=== PATIENT | male | born 1955 | race Caucasian/White ===

== ENCOUNTER 2024-05-02 21:52 | Inpatient (IN) | payer SELFPAY ==
[~2024-05-02] VITALS: Ht 172.7 cm; Wt 99.8 kg
--- NOTE | 2024-05-02 22:21 | ERN ---
ED Note History of Present Illness Stated Complaint: SOB, COUGH, DIFFICULTY SWALLOWING, WEAKNESS LE Chief Complaint: Multiple Complaints Time Seen by MD: 21:58 Time Seen by Midlevel: 21:58 Dictation: Mr. Mayo is a 68-year-old gentleman with history of recent mild stroke , atrial fibrillation, hypertension, hyperlipidemia, COPD, skin cancer (scalp closed), BPH, and urinary retention who was transported via EMS to the emergency department this evening for evaluation of cough. Patient states he was discharged this afternoon from [facility] where he had been admitted for approximately 10 days following mild stroke . He states that he has had congested cough, shortness of breath, and dysphasia. He states that he also has been I am unable to ambulate due to generalized weakness and worsening of his chronic lower back pain. He states that he did not receive physical therapy while in hospital and rehab was not an option . He also states that he had a Jung catheter placed proximally 7-10 days ago for urinary retention and at remains in place. He states he thinks he may have a low-grade fever as well as chills. He denies having any chest pain, palpitations, edema, abdominal pain, nausea, vomiting, diarrhea, headache, visual disturbance, focal weakness/paresthesia, or dizziness. ADDENDUM: He also expresses the following social concerns: He states he has a lack of his insurance coverage, he is having issues with his roommate, and he is worried about the care of his little dog Allergies: Coded Allergies: Penicillins (Verified Allergy, 03/08/13) Emergency Care COUNSELOR AIDE: IV, Oxygen Past Medical History Past Medical History: A-Fib, COPD, CVA, Diabetes-Type II, High Cholesterol, Hypertension Additional Past Medical Hx: BPH, SKIN CANCER, CHRONIC BACK PAIN, LUMBAR STENOSIS Surgical History: Tonsillectomy Social History: Other (Lives with a roommate) RN Note Reviewed/Agreed w/PFSH: Yes Review of System Dictation REVIEW OF SYSTEMS: CONSTITUTIONAL: Patient denies sweats and weight changes. Reports fever, chi lls, fatigue, general weakness EYES: Patient denies any visual symptoms. EARS, NOSE, AND THROAT: No difficulties with hearing. No symptoms of rhinitis or sore throat. CARDIOVASCULAR: Patient denies chest pains, palpitations, orthopnea and paroxys mal nocturnal dyspnea. RESPIRATORY: No dyspnea on exertion, no wheezing reports shortness of breath and cough GI: No nausea, vomiting, diarrhea, constipation, abdominal pain, hematochezia or melena. : Reports having urinary retention. States he has had a Jung catheter in place for approximately 10 days. MUSCULOSKELETAL: Reports worsening of low back pain, chronic. States he is unable to ambulate. NEUROLOGIC: No chronic headaches, no seizures. Patient denies numbness, tingling or weakness. Reports difficulty swallowing PSYCHIATRIC: Patient denies problems with mood disturbance. No problems with anxiety. ENDOCRINE: No excessive urination or excessive thirst. DERMATOLOGIC: Patient denies any rashes or skin changes. Initial Vital Sign VS Vital Signs Date Time Temp Pulse Resp B/P (MAP) Pulse Ox O2 Delivery O2 Flow Rate FiO2 05/02/24 21:54 99.9 92 20 120/71 98 Nasal Cannula* 2 28 Physical Exam Dictation Vital signs: Reviewed. afebrile. Constitutional: No acute distress. Non-toxic appearing. Head/Face: Normocephalic, atraumatic. Eyes: Periorbital areas with no swelling, redness, or edema. Lids and lashes are normal. Conjunctival injection is absent. Sclera anicteric. Pupils equal, round, reactive to light. ENT: Pinnas intact and no signs of trauma or erythema. Ear canals clear and no discharge. TMs no erythema. No nasal discharge or bleeding noted. Oropharynx with no exudate, redness, swelling, masses, exudates, or evidence of obstruction. Uvula midline. Mucous membranes dry Neck: Trachea midline, no masses palpated, and no cervical lymphadenopathy. No swelling. Supple, full range of motion. Chest/Axilla: No tenderness, no crepitus, no paradoxical movement, no retractions. Cardiovascular: Irregular rate, regular rhythm, no murmur, no gallops. Symmetric pulses. No peripheral edema. Twelve lead EKG reflects an atrial fibrillation with ventricular rate 97 Respiratory: Tachypneic; RR 22. Lung sounds with crackles right lower lobe. Congested cough noted. Room air SpO2 95% Gastrointestinal: Inspection is normal. No distention is appreciated. Bowel sounds are normal. No mass or organomegaly . There is no tenderness. No rebound. No rigidity. No voluntary or involuntary guarding. No Galvin's sign. Neurological: Normal speech, gross motor function intact, gross sensory function intact. No focal weakness/Paresthesia. Musculoskeletal/Extremities: All extremities have full range of motion, no pain or tenderness on palpation. Symmetric pulses. LE weakness bilaterally 2/5; UE 5/5 Integumentary: Scalp lesions (see photos); hx skin cancer. Skin is pale, warm and dry. Cap refill less than 3 seconds. Results (Laboratory/Radiology) Laboratory/Radiology Laboratory Tests Test 05/02/24 22:29 05/02/24 22:54 05/02/24 23:44 White Blood Count 16.4 K/uL (4.8-10.8) H Red Blood Count 4.65 MIL/uL (4.50-6.20) Hemoglobin 13.3 g/dL (14.0-18.0) L Hematocrit 41.1 % (42-54) L Mean Corpuscular Volume 88.4 fL (79-99) Mean Corpuscular Hemoglobin 28.6 pg (27.0-33.0) Mean Corpuscular Hemoglobin Concent 32.4 g/dL (32.0-36.0) Red Cell Distribution Width 15.1 % (11.0-15.5) Platelet Count 260 K/uL (130-400) Mean Platelet Volume 9.2 fL (7.5-10.5) Immature Granulocyte % (Auto) 0.7 % (0-1) Neutrophils (%) (Auto) 78.1 % (40.0-77.0) H Lymphocytes (%) (Auto) 9.4 % (21.0-51.0) L Monocytes (%) (Auto) 10.5 % (3.0-13.0) Eosinophils (%) (Auto) 0.8 % (0.0-8.0) Basophils (%) (Auto) 0.5 % (0.0-5.0) Neutrophils # (Auto) 12.8 K/uL (1.8-7.7) H Lymphocytes # (Auto) 1.5 K/uL (1.0-4.8) Monocytes # (Auto) 1.7 K/uL (0.1-1.0) H Eosinophils # (Auto) 0.13 K/uL (0.00-0.70) Basophils # (Auto) 0.08 K/uL (0.00-0.20) Absolute Immature Granulocyte (auto 0.12 K/uL (0-1) Nucleated Red Blood Cells 0.0 % (0.0-0.19) White Cell Morphology Comment See comments Sodium Level 132 mmol/L (136-145) L Potassium Level 5.4 mmol/L (3.5-5.1) H Chloride Level 95 mmol/L (101-111) L Carbon Dioxide Level 33 mmol/L (21-32) H Blood Urea Nitrogen 23 mg/dL (7-18) H Creatinine 0.8 mg/dL (0.5-1.3) Glomerular Filtration Rate Calc 95 mL/min (>90) Random Glucose 155 mg/dL (70-105) H Lactic Acid Level 1.9 mmol/L (0.8-2.5) Total Calcium 9.7 mg/dL (8.5-10.1) Total Bilirubin 0.5 mg/dL (0.2-1.0) Aspartate Amino Transf (AST/SGOT) 22 U/L (10-37) Alanine Aminotransferase (ALT/SGPT) 39 U/L (12-78) Alkaline Phosphatase 96 U/L (50-136) Troponin I High Sensitivity 6 ng/L (4-75) Total Protein 7.4 g/dL (6.0-8.3) Albumin 3.0 g/dL (3.5-5.0) L Urine Color YELLOW (YELLOW) Urine Appearance CLOUDY (CLEAR) H Urine pH 6.0 (5.0-8.0) Urine Specific Goodman 1.022 (1.001-1.031) Urine Protein 20 mg/dL (NEGATIVE) H Urine Glucose (UA) NEGATIVE mg/dL (NEGATIVE) Urine Ketones NEGATIVE mg/dL (NEGATIVE) Urine Occult Blood LARGE (NEGATIVE) H Urine Nitrate NEGATIVE (NEGATIVE) Urine Bilirubin NEGATIVE mg/dL (NEGATIVE) Urine Urobilinogen 2.0 mg/dL (0.2-1.0) H Urine Leukocyte Esterase NEGATIVE Gilberto/uL Blood Gas Specimen Type Arterial Arterial Blood pH 7.463 (7.350-7.450) Arterial Blood Partial Pressure CO2 32 mmHg (35-48) L Arterial Blood Partial Pressure O2 113.3 mmHg (83.0-108.0) H Arterial Blood HCO3 22.3 mmol/L (21.0-28.0) Arterial Blood Oxygen Saturation 98.2 % (94.0-98.0) H Arterial Blood Base Excess -0.6 mmol/L (-2.0-3.0) Hemoglobin (Blood Gas) 13.7 g/dL (13.5-17.5) Sodium (Blood Gas) 135 MMOL/L (136-145) L Bedside Potassium (Blood Gas) 4.4 MMOL/L (3.4-4.5) Bedside Chloride (Blood Gas) 100 MMOL/L (98-107) Bedside Glucose (Blood Gas) 139 MG/DL (65-95) H Bedside Ionized Calcium (Blood Gas) 1.24 MMOL/L (1.15-1.33) Bedside Lactic Acid (Blood Gas) 1.11 MMOL/L (0.36-0.75) H Blood Gas Temperature 37.0 CELSIUS (35.5-37.0) Blood Gas Flow-by 2.00 L/min (0.00-15.00) Blood Gas Vent Mode 2LNC (ROOM AIR) FiO2 28.0 % Blood Gas Specimen Comment RR RN Labs Reviewed?: Yes EKG Comment: EKG Interpretation: Time Reviewed: 2226 Ventricular rate: 97 bpm QRS duration: [address] segment elevation or depression. Clinical impression: Atrial fibrillation EKG Reviewed and interpreted by: Esvin Wu X-RAY Comment: PATIENT: DAYANA MAYO MR#: [id number] : 1955 SEX: M AGE: 68 LOCATION: [facility] ORDER 19 STATUS: [facility] REPORT#: [id number] SERVICE 15 REASON: cough, suspect aspiration ORDERING PHYSICIAN: JAVAD GALLO NP PROCEDURE: CXR1VW - CHEST 1VW CHEST 1VW HISTORY: Cough COMPARISON: 03/16/2013 FINDINGS: A frontal projection of the chest was obtained. Mild bilateral pulmonary infiltrates are seen may be related to mild pulmonary vascular congestion with possible superimposed pneumonitis. The heart is enlarged. Degenerative changes are seen. No evidence of aortic calcification is seen. IMPRESSION: 1. Mild bilateral pulmonary infiltrates are seen may be related to mild pulmonary vascular congestion with possible superimposed pneumonitis. DICTATED BY: GALE MIR MD DATE: 05/02/249 ELECTRONICALLY SIGNED BY: GALE MIR MD DATE: 05/02/24 2311 ED Course ED Course Orders Procedure Category Date Status Time Zosyn 3.375gm+Ns 50ml PHA 05/02/24 Complete (Zosyn 3.375gm+Ns 23:30 Hydromorphone 0.5mg PHA 05/02/24 Complete Syg (Dilaudid 0.5mg 22:30 Chest 1vw RAD 05/02/24 Resulted 22:16 Blood Cult CORINA 05/02/24 In Process 22:16 Cbc With Differential LAB 05/02/24 Complete 22:16 Comprehensive LAB 05/02/24 Complete Metabolic Panel 22:16 Urinalysis Profile LAB 05/02/24 In Process 22:16 Troponin I High LAB 05/02/24 Complete Sensitivity 22:16 Lactic Acid LAB 05/02/24 Complete 22:16 12 Lead Ekg Tracing- EKG 05/02/24 Logged Technical 22:21 B-Type Natriuretic LAB 05/02/24 In Process Peptide 23:11 D-Dimer LAB 05/02/24 In Process 23:11 Arterial Blood Gas + RT 05/02/24 Transmitted 23:14 Arterial Blood Gas LAB 05/02/24 Complete Arterial + 23:44 Current Medications Medications (Trade) Dose Ordered Sig/Beau Route PRN Reason Start Time Stop Time Status Last Admin Dose Admin Hydromorphone HCl (DiLAUDid 0.5MG INJ) 0.5 mg ONCE ONCE IVP 05/02/24 22:30 05/02/24 22:31 DC 05/02/24 23:23 Piperacillin Sod/ Tazobactam Sod (Zosyn 3.375gm+NS 50ml) 3.375 gm ONCE ONCE IV 05/02/24 23:30 05/02/24 23:38 DC Vital Signs Date Time Temp Pulse Resp B/P (MAP) Pulse Ox O2 Delivery O2 Flow Rate FiO2 05/02/24 22:24 99.9 77 20 123/58 97 Nasal Cannula* 2 28 05/02/24 21:56 99.9 92 20 120/71 98 Nasal Cannula 2.0 05/02/24 21:54 99.9 92 20 120/71 98 Nasal Cannula* 05 07 Vital signs remained stable. SpO2 maintain 97-98% with supplemental oxygen via nasal cannula at 2 liters/minute. Chest x-ray revealed mild bilateral infiltrates. Twelve lead EKG reflects atrial fibrillation (not new); ventricular rate [address] elevation or depression. He continues to complain congested cough and difficulty swallowing. Was administered dose Zosyn 3.375 g x 1 for suspected aspiration pneumonia. He received dose Dilaudid 0.5 x 1 for complains of low back pain. Laboratory findings as noted below. WBCs elevated at 16.4, H and H 13.3/41.1, Na/Cl 132/95, K 5.4, CO2 33, BUN 23, albumin three, and glucose 155. ABG on 2 L nasal cannula demonstrates a chronic respiratory alkalosis with secondary metabolic alkalosis: PH 7.463, pCO2 32, PO2 113.3, bicarb 22.3, and base excess -0.6. Findings were discussed with catalyst COLOR SPECIALIST Aleah who accepts patient for admission to the hospitalist service. Medical Decision Making MDM MDM: Differential diagnosis: HAP, aspiration pneumonia, Hypoxemia Rationale: Tests considered and ordered secondary to shared decision making include: labs, ECG and radiology Previous outside records reviewed: Old ER visits. Risk of complication and/or morbidity or mortality of patient management: None Medications-Per medication reconciliation Need for hospitalization: Patient does meet criteria for hospitalization. Need for emergency major/minor surgery: No There are no social concerns with this patient. Prescription drug management Prescriptions will include symptomatic care Patient's prior external medical records from other ER visits were reviewed by me as indicated. Prior testing and results from previous visits were reviewed. Prior tests were taken into account with medical decision making and resource utilization, independent historian/historians were used to obtain complete medical history. I independently interpreted the test that were performed, results were reviewed by me and considered findings on radiology if ordered. Medical management and examination interpretation discussions were had by me with other qualified healthcare professionals as indicated for the patient's care. DX & DISP Disposition: Inpatient Departure Impression: Primary Impression: Pneumonia, aspiration Additional Impressions: Dysphagia, Failure to thrive in adult, Hyperkalemia, Physical debility, Leukocytosis Condition: Stable Assign Patient to: Dr. Rachid Gómez Referrals: SELF,REFERRAL (PCP) JAVAD GALLO NP May 02, 2024 22:21
--- NOTE | 2024-05-02 22:24 | NUR ---
PT CARE ASSUMED AT THIS TIME
[2024-05-02 22:38] LABS: BASOPHILS # (AUTO) 0.08 K/uL (0.00-0.20); BASOPHILS % (AUTO) 0.5 % (0.0-5.0); EOSINOPHILS # (AUTO) 0.13 K/uL (0.00-0.70); EOSINOPHILS % (AUTO) 0.8 % (0.0-8.0); HEMATOCRIT 41.1 % (42-54); IMMATURE GRANULOCYTE ABSOLUTE 0.12 K/uL (0-1); LYMPHOCYTES # (AUTO) 1.5 K/uL (1.0-4.8); LYMPHOCYTES % (AUTO) 9.4 % (21.0-51.0); MEAN CORPUSCULAR HEMOGLOBIN 28.6 pg (27.0-33.0); MEAN CORPUSCULAR HGB CONC 32.4 g/dL (32.0-36.0); MEAN CORPUSCULAR VOLUME 88.4 fL (79-99); MONOCYTES # (AUTO) 1.7 K/uL (0.1-1.0); MONOCYTES % (AUTO) 10.5 % (3.0-13.0); NEUTROPHILS # (AUTO) 12.8 K/uL (1.8-7.7); NEUTROPHILS % (AUTO) 78.1 % (40.0-77.0); PLATELET COUNT (AUTO) 260 K/uL (130-400); RED BLOOD CELL COUNT(AUTO) 4.65 MIL/uL (4.50-6.20); RED CELL DISTRIBUTION WIDTH 15.1 % (11.0-15.5); WHITE BLOOD COUNT (AUTO) 16.4 K/uL (4.8-10.8)
[2024-05-02 22:51] LABS: CREATININE 0.8 mg/dL (0.5-1.3); POTASSIUM 5.4 mmol/L (3.5-5.1)
[2024-05-02 22:56] LABS: BILIRUBIN,TOTAL 0.5 mg/dL (0.2-1.0); TOTAL PROTEIN, SERUM 7.4 g/dL (6.0-8.3)
--- NOTE | 2024-05-02 23:11 | HMCIMG ---
CHEST 1VW HISTORY: Cough COMPARISON: 03/16/2013 FINDINGS: A frontal projection of the chest was obtained. Mild bilateral pulmonary infiltrates are seen may be related to mild pulmonary vascular congestion with possible superimposed pneumonitis. The heart is enlarged. Degenerative changes are seen. No evidence of aortic calcification is seen. IMPRESSION: 1. Mild bilateral pulmonary infiltrates are seen may be related to mild pulmonary vascular congestion with possible superimposed pneumonitis.
--- NOTE | 2024-05-02 23:17 | NUR ---
PAGED RT FOR BEDSIDE BLOOD GAS
[2024-05-02] MEDS: hydroMORPHone 0.5 MG SYG (0.5MG/0.5ML) IVP ONE (23:23)
[2024-05-02 23:44] LABS: APPEARANCE,URINE CLOUDY (CLEAR); BILIRUBIN,URINE NEGATIVE (NEGATIVE); COLOR,URINE YELLOW (YELLOW); GLUCOSE, URINE (UA) NEGATIVE (NEGATIVE); KETONES,URINE NEGATIVE (NEGATIVE); LEUKOCYTE ESTERASE ,URINE NEGATIVE Leu/uL (NEGATIVE); NITRATE,URINE NEGATIVE (NEGATIVE); OCCULT BLOOD,URINE LARGE (NEGATIVE); PROTEIN,URINE 20 mg/dL (NEGATIVE)
[2024-05-02 23:46] LABS: ABG BASE EXCESS -0.6 mmol/L (-2.0-3.0); ABG HCO3 22.3 mmol/L (21.0-28.0); ABG OXYGEN SATURATION 98.2 % (94.0-98.0); ABG PCO2 32 mmHg (35-48); ABG PH 7.463 (7.350-7.450); CARBON MONOXIDE 0.5 % (0.5-1.5); DEVICE COMMENT RR RN; HHb 1.8; PO2, ARTERIAL BG 113.3 mmHg (83.0-108.0); VENT MODE, BG 2LNC (ROOM AIR)
--- NOTE | 2024-05-02 23:47 | HP ---
[facility] HISTORY AND PHYSICAL Date of Service: May 02, 2024 Time of Service: 23:47 Attending/supervising physicians: Dr. Rodriguez, Dr. Yeyo Mercado, Dr. Osorio HISTORY OF PRESENT ILLNESS: Mr. Marshall is a 68-year-old male with history of recent mild stroke", atrial fibrillation, hypertension, hyperlipidemia, COPD, skin cancer (scalp closed), BPH, and urinary retention who presented [place] [facility] via EMS for evaluation of cough, dysphagia, shortness of breath, and general body weakness. The patient also reported he is unable to ambulate due to generalized weakness and worsening chronic back pain. Patient reported he was admitted at [facility] in [place], [place] where he experienced a CVA inpatient. The patient reported he was discharged and returned back to [facility] due to no improvement of symptoms. He was was discharged this afternoon again from [facility] [place] [facility] where he had been readmitted for approximately 10 days. He stated that he did not receive physical therapy while in hospital and rehab was not an option". He also stated that he had a Jung catheter placed proximally 7-10 days ago for urinary retention and it remains in place. He stated he thinks he may have a low-grade fever as well as chills. He denied having any chest pain, palpitations, edema, abdominal pain, nausea, vomiting, diarrhea, headache, visual disturbance, focal weakn ess/paresthesia, or dizziness. The patient reported that on his last admission to [facility] [place] [facility] the admitting hospitalist and development technician were not nice which prompted him to come to [facility] instead this time. Labs: WBCs elevated at 16.4, H and H 13.3/41.1, Na/Cl 132/95, K 5.4, CO2 33, BUN 23, albumin three, and glucose 155. ABG on 2 L nasal cannula: PH 7.463, pCO2 32, PO2 113.3, bicarb 22.3, and base excess -0.6. EKG: Atrial fibrillation, heart rate 97 beats per minute. Chest x-ray: Mild bilateral pulmonary infiltrates are seen may be related to mild pulmonary vascular congestion with possible superimposed pneumonitis. In ED the patient continue to complain congestion, cough, and difficulty swallowing. In ED the patient was administered dose Zosyn 3.375 g x 1 for bledsoe spected aspiration pneumonia. He received dose Dilaudid 0.5 Mg x 1 dose for complains of low back pain. ED provider request patient be admitted with the diagnosis of suspected aspiration pneumonia, dysphagia, failure to thrive in adult, hyperkalemia, physical debility, leukocytosis. I went to assess the patient at bedside. The patient appeared chronically ill, breathing was even and unlabored, in no distress. Patient was conversive, answered appropriately. I informed patient of labs, diagnostics, and plan of care. The patient verbalized understanding and is in agreement with the plan. Plan and assessment are listed below. REVIEW OF SYSTEMS 12-point ROS reviewed with patient. All pertinent positives mentioned above. Otherwise negative, noncontributory, or non-pertinent. PAST MEDICAL HISTORY: As mentioned above PAST SURGICAL HISTORY: Tonsillectomy PAST SOCIAL HISTORY: Denies tobacco, alcohol use, illicit drug use. Lives with roommate. FAMILY HISTORY: Noncontributory Coded Allergies: Penicillins (Verified Allergy, 03/08/13) PHYSICAL EXAM GENERAL APPEARANCE: The patient is awake, alert, and oriented, in no acute cardiopulmonary distress. NEUROLOGICAL: Cranial nerves II-XII grossly intact. Motor is 5/5 in bilateral upper and lower extremities proximal to distal. No sensory deficits. HEENT: Face is symmetric. Pupils are equal and reactive. Extraocular movements are intact. NECK: Supple. No JVD. No thyromegaly. No submental, submandibular, pre- /postauricular, occipital or supraclavicular lymphadenopathy. CHEST: Normal chest expansion. No Telemetry. LUNGS: Absence of any rales, rhonchi or any wheezing. CARDIOVASCULAR: Regular. S1 and S2 normal. No appreciable rubs, murmurs or g allops. ABDOMEN: Soft, nontender, and nondistended. There is no rebound, voluntary gua rding, or rigidity. : Deferred. No Jung. EXTREMITIES: Non-edematous and not cyanotic. No clubbing. Good capillary refill. SKIN: No skin breakdown. Vital Sign (Last 24 Hours) 05/02/24 22:24 Temp 99.9 Pulse 77 Resp 20 B/P (MAP) 123/58 Pulse Ox 97 O2 Delivery Nasal Cannula* O2 Flow Rate 2 FiO2 28 LABS: Laboratory: Test 05/02/24 23:44 05/02/24 22:29 Range/Units Blood Gas Specimen Type Arterial Arterial Blood pH 7.463 H 7.350-7.450 Arterial Blood Partial Pressure CO2 32 L 35-48 mmHg Arterial Blood Partial Pressure O2 113.3 H 83.0-108.0 mmHg Arterial Blood HCO3 22.3 21.0-28.0 mmol/L Arterial Blood Oxygen Saturation 98.2 H 94.0-98.0 % Arterial Blood Base Excess -0.6 -2.0-3.0 mmol/L Hemoglobin (Blood Gas) 13.7 13.5-17.5 g/dL Sodium (Blood Gas) 135 L 136-145 MMOL/L Bedside Potassium (Blood Gas) 4.4 3.4-4.5 MMOL/L Bedside Chloride (Blood Gas) 100 98-107 MMOL/L Bedside Glucose (Blood Gas) 139 H 65-95 MG/DL Bedside Ionized Calcium (Blood Gas) 1.24 1.15-1.33 MMOL/L Bedside Lactic Acid (Blood Gas) 1.11 H 0.36-0.75 MMOL/L Blood Gas Temperature 37.0 35.5-37.0 CELSIUS Blood Gas Flow-by 2.00 0.00-15.00 L/min Blood Gas Vent Mode 2LNC ROOM AIR FiO2 28.0 % Blood Gas Specimen Comment RR RN White Blood Count 16.4 H 4.8-10.8 K/uL Red Blood Count 4.65 4.50-6.20 MIL/uL Hemoglobin 13.3 L 14.0-18.0 g/dL Hematocrit 41.1 L 42-54 % Mean Corpuscular Volume 88.4 79-99 fL Mean Corpuscular Hemoglobin 28.6 27.0-33.0 pg Mean Corpuscular Hemoglobin Concent 32.4 32.0-36.0 g/dL Red Cell Distribution Width 15.1 11.0-15.5 % Platelet Count 260 130-400 K/uL Mean Platelet Volume 9.2 7.5-10.5 fL Immature Granulocyte % (Auto) 0.7 0-1 % Neutrophils (%) (Auto) 78.1 H 40.0-77.0 % Lymphocytes (%) (Auto) 9.4 L 21.0-51.0 % Monocytes (%) (Auto) 10.5 3.0-13.0 % Eosinophils (%) (Auto) 0.8 0.0-8.0 % Basophils (%) (Auto) 0.5 0.0-5.0 % Neutrophils # (Auto) 12.8 H 1.8-7.7 K/uL Lymphocytes # (Auto) 1.5 1.0-4.8 K/uL Monocytes # (Auto) 1.7 H 0.1-1.0 K/uL Eosinophils # (Auto) 0.13 0.00-0.70 K/uL Basophils # (Auto) 0.08 0.00-0.20 K/uL Absolute Immature Granulocyte (auto 0.12 0-1 K/uL Nucleated Red Blood Cells 0.0 0.0-0.19 % White Cell Morphology Comment See comments Sodium Level 132 L 136-145 mmol/L Potassium Level 5.4 H 3.5-5.1 mmol/L Chloride Level 95 L 101-111 mmol/L Carbon Dioxide Level 33 H 21-32 mmol/L Blood Urea Nitrogen 23 H 7-18 mg/dL Creatinine 0.8 0.5-1.3 mg/dL Glomerular Filtration Rate Calc 95 >90 mL/min Random Glucose 155 H 70-105 mg/dL Lactic Acid Level 1.9 0.8-2.5 mmol/L Total Calcium 9.7 8.5-10.1 mg/dL Total Bilirubin 0.5 0.2-1.0 mg/dL Aspartate Amino Transf (AST/SGOT) 22 10-37 U/L Alanine Aminotransferase (ALT/SGPT) 39 12-78 U/L Alkaline Phosphatase 96 50-136 U/L Troponin I High Sensitivity 6 4-75 ng/L Total Protein 7.4 6.0-8.3 g/dL Albumin 3.0 L 3.5-5.0 g/dL DIAGNOSTICS / RADIOLOGY: [ ] ASSESSMENT: Pneumonia, (suspected aspiration pneumonia), POA Elevated D-dimer, PE was ruled out, rule out DVT Dysphagia, POA Failure to thrive, POA Debility/frailty/general body weakness, POA Hematuria, POA, Jung catheter in place TENDERIZER TENDER Atrial fibrillation, 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 Obesity, BMI 38.0. Chronic problem list: AFib, hypertension, hyperlipidemia, COPD, skin cancer to scalp, BPH, urinary retention s/p Jung placement about 7-10 days ago at [facility] [place] [facility]. PLAN: Admit to medical telemetry floor with continue telemetry monitoring. Monitor respiratory status closely. Oxygen as needed to keep SpO2 equal greater than 92%. Albuterol p.r.n. shortness of breath. Atrovent nebulizer treatments scheduled q.6 hours. RT to provide IS and education on use. Cough and deep breathe q.2 hours. Obtain sputum cultures. Follow blood cultures. Start antibiotic therapy: Zosyn IV Deescalate antibiotics when appropriate. Start physical therapy as inpatient. Consult case management for SNF placement for physical therapy. Modified swallow test. Trop and EKG series Echo in am. Strict I&O. Fluid restriction 1,200 mls. P.r.n. medications for: Pain management, fever, hypertension, nausea, vomiting, constipation. Glucometer checks a.c. and HS with insulin regular sliding scale. Blood pressure checks every4 hours and as needed. Reconcile home medications once provided. Monitor renal and liver function. Monitor electrolytes and treat accordingly. A.m. labs: CBC, BNP, Mag, phos, TSH, A1c, procal. GI and DVT prophylaxis. Pending venous Doppler and arterial Doppler results. Further orders per hospitalization course. ADVANCED CARE PLANNING 1. Which of the following were discussed? Hospice Care - No Therapeutic options - Yes Advance Directives - Yes Other discussions - 2. Discussed with who? Patient 3. Voluntary nature of this service was explained to the patient? Yes 4. Amount of time spent - __Over 30 minutes 5. Reviewed by Physician? (if this service was performed by [facility]) Yes ATTESTATION BY PHYSICIAN I have seen and examined the patient. I reviewed the documentation, medical decision making, and treatment plan as noted by the advanced practice provider above. I agree with the findings and plan of care. DEMOND HOGAN May 02, 2024 23:47
[2024-05-02 23:48] LABS: ADD UA MICROSCOPIC YES
[2024-05-02 23:53] LABS: RBC,URINE TNTC /HPF (0-1)
[2024-05-03] VITALS (10 sets, daily range): BP systolic 104–131; BP diastolic 63–73; PULSE 67–102; RESP 18–20; TEMP 97.6–98.2; O2SAT 95–100
[2024-05-03] MEDS: ZOSYN 3.375GM +NS 50ML IV ONE (00:01)
--- NOTE | 2024-05-03 00:15 | NUR ---
PT PLACED IN ED ROOM 2 AT THIS TIME
[2024-05-03] MEDS ORDERED: IOHEXOL 350 MG/ML 100ML INFUS..BTL IV ONE (00:40)
[2024-05-03] MEDS ORDERED: ondanSETRON 4MG INJ IVP PRN (01:00)
[2024-05-03] MEDS ORDERED: hydrALAZine 20MG/ML VIAL IV PRN (01:00)
[2024-05-03] MEDS ORDERED: acetaMINOPHEN 650 MG SUPPOSITORY RC PRN (01:00)
--- NOTE | 2024-05-03 01:40 | HMCIMG ---
CT CHEST PE PROTOCOL WWO CONT HISTORY: Shortness of breath COMPARISON: 03/14/2013 TECHNIQUE: CT angiography of the chest was performed. The study was performed using angiographic technique with maximum intensity projection reconstruction images. Patient was given shortness of breath cc of Omnipaque through intravenous route. FINDINGS: Thyroid gland is enlarged may be related to goiter. No CT evidence of filling defect is seen to suggest pulmonary embolus. No CT evidence of aortic dissection is seen. Minimal left lower lung pulmonary infiltrates are seen. No CT evidence of pleural effusion or pericardial effusion is seen. The heart is enlarged. Coronary arterial calcifications are seen. No evidence of adrenal mass is seen. Degenerative changes of the spine are noted. IMPRESSION: 1. No CT evidence of acute pulmonary embolus is seen. Minimal left lower lung pulmonary infiltrates. CT was performed with one or more following dose reduction techniques: automated exposure control, adjustment of the mA and kv according to patient's size, or use of a iterative reconstruction technique.
--- NOTE | 2024-05-03 01:47 | NUR ---
REPORT GIVEN TO CHLOE DAVIES AT THIS TIME
[2024-05-03 02:24] LABS: SARS-CoV-2, RNA, NAAT NEGATIVE SARS CoV-2 (NEGATIVE)
[2024-05-03 02:28] LABS: INFLUENZA TYPE A Negative For Type A (NEGATIVE); INFLUENZA TYPE B Negative For Type B (NEGATIVE)
[2024-05-03] MEDS: APIXaban 5 MG TABLET PO ONE ×2 (04:00→16:21)
[2024-05-03] MEDS: INSULIN humuLIN R 100 UNIT/ML 3ML SQ SCH (05:47)
[2024-05-03] MEDS: HYDROcodone/APAP 5/325 1 TAB TABLET PO PRN (05:50)
[2024-05-03] MEDS: IpraTROPium 0.5 MG/2.5 ML INH IH SCH (06:36)
[2024-05-03] MEDS: SODIUM CHLORIDE 3% FOR INHALATION 4 ML/AMP VIAL.NEB IH ONE ×3 (06:58→19:17)
--- NOTE | 2024-05-03 07:06 | EKG ---
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
--- NOTE | 2024-05-03 07:20 | NUR ---
ADMITTING PAGED TO REPORT V\S CHANGES
[2024-05-03] MEDS ORDERED: 0.9%NACL 50ML IV SCH (07:30)
[2024-05-03] MEDS: ZOSYN 3.375GM +NS 50ML IVPB SCH (08:11)
[2024-05-03 08:14] LABS: HEMATOCRIT 40.8 % (42-54); MEAN CORPUSCULAR HEMOGLOBIN 28.6 pg (27.0-33.0); MEAN CORPUSCULAR HGB CONC 32.1 g/dL (32.0-36.0); MEAN CORPUSCULAR VOLUME 89.1 fL (79-99); RED BLOOD CELL COUNT(AUTO) 4.58 MIL/uL (4.50-6.20); RED CELL DISTRIBUTION WIDTH 15.2 % (11.0-15.5); WHITE BLOOD COUNT (AUTO) 12.3 K/uL (4.8-10.8)
[2024-05-03 08:21] LABS: HEMOGLOBIN A1C 6.7 % (4.0-6.0)
--- NOTE | 2024-05-03 08:27 | NUR ---
APS CALL RECEIVED. Addendum: 05/03/24 at 0845 by [email or web address] APS KIM) CALLED SN REGARDING PATIENT STATUS AND ADMISSION.
[2024-05-03 08:59] LABS: ALBUMIN 2.8 g/dL (3.5-5.0); BILIRUBIN,TOTAL 0.8 mg/dL (0.2-1.0); CREATININE 0.8 mg/dL (0.5-1.3); MAGNESIUM 1.9 mg/dL (1.80-2.40); PHOSPHORUS 3.7 mg/dL (2.5-4.9); POTASSIUM 4.7 mmol/L (3.5-5.1); THYROID STIMULATING HORMONE 0.97 uIU/mL (0.36-3.74)
[2024-05-03] MEDS: 0.9%NACL 1000ML 1,000 ML IV SCH (10:00)
[2024-05-03] MEDS ORDERED: NOREPINEPHRIN 4MG/NS 250ML 250 ML IV SCH (10:00)
[2024-05-03] MEDS: 0.9%NACL 1000ML 1,368 ML IV ONE (10:06)
[2024-05-03] MEDS: NOREPINEPHRIN 4MG/NS 250ML 250 ML IV ONE (10:07)
[2024-05-03] MEDS: DOXYCYCLINE 100MG+NS 250ML 250 ML IV SCH (10:12)
--- NOTE | 2024-05-03 10:30 | HMCIMG ---
US VENOUS DOPPLER BILATERAL HISTORY: Elevated d-dimer COMPARISON: None TECHNIQUE: Bilateral lower extremity venous Doppler ultrasound study was performed. FINDINGS: The common femoral, femoral, popliteal, and posterior tibial veins are visualized. Normal flow with augmentation and compressibilities are demonstrated. The greater saphenous veins are also seen and grossly patent. IMPRESSION: 1. No evidence of deep venous thrombosis is seen.
--- NOTE | 2024-05-03 10:30 | HMCIMG ---
US ARTERIAL BILAT LOW EXT DUPL HISTORY: Cold right lower extremity COMPARISON: None TECHNIQUE: Bilateral lower extremity arterial Doppler ultrasound study was performed. FINDINGS: Normal triphasic arterial waveforms are noted in the common femoral, deep femoral, superficial femoral, popliteal, posterior tibial and dorsalis pedal arteries. On the right, the peak systolic velocity of the common femoral artery is 131 cm/s, the proximal femoral artery is 72 cm/s, the mid femoral artery is 48 cm/s, the distal femoral artery is 59 cm/s, the proximal popliteal artery is 44 cm/s, the distal popliteal artery is 73 cm/s, the anterior tibial artery is 34 cm/s, the posterior tibial artery artery is 69 cm/s,and the dorsalis pedal artery is 65 cm/s. On the left, the peak systolic velocity of the common femoral artery is 125 cm/s, the proximal femoral artery is 89 cm/s, the mid femoral artery is 45 cm/s, the distal femoral artery is 75 cm/s, the proximal popliteal artery is 78 cm/s, the distal popliteal artery is 64 cm/s, the anterior tibial artery is 100 cm/s, the posterior tibial artery artery is 90 cm/s,and the dorsalis pedal artery is 86 cm/s. IMPRESSION: 1. Atherosclerotic disease. 2. Otherwise normal triphasic arterial waveforms noted of the lower extremity artery system.
--- NOTE | 2024-05-03 11:27 | NUR ---
DCP Patient states lives with a roommate that is "no help;" Ginna Shaffer, Friend [phone] is a family friend and neighbor that assists with transportation or in case of an emergency. live in a house own by his parent's, it has a walk in shower with a bench. Physical address: [address], [address]. States he is retired, remains independent and does not drive. [facility] ADL's are some assist. States he has a cane, an old walker with a seat "needs replacing." Referred him to PCP for prescription but [facility] in [place] closed and has not found a PCP. Denies home health services, home care provider or dialysis. PCP - None Pharmacy - [facility]. Upon discharge, Ginna Shaffer, Friend [phone] will help with transportation, if not her, "I can find someone." Per Sita JAUREGUI RN, [facility] Ritu FIGUEREDO contacted her to ask questions about patient and admission. [facility] patient lesion on the head is due to lesion removal and was being treated by [facility]. In her opinion, lesion seems dry and untreated. Notified GISELLE Gonzales. Addendum: 05/03/24 at 1140 by JIM JEAN RN CM Amended: Links added.
[2024-05-03] MEDS ORDERED: PoTASSium chloRIDE 20MEQ/100ML 100 ML IV PRN (13:30)
--- NOTE | 2024-05-03 13:36 | PN ---
[facility] PROGRESS NOTE Date of Service: May 03, 2024 Time of Service: 13:35 SUBJECTIVE: Mr. Mayo is a 68-year-old male with history of recent mild stroke", atrial fibrillation, hypertension, hyperlipidemia, COPD, skin cancer (scalp closed), BPH, and urinary retention who presented to [facility] via EMS for evaluation of cough, dysphagia, shortness of breath, and general body weakness. The patient also reported he is unable to ambulate due to generalized weakness and worsening chronic back pain. Patient reported he was admitted at [facility] in [place], [place] where he experienced a CVA inpatient. The patient reported he was discharged and returned back to [facility] due to no improvement of symptoms. He was was discharged this a fternoon again from [facility] where he had been readmitted for approximately 10 days. He stated that he did not receive physical therapy while in hospital and rehab was not an option". He also stated that he had a Jung catheter placed proximally 7-10 days ago for urinary retention and it remains in place. He stated he thinks he may have a low-grade fever as well as chills. He denied having any chest pain, palpitations, edema, abdominal pain, nausea, vomiting, diarrhea, headache, visual disturbance, focal weakness/paresthesia, or dizziness. The patient reported that on his last admission to [facility] the admitting hospitalist and community services coordinator were not nice which prompted him to come to [facility] instead this time. Labs: WBCs elevated at 16.4, H and H 13.3/41.1, Na/Cl 132/95, K 5.4, CO2 33, BUN 23, albumin three, and glucose 155. ABG on 2 L nasal cannula: PH 7.463, pCO2 32, PO2 113.3, bicarb 22.3, and base excess -0.6. EKG: Atrial fibrillation, heart rate 97 beats per minute. Chest x-ray: Mild bilateral pulmonary infiltrates are seen may be related to mild pulmonary vascular congestion with possible superimposed pneumonitis. In ED the patient continue to complain congestion, cough, and difficulty swallowing. In ED the patient was administered dose Zosyn 3.375 g x 1 for suspected aspiration pneumonia. He received dose Dilaudid 0.5 Mg x 1 dose for complains of low back pain. ED provider request patient be admitted with the diagnosis of suspected aspiration pneumonia, dysphagia, failure to thrive in adult, hyperkalemia, physical debility, leukocytosis. I went to assess the patient at bedside. The patient appeared chronically ill, breathing was even and unlabored, in no distress. Patient was conversive, answered appropriately. I informed patient of labs, diagnostics, and plan of care. The patient verbalized understanding and is in agreement with the plan. Plan and assessment are listed below. May 03, 2024 The patient was examined at the bedside. His shortness of breath slightly impr kaylin with oxygen saturation of PaO2 of 99% on nasal cannula 2.0. Patient had low MEP a and his blood pressure is at 79 /43 which was improved to 100 x 60 after an IV NS bolus at 30 cc kg per body weight. Evaluating further causes of his chest pain, his WBC count remains elevated at at 12.4 And no overnight events reported. monitoring him and treating him for pneumonia. Pulmonary embolism ruled out due to a negative chest CT scan and a negative ultrasound venous Doppler scan. REVIEW OF SYSTEMS 12-point ROS reviewed with patient. All pertinent positives mentioned above. Otherwise negative, noncontributory, or non-pertinent. PHYSICAL EXAM GENERAL APPEARANCE: The patient is awake, alert, and oriented, in no acute cardiopulmonary distress. NEUROLOGICAL: Cranial nerves II-XII grossly intact. Motor is 5/5 in bilateral upper and lower extremities proximal to distal. No sensory deficits. HEENT: Face is symmetric. Pupils are equal and reactive. Extraocular movements are intact. NECK: Supple. No JVD. No thyromegaly. No submental, submandibular, pre-/postauricular, occipital or supraclavicular lymphadenopathy. CHEST: Normal chest expansion. No Telemetry. LUNGS: Absence of any rales, rhonchi or any wheezing. CARDIOVASCULAR: Regular. S1 and S2 normal. No appreciable rubs, murmurs or gallops. ABDOMEN: Soft, nontender, and nondistended. There is no rebound, voluntary guarding, or rigidity. : Deferred. No Jung. EXTREMITIES: Non-edematous and not cyanotic. No clubbing. Good capillary refill. SKIN: No skin breakdown. Vital Signs (last 8hr) Date Time Temp Pulse Resp B/P (MAP) Pulse Ox O2 Delivery O2 Flow Rate FiO2 05/03/24 12:11 100 20 05/03/24 08:00 95 15 98/58 100 Nasal Cannula* 2.0 N/A 05/03/24 07:20 98.1 95 16 100/60 99 Nasal Cannula* 2.0 N/A 05/03/24 06:41 85 20 05/03/24 06:41 85 20 N/Cannula Low lpm 2.0 LABS: Laboratory: Test 05/03/24 12:40 05/03/24 10:13 05/03/24 07:43 05/03/24 02:00 Range/Units Whole Blood Glucose 80 70-110 MG/DL Lactic Acid Level 1.2 0.8-2.5 mmol/L B-Type Natriuretic Peptide 83 0-100 pg/mL Procalcitonin 0.78 H 0.05-0.5 ng/mL White Blood Count 12.3 H 4.8-10.8 K/uL Red Blood Count 4.58 4.50-6.20 MIL/uL Hemoglobin 13.1 L 14.0-18.0 g/dL Hematocrit 40.8 L 42-54 % Mean Corpuscular Volume 89.1 79-99 fL Mean Corpuscular Hemoglobin 28.6 27.0-33.0 pg Mean Corpuscular Hemoglobin Concent 32.1 32.0-36.0 g/dL Red Cell Distribution Width 15.2 11.0-15.5 % Platelet Count 253 130-400 K/uL Mean Platelet Volume 9.4 7.5-10.5 fL Nucleated Red Blood Cells 0.0 0.0-0.19 % Sodium Level 132 L 136-145 mmol/L Potassium Level 4.7 3.5-5.1 mmol/L Chloride Level 100 L 101-111 mmol/L Carbon Dioxide Level 32 21-32 mmol/L Blood Urea Nitrogen 17 7-18 mg/dL Creatinine 0.8 0.5-1.3 mg/dL Glomerular Filtration Rate Calc 95 >90 mL/min Random Glucose 126 H 70-105 mg/dL Hemoglobin A1c 6.7 H 4.0-6.0 % Estimated Average Glucose (eAG) 146 H 70-126 mg/dL Total Calcium 9.5 8.5-10.1 mg/dL Phosphorus Level 3.7 2.5-4.9 mg/dL Magnesium Level 1.90 1.80-2.40 mg/dL Total Bilirubin 0.8 # 0.2-1.0 mg/dL Aspartate Amino Transf (AST/SGOT) 20 10-37 U/L Alanine Aminotransferase (ALT/SGPT) 35 12-78 U/L Alkaline Phosphatase 91 50-136 U/L Troponin I High Sensitivity 7 4-75 ng/L Total Protein 7.0 6.0-8.3 g/dL Albumin 2.8 L 3.5-5.0 g/dL Thyroid Stimulating Hormone (TSH) 0.97 0.36-3.74 uIU/mL Influenza Type A Antigen Negative For Type A NEGATIVE Influenza Type B Antigen Negative For Type B NEGATIVE SARS-CoV-2, RNA, NAAT NEGATIVE SARS CoV-2 NEGATIVE Test 05/02/24 23:44 05/02/24 22:54 05/02/24 22:29 Range/Units Blood Gas Specimen Type Arterial Arterial Blood pH 7.463 H 7.350-7.450 Arterial Blood Partial Pressure CO2 32 L 35-48 mmHg Arterial Blood Partial Pressure O2 113.3 H 83.0-108.0 mmHg Arterial Blood HCO3 22.3 21.0-28.0 mmol/L Arterial Blood Oxygen Saturation 98.2 H 94.0-98.0 % Arterial Blood Base Excess -0.6 -2.0-3.0 mmol/L Hemoglobin (Blood Gas) 13.7 13.5-17.5 g/dL Sodium (Blood Gas) 135 L 136-145 MMOL/L Bedside Potassium (Blood Gas) 4.4 3.4-4.5 MMOL/L Bedside Chloride (Blood Gas) 100 98-107 MMOL/L Bedside Glucose (Blood Gas) 139 H 65-95 MG/DL Bedside Ionized Calcium (Blood Gas) 1.24 1.15-1.33 MMOL/L Bedside Lactic Acid (Blood Gas) 1.11 H 0.36-0.75 MMOL/L Blood Gas Temperature 37.0 35.5-37.0 CELSIUS Blood Gas Flow-by 2.00 0.00-15.00 L/min Blood Gas Vent Mode 2LNC ROOM AIR FiO2 28.0 % Blood Gas Specimen Comment RR RN Urine Color YELLOW YELLOW Urine Appearance CLOUDY H CLEAR Urine pH 6.0 5.0-8.0 Urine Specific Dale 1.022 1.001-1.031 Urine Protein 20 H NEGATIVE mg/dL Urine Glucose (UA) NEGATIVE NEGATIVE mg/dL Urine Ketones NEGATIVE NEGATIVE mg/dL Urine Occult Blood LARGE H NEGATIVE Urine Nitrate NEGATIVE NEGATIVE Urine Bilirubin NEGATIVE NEGATIVE mg/dL Urine Urobilinogen 2.0 H 0.2-1.0 mg/dL Urine Leukocyte Esterase NEGATIVE NEGATIVE Gilberto/uL Urine RBC TNTC H 0-1 /HPF Urine WBC 6-10 H 0-1 /HPF Urine Bacteria None None Seen /HPF Immature Granulocyte % (Auto) 0.7 0-1 % Neutrophils (%) (Auto) 78.1 H 40.0-77.0 % Lymphocytes (%) (Auto) 9.4 L 21.0-51.0 % Monocytes (%) (Auto) 10.5 3.0-13.0 % Eosinophils (%) (Auto) 0.8 0.0-8.0 % Basophils (%) (Auto) 0.5 0.0-5.0 % Neutrophils # (Auto) 12.8 H 1.8-7.7 K/uL Lymphocytes # (Auto) 1.5 1.0-4.8 K/uL Monocytes # (Auto) 1.7 H 0.1-1.0 K/uL Eosinophils # (Auto) 0.13 0.00-0.70 K/uL Basophils # (Auto) 0.08 0.00-0.20 K/uL Absolute Immature Granulocyte (auto 0.12 0-1 K/uL White Cell Morphology Comment See comments D-Dimer Quantitative (PE/DVT) 1242 *H 0-500 ng/mL Current Medications Medications (Trade) Dose Ordered Sig/Beau Route PRN Reason Start Time Stop Time Status Last Admin Dose Admin Acetaminophen (TYLenol 325MG TAB) 650 mg Q6H PRN PO FEVER/MILD PAIN LEVEL 1-3 05/03/24 01:00 06/02/24 00:59 Acetaminophen (TYLenol 650MG SUPPOSITORY) 650 mg Q6H PRN RC FEVER / MILD PAIN 1-3 IF NPO 05/03/24 01:00 06/02/24 00:59 Acetaminophen/ Hydrocodone Bitart (NORco 5/325MG) 1 tab Q6H PRN PO MILD PAIN (1-3) 05/03/24 01:00 05/08/24 00:59 05/03/24 05:50 1 TAB Albuterol Sulfate (Proventil 0.083% 2.5mg/3ml) 2.5 mg [id number] PRN IH SHORTNESS OF BREATH 05/03/24 01:00 06/02/24 00:59 Docusate Sodium (COLace 100MG CAP) 100 mg BID PRN PO c 05/03/24 01:00 06/02/24 00:59 Doxycycline Hyclate 250 ml @ 125 mls/hr Q12H IV 05/03/24 10:00 05/11/24 12:00 05/03/24 10:12 125 MLS/HR Hydralazine HCl (APRESOLine 20MG INJ) 10 mg Q2H PRN IV SBP GREATER THAN 160 05/03/24 01:00 06/02/24 00:59 Insulin Human Regular (humuLIN R 100 UNIT/ML 3ML) INSULIN SLIDING SCAL... ACHS SQ 05/03/24 07:30 06/02/24 07:29 Ipratropium [place] (AtrovENT UD) 0.5 mg [id number] IH 05/03/24 06:00 06/02/24 05:59 05/03/24 12:08 0.5 MG Lactulose (Constulose 20gm/ 30ml Udcup) 20 gm Q6H PRN PO CONSTIPATION 05/03/24 01:00 06/02/24 00:59 Magnesium Sulfate 50 ml @ 0 mls/hr PROTOCOL PRN IV electrolyte abnormality 05/03/24 13:30 05/10/24 12:00 Norepinephrine 250 ml @ 0 mls/hr PROTOCOL IV 05/03/24 10:00 06/02/24 09:59 Ondansetron HCl (zoFRAN 4MG INJ) 4 mg Q6H PRN IVP NAUSEA/VOMITING 05/03/24 01:00 06/02/24 00:59 Piperacillin Sod/ Tazobactam Sod (Zosyn 3.375gm+NS 50ml) 3.375 gm Q8H IVPB 05/03/24 07:30 05/13/24 07:29 05/03/24 08:11 3.375 GM Potassium Chloride 100 ml @ 50 mls/hr AD PRN IV POTASSIUM PROTOCOL 05/03/24 13:30 06/02/24 13:29 Sodium Chloride 1,000 ml @ 999 mls/hr Q1H1M IV 05/03/24 10:00 06/02/24 09:59 Sodium Chloride (NS 50ml) 50 ml AD IV 05/03/24 07:30 06/02/24 07:29 Temazepam (restORIL 15 MG CAP) 15 mg HS PRN PO INSOMNIA/SLEEP 05/03/24 01:00 06/02/24 00:59 PATIENT: DAYANA MAYO MR#: [id number] : 1955 SEX: M AGE: 68 LOCATION: [facility] ORDER STATUS: REG ER REPORT#: [id number] SERVICE [id number] REASON: cough, suspect aspiration ORDERING PHYSICIAN: JAVAD GALLO OUTSIDE CUTTER PROCEDURE: CXR1VW - CHEST 1VW CHEST 1VW HISTORY: Cough COMPARISON: 03/16/2013 FINDINGS: A frontal projection of the chest was obtained. Mild bilateral pulmonary infiltrates are seen may be related to mild pulmonary vascular congestion with possible superimposed pneumonitis. The heart is enlarged. Degenerative changes are seen. No evidence of aortic calcification is seen. IMPRESSION: 1. Mild bilateral pulmonary infiltrates are seen may be related to mild pulmonary vascular congestion with possible superimposed pneumonitis. PATIENT: DAYANA MAYO MR#: [id number] : 1955 SEX: M AGE: 68 LOCATION: [facility] ORDER 001 STATUS: ADM IN REPORT#: [id number] SERVICE 2353 REASON: SOB, elevated DDIMER ORDERING PHYSICIAN: DEMOND HOGAN CORN PICKER PROCEDURE: CHES PE - CT CHEST PE PROTOCOL WWO CONT CT CHEST PE PROTOCOL WWO CONT HISTORY: Shortness of breath COMPARISON: 03/14/2013 TECHNIQUE: CT angiography of the chest was performed. The study was performed using angiographic technique with maximum intensity projection reconstruction images. Patient was given shortness of breath cc of Omnipaque through intravenous route. FINDINGS: Thyroid gland is enlarged may be related to goiter. No CT evidence of filling defect is seen to suggest pulmonary embolus. No CT evidence of aortic dissection is seen. Minimal left lower lung pulmonary infiltrates are seen. No CT evidence of pleural effusion or pericardial effusion is seen. The heart is enlarged. Coronary arterial calcifications are seen. No evidence of adrenal mass is seen. Degenerative changes of the spine are noted. IMPRESSION: 1. No CT evidence of acute pulmonary embolus is seen. Minimal left lower lung pulmonary infiltrates. PATIENT: DAYANA MAYO MR#: [id number] : 1955 SEX: M AGE: 68 LOCATION: [facility] ORDER STATUS: ADM IN [facility] REPORT#: [id number] SERVICE REASON: right lower extremity cold and pale ORDERING PHYSICIAN: DEMOND HOGAN CORN PICKER PROCEDURE: ART B LE - US ARTERIAL BILAT LOW EXT DUPL US ARTERIAL BILAT LOW EXT DUPL HISTORY: Cold right lower extremity COMPARISON: None TECHNIQUE: Bilateral lower extremity arterial Doppler ultrasound study was performed. FINDINGS: Normal triphasic arterial waveforms are noted in the common femoral, deep femoral, superficial femoral, popliteal, posterior tibial and dorsalis pedal arteries. On the right, the peak systolic velocity of the common femoral artery is 131 cm/s, the proximal femoral artery is 72 cm/s, the mid femoral artery is 48 cm/s, the distal femoral artery is 59 cm/s, the proximal popliteal artery is 44 cm/s, the distal popliteal artery is 73 cm/s, the anterior tibial artery is 34 cm/s, the posterior tibial artery artery is 69 cm/s,and the dorsalis pedal artery is 65 cm/s. On the left, the peak systolic velocity of the common femoral artery is 125 cm/s, the proximal femoral artery is 89 cm/s, the mid femoral artery is 45 cm/s, the distal femoral artery is 75 cm/s, the proximal popliteal artery is 78 cm/s, the distal popliteal artery is 64 cm/s, the anterior tibial artery is 100 cm/s, the posterior tibial artery artery is 90 cm/s,and the dorsalis pedal artery is 86 cm/s. IMPRESSION: 1. Atherosclerotic disease. 2. Otherwise normal triphasic arterial waveforms noted of the lower extremity artery system. DIAGNOSTICS / RADIOLOGY: [ PATIENT: DAYANA MAYO MR#: [id number] : 1955 SEX: M AGE: 68 LOCATION: [facility] ORDER STATUS: ADM IN REPORT#: [id number] SERVICE REASON: critically elevated DDIMER ORDERING PHYSICIAN: DEMOND HOGAN PROCEDURE: VENOUS ROSEMARY - US VENOUS DOPPLER BILATERAL US VENOUS DOPPLER BILATERAL HISTORY: Elevated d-dimer COMPARISON: None TECHNIQUE: Bilateral lower extremity venous Doppler ultrasound study was performed. FINDINGS: The common femoral, femoral, popliteal, and posterior tibial veins are visualized. Normal flow with augmentation and compressibilities are demonstrated. The greater saphenous veins are also seen and grossly patent. IMPRESSION: 1. No evidence of deep venous thrombosis is seen. 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 Obesity, BMI 38.0. Chronic problem list: AFib, hypertension, hyperlipidemia, COPD, skin cancer to scalp, BPH, urinary retention s/p Jung placement about 7-10 days ago at [facility]. PLAN: Admit to medical telemetry floor with continue telemetry monitoring. Monitor respiratory status closely. Oxygen as needed to keep SpO2 equal greater than 92%. Albuterol p.r.n. shortness of breath. Atrovent nebulizer treatments scheduled q.6 hours. RT to provide IS and education on use. Cough and deep breathe q.2 hours. Chest physiotherapy if sputum production increases. Follow sputum cultures and Gram stain. Follow blood cultures. Repeat chest x-ray in 48-72 hours. Continue antibiotic therapy: Zosyn IV, doxycycline IV Deescalate antibiotics when appropriate. Start physical therapy as inpatient. Atrial fibrillation rate control Metoprolol tartrate 12.5 mg p.o. b.i.d.. Continuous telemetry monitoring. Stroke prevention started apixaban Eliquis5 mg p.o. b.i.d./patient is CHa2 DS 2Vasc score is more than equal to 3he is high risk for stroke starting him on apixaban Eliquis5 mg p.o. b.i.d. Consult case management for SNF placement for physical therapy. Modified swallow test. Echo in am. Strict I&O. Fluid restriction 1,200 mls. P.r.n. medications for: Pain management, fever, hypertension, nausea, vomiting, constipation. Glucometer checks a.c. and HS with insulin regular sliding scale. Blood pressure checks every4 hours and as needed. Reconcile home medications once provided. Monitor renal and liver function. Monitor electrolytes and treat accordingly. A.m. labs: CBC, BNP, Mag, phos, TSH, A1c, procal have been ordered GI and DVT prophylaxis. Atorvastatin 40 mg p.o. once has been initiated. venous Doppler and arterial Doppler results were negative for DVT and arterial bilateral lower extremity ultrasound revealed atherosclerotic disease Further orders per hospitalization course. ATTESTATION BY PHYSICIAN I have seen and examined the patient. I reviewed the documentation, medical decision making, and treatment plan as noted by the resident above. I agree with the findings and plan of care. Roldan Osorio MD, RAGHAVA R MD May 03, 2024 13:36
--- NOTE | 2024-05-03 14:15 | NUR ---
MBSS COMPLETED. No aspirations/ no laryngeal penetrations. Recommend soft solids, thin liquids and pills crushed with pureed solids as tolerated. Compensatory strategies: 1. sit upright during oral intake 2. small bites/sips 3.slow oral intake 4. extra dry swallows DIESEL POWER SHOVEL OPERATOR reviewed results and recommendations with patient and nurse Neelam. DIESEL POWER SHOVEL OPERATOR educated patient on risks and consequences of aspiration. Speech therapy not warranted at this time. All questions answered. Addendum: 05/03/[address] VICENTE HERNANDEZ Amended: Links added.
[2024-05-03] MEDS ORDERED: HEParin 5,000 UNIT VIAL IV PRN (15:00)
[2024-05-03] MEDS ORDERED: HEParin 25,000 UNITS/250ML D5W 250 ML IV SCH (15:00)
--- NOTE | 2024-05-03 16:00 | NUR ---
WOUND CARE NURSE AT BEDSIDE
--- NOTE | 2024-05-03 16:00 | NUR ---
[facility] Consult: Patient assessed by wound healing team. See wound assessment. Assessment and recommendations provided to primary nurse. Education provided. Addendum: 05/04/24 at 1600 by GAVIN SHANNON RN RN/ Amended: Links added.
[2024-05-03] MEDS: atorVAStatin 40 MG TABLET PO ONE (16:21)
--- NOTE | 2024-05-03 17:05 | HMCIMG ---
MODIFIED BARIUM SWALLOW W CINE REASON: dysphagia. COMPARISON: None TECHNIQUE: Modified barium swallow study was performed with referring speech therapist. FINDINGS: Please see procedure report by referring speech therapist. IMPRESSION: Modified barium swallow study.
[2024-05-03] MEDS ORDERED: atorVAStatin 40 MG TABLET PO SCH (21:00)
[2024-05-03] MEDS: metoPROLOL tartRATE 25 MG TAB PO SCH (21:08)
[2024-05-03] MEDS: atorVAStatin 40 MG TABLET PO SCH (21:08)
[2024-05-04] VITALS (13 sets, daily range): BP systolic 99–113; BP diastolic 57–71; PULSE 58–101; RESP 16–19; TEMP 98–99; O2SAT 95–99
[2024-05-04 04:09] LABS: BASOPHILS # (AUTO) 0.05 K/uL (0.00-0.20); BASOPHILS % (AUTO) 0.4 % (0.0-5.0); EOSINOPHILS # (AUTO) 0.22 K/uL (0.00-0.70); EOSINOPHILS % (AUTO) 1.8 % (0.0-8.0); HEMATOCRIT 36.7 % (42-54); IMMATURE GRANULOCYTE ABSOLUTE 0.07 K/uL (0-1); LYMPHOCYTES # (AUTO) 2.1 K/uL (1.0-4.8); LYMPHOCYTES % (AUTO) 17.3 % (21.0-51.0); MEAN CORPUSCULAR HEMOGLOBIN 28.4 pg (27.0-33.0); MEAN CORPUSCULAR HGB CONC 32.2 g/dL (32.0-36.0); MEAN CORPUSCULAR VOLUME 88.4 fL (79-99); MONOCYTES # (AUTO) 1.1 K/uL (0.1-1.0); MONOCYTES % (AUTO) 9.5 % (3.0-13.0); NEUTROPHILS # (AUTO) 8.4 K/uL (1.8-7.7); NEUTROPHILS % (AUTO) 70.4 % (40.0-77.0); PLATELET COUNT (AUTO) 235 K/uL (130-400); RED BLOOD CELL COUNT(AUTO) 4.15 MIL/uL (4.50-6.20); RED CELL DISTRIBUTION WIDTH 15.2 % (11.0-15.5)
[2024-05-04 04:27] LABS: ALBUMIN 2.4 g/dL (3.5-5.0); BILIRUBIN,TOTAL 0.8 mg/dL (0.2-1.0); CREATININE 0.8 mg/dL (0.5-1.3); MAGNESIUM 1.9 mg/dL (1.80-2.40); PHOSPHORUS 3.5 mg/dL (2.5-4.9); POTASSIUM 4.5 mmol/L (3.5-5.1); TOTAL PROTEIN, SERUM 6.2 g/dL (6.0-8.3)
--- NOTE | 2024-05-04 07:36 | HMCSR ---
APPROVED REPORT EXAM: Two-dimensional and M-mode echocardiogram with Doppler and color Doppler. Study Details: Hx: A-Fib, COPD, CVA, Diabetes-Type II, High Cholesterol, Hypertension, skin CA INDICATION ICD: General body weakness, shortness of breath 2D Dimensions RVDd4.3 cmLVEF(%)51.8 (>50%)LVED Vol(simp.)108.0 mL IVSd0.8 (0.7-1.1cm)FS(%)26 %LVES Vol(simp.)53.3 mL LVDd4.2 (3.8-5.6cm)LA (2D)4.6 (1.6-4.0cm)LVEF(%, simp.)51 % PWd0.8 (0.7-1.1cm)Ao Root(2D)3.3 (2.0-3.7cm)LA ESV INDEX (4CH)40.90 mL/m2 IVSs0.8 cmLVOT diam2.2 (1.8-2.4cm) LVDs3.1 (2.5-4.0cm) PWs1.3 cm M-Mode Dimensions EPSS2.1 cm LA (MM)5.1 (1.6-4.0cm) Ao Root(MM)3.1 (2.0-3.7cm) Aortic Valve AoV VTI0.2 mAo Mean GR3.0 mmHgLVOT VTI0.16 m HUMBERTO (VMAX)2.7 cm2Al P1/2T680 msAVA (VTI) 2.7 cm2 Mitral Valve MV E Vmax88.3 cm/sDECEL Okbe914 ms P 1/2 T36 ms MVA (PHT)6.1 cm2 TDI E/E' Zcmbmp86.8E/E' Hokvgbi51.0 Medial E' Peak V8.20 cm/sLateral E' Peak V6.30 cm/s Medial A' Peak V7.60 cm/s Medial E'/A'1.1 Pulmonary Valve PV Vmax0.9 m/s PV Peak GR3.5 mmHg Tricuspid Valve TR Vmax2.6 m/sRAP (EST) 15 rbEuWHLF23.9 mmHg TR Peak GR26.9 mmHg Left Ventricle The left ventricle is normal size. There is normal left ventricular wall thickness. LVEF is 50-55%. T he LV diastolic function was unable to be assessed due to atrial arrhythmia. Right Ventricle The right ventricle is mildly dilated. The right ventricular systolic function is normal. Atria Left atrium appears severely dilated visually. The right atrium is moderately dilated. Aortic Valve The aortic valve is normal in structure. Trace of aortic regurgitation is present. There is no aortic valvular stenosis. Mitral Valve Mitral valve leaflets open well. There is mild mitral annular calcification. There is trace mitral va lve regurgitation noted. There is no mitral valve stenosis. Tricuspid Valve The tricuspid valve is normal in structure. There is trace tricuspid valve regurgitation noted. Pulmonic Valve Pulmonic valve is not well visualized. There is trace of pulmonic valvular regurgitation. Great Vessels The aortic root is normal in size. IVC is dilated and collapses <50% with inspiration. Pericardium There is no pericardial effusion. Other Information Quality : Technically difficult study due to body habitus. Conclusion Technically difficult study. The left ventricle is normal size. LVEF is 50-55%. The LV diastolic function was unable to be assessed due to atrial arrhythmia. The right ventricle is mildly dilated. No hemodynamically significant valvular abnormalities. IVC is dilated and collapses <50% with inspiration. There is no pericardial effusion.
--- NOTE | 2024-05-04 09:00 | NUR ---
NOTIFY PHYSICAL THERAPY TEAM OF NEW EVALUATION.
[2024-05-04] MEDS: doCUSate SODIUM 100 MG CAP PO PRN (09:18)
[2024-05-04] MEDS: PANTOPrazole 40 MG/VIAL IVP SCH (09:18)
--- NOTE | 2024-05-04 09:18 | NUR ---
APS f/u Sw left message at APS office for contact information for pt's casewker. Waiting for response
--- NOTE | 2024-05-04 09:25 | NUR ---
APS SONYAWABIOLA CACERES [phone] SW spoke to jimmie Ribera for pt. Per Mounika, she visited with pt yesterday afternoon. She reports pt is alert, oriented and independent. Per pt, he told Mounika that he was discharged from [facility] despite pt telling MD that he had no help at home. Pt called his friend in [place] and informed of need for help, friend called EMS, pt was brought to ER. Mounika not sure reason, why pt has no insurance. Pt told Mounika that he "let it go". Mounika assumes that roommate pays rent, and that is income for pt. Pt told Mounika he [place] and APS will f/u once pt is home. Sw to notify APS once pt is discharged
--- NOTE | 2024-05-04 10:00 | NUR ---
DISCONTINUED TELEMETRY; FOLLOWING TELEMETRY PROTOCOL. CALLED INSURANCE ADMINISTRATOR TO NOTIFY THEM.
--- NOTE | 2024-05-04 10:00 | NUR ---
NOTIFY PHYSICAL THERAPY OF EVALUATION AND TREATMENT.
--- NOTE | 2024-05-04 11:30 | NUR ---
BLOOD GLUCOSE 124. NO INSULIN COVERAGE NEEDED AT THIS TIME.
--- NOTE | 2024-05-04 11:41 | PN ---
CATALY[facility] PROGRESS NOTE Date of Service: May 04, 2024 Time of Service: 11:28 SUBJECTIVE: Mr. Marshall is a 68-year-old male with history of recent mild stroke", atrial fibrillation, hypertension, hyperlipidemia, COPD, skin cancer (scalp closed), BPH, and urinary retention who presented to [facility] ED via EMS for evaluation of cough, dysphagia, shortness of breath, and general body weakness. The patient also reported he is unable to ambulate due to generalized weakness and worsening chronic back pain. Patient reported he was admitted at [facility] in [place], [place] where he experienced a CVA inpatient. The patient reported he was discharged and returned back to [facility] due to no improvement of symptoms. He was was discharged this a fternoon again from [facility] where he had been readmitted for approximately 10 days. He stated that he did not receive physical therapy while in hospital and rehab was not an option". He also stated that he had a Jung catheter placed proximally 7-10 days ago for urinary retention and it remains in place. He stated he thinks he may have a low-grade fever as well as chills. He denied having any chest pain, palpitations, edema, abdominal pain, nausea, vomiting, diarrhea, headache, visual disturbance, focal weakness/paresthesia, or dizziness. The patient reported that on his last admission to [facility] the admitting hospitalist and pearl cutter were not nice which prompted him to come to [facility] instead this time. Labs: WBCs elevated at 16.4, H and H 13.3/41.1, Na/Cl 132/95, K 5.4, CO2 33, BUN 23, albumin three, and glucose 155. ABG on 2 L nasal cannula: PH 7.463, pCO2 32, PO2 113.3, bicarb 22.3, and base excess -0.6. EKG: Atrial fibrillation, heart rate 97 beats per minute. Chest x-ray: Mild bilateral pulmonary infiltrates are seen may be related to mild pulmonary vascular congestion with possible superimposed pneumonitis. In ED the patient continue to complain congestion, cough, and difficulty swallowing. In ED the patient was administered dose Zosyn 3.375 g x 1 for suspected aspiration pneumonia. He received dose Dilaudid 0.5 Mg x 1 dose for complains of low back pain. ED provider request patient be admitted with the diagnosis of suspected aspiration pneumonia, dysphagia, failure to thrive in adult, hyperkalemia, physical debility, leukocytosis. I went to assess the patient at bedside. The patient appeared chronically ill, breathing was even and unlabored, in no distress. Patient was conversive, answered appropriately. I informed patient of labs, diagnostics, and plan of care. The patient verbalized understanding and is in agreement with the plan. Plan and assessment are listed below. May 03, 2024 The patient was examined at the bedside. His shortness of breath slightly impr kaylin with oxygen saturation of PaO2 of 99% on nasal cannula 2.0. Patient had low MEP a and his blood pressure is at 79 /43 which was improved to 100 x 60 after an IV NS bolus at 30 cc kg per body weight. Evaluating further causes of his chest pain, his WBC count remains elevated at at 12.4 And no overnight events reported. monitoring him and treating him for pneumonia. Pulmonary embolism ruled out due to a negative chest CT scan and a negative ultrasound venous Doppler scan. 05/04/24 was examined in the room today, he is currently lying in bed, patient stated that he is having a hard time with his bowel movement. Patient is con stipated and he has pain during bowel movement. Patient stated that he has been hospitalized and was recently discharged from [facility]. We continue with current management. REVIEW OF SYSTEMS 12-point ROS reviewed with patient. All pertinent positives mentioned above. Otherwise negative, noncontributory, or non-pertinent. PHYSICAL EXAM GENERAL APPEARANCE: The patient is awake, alert, and oriented, in no acute cardiopulmonary distress. NEUROLOGICAL: Cranial nerves II-XII grossly intact. Motor is 5/5 in bilateral upper and lower extremities proximal to distal. No sensory deficits. HEENT: Face is symmetric. Pupils are equal and reactive. Extraocular movements are intact. NECK: Supple. No JVD. No thyromegaly. No submental, submandibular, pre- /postauricular, occipital or supraclavicular lymphadenopathy. CHEST: Normal chest expansion. No Telemetry. LUNGS: Absence of any rales, rhonchi or any wheezing. CARDIOVASCULAR: Regular. S1 and S2 normal. No appreciable rubs, murmurs or gallops. ABDOMEN: Soft, nontender, and nondistended. There is no rebound, voluntary guarding, or rigidity. : Deferred. No Jung. EXTREMITIES: Non-edematous and not cyanotic. No clubbing. Good capillary refill. SKIN: No skin breakdown. Vital Signs (last 8hr) Date Time Temp Pulse Resp B/P (MAP) Pulse Ox O2 Delivery O2 Flow Rate FiO2 05/04/24 11:06 95 18 N/A Room Air 21 05/04/24 11:06 95 18 05/04/24 08:00 98.1 101 16 100/64 95 Room Air 0.0 05/04/24 06:26 95 18 05/04/24 06:25 95 18 N/A Room Air 21 05/04/24 03:56 99.0 96 17 103/63 97 Room Air LABS: Laboratory: Test 05/04/24 05:17 05/04/24 03:38 05/03/24 10:13 05/03/24 07:43 Range/Units Whole Blood Glucose 113 H 70-110 MG/DL White Blood Count 12.0 H 4.8-10.8 K/uL Red Blood Count 4.15 L 4.50-6.20 MIL/uL Hemoglobin 11.8 L 14.0-18.0 g/dL Hematocrit 36.7 L 42-54 % Mean Corpuscular Volume 88.4 79-99 fL Mean Corpuscular Hemoglobin 28.4 27.0-33.0 pg Mean Corpuscular Hemoglobin Concent 32.2 32.0-36.0 g/dL Red Cell Distribution Width 15.2 11.0-15.5 % Platelet Count 235 130-400 K/uL Mean Platelet Volume 9.4 7.5-10.5 fL Immature Granulocyte % (Auto) 0.6 0-1 % Neutrophils (%) (Auto) 70.4 40.0-77.0 % Lymphocytes (%) (Auto) 17.3 L 21.0-51.0 % Monocytes (%) (Auto) 9.5 3.0-13.0 % Eosinophils (%) (Auto) 1.8 0.0-8.0 % Basophils (%) (Auto) 0.4 0.0-5.0 % Neutrophils # (Auto) 8.4 H 1.8-7.7 K/uL Lymphocytes # (Auto) 2.1 1.0-4.8 K/uL Monocytes # (Auto) 1.1 H 0.1-1.0 K/uL Eosinophils # (Auto) 0.22 0.00-0.70 K/uL Basophils # (Auto) 0.05 0.00-0.20 K/uL Absolute Immature Granulocyte (auto 0.07 0-1 K/uL Nucleated Red Blood Cells 0.0 0.0-0.19 % Sodium Level 137 136-145 mmol/L Potassium Level 4.5 3.5-5.1 mmol/L Chloride Level 103 101-111 mmol/L Carbon Dioxide Level 27 21-32 mmol/L Blood Urea Nitrogen 14 7-18 mg/dL Creatinine 0.8 0.5-1.3 mg/dL Glomerular Filtration Rate Calc 95 >90 mL/min Random Glucose 107 H 70-105 mg/dL Total Calcium 8.8 8.5-10.1 mg/dL Phosphorus Level 3.5 2.5-4.9 mg/dL Magnesium Level 1.90 1.80-2.40 mg/dL Total Bilirubin 0.8 0.2-1.0 mg/dL Aspartate Amino Transf (AST/SGOT) 21 10-37 U/L Alanine Aminotransferase (ALT/SGPT) 27 # 12-78 U/L Alkaline Phosphatase 69 50-136 U/L Total Protein 6.2 6.0-8.3 g/dL Albumin 2.4 L 3.5-5.0 g/dL Lactic Acid Level 1.2 0.8-2.5 mmol/L B-Type Natriuretic Peptide 83 0-100 pg/mL Procalcitonin 0.78 H 0.05-0.5 ng/mL Thyroid Stimulating Hormone (TSH) 0.90 0.36-3.74 uIU/mL Hemoglobin A1c 6.7 H 4.0-6.0 % Estimated Average Glucose (eAG) 146 H 70-126 mg/dL Troponin I High Sensitivity 7 4-75 ng/L Test 05/03/24 02:00 05/02/24 23:44 05/02/24 22:54 05/02/24 22:29 Range/Units Influenza Type A Antigen Negative For Type A NEGATIVE Influenza Type B Antigen Negative For Type B NEGATIVE SARS-CoV-2, RNA, NAAT NEGATIVE SARS CoV-2 NEGATIVE Blood Gas Specimen Type Arterial Arterial Blood pH 7.463 H 7.350-7.450 Arterial Blood Partial Pressure CO2 32 L 35-48 mmHg Arterial Blood Partial Pressure O2 113.3 H 83.0-108.0 mmHg Arterial Blood HCO3 22.3 21.0-28.0 mmol/L Arterial Blood Oxygen Saturation 98.2 H 94.0-98.0 % Arterial Blood Base Excess -0.6 -2.0-3.0 mmol/L Hemoglobin (Blood Gas) 13.7 13.5-17.5 g/dL Sodium (Blood Gas) 135 L 136-145 MMOL/L Bedside Potassium (Blood Gas) 4.4 3.4-4.5 MMOL/L Bedside Chloride (Blood Gas) 100 98-107 MMOL/L Bedside Glucose (Blood Gas) 139 H 65-95 MG/DL Bedside Ionized Calcium (Blood Gas) 1.24 1.15-1.33 MMOL/L Bedside Lactic Acid (Blood Gas) 1.11 H 0.36-0.75 MMOL/L Blood Gas Temperature 37.0 35.5-37.0 CELSIUS Blood Gas Flow-by 2.00 0.00-15.00 L/min Blood Gas Vent Mode 2LNC ROOM AIR FiO2 28.0 % Blood Gas Specimen Comment RR RN Urine Color YELLOW YELLOW Urine Appearance CLOUDY H CLEAR Urine pH 6.0 5.0-8.0 Urine Specific Macclenny 1.022 1.001-1.031 Urine Protein 20 H NEGATIVE mg/dL Urine Glucose (UA) NEGATIVE NEGATIVE mg/dL Urine Ketones NEGATIVE NEGATIVE mg/dL Urine Occult Blood LARGE H NEGATIVE Urine Nitrate NEGATIVE NEGATIVE Urine Bilirubin NEGATIVE NEGATIVE mg/dL Urine Urobilinogen 2.0 H 0.2-1.0 mg/dL Urine Leukocyte Esterase NEGATIVE NEGATIVE Gilberto/uL Urine RBC TNTC H 0-1 /HPF Urine WBC 6-10 H 0-1 /HPF Urine Bacteria None None Seen /HPF White Cell Morphology Comment See comments D-Dimer Quantitative (PE/DVT) 1242 *H 0-500 ng/mL Current Medications Medications (Trade) Dose Ordered Sig/Beau Route PRN Reason Start Time Stop Time Status Last Admin Dose Admin Acetaminophen (TYLenol 325MG TAB) 650 mg Q6H PRN PO FEVER/MILD PAIN LEVEL 1-3 05/03/24 01:00 06/02/24 00:59 Acetaminophen (TYLenol 650MG SUPPOSITORY) 650 mg Q6H PRN RC FEVER / MILD PAIN 1-3 IF NPO 05/03/24 01:00 06/02/24 00:59 Acetaminophen/ Hydrocodone Bitart (NORco 5/325MG) 1 tab Q6H PRN PO MILD PAIN (1-3) 05/03/24 01:00 05/08/24 00:59 05/03/24 05:50 1 TAB Albuterol Sulfate (Proventil 0.083% 2.5mg/3ml) 2.5 mg [id number] PRN IH SHORTNESS OF BREATH 05/03/24 01:00 06/02/24 00:59 Atorvastatin Calcium (LIPItor 40MG) 40 mg HS PO 05/03/24 21:00 05/03/24 15:27 DC Atorvastatin Calcium (LIPItor 40MG) 40 mg HS PO 05/03/24 21:00 06/02/24 20:59 05/03/24 21:08 40 MG Docusate Sodium (COLace 100MG CAP) 100 mg BID PRN PO c 05/03/24 01:00 06/02/24 00:59 05/04/24 09:18 100 MG Doxycycline Hyclate 250 ml @ 125 mls/hr Q12H IV 05/03/24 10:00 05/11/24 12:00 05/04/24 09:18 125 MLS/HR Heparin Sodium (Porcine) (HEParin 5,000 UNIT VIAL) *calculation based on ACTUAL B... AD PRN IV HEPARIN PROTOCOL 05/03/24 15:00 05/03/24 14:18 DC Heparin Sodium/ Dextrose 250 ml @ 0 mls/hr Q6H IV 05/03/24 15:00 05/03/24 14:18 DC Hydralazine HCl (APRESOLine 20MG INJ) 10 mg Q2H PRN IV SBP GREATER THAN 160 05/03/24 01:00 06/02/24 00:59 Insulin Human Regular (humuLIN R 100 UNIT/ML 3ML) INSULIN SLIDING SCAL... ACHS SQ 05/03/24 07:30 06/02/24 07:29 Ipratropium Ruffin (AtrovENT UD) 0.5 mg [id number] IH 05/03/24 06:00 06/02/24 05:59 05/04/24 11:06 0.5 MG Lactulose (Constulose 20gm/ 30ml Udcup) 20 gm Q6H PRN PO CONSTIPATION 05/03/24 01:00 06/02/24 00:59 Magnesium Sulfate 50 ml @ 0 mls/hr PROTOCOL PRN IV electrolyte abnormality 05/03/24 13:30 05/10/24 12:00 Metoprolol Tartrate (loprESSOR) 12.5 mg BID PO 05/03/24 21:00 05/08/24 12:00 05/04/24 09:20 12.5 MG Norepinephrine 250 ml @ 0 mls/hr PROTOCOL IV 05/03/24 10:00 06/02/24 09:59 Ondansetron HCl (zoFRAN 4MG INJ) 4 mg Q6H PRN IVP NAUSEA/VOMITING 05/03/24 01:00 06/02/24 00:59 Pantoprazole Sodium (PROTonix 40MG INJ) 40 mg DAILY IVP 05/04/24 09:00 05/08/24 12:00 05/04/24 09:18 40 MG Piperacillin Sod/ Tazobactam Sod (Zosyn 3.375gm+NS 50ml) 3.375 gm Q8H IVPB 05/03/24 07:30 05/13/24 07:29 05/04/24 06:42 3.375 GM Potassium Chloride 100 ml @ 50 mls/hr AD PRN IV POTASSIUM PROTOCOL 05/03/24 13:30 06/02/24 13:29 Sodium Chloride 1,000 ml @ 999 mls/hr Q1H1M IV 05/03/24 10:00 05/03/24 14:21 DC Sodium Chloride (NS 50ml) 50 ml AD IV 05/03/24 07:30 05/03/24 14:22 DC Temazepam (restORIL 15 MG CAP) 15 mg HS PRN PO INSOMNIA/SLEEP 05/03/24 01:00 06/02/24 00:59 DIAGNOSTICS / RADIOLOGY: [ ] ASSESSMENT: Pneumonia, (suspected aspiration pneumonia), POA Elevated D-dimer, PE was ruled out Dysphagia, POA Failure to thrive, POA Debility/frailty/general body weakness, POA Hematuria, POA, 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 Obesity, BMI 38.0. Chronic problem list: AFib, hypertension, hyperlipidemia, COPD, skin cancer to scalp, BPH, urinary retention s/p Jung placement about 7-10 days ago at [facility]. PLAN: Admit to medical telemetry floor with continue telemetry monitoring. Monitor respiratory status closely. Oxygen as needed to keep SpO2 equal greater than 92%. Albuterol p.r.n. shortness of breath. Atrovent nebulizer treatments scheduled q.6 hours. RT to provide IS and education on use. Cough and deep breathe q.2 hours. Chest physiotherapy if sputum production increases. Follow sputum cultures and Gram stain. Follow blood cultures. Continue antibiotic therapy: Zosyn IV, doxycycline IV Deescalate antibiotics when appropriate. We will follow up with culture results In regards with atrial fibrillation, rate controlled, continue with metoprolol tartrate 12.5 mg p.o. b.i.d., continue with Eliquis5 mg p.o. b.i.d. 3 We will add lactulose as patient complained of constipation Continue with telemetry PT eval and treat We will follow speech therapist recommendation, recommends of solids, thin liquids and pills crushed with pureed solids as tolerated Case discussed with Dr. Jurado, above plan was formulated ATTESTATION BY PHYSICIAN I have seen and examined the patient. I reviewed the documentation, medical decision making, and treatment plan as noted by the mid-level provider above. I agree with the findings and plan of care. JOSE ALEJANDRO JURADO MD, JANICE B AGPCNP May 04, 2024 11:41
[2024-05-04 12:05] LABS: HEMATOCRIT 35.9 % (42-54); MEAN CORPUSCULAR HGB CONC 33.1 g/dL (32.0-36.0); MEAN CORPUSCULAR VOLUME 87.6 fL (79-99); RED BLOOD CELL COUNT(AUTO) 4.1 MIL/uL (4.50-6.20); RED CELL DISTRIBUTION WIDTH 15.2 % (11.0-15.5); WHITE BLOOD COUNT (AUTO) 13.2 K/uL (4.8-10.8)
[2024-05-04 12:18] LABS: ALBUMIN 2.5 g/dL (3.5-5.0); BILIRUBIN,TOTAL 0.8 mg/dL (0.2-1.0); CREATININE 0.8 mg/dL (0.5-1.3); POTASSIUM 4.2 mmol/L (3.5-5.1); TOTAL PROTEIN, SERUM 6.4 g/dL (6.0-8.3)
--- NOTE | 2024-05-04 13:43 | HMCIMG ---
CHEST 1VW HISTORY: Pneumonia COMPARISON: None FINDINGS: A frontal projection of the chest was obtained. Mild bilateral pulmonary infiltrates are seen may be related to mild pulmonary vascular congestion with possible superimposed pneumonitis. The heart is enlarged. Degenerative changes are seen. No evidence of aortic calcification is seen. IMPRESSION: 1. Mild bilateral pulmonary infiltrates are seen may be related to mild pulmonary vascular congestion with possible superimposed pneumonitis.
--- NOTE | 2024-05-04 15:33 | NUR ---
PT eval completed. Pt seen with caregiver/friend present. Pt agreeable and pleasant. Oriented to person, place, time and condition. Pt is mod assist x2 for bed mobility with increased LBP on movement. PT installed a trapeze to assist. PT sits unsupported EOB. Sit to stands with walker min assist x2. Gait 5 ft mod assist x2, limited foot clearance, step length, balance. Back to bed with fall alarm. Discussed PT recs and DC plan. Pt says he came straight here after being DC from other facility bc he could not safely go home. Of note, pt with limited to absent sensation to BLE below knees for light touch and deep pressure. 2/5 MMT to BLE at ankles, 3/5 to quads/ HS, 3+/5 B hips. Negative Babinski, BLE reflex intact. UE MMT/ sensation and ROM intact .Cranial nerves intact. Pt may be a difficult DC, pt will benefit from rehab but is not funded. He says he has not spoken to anyone about getting funding. He would like to speak with caseworkers. If patient DC home he needs 2ww or WC his choice, and BSC. Pt is fall risk and readmit risk. PT will see patient BID as well as provide an HEP. Email sent to case management.
--- NOTE | 2024-05-04 16:00 | NUR ---
BLOOD GLUCOSE 138. NO INSULIN COVERAGE NEEDED AT THIS TIME.
--- NOTE | 2024-05-04 16:36 | NUR ---
Nutritional Note: Pt. reported feeling nauseous, allergic to shellfish, difficulty swallowing, UBW 250 lb, no recent wt loss, PO intake <50%, no current PCP, and no MVI. Provided pt verbal education on taking small sips and smaller bites. Pt was agreeable to mechanical soft modifier, Glucerna Chocolate, and Prostat Jello. Pt. is mild risk for PCM due to swallowing. Pt. adherence is fair. Nutrition concerns: Constipation, PO intake <50, wt loss. Recommendations - Continue Heart Healthy diet - Add diet modifier of mechanical soft diet - Order Glucerna [place] BID AM and dinner - Order Prostat 30 ml BID for lunch and dinner tray - Consider MVI -Monitor PO intake -Encourage PO intake as able -If poor PO intake continues consider appetite stimulant -Monitor BM -If no BM >3 days consider stool softener -Monitor wts -Reweigh as able -Order Vit D, vit b-12 labs to rule out deficiencies -Monitor goals of care RD to follow + available for consult per protocol SIGNED BY DIETETIC STUDENT NEIDA CASTELLANOS Addendum: 05/04/24 at [address] Amended: Links added.
--- NOTE | 2024-05-04 16:59 | NUR ---
[facility] Follow-up: Patient re-assessed by wound healing team. Assessment and recommendations provided to primary nurse. Education provided. Wound care done. Addendum: 05/04/24 at 1659 by GAVIN SHANNON RN RN/ Amended: Links added.
[2024-05-05] VITALS (13 sets, daily range): BP systolic 95–109; BP diastolic 52–69; PULSE 77–105; RESP 16–22; TEMP 98.2–99.2; O2SAT 84–99
[2024-05-05 04:55] LABS: BASOPHILS # (AUTO) 0.07 K/uL (0.00-0.20); BASOPHILS % (AUTO) 0.6 % (0.0-5.0); EOSINOPHILS # (AUTO) 0.23 K/uL (0.00-0.70); EOSINOPHILS % (AUTO) 2.1 % (0.0-8.0); HEMATOCRIT 35.2 % (42-54); IMMATURE GRANULOCYTE ABSOLUTE 0.05 K/uL (0-1); LYMPHOCYTES # (AUTO) 2.6 K/uL (1.0-4.8); LYMPHOCYTES % (AUTO) 24.1 % (21.0-51.0); MEAN CORPUSCULAR HEMOGLOBIN 28.2 pg (27.0-33.0); MEAN CORPUSCULAR HGB CONC 31.8 g/dL (32.0-36.0); MEAN CORPUSCULAR VOLUME 88.7 fL (79-99); MONOCYTES # (AUTO) 0.9 K/uL (0.1-1.0); MONOCYTES % (AUTO) 7.9 % (3.0-13.0); NEUTROPHILS # (AUTO) 7.1 K/uL (1.8-7.7); NEUTROPHILS % (AUTO) 64.8 % (40.0-77.0); PLATELET COUNT (AUTO) 208 K/uL (130-400); RED BLOOD CELL COUNT(AUTO) 3.97 MIL/uL (4.50-6.20); RED CELL DISTRIBUTION WIDTH 15.3 % (11.0-15.5)
[2024-05-05 05:14] LABS: ALBUMIN 2.3 g/dL (3.5-5.0); BILIRUBIN,TOTAL 0.6 mg/dL (0.2-1.0); CREATININE 0.8 mg/dL (0.5-1.3); MAGNESIUM 1.8 mg/dL (1.80-2.40); POTASSIUM 4.1 mmol/L (3.5-5.1); TOTAL PROTEIN, SERUM 6.1 g/dL (6.0-8.3)
[2024-05-05] MEDS: MAGNESIUM 2GM PREMIX 50ML 50 ML IV PRN (13:40)
[2024-05-05] MEDS ORDERED: ALBU2.5V2 IH (22:05)
[2024-05-05] MEDS ORDERED: DOXY100C5 PO (22:05)
[2024-05-05] MEDS ORDERED: ACET650S14 RC (22:05)
[2024-05-05] MEDS ORDERED: ATOR40TA69 PO (22:05)
[2024-05-05] MEDS ORDERED: METO25 PO (22:05)
[2024-05-05] MEDS ORDERED: LEVO750T40 PO (22:05)
[2024-05-05] MEDS ORDERED: METF-527 PO (22:38)
[2024-05-05] MEDS ORDERED: LACT10SO9 PO (22:38)
[2024-05-05] MEDS ORDERED: APIX2.5T PO (22:40)
--- NOTE | 2024-05-05 22:43 | DS ---
Discharge Summary Hospital Course Summary: THE PATIENT WAS ADMITTED FOR ASPIRATION PNEUMONIA, PRESENTING WITH COUGH SHORTNESS OF BREATH AND WEAKNESS. CHEST X-RAY SHOWED MILD BILATERAL PULMONARY INFILTRATES CONSISTENT WITH PNEUMONIA. EMPIRIC ANTIBIOTICS ZOSYN AND DOXYCYCLINE WERE INITIATED. CLINICAL IMPROVEMENT OBSERVED WITH A WBC COUNT TRENDING DOWN. STABLE RESPIRATORY STATUS WITH SPO2 MORE THAN 95% ON ROOM AIR. SUCCESSFULLY TRANSITIONED TO ORAL ANTIBIOTICS FOR DISCHARGE A DISCHARGE ORDER WAS PLACED FOR THOSE ANTIBIOTICS OF LEVOFLOXACIN AND DOXYCYCLINE. ATRIAL FIBRILLATION WAS RATE CONTROLLED WITH METOPROLOL. NUTRITIONAL CONSULT RECOMMENDED A HIGH-PROTEIN DIET DUE TO LOW ALBUMIN. THE PATIENT MET DISCHARGE CRITERIA AND IS BEING DISCHARGED HOME IN A STABLE CONDITION. 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 Mild bilateral pulmonary infiltrates are seen may be related to mild pulmonary vascular congestion with possible superimposed pneumonitis. The heart is enlarged. Degenerative changes are seen. No evidence of aortic calcification is seen. IMPRESSION: 1. Mild bilateral pulmonary infiltrates are seen may be related to mild pulmonary vascular congestion with possible superimposed pneumonitis. DICTATED BY: GALE MIR MD DATE: 05/02/242307 ELECTRONICALLY SIGNED BY: GALE MIR MD DATE: 05/02/242310 PATIENT: DAYANA MAYO MR#: [id number] : 1955 SEX: M AGE: 68 [facility]: ADM IN REPORT#: [id number] SERVICE 5700 REASON: SOB, elevated DDIMER ORDERING PHYSICIAN: DMEOND HOGAN RENTAL COORDINATOR PROCEDURE: CHES PE - CT CHEST PE PROTOCOL WWO CONT CT CHEST PE PROTOCOL WWO CONT HISTORY: Shortness of breath COMPARISON: 03/14/2013 TECHNIQUE: CT angiography of the chest was performed. The study was performed using angiographic technique with maximum intensity projection reconstruction images. Patient was given shortness of breath cc of Omnipaque through intravenous route. FINDINGS: Thyroid gland is enlarged may be related to goiter. No CT evidence of filling defect is seen to suggest pulmonary embolus. No CT evidence of aortic dissection is seen. Minimal left lower lung pulmonary infiltrates are seen. No CT evidence of pleural effusion or pericardial effusion is seen. The heart is enlarged. Coronary arterial calcifications are seen. No evidence of adrenal mass is seen. Degenerative changes of the spine are noted. IMPRESSION: 1. No CT evidence of acute pulmonary embolus is seen. Minimal left lower lung pulmonary infiltrates. CT was performed with one or more following dose reduction techniques: automated exposure control, adjustment of the mA and kv according to patient's size, or use of a iterative reconstruction technique. DICTATED BY: GALE MIR MD DATE: 05/03/24134 ELECTRONICALLY SIGNED BY: GALE MIR MD DATE: 05/03/24 014 PATIENT: DAYANA MAYO MR#: [id number] : 1955 SEX: M AGE: 68 LOCATION: [facility] ORDER 0019 STATUS: ADM IN [facility] REPORT#: [id number] SERVICE 0014 REASON: right lower extremity cold and pale ORDERING PHYSICIAN: DEMOND HOGAN RENTAL COORDINATOR PROCEDURE: ART B LE - US ARTERIAL BILAT LOW EXT DUPL US ARTERIAL BILAT LOW EXT DUPL HISTORY: Cold right lower extremity COMPARISON: None TECHNIQUE: Bilateral lower extremity arterial Doppler ultrasound study was performed. FINDINGS: Normal triphasic arterial waveforms are noted in the common femoral, deep femoral, superficial femoral, popliteal, posterior tibial and dorsalis pedal arteries. On the right, the peak systolic velocity of the common femoral artery is 131 cm/s, the proximal femoral artery is 72 cm/s, the mid femoral artery is 48 cm/s, the distal femoral artery is 59 cm/s, the proximal popliteal artery is 44 cm/s, the distal popliteal artery is 73 cm/s, the anterior tibial artery is 34 cm/s, the posterior tibial artery artery is 69 cm/s,and the dorsalis pedal artery is 65 cm/s. On the left, the peak systolic velocity of the common femoral artery is 125 cm/s, the proximal femoral artery is 89 cm/s, the mid femoral artery is 45 cm/s, the distal femoral artery is 75 cm/s, the proximal popliteal artery is 78 cm/s, the distal popliteal artery is 64 cm/s, the anterior tibial artery is 100 cm/s, the posterior tibial artery artery is 90 cm/s,and the dorsalis pedal artery is 86 cm/s. IMPRESSION: 1. Atherosclerotic disease. 2. Otherwise normal triphasic arterial waveforms noted of the lower extremity artery system. DICTATED BY: GALE MIR MD DATE: 05/03/241026 ELECTRONICALLY SIGNED BY: GALE MIR MD DATE: 05/03/24 1030 PATIENT: DAYANA MAYO MR#: [id number] : 1955 SEX: M AGE: 68 LOCATION: [facility] ORDER STATUS: ADM IN REPORT#: [id number] SERVICE REASON: critically elevated DDIMER ORDERING PHYSICIAN: DEMOND HOGAN RENTAL COORDINATOR PROCEDURE: VENOUS ROSEMARY - US VENOUS DOPPLER BILATERAL US VENOUS DOPPLER BILATERAL HISTORY: Elevated d-dimer COMPARISON: None TECHNIQUE: Bilateral lower extremity venous Doppler ultrasound study was performed. FINDINGS: The common femoral, femoral, popliteal, and posterior tibial veins are visualized. Normal flow with augmentation and compressibilities are demonstrated. The greater saphenous veins are also seen and grossly patent. IMPRESSION: 1. No evidence of deep venous thrombosis is seen. DICTATED BY: GALE MIR MD DATE: 05/03/24 1026 ELECTRONICALLY SIGNED BY: GALE MIR MD DATE: 05/03/24 1030 IMAGING REPORT Signed PATIENT: DAYANA MAYO MR#: [id number] : 1955 SEX: M AGE: 68 LOCATION: [facility] ORDER STATUS: ADM IN REPORT#: [id number] SERVICE REASON: GBW, SOB ORDERING PHYSICIAN: DEMOND HOGAN PROCEDURE: ECHO CMP - ECHO 2-D COMPLETE APPROVED REPORT EXAM: Two-dimensional and M-mode echocardiogram with Doppler and color Doppler. Study Details: Hx: A-Fib, COPD, CVA, Diabetes-Type II, High Cholesterol, Hypertension, skin CA INDICATION ICD: General body weakness, shortness of breath 2D Dimensions RVDd 4.3 cm LVEF(%) 51.8 (>50%) LVED Vol(simp.) 108.0 mL IVSd 0.8 (0.7-1.1cm) FS(%) 26 % LVES Vol(simp.) 53.3 mL LVDd 4.2 (3.8-5.6cm) LA (2D) 4.6 (1.6-4.0cm) LVEF(%, simp.) 51 % PWd 0.8 (0.7-1.1cm) Ao Root(2D) 3.3 (2.0-3.7cm) LA ESV INDEX (4CH) 40.90 mL/m2 IVSs 0.8 cm LVOT diam 2.2 (1.8-2.4cm) LVDs 3.1 (2.5-4.0cm) PWs 1.3 cm M-Mode Dimensions EPSS 2.1 cm LA (MM) 5.1 (1.6-4.0cm) Ao Root(MM) 3.1 (2.0-3.7cm) Aortic Valve AoV VTI 0.2 m Ao Mean GR 3.0 mmHg LVOT VTI 0.16 m HUMBERTO (VMAX) 2.7 cm2 Al P1/2T 680 ms HUMBERTO (VTI) 2.7 cm2 Mitral Valve MV E Vmax 88.3 cm/s DECEL Time 236 ms P 1/2 T 36 ms MVA (PHT) 6.1 cm2 TDI E/E' Medial 10.8 E/E' Lateral 14.0 Medial E' Peak V 8.20 cm/s Lateral E' Peak V 6.30 cm/s Medial A' Peak V 7.60 cm/s Medial E'/A' 1.1 Pulmonary Valve PV Vmax 0.9 m/s PV Peak GR 3.5 mmHg Tricuspid Valve TR Vmax 2.6 m/s RAP (EST) 15 mmHg RVSP 41.9 mmHg TR Peak GR 26.9 mmHg Left Ventricle The left ventricle is normal size. There is normal left ventricular wall thickness. LVEF is 50-55%. The LV diastolic function was unable to be assessed due to atrial arrhythmia. Right Ventricle The right ventricle is mildly dilated. The right ventricular systolic function is normal. Atria Left atrium appears severely dilated visually. The right atrium is moderately dilated. Aortic Valve The aortic valve is normal in structure. Trace of aortic regurgitation is present. There is no aortic valvular stenosis. Mitral Valve Mitral valve leaflets open well. There is mild mitral annular calcification. There is trace mitral valve regurgitation noted. There is no mitral valve stenosis. Tricuspid Valve The tricuspid valve is normal in structure. There is trace tricuspid valve regurgitation noted. Pulmonic Valve Pulmonic valve is not well visualized. There is trace of pulmonic valvular regurgitation. Great Vessels The aortic root is normal in size. IVC is dilated and collapses <50% with inspiration. Pericardium There is no pericardial effusion. Other Information Quality : Technically difficult study due to body habitus. Conclusion Technically difficult study. The left ventricle is normal size. LVEF is 50-55%. The LV diastolic function was unable to be assessed due to atrial arrhythmia. The right ventricle is mildly dilated. No hemodynamically significant valvular abnormalities. IVC is dilated and collapses <50% with inspiration. There is no pericardial effusion. DICTATED BY: MADAN THOMAS MD DATE: 05/03/24 0844 ELECTRONICALLY SIGNED BY: MADAN THOMAS MD DATE: 05/04/24 0736 PATIENT: DAYANA MAYO MR#: [id number] : 1955 SEX: M AGE: 68 LOCATION: [facility] ORDER 99 STATUS: ADM IN REPORT#: [id number] SERVICE 0400 REASON: pneumonia ORDERING PHYSICIAN: SIMON DE LA VEGA MD PROCEDURE: CXR1VW - CHEST 1VW CHEST 1VW HISTORY: Pneumonia COMPARISON: None FINDINGS: A frontal projection of the chest was obtained. Mild bilateral pulmonary infiltrates are seen may be related to mild pulmonary vascular congestion with possible superimposed pneumonitis. The heart is enlarged. Degenerative changes are seen. No evidence of aortic calcification is seen. IMPRESSION: 1. Mild bilateral pulmonary infiltrates are seen may be related to mild pulmonary vascular congestion with possible superimposed pneumonitis. 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 Obesity, BMI 38.0. 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 PLAN: Admit to medical telemetry floor with continue telemetry monitoring. Monitor respiratory status closely. Oxygen as needed to keep SpO2 equal greater than 92%. Albuterol p.r.n. shortness of breath. Atrovent nebulizer treatments scheduled q.6 hours. RT to provide IS and education on use. Cough and deep breathe q.2 hours. Chest physiotherapy if sputum production increases. Follow sputum cultures and Gram stain. Follow blood cultures. Continue antibiotic therapy: Zosyn IV, doxycycline IV Deescalate antibiotics when appropriate. We will follow up with culture results In regards with atrial fibrillation, rate controlled, continue with metoprolol tartrate 12.5 mg p.o. b.i.d., continue with Eliquis5 mg p.o. b.i.d. 3 We will add lactulose as patient complained of constipation Continue with telemetry PT eval and treat We will follow speech therapist recommendation, recommends of solids, thin liquids and pills crushed with pureed solids as tolerated Case discussed with Dr. 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 CARDIOLOGY APPOINTMENT WITHIN 2 WEEKS POST DISCHARGE. PULMONOLOGY FOLLOW-UP APPOINTMENT WITHIN 2 WEEKS POST DISCHARGE. UROLOGY APPOINTMENT WITHIN 2 WEEKS POST DISCHARGE FOR ASSESSMENT OF MARIE CATHETER USE. IMAGING(S) : Reports attached to summary. MICROBIOLOGY : Reports attached to summary. ACTIVITY : AD YULI HOME MEDICATION : Continued TEACHING : Reinforced the importance of medication compliance and follow-up appointments. New Medications: Apixaban (Eliquis) 2.5 Mg Tablet 1 TAB PO BID for 30 Days, #60 TAB 0 Refills Doxycycline Hyclate (Doxycycline Hyclate) 100 Mg Capsule 1 CAP PO BID for 5 Days, #14 CAP 0 Refills Levofloxacin (Levofloxacin) 750 Mg Tablet 1 TAB PO DAILY for 7 Days, #7 TAB 0 Refills Metformin HCl (Metformin HCl ER) 1,000 Mg Tab.er.24 1 TAB PO DAILY for 30 Days, #30 TAB 0 Refills Acetaminophen (Acetaminophen) 650 Mg Supp.rect 650 MG RC Q6H PRN for FEVER / MILD PAIN 1-3 IF NPO for 30 Days, #30 EA Albuterol Sulfate (Albuterol Sulfate) 2.5 Mg/3 Ml (0.083 %) Vial.neb 2.5 MG IH [id number] PRN for SHORTNESS OF BREATH for 30 Days, #30 INH Atorvastatin Calcium (Lipitor) 40 Mg Tablet 40 MG PO HS for 30 Days, #30 TAB Lactulose (Lactulose) 10 Gram/15 Ml Solution 20 GM PO Q6H PRN for CONSTIPATION for 30 Days, #30 ML Metoprolol Tartrate (Lopressor) 25 Mg Tab 12.5 MG PO BID for 30 Days, #30 TAB Time spent arranging discharge: 31-60 minutes ATTESTATION BY PHYSICIAN I have seen and examined the patient. I reviewed the documentation, medical decision making, and treatment plan as noted by the resident above. I agree with the findings and plan of care. Favio Mercado MD, RAGHAVA R MD May 05, 2024 22:43
[2024-05-05] MEDS ORDERED: IPRNEB IH (22:44)
[2024-05-06] VITALS (14 sets, daily range): BP systolic 100–120; BP diastolic 56–79; PULSE 85–103; RESP 17–20; TEMP 97.5–98.3; O2SAT 98–99
[2024-05-06] MEDS: ZOSYN 3.375GM +NS 50ML IVPB SCH (01:29)
[2024-05-06 06:13] LABS: BASOPHILS # (AUTO) 0.06 K/uL (0.00-0.20); BASOPHILS % (AUTO) 0.7 % (0.0-5.0); EOSINOPHILS # (AUTO) 0.23 K/uL (0.00-0.70); EOSINOPHILS % (AUTO) 2.8 % (0.0-8.0); HEMATOCRIT 31.9 % (42-54); IMMATURE GRANULOCYTE ABSOLUTE 0.03 K/uL (0-1); LYMPHOCYTES # (AUTO) 2.3 K/uL (1.0-4.8); LYMPHOCYTES % (AUTO) 28.8 % (21.0-51.0); MEAN CORPUSCULAR HEMOGLOBIN 28.5 pg (27.0-33.0); MEAN CORPUSCULAR HGB CONC 32.9 g/dL (32.0-36.0); MEAN CORPUSCULAR VOLUME 86.4 fL (79-99); MONOCYTES # (AUTO) 0.7 K/uL (0.1-1.0); NEUTROPHILS # (AUTO) 4.8 K/uL (1.8-7.7); NEUTROPHILS % (AUTO) 59.3 % (40.0-77.0); PLATELET COUNT (AUTO) 204 K/uL (130-400); RED BLOOD CELL COUNT(AUTO) 3.69 MIL/uL (4.50-6.20); RED CELL DISTRIBUTION WIDTH 15.2 % (11.0-15.5); WHITE BLOOD COUNT (AUTO) 8.1 K/uL (4.8-10.8)
[2024-05-06 06:31] LABS: ALBUMIN 2.2 g/dL (3.5-5.0); BILIRUBIN,TOTAL 0.3 mg/dL (0.2-1.0); CREATININE 0.7 mg/dL (0.5-1.3); TOTAL PROTEIN, SERUM 5.9 g/dL (6.0-8.3)
--- NOTE | 2024-05-06 10:08 | PN ---
[facility] PROGRESS NOTE Date of Service: May 06, 2024 Time of Service: 10:03 SUBJECTIVE: Mr. Marshall is a 68-year-old male with history of recent mild stroke", atrial fibrillation, hypertension, hyperlipidemia, COPD, skin cancer (scalp closed), BPH, and urinary retention who presented to [facility] via EMS for evaluation of cough, dysphagia, shortness of breath, and general body weakness. The patient also reported he is unable to ambulate due to generalized weakness and worsening chronic back pain. Patient reported he was admitted at [facility] in [place], [place] where he experienced a CVA inpatient. The patient reported he was discharged and returned back to [facility] due to no improvement of symptoms. He was was discharged this a fternoon again from [facility] where he had been readmitted for approximately 10 days. He stated that he did not receive physical therapy while in hospital and rehab was not an option". He also stated that he had a Jung catheter placed proximally 7-10 days ago for urinary retention and it remains in place. He stated he thinks he may have a low-grade fever as well as chills. He denied having any chest pain, palpitations, edema, abdominal pain, nausea, vomiting, diarrhea, headache, visual disturbance, focal weakness/paresthesia, or dizziness. The patient reported that on his last admission to [facility] the admitting hospitalist and television producer were not nice which prompted him to come to [facility] instead this time. Labs: WBCs elevated at 16.4, H and H 13.3/41.1, Na/Cl 132/95, K 5.4, CO2 33, BUN 23, albumin three, and glucose 155. ABG on 2 L nasal cannula: PH 7.463, pCO2 32, PO2 113.3, bicarb 22.3, and base excess -0.6. EKG: Atrial fibrillation, heart rate 97 beats per minute. Chest x-ray: Mild bilateral pulmonary infiltrates are seen may be related to mild pulmonary vascular congestion with possible superimposed pneumonitis. In ED the patient continue to complain congestion, cough, and difficulty swallowing. In ED the patient was administered dose Zosyn 3.375 g x 1 for suspected aspiration pneumonia. He received dose Dilaudid 0.5 Mg x 1 dose for complains of low back pain. ED provider request patient be admitted with the diagnosis of suspected aspiration pneumonia, dysphagia, failure to thrive in adult, hyperkalemia, physical debility, leukocytosis. I went to assess the patient at bedside. The patient appeared chronically ill, breathing was even and unlabored, in no distress. Patient was conversive, answered appropriately. I informed patient of labs, diagnostics, and plan of care. The patient verbalized understanding and is in agreement with the plan. Plan and assessment are listed below. May 03, 2024 The patient was examined at the bedside. His shortness of breath slightly impr kaylin with oxygen saturation of PaO2 of 99% on nasal cannula 2.0. Patient had low MEP a and his blood pressure is at 79 /43 which was improved to 100 x 60 after an IV NS bolus at 30 cc kg per body weight. Evaluating further causes of his chest pain, his WBC count remains elevated at at 12.4 And no overnight events reported. monitoring him and treating him for pneumonia. Pulmonary embolism ruled out due to a negative chest CT scan and a negative ultrasound venous Doppler scan. 05/04/24 was examined in the room today, he is currently lying in bed, patient stated that he is having a hard time with his bowel movement. Patient is con stipated and he has pain during bowel movement. Patient stated that he has been hospitalized and was recently discharged from [facility]. We continue with current management. 05/06 patient was supposed to be discharged yesterday, apparently he failed 6 minute walk , saturating 82% on room air. Patient continues to be weak, we will request physical therapy to eval and treat. We will try to wean patient off oxygen and re-evaluate in the next 24-48 hours. Patient is unable to obtain home oxygen as he currently does not have medical insurance. Otherwise patient was evaluated in the room, he is still complaints of weakness and cough. He also feels dizzy on walking short distance. REVIEW OF SYSTEMS 12-point ROS reviewed with patient. All pertinent positives mentioned above. Otherwise negative, noncontributory, or non-pertinent. PHYSICAL EXAM GENERAL APPEARANCE: The patient is awake, alert, and oriented, in no acute card iopulmonary distress. NEUROLOGICAL: Cranial nerves II-XII grossly intact. Motor is 5/5 in bilateral upper and lower extremities proximal to distal. No sensory deficits. HEENT: Face is symmetric. Pupils are equal and reactive. Extraocular movements are intact. NECK: Supple. No JVD. No thyromegaly. No submental, submandibular, pre- /postauricular, occipital or supraclavicular lymphadenopathy. CHEST: Normal chest expansion. No Telemetry. LUNGS: Absence of any rales, rhonchi or any wheezing. CARDIOVASCULAR: Regular. S1 and S2 normal. No appreciable rubs, murmurs or gallops. ABDOMEN: Soft, nontender, and nondistended. There is no rebound, voluntary guarding, or rigidity. : Deferred. No Jung. EXTREMITIES: Non-edematous and not cyanotic. No clubbing. Good capillary refill. SKIN: No skin breakdown. Vital Signs (last 8hr) Date Time Temp Pulse Resp B/P (MAP) Pulse Ox O2 Delivery O2 Flow Rate FiO2 05/06/24 08:00 98.1 85 17 101/66 98 Nasal Cannula 2.0 05/06/24 06:51 88 18 05/06/24 06:51 88 18 N/A Room Air 21 05/06/24 04:17 98.2 97 19 100/56 97 Nasal Cannula LABS: Laboratory: Test 05/06/24 05:42 05/06/24 05:06 Range/Units White Blood Count 8.1 4.8-10.8 K/uL Red Blood Count 3.69 L 4.50-6.20 MIL/uL Hemoglobin 10.5 L 14.0-18.0 g/dL Hematocrit 31.9 L 42-54 % Mean Corpuscular Volume 86.4 79-99 fL Mean Corpuscular Hemoglobin 28.5 27.0-33.0 pg Mean Corpuscular Hemoglobin Concent 32.9 32.0-36.0 g/dL Red Cell Distribution Width 15.2 11.0-15.5 % Platelet Count 204 130-400 K/uL Mean Platelet Volume 9.5 7.5-10.5 fL Immature Granulocyte % (Auto) 0.4 0-1 % Neutrophils (%) (Auto) 59.3 40.0-77.0 % Lymphocytes (%) (Auto) 28.8 21.0-51.0 % Monocytes (%) (Auto) 8.0 3.0-13.0 % Eosinophils (%) (Auto) 2.8 0.0-8.0 % Basophils (%) (Auto) 0.7 0.0-5.0 % Neutrophils # (Auto) 4.8 1.8-7.7 K/uL Lymphocytes # (Auto) 2.3 1.0-4.8 K/uL Monocytes # (Auto) 0.7 0.1-1.0 K/uL Eosinophils # (Auto) 0.23 0.00-0.70 K/uL Basophils # (Auto) 0.06 0.00-0.20 K/uL Absolute Immature Granulocyte (auto 0.03 0-1 K/uL Nucleated Red Blood Cells 0.0 0.0-0.19 % Sodium Level 139 136-145 mmol/L Potassium Level 4.0 3.5-5.1 mmol/L Chloride Level 107 101-111 mmol/L Carbon Dioxide Level 26 21-32 mmol/L Blood Urea Nitrogen 16 7-18 mg/dL Creatinine 0.7 0.5-1.3 mg/dL Glomerular Filtration Rate Calc 99 >90 mL/min Random Glucose 120 H 70-105 mg/dL Total Calcium 8.6 8.5-10.1 mg/dL Magnesium Level 2.00 1.80-2.40 mg/dL Total Bilirubin 0.3 0.2-1.0 mg/dL Aspartate Amino Transf (AST/SGOT) 20 10-37 U/L Alanine Aminotransferase (ALT/SGPT) 24 12-78 U/L Alkaline Phosphatase 62 50-136 U/L Total Protein 5.9 L 6.0-8.3 g/dL Albumin 2.2 L 3.5-5.0 g/dL Whole Blood Glucose 105 70-110 MG/DL Current Medications Medications (Trade) Dose Ordered Sig/Beau Route PRN Reason Start Time Stop Time Status Last Admin Dose Admin Acetaminophen (TYLenol 325MG TAB) 650 mg Q6H PRN PO FEVER/MILD PAIN LEVEL 1-3 05/03/24 01:00 06/02/24 00:59 Acetaminophen (TYLenol 650MG SUPPOSITORY) 650 mg Q6H PRN RC FEVER / MILD PAIN 1-3 IF NPO 05/03/24 01:00 06/02/24 00:59 Acetaminophen/ Hydrocodone Bitart (NORco 5/325MG) 1 tab Q6H PRN PO MILD PAIN (1-3) 05/03/24 01:00 05/08/24 00:59 05/04/24 12:06 1 TAB Albuterol Sulfate (Proventil 0.083% 2.5mg/3ml) 2.5 mg [id number] PRN IH SHORTNESS OF BREATH 05/03/24 01:00 06/02/24 00:59 Atorvastatin Calcium (LIPItor 40MG) 40 mg HS PO 05/03/24 21:00 05/03/24 15:27 DC Atorvastatin Calcium (LIPItor 40MG) 40 mg HS PO 05/03/24 21:00 06/02/24 20:59 05/05/24 20:22 40 MG Docusate Sodium (COLace 100MG CAP) 100 mg BID PRN PO c 05/03/24 01:00 06/02/24 00:59 05/04/24 09:18 100 MG Doxycycline Hyclate 250 ml @ 125 mls/hr Q12H IV 05/03/24 10:00 05/11/24 12:00 05/06/24 09:26 125 MLS/HR Heparin Sodium (Porcine) (HEParin 5,000 UNIT VIAL) *calculation based on ACTUAL B... AD PRN IV HEPARIN PROTOCOL 05/03/24 15:00 05/03/24 14:18 DC Heparin Sodium/ Dextrose 250 ml @ 0 mls/hr Q6H IV 05/03/24 15:00 05/03/24 14:18 DC Hydralazine HCl (APRESOLine 20MG INJ) 10 mg Q2H PRN IV SBP GREATER THAN 160 05/03/24 01:00 06/02/24 00:59 Insulin Human Regular (humuLIN R 100 UNIT/ML 3ML) INSULIN SLIDING SCAL... ACHS SQ 05/03/24 07:30 06/02/24 07:29 Ipratropium [place] (AtrovENT UD) 0.5 mg [id number] IH 05/03/24 06:00 06/02/24 05:59 05/06/24 06:48 0.5 MG Lactulose (Constulose 20gm/ 30ml Udcup) 20 gm Q6H PRN PO CONSTIPATION 05/03/24 01:00 06/02/24 00:59 Magnesium Sulfate 50 ml @ 0 mls/hr PROTOCOL PRN IV electrolyte abnormality 05/03/24 13:30 05/10/24 12:00 05/05/24 13:40 25 MLS/HR Metoprolol Tartrate (loprESSOR) 12.5 mg BID PO 05/03/24 21:00 05/08/24 12:00 05/05/24 20:22 12.5 MG Norepinephrine 250 ml @ 0 mls/hr PROTOCOL IV 05/03/24 10:00 06/02/24 09:59 Ondansetron HCl (zoFRAN 4MG INJ) 4 mg Q6H PRN IVP NAUSEA/VOMITING 05/03/24 01:00 06/02/24 00:59 Pantoprazole Sodium (PROTonix 40MG INJ) 40 mg DAILY IVP 05/04/24 09:00 05/08/24 12:00 05/06/24 09:21 40 MG Piperacillin Sod/ Tazobactam Sod (Zosyn 3.375gm+NS 50ml) 3.375 gm Q8H IVPB 05/03/24 07:30 05/05/24 19:23 DC 05/05/24 18:26 3.375 GM Piperacillin Sod/ Tazobactam Sod (Zosyn 3.375gm+NS 50ml) 3.375 gm Q8H IVPB 05/06/24 02:00 05/16/24 01:59 05/06/24 09:26 3.375 GM Potassium Chloride 100 ml @ 50 mls/hr AD PRN IV POTASSIUM PROTOCOL 05/03/24 13:30 06/02/24 13:29 Sodium Chloride 1,000 ml @ 999 mls/hr Q1H1M IV 05/03/24 10:00 05/03/24 14:21 DC Sodium Chloride (NS 50ml) 50 ml AD IV 05/03/24 07:30 05/03/24 14:22 DC Temazepam (restORIL 15 MG CAP) 15 mg HS PRN PO INSOMNIA/SLEEP 05/03/24 01:00 06/02/24 00:59 DIAGNOSTICS / RADIOLOGY: [ ] ASSESSMENT: Acute hypoxemic respiratory failure, needing oxygen supplementation Pneumonia, (suspected aspiration pneumonia), POA Elevated D-dimer, PE was ruled out Dysphagia, POA Failure to thrive, POA Debility/frailty/general body weakness, POA Hematuria, POA, Jung catheter in place ASSESSMENT EXPERT Atrial fibrillation, 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 Obesity, BMI 38.0. Chronic problem list: AFib, hypertension, hyperlipidemia, COPD, skin cancer to scalp, BPH, urinary retention s/p Jung placement about 7-10 days ago at [facility]. PLAN: Continue medical admission Monitor respiratory status closely. Keep oxygen supplementation to keep O2 sat greater than 92%, we will slowly titrate until tolerating room air Albuterol p.r.n. shortness of breath. Atrovent nebulizer treatments scheduled q.6 hours. RT to provide IS and education on use. Cough and deep breathe q.2 hours. Chest physiotherapy if sputum production increases. Follow sputum cultures and Gram stain. Follow blood cultures. Continue antibiotic therapy: Zosyn IV, doxycycline IV Deescalate antibiotics when appropriate. We will follow up with culture results In regards with atrial fibrillation, rate controlled, continue with metoprolol tartrate 12.5 mg p.o. b.i.d., continue with Eliquis5 mg p.o. b.i.d. 3 PT eval and treat We will request secondary social studies teacher to assist with insurance Case discussed with Dr. Jurado, above plan was formulated ATTESTATION BY PHYSICIAN I have seen and examined the patient. I reviewed the documentation, medical decision making, and treatment plan as noted by the mid-level provider above. I agree with the findings and plan of care. JOSE ALEJANDRO JURADO MD, JANICE B AGPCNP May 06, 2024 10:08
--- NOTE | 2024-05-06 16:36 | NUR ---
This specification writer is called to the room of this resident. This patient voiced, " Want to hurt myself. when I get home". Thi specification writer asked him directly, "do you want to kill yourself". The patient answerd yes. This specification writer asked how he would do it and voiced, "I will quitely take a lot of pills and kill myself slowly". This specification writer asked if he had access to a firearm to which he answered, "no. This specification writer [facility] Jann and prtective measures were initated as per policy.
--- NOTE | 2024-05-06 16:45 | NUR ---
KIRSTIE Maldonado is at the bedside. She has been updated on the current status.
--- NOTE | 2024-05-06 19:45 | NUR ---
[facility] Call made to [facility] crisis hotline, at [phone], made aware of suicidal ideation voice by patient, this nurse requested screening as patient is medically cleared per Erica Aldana [employer] CLERK, rn call center stated they need blood alcohol level before they can proceed with the process of screening, alcohol level ordered as requested, pending to be collected, Hermilo Ziegler Rn, primary nurse made aware of above mention, patient in bed with HOB elevated, respirations even and unlabored, no c/o pain or discomfort, continues with one to one sitter at bedside, no concerns at this time.
[2024-05-07] VITALS (11 sets, daily range): BP systolic 104–134; BP diastolic 65–85; PULSE 87–102; RESP 17–19; TEMP 97.4–98.3; O2SAT 97–100
[2024-05-07] MEDS: acetaMINOPHEN 325 MG TAB PO PRN (00:01)
[2024-05-07 05:33] LABS: BASOPHILS # (AUTO) 0.05 K/uL (0.00-0.20); BASOPHILS % (AUTO) 0.6 % (0.0-5.0); EOSINOPHILS # (AUTO) 0.23 K/uL (0.00-0.70); EOSINOPHILS % (AUTO) 2.6 % (0.0-8.0); HEMATOCRIT 30.9 % (42-54); IMMATURE GRANULOCYTE ABSOLUTE 0.02 K/uL (0-1); LYMPHOCYTES # (AUTO) 2.4 K/uL (1.0-4.8); LYMPHOCYTES % (AUTO) 27.2 % (21.0-51.0); MEAN CORPUSCULAR HEMOGLOBIN 28.3 pg (27.0-33.0); MEAN CORPUSCULAR HGB CONC 32.7 g/dL (32.0-36.0); MEAN CORPUSCULAR VOLUME 86.6 fL (79-99); MONOCYTES # (AUTO) 0.7 K/uL (0.1-1.0); MONOCYTES % (AUTO) 8.1 % (3.0-13.0); NEUTROPHILS # (AUTO) 5.5 K/uL (1.8-7.7); NEUTROPHILS % (AUTO) 61.3 % (40.0-77.0); PLATELET COUNT (AUTO) 212 K/uL (130-400); RED BLOOD CELL COUNT(AUTO) 3.57 MIL/uL (4.50-6.20)
[2024-05-07 05:50] LABS: ALBUMIN 2.3 g/dL (3.5-5.0); BILIRUBIN,TOTAL 0.4 mg/dL (0.2-1.0); CREATININE 0.6 mg/dL (0.5-1.3); MAGNESIUM 1.8 mg/dL (1.80-2.40); POTASSIUM 3.9 mmol/L (3.5-5.1)
--- NOTE | 2024-05-07 12:00 | PN ---
[facility] PROGRESS NOTE Date of Service: May 07, 2024 Time of Service: 11:57 SUBJECTIVE: Mr. Marshall is a 68-year-old male with history of recent mild stroke", atrial fibrillation, hypertension, hyperlipidemia, COPD, skin cancer (scalp closed), BPH, and urinary retention who presented to [facility] via EMS for evaluation of cough, dysphagia, shortness of breath, and general body weakness. The patient also reported he is unable to ambulate due to generalized weakness and worsening chronic back pain. Patient reported he was admitted at [facility] in [place], [place] where he experienced a CVA inpatient. The patient reported he was discharged and returned back to [facility] due to no improvement of symptoms. He was was discharged this a fternoon again from [facility] where he had been readmitted for approximately 10 days. He stated that he did not receive physical therapy while in hospital and rehab was not an option". He also stated that he had a Jung catheter placed proximally 7-10 days ago for urinary retention and it remains in place. He stated he thinks he may have a low-grade fever as well as chills. He denied having any chest pain, palpitations, edema, abdominal pain, nausea, vomiting, diarrhea, headache, visual disturbance, focal weakness/paresthesia, or dizziness. The patient reported that on his last admission to [facility] the admitting hospitalist and audio visual facilities engineer were not nice which prompted him to come to [facility] instead this time. Labs: WBCs elevated at 16.4, H and H 13.3/41.1, Na/Cl 132/95, K 5.4, CO2 33, BUN 23, albumin three, and glucose 155. ABG on 2 L nasal cannula: PH 7.463, pCO2 32, PO2 113.3, bicarb 22.3, and base excess -0.6. EKG: Atrial fibrillation, heart rate 97 beats per minute. Chest x-ray: Mild bilateral pulmonary infiltrates are seen may be related to mild pulmonary vascular congestion with possible superimposed pneumonitis. In ED the patient continue to complain congestion, cough, and difficulty swallowing. In ED the patient was administered dose Zosyn 3.375 g x 1 for suspected aspiration pneumonia. He received dose Dilaudid 0.5 Mg x 1 dose for complains of low back pain. ED provider request patient be admitted with the diagnosis of suspected aspiration pneumonia, dysphagia, failure to thrive in adult, hyperkalemia, physical debility, leukocytosis. I went to assess the patient at bedside. The patient appeared chronically ill, breathing was even and unlabored, in no distress. Patient was conversive, answered appropriately. I informed patient of labs, diagnostics, and plan of care. The patient verbalized understanding and is in agreement with the plan. Plan and assessment are listed below. May 03, 2024 The patient was examined at the bedside. His shortness of breath slightly impr kaylin with oxygen saturation of PaO2 of 99% on nasal cannula 2.0. Patient had low MEP a and his blood pressure is at 79 /43 which was improved to 100 x 60 after an IV NS bolus at 30 cc kg per body weight. Evaluating further causes of his chest pain, his WBC count remains elevated at at 12.4 And no overnight events reported. monitoring him and treating him for pneumonia. Pulmonary embolism ruled out due to a negative chest CT scan and a negative ultrasound venous Doppler scan. 05/04/24 was examined in the room today, he is currently lying in bed, patient stated that he is having a hard time with his bowel movement. Patient is con stipated and he has pain during bowel movement. Patient stated that he has been hospitalized and was recently discharged from [facility]. We continue with current management. 05/06 patient was supposed to be discharged yesterday, apparently he failed 6 minute walk , saturating 82% on room air. Patient continues to be weak, we will request physical therapy to eval and treat. We will try to wean patient off oxygen and re-evaluate in the next 24-48 hours. Patient is unable to obtain home oxygen as he currently does not have medical insurance. Otherwise patient was evaluated in the room, he is still complaints of weakness and cough. He also feels dizzy on walking short distance. 05/07/24 Patient is for DC planning and was awaiting for Oxygen arrangement. [facility] provided oxygen concentrator currently at bedside but patient right now is on room air. He is medically clear unfortunately he did voiced out suicidal ideation for which patient was placed on one-to-one supervision. Tropical has been consulted. REVIEW OF SYSTEMS 12-point ROS reviewed with patient. All pertinent positives mentioned above. Otherwise negative, noncontributory, or non-pertinent. PHYSICAL EXAM GENERAL APPEARANCE: The patient is awake, alert, and oriented, in no acute cardiopulmonary distress. NEUROLOGICAL: Cranial nerves II-XII grossly intact. Motor is 5/5 in bilateral upper and lower extremities proximal to distal. No sensory deficits. HEENT: Face is symmetric. Pupils are equal and reactive. Extraocular movements are intact. NECK: Supple. No JVD. No thyromegaly. No submental, submandibular, pre- /postauricular, occipital or supraclavicular lymphadenopathy. CHEST: Normal chest expansion. No Telemetry. LUNGS: Absence of any rales, rhonchi or any wheezing. CARDIOVASCULAR: Regular. S1 and S2 normal. No appreciable rubs, murmurs or gallops. ABDOMEN: Soft, nontender, and nondistended. There is no rebound, voluntary guarding, or rigidity. : Deferred. No Jung. EXTREMITIES: Non-edematous and not cyanotic. No clubbing. Good capillary refill. SKIN: No skin breakdown. Vital Signs (last 8hr) Date Time Temp Pulse Resp B/P (MAP) Pulse Ox O2 Delivery O2 Flow Rate FiO2 05/07/24 08:21 97.3 89 19 132/85 98 Room Air 05/07/24 08:01 90 18 N/A Room Air 21 05/07/24 06:27 87 18 05/07/24 04:00 97.5 95 17 104/65 96 Room Air LABS: Laboratory: Test 05/07/24 11:11 05/07/24 05:10 05/06/24 19:56 Range/Units Whole Blood Glucose 145 H 70-110 MG/DL White Blood Count 9.0 4.8-10.8 K/uL Red Blood Count 3.57 L 4.50-6.20 MIL/uL Hemoglobin 10.1 L 14.0-18.0 g/dL Hematocrit 30.9 L 42-54 % Mean Corpuscular Volume 86.6 79-99 fL Mean Corpuscular Hemoglobin 28.3 27.0-33.0 pg Mean Corpuscular Hemoglobin Concent 32.7 32.0-36.0 g/dL Red Cell Distribution Width 15.0 11.0-15.5 % Platelet Count 212 130-400 K/uL Mean Platelet Volume 9.3 7.5-10.5 fL Immature Granulocyte % (Auto) 0.2 0-1 % Neutrophils (%) (Auto) 61.3 40.0-77.0 % Lymphocytes (%) (Auto) 27.2 21.0-51.0 % Monocytes (%) (Auto) 8.1 3.0-13.0 % Eosinophils (%) (Auto) 2.6 0.0-8.0 % Basophils (%) (Auto) 0.6 0.0-5.0 % Neutrophils # (Auto) 5.5 1.8-7.7 K/uL Lymphocytes # (Auto) 2.4 1.0-4.8 K/uL Monocytes # (Auto) 0.7 0.1-1.0 K/uL Eosinophils # (Auto) 0.23 0.00-0.70 K/uL Basophils # (Auto) 0.05 0.00-0.20 K/uL Absolute Immature Granulocyte (auto 0.02 0-1 K/uL Nucleated Red Blood Cells 0.0 0.0-0.19 % Sodium Level 139 136-145 mmol/L Potassium Level 3.9 3.5-5.1 mmol/L Chloride Level 107 101-111 mmol/L Carbon Dioxide Level 26 21-32 mmol/L Blood Urea Nitrogen 13 7-18 mg/dL Creatinine 0.6 0.5-1.3 mg/dL Glomerular Filtration Rate Calc 104 >90 mL/min Random Glucose 101 70-105 mg/dL Total Calcium 8.6 8.5-10.1 mg/dL Magnesium Level 1.80 1.80-2.40 mg/dL Total Bilirubin 0.4 # 0.2-1.0 mg/dL Aspartate Amino Transf (AST/SGOT) 27 10-37 U/L Alanine Aminotransferase (ALT/SGPT) 26 12-78 U/L Alkaline Phosphatase 66 50-136 U/L Total Protein 6.0 6.0-8.3 g/dL Albumin 2.3 L 3.5-5.0 g/dL Serum Alcohol < 3 0-10 mg/dL Current Medications Medications (Trade) Dose Ordered Sig/Beau Route PRN Reason Start Time Stop Time Status Last Admin Dose Admin Acetaminophen (TYLenol 325MG TAB) 650 mg Q6H PRN PO FEVER/MILD PAIN LEVEL 1-3 05/03/24 01:00 06/02/24 00:59 05/07/24 00:01 650 MG Acetaminophen (TYLenol 650MG SUPPOSITORY) 650 mg Q6H PRN RC FEVER / MILD PAIN 1-3 IF NPO 05/03/24 01:00 06/02/24 00:59 Acetaminophen/ Hydrocodone Bitart (NORco 5/325MG) 1 tab Q6H PRN PO MILD PAIN (1-3) 05/03/24 01:00 05/08/24 00:59 05/04/24 12:06 1 TAB Albuterol Sulfate (Proventil 0.083% 2.5mg/3ml) 2.5 mg [id number] PRN IH SHORTNESS OF BREATH 05/03/24 01:00 06/02/24 00:59 Atorvastatin Calcium (LIPItor 40MG) 40 mg HS PO 05/03/24 21:00 05/03/24 15:27 DC Atorvastatin Calcium (LIPItor 40MG) 40 mg HS PO 05/03/24 21:00 06/02/24 20:59 05/06/24 20:15 40 MG Docusate Sodium (COLace 100MG CAP) 100 mg BID PRN PO c 05/03/24 01:00 06/02/24 00:59 05/07/24 00:01 100 MG Doxycycline Hyclate 250 ml @ 125 mls/hr Q12H IV 05/03/24 10:00 05/11/24 12:00 05/07/24 09:06 125 MLS/HR Heparin Sodium (Porcine) (HEParin 5,000 UNIT VIAL) *calculation based on ACTUAL B... AD PRN IV HEPARIN PROTOCOL 05/03/24 15:00 05/03/24 14:18 DC Heparin Sodium/ Dextrose 250 ml @ 0 mls/hr Q6H IV 05/03/24 15:00 05/03/24 14:18 DC Hydralazine HCl (APRESOLine 20MG INJ) 10 mg Q2H PRN IV SBP GREATER THAN 160 05/03/24 01:00 06/02/24 00:59 Insulin Human Regular (humuLIN R 100 UNIT/ML 3ML) INSULIN SLIDING SCAL... ACHS SQ 05/03/24 07:30 06/02/24 07:29 Ipratropium [place] (AtrovENT UD) 0.5 mg [id number] IH 05/03/24 06:00 06/02/24 05:59 05/07/24 10:57 0.5 MG Lactulose (Constulose 20gm/ 30ml Udcup) 20 gm Q6H PRN PO CONSTIPATION 05/03/24 01:00 06/02/24 00:59 Magnesium Sulfate 50 ml @ 0 mls/hr PROTOCOL PRN IV electrolyte abnormality 05/03/24 13:30 05/10/24 12:00 05/07/24 06:35 25 MLS/HR Metoprolol Tartrate (loprESSOR) 12.5 mg BID PO 05/03/24 21:00 05/08/24 12:00 05/07/24 09:06 12.5 MG Norepinephrine 250 ml @ 0 mls/hr PROTOCOL IV 05/03/24 10:00 06/02/24 09:59 Ondansetron HCl (zoFRAN 4MG INJ) 4 mg Q6H PRN IVP NAUSEA/VOMITING 05/03/24 01:00 06/02/24 00:59 Pantoprazole Sodium (PROTonix 40MG INJ) 40 mg DAILY IVP 05/04/24 09:00 05/08/24 12:00 05/07/24 09:06 40 MG Piperacillin Sod/ Tazobactam Sod (Zosyn 3.375gm+NS 50ml) 3.375 gm Q8H IVPB 05/03/24 07:30 05/05/24 19:23 DC 05/05/24 18:26 3.375 GM Piperacillin Sod/ Tazobactam Sod (Zosyn 3.375gm+NS 50ml) 3.375 gm Q8H IVPB 05/06/24 02:00 05/16/24 01:59 05/07/24 00:01 3.375 GM Potassium Chloride 100 ml @ 50 mls/hr AD PRN IV POTASSIUM PROTOCOL 05/03/24 13:30 06/02/24 13:29 Sodium Chloride 1,000 ml @ 999 mls/hr Q1H1M IV 05/03/24 10:00 05/03/24 14:21 DC Sodium Chloride (NS 50ml) 50 ml AD IV 05/03/24 07:30 05/03/24 14:22 DC Temazepam (restORIL 15 MG CAP) 15 mg HS PRN PO INSOMNIA/SLEEP 05/03/24 01:00 06/02/24 00:59 DIAGNOSTICS / RADIOLOGY: [ ] ASSESSMENT: Suicidal ideation Acute hypoxemic respiratory failure, needing oxygen supplementation-patient already has oxygen concentrator at bedside but currently on room air. Pneumonia, (suspected aspiration pneumonia), POA Elevated D-dimer, PE was ruled out Dysphagia, POA Failure to thrive, POA Debility/frailty/general body weakness, POA Hematuria, POA, Jung catheter in place PREMIUM REPRESENTATIVE Atrial fibrillation, 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 Obesity, BMI 38.0. Chronic problem list: AFib, hypertension, hyperlipidemia, COPD, skin cancer to scalp, BPH, urinary retention s/p Jung placement about 7-10 days ago at [facility]. PLAN: Continue medical admission He is on one-to-one supervision for suicidal ideation. Patient is medically clear, we requested tropical to evaluate Monitor respiratory status closely, currently on room air. Keep oxygen supplementation to keep O2 sat greater than 92%, we will slowly titrate until tolerating room air Albuterol p.r.n. shortness of breath. Atrovent nebulizer treatments scheduled q.6 hours. RT to provide IS and education on use. Cough and deep breathe q.2 hours. Chest physiotherapy if sputum production increases. Follow sputum cultures and Gram stain. Follow blood cultures. Continue antibiotic therapy: Zosyn IV, doxycycline IV Deescalate antibiotics when appropriate. We will follow up with culture results In regards with atrial fibrillation, rate controlled, continue with metoprolol tartrate 12.5 mg p.o. b.i.d., continue with Eliquis5 mg p.o. b.i.d. 3 PT eval and treat We will request older adult social work specialist to assist with insurance Case discussed with Dr. Jurado, above plan was formulated ATTESTATION BY PHYSICIAN I have seen and examined the patient. I reviewed the documentation, medical decision making, and treatment plan as noted by the mid-level provider above. I agree with the findings and plan of care. JOSE ALEJANDRO JURADO MD, JANICE B AGPCNP May 07, 2024 12:00
--- NOTE | 2024-05-07 22:34 | NUR ---
called the [place] Crisis hotline and spoke with Maikol about 's determination. Maikol will contact the person in charge of that and will get back to me. primary nurse Home Morrell RN aware. Addendum: 05/07/24 at 2239 by PAUL KOENIG RN RN Amended: Links added.
--- NOTE | 2024-05-07 23:15 | NUR ---
DISCONTINUE SITTER I SPOKE WITH FILIPPO HENDERSONVERN FROM [facility]. DETERMINATION WAS FAXED AND EMAILED. REPORT RECEIVED AND GIVEN TO PAULY LUONG. ORDERS RECEIVED AND CARRIED OUT. ONE TO ONE SITTER DISCONTINUED. PRIMARY NURSE SAMSON CHANDLER AWARE. Addendum: 05/08/24 at 0019 by PAUL KOENIG RN RN Amended: Links added.
[2024-05-08] VITALS (13 sets, daily range): BP systolic 96–133; BP diastolic 48–76; PULSE 62–106; RESP 16–20; TEMP 97.4–98.6; O2SAT 96–100
[2024-05-08] MEDS: TEMAZepam 15 MG CAPSULE PO PRN (00:36)
[2024-05-08 03:39] LABS: HEMATOCRIT 33.9 % (42-54); MEAN CORPUSCULAR HEMOGLOBIN 28.7 pg (27.0-33.0); MEAN CORPUSCULAR HGB CONC 31.9 g/dL (32.0-36.0); MEAN CORPUSCULAR VOLUME 90.2 fL (79-99); RED BLOOD CELL COUNT(AUTO) 3.76 MIL/uL (4.50-6.20); RED CELL DISTRIBUTION WIDTH 15.1 % (11.0-15.5); WHITE BLOOD COUNT (AUTO) 8.5 K/uL (4.8-10.8)
[2024-05-08 03:55] LABS: ALBUMIN 2.2 g/dL (3.5-5.0); BILIRUBIN,TOTAL 0.4 mg/dL (0.2-1.0); CREATININE 0.6 mg/dL (0.5-1.3); MAGNESIUM 1.8 mg/dL (1.80-2.40); TOTAL PROTEIN, SERUM 6.1 g/dL (6.0-8.3)
--- NOTE | 2024-05-08 08:57 | CONS ---
CONSULTATION NOTE Date of Service: May 08, 2024 Reason for Consultation: [Cancer lesion on the scalp ] Requesting Physician: [ Hospitalist group ] HISTORY OF PRESENT ILLNESS: Mr. Marshall is a 68-year-old male with history of recent mild stroke", atrial fibrillation, hypertension, hyperlipidemia, COPD, skin cancer (scalp closed), BPH, and urinary retention who presented to [facility] via EMS for evaluation of cough, dysphagia, shortness of breath, and general body weakness. The patient also reported he is unable to ambulate due to generalized weakness and worsening chronic back pain. Patient reported he was admitted at [facility] in [place], [place] where he experienced a CVA inpatient. The patient reported he was discharged and returned back to [facility] due to no improvement of symptoms. He was was discharged this afternoon again from [facility] [place] [facility] where he had been readmitted for approximately 10 days. He stated that he did not receive physical therapy while in hospital and rehab was not an option". He also stated that he had a Jung catheter placed proximally 7-10 days ago for urinary retention and it remains in place. He stated he thinks he may have a low-grade fever as well as chills. He denied having any chest pain, palpitations, edema, abdominal pain, nausea, vomiting, diarrhea, headache, visual disturbance, focal weakness/paresthesia, or dizziness. The patient reported that on his last admission to [facility] [place] [facility] the admitting hospitalist and ca rdiologist were not nice which prompted him to come to [facility] instead this time. Labs: WBCs elevated at 16.4, H and H 13.3/41.1, Na/Cl 132/95, K 5.4, CO2 33, BUN 23, albumin three, and glucose 155. ABG on 2 L nasal cannula: PH 7.463, pCO2 32, PO2 113.3, bicarb 22.3, and base excess -0.6. EKG: Atrial fibrillation, heart rate 97 beats per minute. Chest x-ray: Mild bilateral pulmonary infiltrates are seen may be related to mild pulmonary vascular congestion with possible superimposed pneumonitis. In ED the patient continue to complain congestion, cough, and difficulty swallowing. In ED the patient was administered dose Zosyn 3.375 g x 1 for suspected aspiration pneumonia. He received dose Dilaudid 0.5 Mg x 1 dose for complains of low back pain. ED provider request patient be admitted with the diagnosis of suspected aspiration pneumonia, dysphagia, failure to thrive in adult, hyperkalemia, physical debility, leukocytosis. I went to assess the patient at bedside. The patient appeared chronically ill, breathing was even and unlabored, in no distress. Patient was conversive, answered appropriately. I informed patient of labs, diagnostics, and plan of care. The patient verbalized understanding and is in agreement with the plan. Plan and assessment are listed below. REVIEW OF SYSTEMS CONSTITUTIONAL: Denies fever, chills, or fatigue. HEAD/FACE: No signs of trauma. EENT: Denies eye pain, blurred vision, double vision, or light sensitivity. RESPIRATORY: Denies shortness of breath, cough, wheezing CARDIOVASCULAR: Denies chest pain, palpitation, syncope GASTROINTESTINAL/ABDOMINAL: Denies abdominal pain, constipation, diarrhea, nausea or vomiting GENITOURINARY: Denies dysuria or hematuria. MUSCULOSKELETAL: Denies joint pain, tenderness, or trauma. INTEGUMENTARY: Denies rash or itchiness NEUROLOGICAL/PSYCH: Denies anxiety, depression, heat or cold intolerance. PAST MEDICAL HISTORY: As mentioned above PAST SURGICAL HISTORY: Tonsillectomy PAST SOCIAL HISTORY: Denies tobacco, alcohol use, illicit drug use. Lives with roommate. FAMILY HISTORY: Noncontributory Coded Allergies: Penicillins (Verified Allergy, 03/08/13) Coded Allergies: Penicillins (Verified Allergy, 03/08/13) PHYSICAL EXAM EYES: Anicteric. Pupils equal and reactive. HENT: No oral thrush seen, moist Oral mucosa NECK: Supple, no JVD or thyromegaly. LUNGS: Good air entry. No rales, no rhonchi. CARDIOVASCULAR: S1, S2 regular. No murmur heard. ABDOMEN: Soft, non tender, bowel sounds present, no organomegaly CENTRAL NERVOUS SYSTEM: Awake, alert, oriented x 3. No focal deficits. SKIN: Ulcerated cancer lesion on the scalp affecting the left parietal area. LYMPHATICS: No peripheral lymphadenopathy MUSCULOSKELETAL: No joint swelling, erythema or tenderness. EXTREMITIES: No cyanosis or clubbing BACK: No deformity, no pressure ulcer. GENITOURINARY: No dysuria or hematuria Vital Sign (Last 24 Hours) 05/07/24 05/08/24 05/08/24 20:00 06:54 07:48 Temp 98.6 Pulse 94 Resp 17 B/P (MAP) 116/72 Pulse Ox 99 O2 Delivery Room Air O2 Flow Rate 0 FiO2 21 Intake & Output (last 24hrs) 05/07/24 05/07/24 05/08/24 15:00 23:00 07:00 Intake Total 500 ml Output Total 600 ml 1000 ml Balance -100 ml -1000 ml LABS: Laboratory: Test 05/08/24 05:35 05/08/24 03:17 05/07/24 05:10 05/06/24 19:56 Range/Units Whole Blood Glucose 119 H 70-110 MG/DL White Blood Count 8.5 4.8-10.8 K/uL Red Blood Count 3.76 L 4.50-6.20 MIL/uL Hemoglobin 10.8 L 14.0-18.0 g/dL Hematocrit 33.9 L 42-54 % Mean Corpuscular Volume 90.2 79-99 fL Mean Corpuscular Hemoglobin 28.7 27.0-33.0 pg Mean Corpuscular Hemoglobin Concent 31.9 L 32.0-36.0 g/dL Red Cell Distribution Width 15.1 11.0-15.5 % Platelet Count 192 130-400 K/uL Mean Platelet Volume 9.5 7.5-10.5 fL Nucleated Red Blood Cells 0.0 0.0-0.19 % Sodium Level 138 136-145 mmol/L Potassium Level 4.0 3.5-5.1 mmol/L Chloride Level 106 101-111 mmol/L Carbon Dioxide Level 26 21-32 mmol/L Blood Urea Nitrogen 12 7-18 mg/dL Creatinine 0.6 0.5-1.3 mg/dL Glomerular Filtration Rate Calc 104 >90 mL/min Random Glucose 120 H 70-105 mg/dL Total Calcium 8.7 8.5-10.1 mg/dL Magnesium Level 1.80 1.80-2.40 mg/dL Total Bilirubin 0.4 0.2-1.0 mg/dL Aspartate Amino Transf (AST/SGOT) 27 10-37 U/L Alanine Aminotransferase (ALT/SGPT) 26 12-78 U/L Alkaline Phosphatase 76 50-136 U/L Total Protein 6.1 6.0-8.3 g/dL Albumin 2.2 L 3.5-5.0 g/dL Immature Granulocyte % (Auto) 0.2 0-1 % Neutrophils (%) (Auto) 61.3 40.0-77.0 % Lymphocytes (%) (Auto) 27.2 21.0-51.0 % Monocytes (%) (Auto) 8.1 3.0-13.0 % Eosinophils (%) (Auto) 2.6 0.0-8.0 % Basophils (%) (Auto) 0.6 0.0-5.0 % Neutrophils # (Auto) 5.5 1.8-7.7 K/uL Lymphocytes # (Auto) 2.4 1.0-4.8 K/uL Monocytes # (Auto) 0.7 0.1-1.0 K/uL Eosinophils # (Auto) 0.23 0.00-0.70 K/uL Basophils # (Auto) 0.05 0.00-0.20 K/uL Absolute Immature Granulocyte (auto 0.02 0-1 K/uL Serum Alcohol < 3 0-10 mg/dL DIAGNOSTICS / RADIOLOGY: [ ] Wound care assessment: Ulcerated cancer lesion on the left parietal area. PROBLEM LIST : Medical Problems: (1) Dysphagia ICD Codes: R13.10 - Dysphagia, unspecified (2) Failure to thrive in adult ICD Codes: R62.7 - Adult failure to thrive (3) Hyperkalemia ICD Codes: E87.5 - Hyperkalemia (4) Leukocytosis ICD Codes: D72.829 - Elevated white blood cell count, unspecified (5) Physical debility ICD Codes: R53.81 - Other malaise (6) Pneumonia, aspiration ICD Codes: J69.0 - Pneumonitis due to inhalation of food and vomit PLAN: Clean the area with normal saline or wound cleanser and pat dry. Apply Vaseline gauze and cover with dry dressing. General surgery Dr. Silvestre consulted for possible excision of the cancer of lesion. Oncologist consulted. Comorbidities per primary team. Further management per hospital course. Thank you for the consultation allowing me to participate in the care of this patient. JOSSIE CASTELLANOS MD May 08, 2024 08:57
[2024-05-08] MEDS: LACTULOSE 20 GM/30 ML UDCUP PO PRN (09:17)
--- NOTE | 2024-05-08 11:30 | NUR ---
BLOOD GLUCOSE 120. NO INSULIN COVERAGE NEEDED AT THIS TIME.
--- NOTE | 2024-05-08 11:33 | PN ---
[facility]AL[facility] PROGRESS NOTE Date of Service: May 08, 2024 Time of Service: 11:27 SUBJECTIVE: Mr. Marshall is a 68-year-old male with history of recent mild stroke", atrial fibrillation, hypertension, hyperlipidemia, COPD, skin cancer (scalp closed), BPH, and urinary retention who presented to [facility] ED via EMS for evaluation of cough, dysphagia, shortness of breath, and general body weakness. The patient also reported he is unable to ambulate due to generalized weakness and worsening chronic back pain. Patient reported he was admitted at [facility] in [place], [place] where he experienced a CVA inpatient. The patient reported he was discharged and returned back to [facility] due to no improvement of symptoms. He was was discharged this af ternoon again from [facility] where he had been readmitted for approximately 10 days. He stated that he did not receive physical therapy while in hospital and rehab was not an option". He also stated that he had a Jung catheter placed proximally 7-10 days ago for urinary retention and it remains in place. He stated he thinks he may have a low-grade fever as well as chills. He denied having any chest pain, palpitations, edema, abdominal pain, nausea, vomiting, diarrhea, headache, visual disturbance, focal weakness/paresthesia, or dizziness. The patient reported that on his last admission to [facility] the admitting hospitalist and press helper were not nice which prompted him to come to [facility] instead this time. Labs: WBCs elevated at 16.4, H and H 13.3/41.1, Na/Cl 132/95, K 5.4, CO2 33, BUN 23, albumin three, and glucose 155. ABG on 2 L nasal cannula: PH 7.463, pCO2 32, PO2 113.3, bicarb 22.3, and base excess -0.6. EKG: Atrial fibrillation, heart rate 97 beats per minute. Chest x-ray: Mild bilateral pulmonary infiltrates are seen may be related to mild pulmonary vascular congestion with possible superimposed pneumonitis. In ED the patient continue to complain congestion, cough, and difficulty swallowing. In ED the patient was administered dose Zosyn 3.375 g x 1 for suspected aspiration pneumonia. He received dose Dilaudid 0.5 Mg x 1 dose for complains of low back pain. ED provider request patient be admitted with the diagnosis of suspected aspiration pneumonia, dysphagia, failure to thrive in adult, hyperkalemia, physical debility, leukocytosis. I went to assess the patient at bedside. The patient appeared chronically ill, breathing was even and unlabored, in no distress. Patient was conversive, answered appropriately. I informed patient of labs, diagnostics, and plan of care. The patient verbalized understanding and is in agreement with the plan. Plan and assessment are listed below. May 03, 2024 The patient was examined at the bedside. His shortness of breath slightly impro lauren with oxygen saturation of PaO2 of 99% on nasal cannula 2.0. Patient had low MEP a and his blood pressure is at 79 /43 which was improved to 100 x 60 after an IV NS bolus at 30 cc kg per body weight. Evaluating further causes of his chest pain, his WBC count remains elevated at at 12.4 And no overnight events reported. monitoring him and treating him for pneumonia. Pulmonary embolism ruled out due to a negative chest CT scan and a negative ultrasound venous Doppler scan. 05/04/24 was examined in the room today, he is currently lying in bed, patient stated that he is having a hard time with his bowel movement. Patient is cons tipated and he has pain during bowel movement. Patient stated that he has been hospitalized and was recently discharged from [facility]. We continue with current management. 05/06 patient was supposed to be discharged yesterday, apparently he failed 6 minute walk , saturating 82% on room air. Patient continues to be weak, we will request physical therapy to eval and treat. We will try to wean patient off oxygen and re-evaluate in the next 24-48 hours. Patient is unable to obtain home oxygen as he currently does not have medical insurance. Otherwise patient was evaluated in the room, he is still complaints of weakness and cough. He also feels dizzy on walking short distance. 05/07/24 Patient is for DC planning and was awaiting for Oxygen arrangement. [facility] provided oxygen concentrator currently at bedside but patient right now is on room air. He is medically clear unfortunately he did voiced out suicidal ideation for which patient was placed on one-to-one supervision. Tropical has been consulted. 05/08 patient was evaluated this morning. He was sitting on the recliner chair. Patient was just seen by system configuration specialist who recommended debridement on the scalp and also Oncology consultation to rule out skin cancer. Patient has been cleared from [employer]. REVIEW OF SYSTEMS 12-point ROS reviewed with patient. All pertinent positives mentioned above. Otherwise negative, noncontributory, or non-pertinent. PHYSICAL EXAM GENERAL APPEARANCE: The patient is awake, alert, and oriented, in no acute cardiopulmonary distress. NEUROLOGICAL: Cranial nerves II-XII grossly intact. Motor is 5/5 in bilateral upper and lower extremities proximal to distal. No sensory deficits. HEENT: Face is symmetric. Pupils are equal and reactive. Extraocular movements are intact. NECK: Supple. No JVD. No thyromegaly. No submental, submandibular, pre- /postauricular, occipital or supraclavicular lymphadenopathy. CHEST: Normal chest expansion. No Telemetry. LUNGS: Absence of any rales, rhonchi or any wheezing. CARDIOVASCULAR: Regular. S1 and S2 normal. No appreciable rubs, murmurs or gallops. ABDOMEN: Soft, nontender, and nondistended. There is no rebound, voluntary guarding, or rigidity. : Deferred. No Jung. EXTREMITIES: Non-edematous and not cyanotic. No clubbing. Good capillary refill. SKIN: No skin breakdown. Vital Signs (last 8hr) Date Time Temp Pulse Resp B/P (MAP) Pulse Ox O2 Delivery O2 Flow Rate FiO2 05/08/24 09:16 98.6 05/08/24 07:48 98.6 94 17 116/72 99 Room Air 05/08/24 06:54 102 18 N/A Room Air 21 05/08/24 06:52 102 18 05/08/24 03:46 97.3 95 16 96/57 100 Room Air LABS: Laboratory: Test 05/08/24 05:35 05/08/24 03:17 05/07/24 05:10 05/06/24 19:56 Range/Units Whole Blood Glucose 119 H 70-110 MG/DL White Blood Count 8.5 4.8-10.8 K/uL Red Blood Count 3.76 L 4.50-6.20 MIL/uL Hemoglobin 10.8 L 14.0-18.0 g/dL Hematocrit 33.9 L 42-54 % Mean Corpuscular Volume 90.2 79-99 fL Mean Corpuscular Hemoglobin 28.7 27.0-33.0 pg Mean Corpuscular Hemoglobin Concent 31.9 L 32.0-36.0 g/dL Red Cell Distribution Width 15.1 11.0-15.5 % Platelet Count 192 130-400 K/uL Mean Platelet Volume 9.5 7.5-10.5 fL Nucleated Red Blood Cells 0.0 0.0-0.19 % Sodium Level 138 136-145 mmol/L Potassium Level 4.0 3.5-5.1 mmol/L Chloride Level 106 101-111 mmol/L Carbon Dioxide Level 26 21-32 mmol/L Blood Urea Nitrogen 12 7-18 mg/dL Creatinine 0.6 0.5-1.3 mg/dL Glomerular Filtration Rate Calc 104 >90 mL/min Random Glucose 120 H 70-105 mg/dL Total Calcium 8.7 8.5-10.1 mg/dL Magnesium Level 1.80 1.80-2.40 mg/dL Total Bilirubin 0.4 0.2-1.0 mg/dL Aspartate Amino Transf (AST/SGOT) 27 10-37 U/L Alanine Aminotransferase (ALT/SGPT) 26 12-78 U/L Alkaline Phosphatase 76 50-136 U/L Total Protein 6.1 6.0-8.3 g/dL Albumin 2.2 L 3.5-5.0 g/dL Immature Granulocyte % (Auto) 0.2 0-1 % Neutrophils (%) (Auto) 61.3 40.0-77.0 % Lymphocytes (%) (Auto) 27.2 21.0-51.0 % Monocytes (%) (Auto) 8.1 3.0-13.0 % Eosinophils (%) (Auto) 2.6 0.0-8.0 % Basophils (%) (Auto) 0.6 0.0-5.0 % Neutrophils # (Auto) 5.5 1.8-7.7 K/uL Lymphocytes # (Auto) 2.4 1.0-4.8 K/uL Monocytes # (Auto) 0.7 0.1-1.0 K/uL Eosinophils # (Auto) 0.23 0.00-0.70 K/uL Basophils # (Auto) 0.05 0.00-0.20 K/uL Absolute Immature Granulocyte (auto 0.02 0-1 K/uL Serum Alcohol < 3 0-10 mg/dL Current Medications Medications (Trade) Dose Ordered Sig/Beau Route PRN Reason Start Time Stop Time Status Last Admin Dose Admin Acetaminophen (TYLenol 325MG TAB) 650 mg Q6H PRN PO FEVER/MILD PAIN LEVEL 1-3 05/03/24 01:00 06/02/24 00:59 05/08/24 09:16 650 MG Acetaminophen (TYLenol 650MG SUPPOSITORY) 650 mg Q6H PRN RC FEVER / MILD PAIN 1-3 IF NPO 05/03/24 01:00 06/02/24 00:59 Acetaminophen/ Hydrocodone Bitart (NORco 5/325MG) 1 tab Q6H PRN PO MILD PAIN (1-3) 05/03/24 01:00 05/08/24 00:59 DC 05/04/24 12:06 1 TAB Albuterol Sulfate (Proventil 0.083% 2.5mg/3ml) 2.5 mg [id number] PRN IH SHORTNESS OF BREATH 05/03/24 01:00 06/02/24 00:59 Atorvastatin Calcium (LIPItor 40MG) 40 mg HS PO 05/03/24 21:00 05/03/24 15:27 DC Atorvastatin Calcium (LIPItor 40MG) 40 mg HS PO 05/03/24 21:00 06/02/24 20:59 05/07/24 20:38 40 MG Docusate Sodium (COLace 100MG CAP) 100 mg BID PRN PO c 05/03/24 01:00 06/02/24 00:59 05/07/24 00:01 100 MG Doxycycline Hyclate 250 ml @ 125 mls/hr Q12H IV 05/03/24 10:00 05/11/24 12:00 05/08/24 09:15 125 MLS/HR Heparin Sodium (Porcine) (HEParin 5,000 UNIT VIAL) *calculation based on ACTUAL B... AD PRN IV HEPARIN PROTOCOL 05/03/24 15:00 05/03/24 14:18 DC Heparin Sodium/ Dextrose 250 ml @ 0 mls/hr Q6H IV 05/03/24 15:00 05/03/24 14:18 DC Hydralazine HCl (APRESOLine 20MG INJ) 10 mg Q2H PRN IV SBP GREATER THAN 160 05/03/24 01:00 06/02/24 00:59 Insulin Human Regular (humuLIN R 100 UNIT/ML 3ML) INSULIN SLIDING SCAL... ACHS SQ 05/03/24 07:30 06/02/24 07:29 Ipratropium [place] (AtrovENT UD) 0.5 mg [id number] IH 05/03/24 06:00 06/02/24 05:59 05/08/24 11:23 0.5 MG Lactulose (Constulose 20gm/ 30ml Udcup) 20 gm Q6H PRN PO CONSTIPATION 05/03/24 01:00 06/02/24 00:59 05/08/24 09:17 20 GM Magnesium Sulfate 50 ml @ 0 mls/hr PROTOCOL PRN IV electrolyte abnormality 05/03/24 13:30 05/10/24 12:00 05/07/24 06:35 25 MLS/HR Metoprolol Tartrate (loprESSOR) 12.5 mg BID PO 05/03/24 21:00 05/08/24 12:00 05/08/24 10:05 12.5 MG Norepinephrine 250 ml @ 0 mls/hr PROTOCOL IV 05/03/24 10:00 06/02/24 09:59 Ondansetron HCl (zoFRAN 4MG INJ) 4 mg Q6H PRN IVP NAUSEA/VOMITING 05/03/24 01:00 06/02/24 00:59 Pantoprazole Sodium (PROTonix 40MG INJ) 40 mg DAILY IVP 05/04/24 09:00 05/08/24 12:00 05/08/24 09:15 40 MG Piperacillin Sod/ Tazobactam Sod (Zosyn 3.375gm+NS 50ml) 3.375 gm Q8H IVPB 05/03/24 07:30 05/05/24 19:23 DC 05/05/24 18:26 3.375 GM Piperacillin Sod/ Tazobactam Sod (Zosyn 3.375gm+NS 50ml) 3.375 gm Q8H IVPB 05/06/24 02:00 05/16/24 01:59 05/08/24 10:05 3.375 GM Potassium Chloride 100 ml @ 50 mls/hr AD PRN IV POTASSIUM PROTOCOL 05/03/24 13:30 06/02/24 13:29 Sodium Chloride 1,000 ml @ 999 mls/hr Q1H1M IV 05/03/24 10:00 05/03/24 14:21 DC Sodium Chloride (NS 50ml) 50 ml AD IV 05/03/24 07:30 05/03/24 14:22 DC Temazepam (restORIL 15 MG CAP) 15 mg HS PRN PO INSOMNIA/SLEEP 05/03/24 01:00 06/02/24 00:59 05/08/24 00:36 15 MG DIAGNOSTICS / RADIOLOGY: [ ] ASSESSMENT: Ulcerated cancer lesion on the left parietal area Suicidal ideation Acute hypoxemic respiratory failure, needing oxygen supplementation-patient already has oxygen concentrator at bedside but currently on room air. 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 Obesity, BMI 38.0. Chronic problem list: AFib, hypertension, hyperlipidemia, COPD, skin cancer to scalp, BPH, urinary retention s/p Jung placement about 7-10 days ago at [facility]. PLAN: Continue medical admission Patient has been cleared from [place] [facility] Monitor respiratory status closely, currently on room air. Keep oxygen supplementation to keep O2 sat greater than 92%, we will slowly titrate until tolerating room air Albuterol p.r.n. shortness of breath. Atrovent nebulizer treatments scheduled q.6 hours. RT to provide IS and education on use. Cough and deep breathe q.2 hours. Chest physiotherapy if sputum production increases. Follow sputum cultures and Gram stain. Follow blood cultures. Continue antibiotic therapy: Zosyn IV, doxycycline IV Deescalate antibiotics when appropriate. We will follow up with culture results In regards with atrial fibrillation, rate controlled, continue with metoprolol tartrate 12.5 mg p.o. b.i.d., continue with Eliquis5 mg p.o. b.i.d. 3 PT eval and treat We will request social service assistant to assist with insurance In regards to ulcerated lesion on the left parietal area, Dr. Araiza, wildfire prevention specialist has been consulted who recommended wound care treatment and general surgery consultation for possible excision of the cancer lesion, oncology consultation Case discussed with Dr. Rodriguez, above plan was formulated ATTESTATION BY PHYSICIAN I have seen and examined the patient. I reviewed the documentation, medical decision making, and treatment plan as noted by the mid-level provider above. I agree with the findings and plan of care. JOSE ALEJANDRO RODRIGUEZ MD, JANICE B AGNP May 08, 2024 11:32
--- NOTE | 2024-05-08 12:00 | NUR ---
PATIENT HAD A BOWEL MOVEMENT. NO VISIBLE BLOOD, STOOL FORMED. PATIENT STATED : "I FEEL RELIEVED"
--- NOTE | 2024-05-08 14:00 | NUR ---
PATIENT HAD A BOWEL MOVEMENT.
--- NOTE | 2024-05-08 15:02 | NUR ---
CANCELLED DISCHARGE ORDERS DUE TO NOT ALL PHYSICIAN HAVE CLEARED PATIENT.
--- NOTE | 2024-05-08 16:30 | NUR ---
BLOOD GLUCOSE 117. NO INSULIN COVERAGE NEEDED AT THIS TIME.
--- NOTE | 2024-05-08 16:38 | CONS ---
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 Patient indicates that he had seen a [place] web art director who had informed of the diagnosis and decided self medicate. The tumor has progressively grown and occupied most of his left scalp at this point in time. Patient has been admitted for this expanding lesion in his consulted to evaluate for possible resection. Currently patient denies any bleeding. He does say the tumor occasionally weeps but there no overt bleeding from the tumor. Patient denies ever being on chemotherapy All receiving radiation for this lesion. Patient was admitted currently for lethargy and decompensation.] Past Medical History: [Cerebrovascular accident,atrial fibrillation, hypertension, hyperlipidemia, COPD, skin cancer (scalp closed), BPH, and urinary retention ] Past Surgical History: [Tonsillectomy ] Family History: [ Noncontributory] Social History: [Patient denies any illicit drug use ] Habits: [Never] smoker. [Denies] alcohol consumption. [Denies] illicit drug use Current Medications Medications (Trade) Dose Ordered Sig/Beau Route Start Time Stop Time Status Last Admin Dose Admin Atorvastatin Calcium (LIPItor 40MG) 40 mg HS PO 05/03/24 21:00 05/03/24 15:27 DC Atorvastatin Calcium (LIPItor 40MG) 40 mg HS PO 05/03/24 21:00 06/02/24 20:59 05/07/24 20:38 40 MG Doxycycline Hyclate 250 ml @ 125 mls/hr Q12H IV 05/03/24 10:00 05/11/24 12:00 05/08/24 09:15 125 MLS/HR Heparin Sodium/ Dextrose 250 ml @ 0 mls/hr Q6H IV 05/03/24 15:00 05/03/24 14:18 DC Insulin Human Regular (humuLIN R 100 UNIT/ML 3ML) INSULIN SLIDING SCAL... ACHS SQ 05/03/24 07:30 06/02/24 07:29 Ipratropium Century (AtrovENT UD) 0.5 mg [id number] IH 05/03/24 06:00 06/02/24 05:59 05/08/24 11:23 0.5 MG Metoprolol Tartrate (loprESSOR) 12.5 mg BID PO 05/03/24 21:00 05/08/24 12:00 DC 05/08/24 10:05 12.5 MG Norepinephrine 250 ml @ 0 mls/hr PROTOCOL IV 05/03/24 10:00 06/02/24 09:59 Pantoprazole Sodium (PROTonix 40MG INJ) 40 mg DAILY IVP 05/04/24 09:00 05/08/24 12:00 DC 05/08/24 09:15 40 MG Piperacillin Sod/ Tazobactam Sod (Zosyn 3.375gm+NS 50ml) 3.375 gm Q8H IVPB 05/03/24 07:30 05/05/24 19:23 DC 05/05/24 18:26 3.375 GM Piperacillin Sod/ Tazobactam Sod (Zosyn 3.375gm+NS 50ml) 3.375 gm Q8H IVPB 05/06/24 02:00 05/16/24 01:59 05/08/24 10:05 3.375 GM Sodium Chloride 1,000 ml @ 999 mls/hr Q1H1M IV 05/03/24 10:00 05/03/24 14:21 DC Sodium Chloride (NS 50ml) 50 ml AD IV 05/03/24 07:30 05/03/24 14:22 DC Review of Systems: Fourteen point review of systems negative except was mentioned in history of present illness Physical Examination: PHYSICAL EXAM EYES: Sclera white HENT: Large fungating lesion of the left scalp. It occupies most of his left scalp. NECK: Supple, . LUNGS: Unlabored CARDIOVASCULAR: Regular rate and rhythm ABDOMEN: Soft, nontender, nondistended CENTRAL NERVOUS SYSTEM: Awake, alert, oriented x3 SKIN: No rashes, no swelling. LYMPHATICS: No peripheral lymphadenopathy MUSCULOSKELETAL: Motor and sensory function grossly intact EXTREMITIES: No cyanosis or clubbing BACK: No deformity, no pressure ulcer. GENITOURINARY: No dysuria or hematuria Vital Signs (last 8hr) Date Time Temp Pulse Resp B/P (MAP) Pulse Ox O2 Delivery O2 Flow Rate FiO2 05/08/24 12:27 98.1 94 18 133/70 100 Room Air 05/08/24 11:23 89 18 05/08/24 09:16 98.6 Laboratory: [ ] Hematology Labs: Test 05/08/24 03:17 05/07/24 05:10 Range/Units White Blood Count 8.5 4.8-10.8 K/uL Red Blood Count 3.76 L 4.50-6.20 MIL/uL Hemoglobin 10.8 L 14.0-18.0 g/dL Hematocrit 33.9 L 42-54 % Mean Corpuscular Volume 90.2 79-99 fL Mean Corpuscular Hemoglobin 28.7 27.0-33.0 pg Mean Corpuscular Hemoglobin Concent 31.9 L 32.0-36.0 g/dL Red Cell Distribution Width 15.1 11.0-15.5 % Platelet Count 192 130-400 K/uL Mean Platelet Volume 9.5 7.5-10.5 fL Nucleated Red Blood Cells 0.0 0.0-0.19 % Immature Granulocyte % (Auto) 0.2 0-1 % Neutrophils (%) (Auto) 61.3 40.0-77.0 % Lymphocytes (%) (Auto) 27.2 21.0-51.0 % Monocytes (%) (Auto) 8.1 3.0-13.0 % Eosinophils (%) (Auto) 2.6 0.0-8.0 % Basophils (%) (Auto) 0.6 0.0-5.0 % Neutrophils # (Auto) 5.5 1.8-7.7 K/uL Lymphocytes # (Auto) 2.4 1.0-4.8 K/uL Monocytes # (Auto) 0.7 0.1-1.0 K/uL Eosinophils # (Auto) 0.23 0.00-0.70 K/uL Basophils # (Auto) 0.05 0.00-0.20 K/uL Absolute Immature Granulocyte (auto 0.02 0-1 K/uL Chemistry Labs: Test 05/08/24 15:50 05/08/24 03:17 Range/Units Whole Blood Glucose 117 H 70-110 MG/DL Sodium Level 138 136-145 mmol/L Potassium Level 4.0 3.5-5.1 mmol/L Chloride Level 106 101-111 mmol/L Carbon Dioxide Level 26 21-32 mmol/L Blood Urea Nitrogen 12 7-18 mg/dL Creatinine 0.6 0.5-1.3 mg/dL Glomerular Filtration Rate Calc 104 >90 mL/min Random Glucose 120 H 70-105 mg/dL Total Calcium 8.7 8.5-10.1 mg/dL Magnesium Level 1.80 1.80-2.40 mg/dL Total Bilirubin 0.4 0.2-1.0 mg/dL Aspartate Amino Transf (AST/SGOT) 27 10-37 U/L Alanine Aminotransferase (ALT/SGPT) 26 12-78 U/L Alkaline Phosphatase 76 50-136 U/L Total Protein 6.1 6.0-8.3 g/dL Albumin 2.2 L 3.5-5.0 g/dL Diagnostics / Radiology: [Copy/Paste Echos/Imaging Report here] Assessment: [ Squamous cell cancer of left scalp] Plan: [ Resection of this point in time is not an option. Patient needs chemoradiation distinct down the tumor then I can safely resected and reconstruct his scalp. I will discuss the case with the oncologist. I may need to put a Port-A-Cath for patient can this neoadjuvant chemotherapy and radiation therapy.] KORTNEY THURMAN MD May 08, 2024 16:38
[2024-05-09] VITALS (12 sets, daily range): BP systolic 105–127; BP diastolic 67–78; PULSE 69–106; RESP 17–20; TEMP 97.6–98; O2SAT 96–100
[2024-05-09 03:42] LABS: HEMATOCRIT 33.8 % (42-54); MEAN CORPUSCULAR HEMOGLOBIN 28.4 pg (27.0-33.0); MEAN CORPUSCULAR HGB CONC 32.2 g/dL (32.0-36.0); RED BLOOD CELL COUNT(AUTO) 3.84 MIL/uL (4.50-6.20); WHITE BLOOD COUNT (AUTO) 8.6 K/uL (4.8-10.8)
[2024-05-09 04:03] LABS: ALBUMIN 2.5 g/dL (3.5-5.0); BILIRUBIN,TOTAL 0.5 mg/dL (0.2-1.0); CREATININE 0.7 mg/dL (0.5-1.3); MAGNESIUM 1.8 mg/dL (1.80-2.40); POTASSIUM 4.1 mmol/L (3.5-5.1); TOTAL PROTEIN, SERUM 6.3 g/dL (6.0-8.3)
--- NOTE | 2024-05-09 13:20 | PN ---
[facility] PROGRESS NOTE Date of Service: May 09, 2024 Time of Service: 13:19 SUBJECTIVE: Mr. Marshall is a 68-year-old male with history of recent mild stroke", atrial fibrillation, hypertension, hyperlipidemia, COPD, skin cancer (scalp closed), BPH, and urinary retention who presented to [facility] via EMS for evaluation of cough, dysphagia, shortness of breath, and general body weakness. The patient also reported he is unable to ambulate due to generalized weakness and worsening chronic back pain. Patient reported he was admitted at [facility] in [place], [place] where he experienced a CVA inpatient. The patient reported he was discharged and returned back to [facility] due to no improvement of symptoms. He was was discharged this af ternoon again from [facility] where he had been readmitted for approximately 10 days. He stated that he did not receive physical therapy while in hospital and rehab was not an option". He also stated that he had a Jung catheter placed proximally 7-10 days ago for urinary retention and it remains in place. He stated he thinks he may have a low-grade fever as well as chills. He denied having any chest pain, palpitations, edema, abdominal pain, nausea, vomiting, diarrhea, headache, visual disturbance, focal weakness/paresthesia, or dizziness. 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 Labs: WBCs elevated at 16.4, H and H 13.3/41.1, Na/Cl 132/95, K 5.4, CO2 33, BUN 23, albumin three, and glucose 155. ABG on 2 L nasal cannula: PH 7.463, pCO2 32, PO2 113.3, bicarb 22.3, and base excess -0.6. EKG: Atrial fibrillation, heart rate 97 beats per minute. Chest x-ray: Mild bilateral pulmonary infiltrates are seen may be related to mild pulmonary vascular congestion with possible superimposed pneumonitis. In ED the patient continue to complain congestion, cough, and difficulty swallowing. In ED the patient was administered dose Zosyn 3.375 g x 1 for suspected aspiration pneumonia. He received dose Dilaudid 0.5 Mg x 1 dose for complains of low back pain. ED provider request patient be admitted with the diagnosis of suspected aspiration pneumonia, dysphagia, failure to thrive in adult, hyperkalemia, physical debility, leukocytosis. I went to assess the patient at bedside. The patient appeared chronically ill, breathing was even and unlabored, in no distress. Patient was conversive, answered appropriately. I informed patient of labs, diagnostics, and plan of care. The patient verbalized understanding and is in agreement with the plan. Plan and assessment are listed below. May 03, 2024 The patient was examined at the bedside. His shortness of breath slightly impro lauren with oxygen saturation of PaO2 of 99% on nasal cannula 2.0. Patient had low MEP a and his blood pressure is at 79 /43 which was improved to 100 x 60 after an IV NS bolus at 30 cc kg per body weight. Evaluating further causes of his chest pain, his WBC count remains elevated at at 12.4 And no overnight events reported. monitoring him and treating him for pneumonia. Pulmonary embolism ruled out due to a negative chest CT scan and a negative ultrasound venous Doppler scan. 05/04/24 was examined in the room today, he is currently lying in bed, patient stated that he is having a hard time with his bowel movement. Patient is cons tipated and he has pain during bowel movement. Patient stated that he has been hospitalized and was recently discharged from [facility]. We continue with current management. 05/06 patient was supposed to be discharged yesterday, apparently he failed 6 minute walk , saturating 82% on room air. Patient continues to be weak, we will request physical therapy to eval and treat. We will try to wean patient off oxygen and re-evaluate in the next 24-48 hours. Patient is unable to obtain home oxygen as he currently does not have medical insurance. Otherwise patient was evaluated in the room, he is still complaints of weakness and cough. He also feels dizzy on walking short distance. 05/07/24 Patient is for DC planning and was awaiting for Oxygen arrangement. [facility] provided oxygen concentrator currently at bedside but patient right now is on room air. He is medically clear unfortunately he did voiced out suicidal ideation for which patient was placed on one-to-one supervision. [facility]ropical has been consulted. 05/08 patient was evaluated this morning. He was sitting on the recliner chair. Patient was just seen by emission specialist who recommended debridement on the scalp and also Oncology consultation to rule out skin cancer. Patient has been cleared from [facility]. 05/09 the patient was seen and examined in the room while is eating lunch. Patient reported that he was evaluated by general surgeon, plan is to follow up with Oncology on further recommendation. For now patient will remain hospitalized. No acute events reported overnight. REVIEW OF SYSTEMS 12-point ROS reviewed with patient. All pertinent positives mentioned above. Otherwise negative, noncontributory, or non-pertinent. PHYSICAL EXAM GENERAL APPEARANCE: The patient is awake, alert, and oriented, in no acute cardiopulmonary distress. NEUROLOGICAL: Cranial nerves II-XII grossly intact. Motor is 5/5 in bilateral upper and lower extremities proximal to distal. No sensory deficits. HEENT: Face is symmetric. Pupils are equal and reactive. Extraocular movements are intact. NECK: Supple. No JVD. No thyromegaly. No submental, submandibular, pre- /postauricular, occipital or supraclavicular lymphadenopathy. CHEST: Normal chest expansion. No Telemetry. LUNGS: Absence of any rales, rhonchi or any wheezing. CARDIOVASCULAR: Regular. S1 and S2 normal. No appreciable rubs, murmurs or gallops. ABDOMEN: Soft, nontender, and nondistended. There is no rebound, voluntary guarding, or rigidity. : Deferred. No Jung. EXTREMITIES: Non-edematous and not cyanotic. No clubbing. Good capillary refill. SKIN: No skin breakdown. Vital Signs (last 8hr) Date Time Temp Pulse Resp B/P (MAP) Pulse Ox O2 Delivery O2 Flow Rate FiO2 05/09/24 11:10 97.9 86 20 105/70 100 Room Air 05/09/24 11:08 106 18 05/09/24 07:30 100 Room Air* 0 21 05/09/24 07:10 97.5 96 20 105/73 100 Room Air 21 05/09/24 06:05 94 18 N/A Room Air 05/09/24 06:02 94 18 LABS: Laboratory: Test 05/09/24 11:22 05/09/24 03:04 Range/Units Whole Blood Glucose 118 H 70-110 MG/DL White Blood Count 8.6 4.8-10.8 K/uL Red Blood Count 3.84 L 4.50-6.20 MIL/uL Hemoglobin 10.9 L 14.0-18.0 g/dL Hematocrit 33.8 L 42-54 % Mean Corpuscular Volume 88.0 79-99 fL Mean Corpuscular Hemoglobin 28.4 27.0-33.0 pg Mean Corpuscular Hemoglobin Concent 32.2 32.0-36.0 g/dL Red Cell Distribution Width 15.0 11.0-15.5 % Platelet Count 194 130-400 K/uL Mean Platelet Volume 9.9 7.5-10.5 fL Nucleated Red Blood Cells 0.0 0.0-0.19 % Sodium Level 140 136-145 mmol/L Potassium Level 4.1 3.5-5.1 mmol/L Chloride Level 105 101-111 mmol/L Carbon Dioxide Level 30 21-32 mmol/L Blood Urea Nitrogen 10 7-18 mg/dL Creatinine 0.7 0.5-1.3 mg/dL Glomerular Filtration Rate Calc 99 >90 mL/min Random Glucose 106 H 70-105 mg/dL Total Calcium 9.1 8.5-10.1 mg/dL Magnesium Level 1.80 1.80-2.40 mg/dL Total Bilirubin 0.5 # 0.2-1.0 mg/dL Aspartate Amino Transf (AST/SGOT) 21 10-37 U/L Alanine Aminotransferase (ALT/SGPT) 26 12-78 U/L Alkaline Phosphatase 79 50-136 U/L Total Protein 6.3 6.0-8.3 g/dL Albumin 2.5 L 3.5-5.0 g/dL Current Medications Medications (Trade) Dose Ordered Sig/Beau Route PRN Reason Start Time Stop Time Status Last Admin Dose Admin Acetaminophen (TYLenol 325MG TAB) 650 mg Q6H PRN PO FEVER/MILD PAIN LEVEL 1-3 05/03/24 01:00 06/02/24 00:59 05/08/24 09:16 650 MG Acetaminophen (TYLenol 650MG SUPPOSITORY) 650 mg Q6H PRN RC FEVER / MILD PAIN 1-3 IF NPO 05/03/24 01:00 06/02/24 00:59 Acetaminophen/ Hydrocodone Bitart (NORco 5/325MG) 1 tab Q6H PRN PO MILD PAIN (1-3) 05/03/24 01:00 05/08/24 00:59 DC 05/04/24 12:06 1 TAB Albuterol Sulfate (Proventil 0.083% 2.5mg/3ml) 2.5 mg [id number] PRN IH SHORTNESS OF BREATH 05/03/24 01:00 06/02/24 00:59 Atorvastatin Calcium (LIPItor 40MG) 40 mg HS PO 05/03/24 21:00 05/03/24 15:27 DC Atorvastatin Calcium (LIPItor 40MG) 40 mg HS PO 05/03/24 21:00 06/02/24 20:59 05/08/24 19:48 40 MG Docusate Sodium (COLace 100MG CAP) 100 mg BID PRN PO c 05/03/24 01:00 06/02/24 00:59 05/07/24 00:01 100 MG Doxycycline Hyclate 250 ml @ 125 mls/hr Q12H IV 05/03/24 10:00 05/11/24 12:00 05/09/24 09:35 125 MLS/HR Heparin Sodium (Porcine) (HEParin 5,000 UNIT VIAL) *calculation based on ACTUAL B... AD PRN IV HEPARIN PROTOCOL 05/03/24 15:00 05/03/24 14:18 DC Heparin Sodium/ Dextrose 250 ml @ 0 mls/hr Q6H IV 05/03/24 15:00 05/03/24 14:18 DC Hydralazine HCl (APRESOLine 20MG INJ) 10 mg Q2H PRN IV SBP GREATER THAN 160 05/03/24 01:00 06/02/24 00:59 Insulin Human Regular (humuLIN R 100 UNIT/ML 3ML) INSULIN SLIDING SCAL... ACHS SQ 05/03/24 07:30 06/02/24 07:29 Ipratropium [place] (AtrovENT UD) 0.5 mg [id number] IH 05/03/24 06:00 06/02/24 05:59 05/09/24 11:08 0.5 MG Lactulose (Constulose 20gm/ 30ml Udcup) 20 gm Q6H PRN PO CONSTIPATION 05/03/24 01:00 06/02/24 00:59 05/08/24 09:17 20 GM Magnesium Sulfate 50 ml @ 0 mls/hr PROTOCOL PRN IV electrolyte abnormality 05/03/24 13:30 05/10/24 12:00 05/09/24 05:45 25 MLS/HR Metoprolol Tartrate (loprESSOR) 12.5 mg BID PO 05/03/24 21:00 05/08/24 12:00 DC 05/08/24 10:05 12.5 MG Norepinephrine 250 ml @ 0 mls/hr PROTOCOL IV 05/03/24 10:00 06/02/24 09:59 Ondansetron HCl (zoFRAN 4MG INJ) 4 mg Q6H PRN IVP NAUSEA/VOMITING 05/03/24 01:00 06/02/24 00:59 Pantoprazole Sodium (PROTonix 40MG INJ) 40 mg DAILY IVP 05/04/24 09:00 05/08/24 12:00 DC 05/08/24 09:15 40 MG Piperacillin Sod/ Tazobactam Sod (Zosyn 3.375gm+NS 50ml) 3.375 gm Q8H IVPB 05/03/24 07:30 05/05/24 19:23 DC 05/05/24 18:26 3.375 GM Piperacillin Sod/ Tazobactam Sod (Zosyn 3.375gm+NS 50ml) 3.375 gm Q8H IVPB 05/06/24 02:00 05/16/24 01:59 05/09/24 11:14 3.375 GM Potassium Chloride 100 ml @ 50 mls/hr AD PRN IV POTASSIUM PROTOCOL 05/03/24 13:30 06/02/24 13:29 Sodium Chloride 1,000 ml @ 999 mls/hr Q1H1M IV 05/03/24 10:00 05/03/24 14:21 DC Sodium Chloride (NS 50ml) 50 ml AD IV 05/03/24 07:30 05/03/24 14:22 DC Temazepam (restORIL 15 MG CAP) 15 mg HS PRN PO INSOMNIA/SLEEP 05/03/24 01:00 06/02/24 00:59 05/08/24 23:47 15 MG DIAGNOSTICS / RADIOLOGY: [ ] ASSESSMENT: Ulcerated cancer lesion on the left parietal area Suicidal ideation Acute hypoxemic respiratory failure, needing oxygen supplementation-patient already has oxygen concentrator at bedside but currently on room air. 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 Obesity, BMI 38.0. Chronic problem list: AFib, hypertension, hyperlipidemia, COPD, skin cancer to scalp, BPH, urinary retention s/p Jung placement about 7-10 days ago at [facility]. PLAN: Continue medical admission Patient has been cleared from [place] [facility] Monitor respiratory status closely, currently on room air. Keep oxygen supplementation to keep O2 sat greater than 92%, we will slowly titrate until tolerating room air Albuterol p.r.n. shortness of breath. Atrovent nebulizer treatments scheduled q.6 hours. RT to provide IS and education on use. Cough and deep breathe q.2 hours. Chest physiotherapy if sputum production increases. Follow sputum cultures and Gram stain. Follow blood cultures. Continue antibiotic therapy: Zosyn IV, doxycycline IV Deescalate antibiotics when appropriate. We will follow up with culture results In regards with atrial fibrillation, rate controlled, continue with metoprolol tartrate 12.5 mg p.o. b.i.d., continue with Eliquis5 mg p.o. b.i.d. 3 PT eval and treat We will request social science research assistant to assist with insurance In regards to ulcerated lesion on the left parietal area, Dr. Araiza, academic specialist has been consulted who recommended wound care treatment and general surgery consultation for possible excision of the cancer lesion, oncology consultation We will follow up with Oncology recommendations Case discussed with Dr. Rodriguez, above plan was formulated ATTESTATION BY PHYSICIAN I have seen and examined the patient. I reviewed the documentation, medical decision making, and treatment plan as noted by the mid-level provider above. I agree with the findings and plan of care. JOSE ALEJANDRO RODRIGUEZ MD, [facility] May 09, 2024 13:20
[2024-05-09] MEDS: ALBUTEROL 0.083% 2.5 MG/3 ML INH IH PRN (18:31)
[2024-05-10] VITALS (14 sets, daily range): BP systolic 105–135; BP diastolic 65–83; PULSE 61–101; RESP 18–20; TEMP 97.6–99; O2SAT 98–100
[2024-05-10] MEDS: traMADol HCL 50 MG TABLET PO PRN (02:27)
[2024-05-10] MEDS: traMADol HCL 50 MG TABLET ONE (02:30)
[2024-05-10 04:29] LABS: HEMATOCRIT 33.3 % (42-54); MEAN CORPUSCULAR HEMOGLOBIN 29.4 pg (27.0-33.0); RED BLOOD CELL COUNT(AUTO) 3.74 MIL/uL (4.50-6.20); RED CELL DISTRIBUTION WIDTH 15.3 % (11.0-15.5); WHITE BLOOD COUNT (AUTO) 8.2 K/uL (4.8-10.8)
[2024-05-10 04:41] LABS: CREATININE 0.7 mg/dL (0.5-1.3); MAGNESIUM 1.9 mg/dL (1.80-2.40)
--- NOTE | 2024-05-10 08:51 | NUR ---
[facility] f/u Sw spoke to Mounika at [facility]. Informed of pending consult from oncology.
--- NOTE | 2024-05-10 14:23 | HMCIMG ---
US VENOUS DOPPLER UNILATERAL HISTORY: Pain COMPARISON: None TECHNIQUE: Left lower extremity venous Doppler ultrasound study was performed. FINDINGS: The left common femoral, femoral, popliteal, and posterior tibial veins are visualized. Normal flow with augmentation and compressibilities are demonstrated. Left greater saphenous vein is patent. IMPRESSION: 1. No evidence of deep venous thrombosis is seen.
--- NOTE | 2024-05-10 14:26 | HMCIMG ---
US ARTERIAL UNILA LOW EXT DUPL HISTORY: Pain COMPARISON: None TECHNIQUE: Left lower extremity arterial Doppler ultrasound study was performed. FINDINGS: Normal triphasic arterial waveforms are noted in the left common femoral, deep femoral, superficial femoral, popliteal, posterior tibial and dorsalis pedal arteries. On the left, the peak systolic velocity of the common femoral artery is 139 cm/s, the proximal femoral artery is 78 cm/s, the mid femoral artery is 48 cm/s, the distal femoral artery is 58 cm/s, the proximal popliteal artery is 56 cm/s, the distal popliteal artery is 66 cm/s, the anterior tibial artery is 76 cm/s, the posterior tibial artery artery is 66 cm/s,and the dorsalis pedal artery is 67 cm/s. IMPRESSION: 1. Atherosclerotic disease. 2. Otherwise normal triphasic arterial waveforms noted of the left lower extremity artery system.
--- NOTE | 2024-05-10 14:50 | NUR ---
[facility] Follow-up: Patient re-assessed by wound healing team. See wound assessment. Assessment and recommendations provided to primary nurse. Education provided. Wound care done. Addendum: 05/11/24 at 1129 by GAVIN SHANNON RN RN/ Amended: Links added.
--- NOTE | 2024-05-10 15:13 | HMCIMG ---
FOOT COMP 3+VWS LT HISTORY: Pain COMPARISON: None TECHNIQUE: 3 images of left foot were obtained. FINDINGS: There is a calcaneal spur. Interphalangeal joint space narrowing are seen. There is no acute displaced fracture or dislocation. Degenerative changes are seen. IMPRESSION: 1. Findings as described above.
--- NOTE | 2024-05-10 15:13 | HMCIMG ---
TIBIA/FIBULA 2VWS LT HISTORY: Pain COMPARISON: None TECHNIQUE: 2 images of left tibia and fibula were obtained. FINDINGS: There is no acute displaced fracture or dislocation. Degenerative changes are seen. IMPRESSION: 1. Findings as described above.
--- NOTE | 2024-05-10 15:14 | HMCIMG ---
ANKLE 2VWS LT HISTORY: Pain COMPARISON: None TECHNIQUE: 3 images of left ankle were obtained. FINDINGS: There is no acute displaced fracture or dislocation. There is soft tissue swelling. There is calcaneal spur. Degenerative changes are seen. IMPRESSION: 1. Findings as described above.
--- NOTE | 2024-05-10 15:30 | PN ---
[facility] PROGRESS NOTE Date of Service: May 10, 2024 Time of Service: 15:26 Attending doctor Devon SUBJECTIVE: Mr. Marshall is a 68-year-old male with history of recent mild stroke", atrial fibrillation, hypertension, hyperlipidemia, COPD, skin cancer (scalp closed), BPH, and urinary retention who presented to [facility] via EMS for evaluation of cough, dysphagia, shortness of breath, and general body weakness. The patient also reported he is unable to ambulate due to generalized weakness and worsening chronic back pain. Patient reported he was admitted at [facility] in [place], [place] where he experienced a CVA in patient. The patient reported he was discharged and returned back to [facility] due to no improvement of symptoms. He was was discharged this afternoon again from [facility] where he had been readmitted for approximately 10 days. He stated that he did not receive physical therapy while in hospital and rehab was not an option". He also stated that he had a Jung catheter placed proximally 7-10 days ago for urinary retention and it remains in place. He stated he thinks he may have a low-grade fever as well as chills. He denied having any chest pain, palpitations, edema, abdominal pain, nausea, vomiting, diarrhea, headache, visual disturbance, focal weakness/paresthesia, or dizziness. The patient reported that on his last admission to [facility] the admitting hospitalist and garnett fixer were not nice which prompted him to come to [facility] instead this time. Labs: WBCs elevated at 16.4, H and H 13.3/41.1, Na/Cl 132/95, K 5.4, CO2 33, BUN 23, albumin three, and glucose 155. ABG on 2 L nasal cannula: PH 7.463, pCO2 32, PO2 113.3, bicarb 22.3, and base excess -0.6. EKG: Atrial fibrillation, heart rate 97 beats per minute. Chest x-ray: Mild bilateral pulmonary infiltrates are seen may be related to mild pulmonary vascular congestion with possible superimposed pneumonitis. In ED the patient continue to complain congestion, cough, and difficulty swallowing. In ED the patient was administered dose Zosyn 3.375 g x 1 for suspected aspiration pneumonia. He received dose Dilaudid 0.5 Mg x 1 dose for complains of low back pain. ED provider request patient be admitted with the diagnosis of suspected aspiration pneumonia, dysphagia, failure to thrive in adult, hyperkalemia, physical debility, leukocytosis. I went to assess the patient at bedside. The patient appeared chronically ill, breathing was even and unlabored, in no distress. Patient was conversive, answered appropriately. I informed patient of labs, diagnostics, and plan of care. The patient verbalized understanding and is in agreement with the plan. Plan and assessment are listed below. May 03, 2024 The patient was examined at the bedside. His shortness of breath slightly improved with oxygen saturation of PaO2 of 99% on nasal cannula 2.0. Patient had low MEP a and his blood pressure is at 79 /43 which was improved to 100 x 60 after an IV NS bolus at 30 cc kg per body weight. Evaluating further causes of his chest pain, his WBC count remains elevated at at 12.4 And no overnight events reported. monitoring him and treating him for pneumonia. Pulmonary embolism ruled out due to a negative chest CT scan and a negative ultrasound venous Doppler scan. 05/04/24 was examined in the room today, he is currently lying in bed, patient stated that he is having a hard time with his bowel movement. Patient is constipated and he has pain during bowel movement. Patient stated that he has been hospitalized and was recently discharged from [facility]. We continue with current management. 05/06 patient was supposed to be discharged yesterday, apparently he failed 6 minute walk , saturating 82% on room air. Patient continues to be weak, we will request physical therapy to eval and treat. We will try to wean patient off oxygen and re-evaluate in the next 24-48 hours. Patient is unable to obtain home oxygen as he currently does not have medical insurance. Otherwise patient was evaluated in the room, he is still complaints of weakness and cough. He also feels dizzy on walking short distance. 05/07/24 Patient is for DC planning and was awaiting for Oxygen arrangement. [facility] provided oxygen concentrator currently at bedside but patient right now is on room air. He is medically clear unfortunately he did voiced out suicidal ideation for which patient was placed on one-to-one supervision. Tropical has been consulted. 05/08 patient was evaluated this morning. He was sitting on the recliner chair. Patient was just seen by research support specialist who recommended debridement on the scalp and also Oncology consultation to rule out skin cancer. Patient has been cleared from [facility]. 05/09 the patient was seen and examined in the room while is eating lunch. Patient reported that he was evaluated by general surgeon, plan is to follow up with Oncology on further recommendation. For now patient will remain hospitalized. No acute events reported overnight. 05/10 patient was seen by nurse practitioner and physician during rounding in room 403. Patient was complaining of the left foot pain and swelling. Ultrasound venous Doppler was negative for DVT. Ultrasound arterial Doppler showed atherosclerosis. Left foot x-ray showed calcaneal spur for degenerative changes. Ankle x-ray showed swelling calcaneal spur. Tibia fibula x-ray was negative. We are still pending oncology evaluation for possible non adjuvant chemotherapy with radiation which probably might happen outpatient. As per surgeon patient will need the outpatient therapy 1st in order in future to do any surgical procedure. As per Wound Dr. Apply normal saline or wound cleanser , pat dry and apply Vaseline. We will continue to monitor patient in the meantime. A.m. labs. Anticipated discharge within 24 hours once cleared by oncologist. A.m. labs REVIEW OF SYSTEMS 12-point ROS reviewed with patient. All pertinent positives mentioned above. Otherwise negative, noncontributory, or non-pertinent. PHYSICAL EXAM GENERAL APPEARANCE: The patient is awake, alert, and oriented, in no acute cardiopulmonary distress. NEUROLOGICAL: Cranial nerves II-XII grossly intact. Motor is 5/5 in bilateral upper and lower extremities proximal to distal. No sensory deficits. HEENT: Face is symmetric. Pupils are equal and reactive. Extraocular movements are intact. NECK: Supple. No JVD. No thyromegaly. No submental, submandibular, pre- /postauricular, occipital or supraclavicular lymphadenopathy. CHEST: Normal chest expansion. No Telemetry. LUNGS: Absence of any rales, rhonchi or any wheezing. CARDIOVASCULAR: Regular. S1 and S2 normal. No appreciable rubs, murmurs or gallops. ABDOMEN: Soft, nontender, and nondistended. There is no rebound, voluntary guarding, or rigidity. : Deferred. No Jung. EXTREMITIES: Non-edematous and not cyanotic. No clubbing. Good capillary refill. Complains of left lower extremity pain SKIN: No skin breakdown. Vital Signs (last 8hr) Date Time Temp Pulse Resp B/P (MAP) Pulse Ox O2 Delivery O2 Flow Rate FiO2 05/10/24 11:33 97.9 97 20 119/83 100 Room Air 21 05/10/24 11:12 96 18 05/10/24 07:58 97.5 99 20 121/68 100 Room Air 21 LABS: Laboratory: Test 05/10/24 11:07 05/10/24 04:07 05/09/24 03:04 Range/Units Whole Blood Glucose 116 H 70-110 MG/DL White Blood Count 8.2 4.8-10.8 K/uL Red Blood Count 3.74 L 4.50-6.20 MIL/uL Hemoglobin 11.0 L 14.0-18.0 g/dL Hematocrit 33.3 L 42-54 % Mean Corpuscular Volume 89.0 79-99 fL Mean Corpuscular Hemoglobin 29.4 27.0-33.0 pg Mean Corpuscular Hemoglobin Concent 33.0 32.0-36.0 g/dL Red Cell Distribution Width 15.3 11.0-15.5 % Platelet Count 135 # 130-400 K/uL Mean Platelet Volume 10.8 H 7.5-10.5 fL Nucleated Red Blood Cells 0.0 0.0-0.19 % Sodium Level 138 136-145 mmol/L Potassium Level 4.0 3.5-5.1 mmol/L Chloride Level 103 101-111 mmol/L Carbon Dioxide Level 27 21-32 mmol/L Blood Urea Nitrogen 13 7-18 mg/dL Creatinine 0.7 0.5-1.3 mg/dL Glomerular Filtration Rate Calc 99 >90 mL/min Random Glucose 112 H 70-105 mg/dL Total Calcium 9.0 8.5-10.1 mg/dL Magnesium Level 1.90 1.80-2.40 mg/dL Total Bilirubin 0.5 # 0.2-1.0 mg/dL Aspartate Amino Transf (AST/SGOT) 21 10-37 U/L Alanine Aminotransferase (ALT/SGPT) 26 12-78 U/L Alkaline Phosphatase 79 50-136 U/L Total Protein 6.3 6.0-8.3 g/dL Albumin 2.5 L 3.5-5.0 g/dL Current Medications Medications (Trade) Dose Ordered Sig/Beau Route PRN Reason Start Time Stop Time Status Last Admin Dose Admin Acetaminophen (TYLenol 325MG TAB) 650 mg Q6H PRN PO FEVER/MILD PAIN LEVEL 1-3 05/03/24 01:00 06/02/24 00:59 05/08/24 09:16 650 MG Acetaminophen (TYLenol 650MG SUPPOSITORY) 650 mg Q6H PRN RC FEVER / MILD PAIN 1-3 IF NPO 05/03/24 01:00 06/02/24 00:59 Acetaminophen/ Hydrocodone Bitart (NORco 5/325MG) 1 tab Q6H PRN PO MILD PAIN (1-3) 05/03/24 01:00 05/08/24 00:59 DC 05/04/24 12:06 1 TAB Albuterol Sulfate (Proventil 0.083% 2.5mg/3ml) 2.5 mg [id number] PRN IH SHORTNESS OF BREATH 05/03/24 01:00 06/02/24 00:59 05/09/24 23:13 2.5 MG Atorvastatin Calcium (LIPItor 40MG) 40 mg HS PO 05/03/24 21:00 05/03/24 15:27 DC Atorvastatin Calcium (LIPItor 40MG) 40 mg HS PO 05/03/24 21:00 06/02/24 20:59 05/09/24 20:40 40 MG Docusate Sodium (COLace 100MG CAP) 100 mg BID PRN PO c 05/03/24 01:00 06/02/24 00:59 05/07/24 00:01 100 MG Doxycycline Hyclate 250 ml @ 125 mls/hr Q12H IV 05/03/24 10:00 05/11/24 12:00 05/10/24 11:07 125 MLS/HR Heparin Sodium (Porcine) (HEParin 5,000 UNIT VIAL) *calculation based on ACTUAL B... AD PRN IV HEPARIN PROTOCOL 05/03/24 15:00 05/03/24 14:18 DC Heparin Sodium/ Dextrose 250 ml @ 0 mls/hr Q6H IV 05/03/24 15:00 05/03/24 14:18 DC Hydralazine HCl (APRESOLine 20MG INJ) 10 mg Q2H PRN IV SBP GREATER THAN 160 05/03/24 01:00 06/02/24 00:59 Insulin Human Regular (humuLIN R 100 UNIT/ML 3ML) INSULIN SLIDING SCAL... ACHS SQ 05/03/24 07:30 06/02/24 07:29 Ipratropium [place] (AtrovENT UD) 0.5 mg [id number] IH 05/03/24 06:00 06/02/24 05:59 05/10/24 11:12 0.5 MG Lactulose (Constulose 20gm/ 30ml Udcup) 20 gm Q6H PRN PO CONSTIPATION 05/03/24 01:00 06/02/24 00:59 05/08/24 09:17 20 GM Magnesium Sulfate 50 ml @ 0 mls/hr PROTOCOL PRN IV electrolyte abnormality 05/03/24 13:30 05/10/24 12:00 DC 05/09/24 05:45 25 MLS/HR Metoprolol Tartrate (loprESSOR) 12.5 mg BID PO 05/03/24 21:00 05/08/24 12:00 DC 05/08/24 10:05 12.5 MG Norepinephrine 250 ml @ 0 mls/hr PROTOCOL IV 05/03/24 10:00 06/02/24 09:59 Ondansetron HCl (zoFRAN 4MG INJ) 4 mg Q6H PRN IVP NAUSEA/VOMITING 05/03/24 01:00 06/02/24 00:59 Pantoprazole Sodium (PROTonix 40MG INJ) 40 mg DAILY IVP 05/04/24 09:00 05/08/24 12:00 DC 05/08/24 09:15 40 MG Piperacillin Sod/ Tazobactam Sod (Zosyn 3.375gm+NS 50ml) 3.375 gm Q8H IVPB 05/03/24 07:30 05/05/24 19:23 DC 05/05/24 18:26 3.375 GM Piperacillin Sod/ Tazobactam Sod (Zosyn 3.375gm+NS 50ml) 3.375 gm Q8H IVPB 05/06/24 02:00 05/16/24 01:59 05/10/24 11:07 3.375 GM Potassium Chloride 100 ml @ 50 mls/hr AD PRN IV POTASSIUM PROTOCOL 05/03/24 13:30 06/02/24 13:29 Sodium Chloride 1,000 ml @ 999 mls/hr Q1H1M IV 05/03/24 10:00 05/03/24 14:21 DC Sodium Chloride (NS 50ml) 50 ml AD IV 05/03/24 07:30 05/03/24 14:22 DC Temazepam (restORIL 15 MG CAP) 15 mg HS PRN PO INSOMNIA/SLEEP 05/03/24 01:00 06/02/24 00:59 05/10/24 02:26 15 MG Tramadol HCl (UltRAM) 50 mg Q6H PRN PO SEVERE PAIN (7-10) 05/10/24 02:30 05/15/24 02:29 05/10/24 02:27 50 MG DIAGNOSTICS / RADIOLOGY: [ ] ASSESSMENT: Ulcerated cancer lesion on the left parietal area Suicidal ideation Acute hypoxemic respiratory failure, needing oxygen supplementation-patient already has oxygen concentrator at bedside but currently on room air. 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 Obesity, BMI 38.0. Chronic problem list: AFib, hypertension, hyperlipidemia, COPD, skin cancer to scalp, BPH, urinary retention s/p Jung placement about 7-[address] [facility]. PLAN: Continue medical floor Patient has been cleared from [place] [facility] Monitor respiratory status closely, currently on room air. Keep oxygen supplementation to keep O2 sat greater than 92%, we will slowly titrate until tolerating room air Albuterol p.r.n. shortness of breath. Atrovent nebulizer treatments scheduled q.6 hours. RT to provide IS and education on use. Cough and deep breathe q.2 hours. Chest physiotherapy if sputum production increases. Final urine culture negative Blood culture final negative five days Continue doxycycline IV discontinue Zosyn Deescalate antibiotics when appropriate. In regards with atrial fibrillation, rate controlled, continue with metoprolol tartrate 12.5 mg p.o. b.i.d., continue with Eliquis5 mg p.o. b.i.d. 3 Patient is working with the physical therapy We will request social scientist to assist with insurance Once medically cleared patient patient to be discharged home ATTESTATION BY PHYSICIAN I have seen and examined the patient. I reviewed the documentation, medical decision making, and treatment plan as noted by the mid-level provider above. I agree with the findings and plan of care. ANUSHA Hernandes MD, APRN May 10, 2024 15:30
--- NOTE | 2024-05-10 22:45 | CONS ---
CONSULT NOTE: Mr. Marshall is a 68-year-old male with history of recent mild stroke", atrial fibrillation, hypertension, hyperlipidemia, COPD, skin cancer (scalp closed), BPH, and urinary retention who presented to [facility] via EMS for evaluation of cough, dysphagia, shortness of breath, and general body weakness. The patient also reported he is unable to ambulate due to generalized weakness and worsening chronic back pain. Patient reported he was admitted at [facility] in [place], [place] where he experienced a CVA inpatient. The patient reported he was discharged and returned back to [facility] due to no improvement of symptoms. He was was discharged this afternoon again from [facility] where he had been readmitted for approximately 10 days. He stated that he did not receive physical therapy while in hospital and rehab was not an option". He also stated that he had a Jung catheter placed proximally 7-10 days ago for urinary retention and it remains in place. He stated he thinks he may have a low-grade fever as well as chills. He denied having any chest pain, palpitations, edema, abdominal pain, nausea, vomiting, diarrhea, headache, visual disturbance, focal weakness/paresthesia, or dizziness. The patient reported that on his last admission to [facility] the admitting hospitalist and protective signal operator were not nice which prompted him to come to [facility] instead this time. I was consulted because this patient have necrotic mass to the scalp. Biopsy was done before consistent with squamous cell. This patient was seen by general surgery. REVIEW OF SYSTEMS 12-point ROS reviewed with patient. All pertinent positives mentioned above. Otherwise negative, noncontributory, or non-pertinent. PAST MEDICAL HISTORY: As mentioned above PAST SURGICAL HISTORY: Tonsillectomy PAST SOCIAL HISTORY: Denies tobacco, alcohol use, illicit drug use. Lives with roommate. FAMILY HISTORY: Noncontributory Coded Allergies: Penicillins (Verified Allergy, 03/08/13) PHYSICAL EXAM GENERAL APPEARANCE: The patient is awake, alert, and oriented, in no acute cardiopulmonary distress. NEUROLOGICAL: Cranial nerves II-XII grossly intact. Motor is 5/5 in bilateral upper and lower extremities proximal to distal. No sensory deficits. HEENT: Face is symmetric. Pupils are equal and reactive. Extraocular movements are intact. NECK: Supple. No JVD. No thyromegaly. No submental, submandibular, pre- /postauricular, occipital or supraclavicular lymphadenopathy. CHEST: Normal chest expansion. No Telemetry. LUNGS: Absence of any rales, rhonchi or any wheezing. CARDIOVASCULAR: Regular. S1 and S2 normal. No appreciable rubs, murmurs or gallops. ABDOMEN: Soft, nontender, and nondistended. There is no rebound, voluntary guarding, or rigidity. : Deferred. No Jung. EXTREMITIES: Non-edematous and not cyanotic. No clubbing. Good capillary refill. SKIN: No skin breakdown. Assessment 1. 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 2. Hypertension 3. Hyperlipidemia 4. COPD 5. Sepsis Plan 1. I have long discussion with the patient regarding the plan of care. I answer all question and concern and I spent more than 35 minutes. This patient is not surgical candidate because of the necrotic area is very weak. 2. This patient could benefit from neoadjuvant chemotherapy treatments carboplatin-taxol every 21 days 3. This patient will need Port-A-Cath inserted. Will ask surgery to place it for us. 4. This patient if stable after Port-A-Cath inserted he could be discharged to follow-up with me as outpatient so we can start the treatment 5. I have long discussion with the patient regarding the side effects of chemo. I told the patient that could complain of nausea, vomiting, hemoptysis, diarrhea, neuropathy, bone marrow suppression and possible infection, myelodysplastic syndrome, leukemia or from the treatment.LAB RESULTS 05/10/24 19:40: Whole Blood Glucose 140H 05/10/24 04:07: White Blood Count 8.2, Red Blood Count 3.74L, Hemoglobin 11.0L, Hematocrit 33.3L, Mean Corpuscular Volume 89.0, Mean Corpuscular Hemoglobin 29.4, Mean Corpuscular Hemoglobin Concent 33.0, Red Cell Distribution Width 15.3, Platelet Count 135#, Mean Platelet Volume 10.8H, Nucleated Red Blood Cells 0.0, Sodium Level 138, Potassium Level 4.0, Chloride Level 103, Carbon Dioxide Level 27, Blood Urea Nitrogen 13, Creatinine 0.7, Glomerular Filtration Rate Calc 99, Random Glucose 112H, Total Calcium 9.0, Magnesium Level 1.90 05/09/24 03:04: Total Bilirubin 0.5#, Aspartate Amino Transf (AST/SGOT) 21, Alanine Aminotransferase (ALT/SGPT) 26, Alkaline Phosphatase 79, Total Protein 6.3, Albumin 2.5L Laboratory Tests Test 05/10/24 04:07 05/10/24 05:34 05/10/24 11:07 05/10/24 15:58 White Blood Count 8.2 K/uL (4.8-10.8) Red Blood Count 3.74 MIL/uL (4.50-6.20) L Hemoglobin 11.0 g/dL (14.0-18.0) L Hematocrit 33.3 % (42-54) L Mean Corpuscular Volume 89.0 fL (79-99) Mean Corpuscular Hemoglobin 29.4 pg (27.0-33.0) Mean Corpuscular Hemoglobin Concent 33.0 g/dL (32.0-36.0) Red Cell Distribution Width 15.3 % (11.0-15.5) Platelet Count 135 K/uL (130-400) # Mean Platelet Volume 10.8 fL (7.5-10.5) H Nucleated Red Blood Cells 0.0 % (0.0-0.19) Sodium Level 138 mmol/L (136-145) Potassium Level 4.0 mmol/L (3.5-5.1) Chloride Level 103 mmol/L (101-111) Carbon Dioxide Level 27 mmol/L (21-32) Blood Urea Nitrogen 13 mg/dL (7-18) Creatinine 0.7 mg/dL (0.5-1.3) Glomerular Filtration Rate Calc 99 mL/min (>90) Random Glucose 112 mg/dL (70-105) H Total Calcium 9.0 mg/dL (8.5-10.1) Magnesium Level 1.90 mg/dL (1.80-2.40) Whole Blood Glucose 97 MG/DL (70-110) 116 MG/DL (70-110) H 135 MG/DL (70-110) H Test 05/10/24 19:40 Whole Blood Glucose 140 MG/DL (70-110) H TU CARRERA MD May 10, 2024 22:45
[2024-05-11] VITALS (13 sets, daily range): BP systolic 105–124; BP diastolic 72–82; PULSE 68–99; RESP 18–20; TEMP 97.7–98.1; O2SAT 96–100
[2024-05-11 05:59] LABS: BASOPHILS # (AUTO) 0.06 K/uL (0.00-0.20); BASOPHILS % (AUTO) 0.8 % (0.0-5.0); EOSINOPHILS # (AUTO) 0.22 K/uL (0.00-0.70); HEMATOCRIT 33.1 % (42-54); IMMATURE GRANULOCYTE ABSOLUTE 0.04 K/uL (0-1); LYMPHOCYTES # (AUTO) 1.8 K/uL (1.0-4.8); LYMPHOCYTES % (AUTO) 24.3 % (21.0-51.0); MEAN CORPUSCULAR HEMOGLOBIN 28.3 pg (27.0-33.0); MEAN CORPUSCULAR VOLUME 88.5 fL (79-99); MONOCYTES # (AUTO) 0.6 K/uL (0.1-1.0); MONOCYTES % (AUTO) 8.4 % (3.0-13.0); NEUTROPHILS # (AUTO) 4.7 K/uL (1.8-7.7); PLATELET COUNT (AUTO) 174 K/uL (130-400); RED BLOOD CELL COUNT(AUTO) 3.74 MIL/uL (4.50-6.20); RED CELL DISTRIBUTION WIDTH 15.4 % (11.0-15.5); WHITE BLOOD COUNT (AUTO) 7.4 K/uL (4.8-10.8)
[2024-05-11 06:16] LABS: ALBUMIN 2.4 g/dL (3.5-5.0); BILIRUBIN,TOTAL 0.5 mg/dL (0.2-1.0); CREATININE 0.6 mg/dL (0.5-1.3); MAGNESIUM 1.6 mg/dL (1.80-2.40); TOTAL PROTEIN, SERUM 6.2 g/dL (6.0-8.3)
--- NOTE | 2024-05-11 12:52 | PN ---
[facility] PROGRESS NOTE Date of Service: May 11, 2024 Time of Service: 12:47 Attending doctor Devon SUBJECTIVE: Mr. Marshall is a 68-year-old male with history of recent mild stroke", atrial fibrillation, hypertension, hyperlipidemia, COPD, skin cancer (scalp closed), BPH, and urinary retention who presented to [facility] ED via EMS for evaluation of cough, dysphagia, shortness of breath, and general body weakness. The patient also reported he is unable to ambulate due to generalized weakness and worsening chronic back pain. Patient reported he was admitted at [facility] in [place], [place] where he experienced a CVA i npatient. The patient reported he was discharged and returned back to [facility] due to no improvement of symptoms. He was was discharged this afternoon again from [facility] where he had been readmitted for approximately 10 days. He stated that he did not receive physical therapy while in hospital and rehab was not an option". He also stated that he had a Jung catheter placed proximally 7-10 days ago for urinary retention and it remains in place. He stated he thinks he may have a low-grade fever as well as chills. He denied having any chest pain, palpitations, edema, abdominal pain, nausea, vomiting, diarrhea, headache, visual disturbance, focal weakness/paresthesia, or dizziness. The patient reported that on his last admis césar to [facility] the admitting hospitalist and industrial energy engineer were not nice which prompted him to come to [facility] instead this time. Labs: WBCs elevated at 16.4, H and H 13.3/41.1, Na/Cl 132/95, K 5.4, CO2 33, BUN 23, albumin three, and glucose 155. ABG on 2 L nasal cannula: PH 7.463, pCO2 32, PO2 113.3, bicarb 22.3, and base excess -0.6. EKG: Atrial fibrillation, heart rate 97 beats per minute. Chest x-ray: Mild bilateral pulmonary infiltrates are seen may be related to mild pulmonary vascular congestion with possible superimposed pneumonitis. In ED the patient continue to complain congestion, cough, and difficulty swallowing. In ED the patient was administered dose Zosyn 3.375 g x 1 for suspected aspiration pneumonia. He received dose Dilaudid 0.5 Mg x 1 dose for complains of low back pain. ED provider request patient be admitted with the diagnosis of suspected aspiration pneumonia, dysphagia, failure to thrive in adult, hyperkalemia, physical debility, leukocytosis. I went to assess the patient at bedside. The patient appeared chronically ill, breathing was even and unlabored, in no distress. Patient was conversive, answered appropriately. I informed patient of labs, diagnostics, and plan of care. The patient verbalized understanding and is in agreement with the plan. Plan and assessment are listed below. May 03, 2024 The patient was examined at the bedside. His shortness of breath slightly improved with oxygen saturation of PaO2 of 99% on nasal cannula 2.0. Patient had low MEP a and his blood pressure is at 79 /43 which was improved to 100 x 60 after an IV NS bolus at 30 cc kg per body weight. Evaluating further causes o f his chest pain, his WBC count remains elevated at at 12.4 And no overnight events reported. monitoring him and treating him for pneumonia. Pulmonary embolism ruled out due to a negative chest CT scan and a negative ultrasound venous Doppler scan. 05/04/24 was examined in the room today, he is currently lying in bed, patient stated that he is having a hard time with his bowel movement. Patient is constipated and he has pain during bowel movement. Patient stated that he has been hospitalized and was recently discharged from [facility]. We continue with current management. 05/06 patient was supposed to be discharged yesterday, apparently he failed 6 minute walk , saturating 82% on room air. Patient continues to be weak, we will request physical therapy to eval and treat. We will try to wean patient off oxygen and re-evaluate in the next 24-48 hours. Patient is unable to obtain home oxygen as he currently does not have medical insurance. Otherwise patient was evaluated in the room, he is still complaints of weakness and cough. He also feels dizzy on walking short distance. 05/07/24 Patient is for DC planning and was awaiting for Oxygen arrangement. [facility] provided oxygen concentrator currently at bedside but patient right now is on room air. He is medically clear unfortunately he did voiced out suicidal ideation for which patient was placed on one-to-one supervision. Tropical has been consulted. 05/08 patient was evaluated this morning. He was sitting on the recliner chair. Patient was just seen by data warehousing specialist who recommended debridement on the scalp and also Oncology consultation to rule out skin cancer. Patient has been cleared from [employer]. 05/09 the patient was seen and examined in the room while is eating lunch. Patient reported that he was evaluated by general surgeon, plan is to follow up with Oncology on further recommendation. For now patient will remain hospitalized. No acute events reported overnight. 05/10 patient was seen by nurse practitioner and physician during rounding in room 403. Patient was complaining of the left foot pain and swelling. Ultrasound venous Doppler was negative for DVT. Ultrasound arterial Doppler showed atherosclerosis. Left foot x-ray showed calcaneal spur for degenerative changes. Ankle x-ray showed swelling calcaneal spur. Tibia fibula x-ray was negative. We are still pending oncology evaluation for possible non adjuvant chemotherapy with radiation which probably might happen outpatient. As per surgeon patient will need the outpatient therapy 1st in order in future to do any surgical procedure. As per Wound Dr. Apply normal saline or wound cleanser , pat dry and apply Vaseline. We will continue to monitor patient in the meantime. A.m. labs. Anticipated discharge within 24 hours once cleared by oncologist. A.m. labs 05/11 patient was seen by nurse practitioner and physician during rounding in room 403. Patient was evaluated by oncologist and at this moment he is recommending Port-A-Cath prior discharge once patient Port-A-Cath will be inserted by surgeon patient could be discharged home and follow-up outpatient with the oncologist for non adjuvant chemotherapy every 21 days and radiation. Surgeon was consulted and is planning to insert Port-A-Cath today 05/11/2024 in the afternoon. Regarding the left lower pain that patient was complaining ultrasound venous Doppler was negative for DVT. Ultrasound arterial Doppler negative it showed atherosclerosis. X-ray of the left foot showed calcaneus spur degenerative changes. Ankle x-ray shows swelling calcaneal spur. Tibia fibula x-ray negative. Patient received 2 g of magnesium due to magnesium being at 1.6. We will order uric acid to check for possible gout. Anticipated discharge within 24 hours. In the meantime we will continue to monitor patient. A.m. labs REVIEW OF SYSTEMS 12-point ROS reviewed with patient. All pertinent positives mentioned above. Otherwise negative, noncontributory, or non-pertinent. PHYSICAL EXAM GENERAL APPEARANCE: The patient is awake, alert, and oriented, in no acute cardiopulmonary distress. NEUROLOGICAL: Cranial nerves II-XII grossly intact. Motor is 5/5 in bilateral upper and lower extremities proximal to distal. No sensory deficits. HEENT: Face is symmetric. Pupils are equal and reactive. Extraocular movements are intact. NECK: Supple. No JVD. No thyromegaly. No submental, submandibular, pre- /postauricular, occipital or supraclavicular lymphadenopathy. CHEST: Normal chest expansion. No Telemetry. LUNGS: Absence of any rales, rhonchi or any wheezing. CARDIOVASCULAR: Regular. S1 and S2 normal. No appreciable rubs, murmurs or gallops. ABDOMEN: Soft, nontender, and nondistended. There is no rebound, voluntary guarding, or rigidity. : Deferred. No Jung. EXTREMITIES: Non-edematous and not cyanotic. No clubbing. Good capillary refill. Complains of left lower extremity pain SKIN: No skin breakdown. Vital Signs (last 8hr) Date Time Temp Pulse Resp B/P (MAP) Pulse Ox O2 Delivery O2 Flow Rate FiO2 05/11/24 12:00 98.1 95 19 124/73 94 Room Air 05/11/24 11:04 99 19 05/11/24 11:03 99 20 N/A Room Air 21 05/11/24 08:00 98.1 68 18 105/72 100 Nasal Cannula 2.0 05/11/24 06:25 95 19 05/11/24 06:24 95 20 N/A Room Air 21 LABS: Laboratory: Test 05/11/24 11:12 05/11/24 05:33 Range/Units Whole Blood Glucose 94 70-110 MG/DL White Blood Count 7.4 4.8-10.8 K/uL Red Blood Count 3.74 L 4.50-6.20 MIL/uL Hemoglobin 10.6 L 14.0-18.0 g/dL Hematocrit 33.1 L 42-54 % Mean Corpuscular Volume 88.5 79-99 fL Mean Corpuscular Hemoglobin 28.3 27.0-33.0 pg Mean Corpuscular Hemoglobin Concent 32.0 32.0-36.0 g/dL Red Cell Distribution Width 15.4 11.0-15.5 % Platelet Count 174 # 130-400 K/uL Mean Platelet Volume 9.7 7.5-10.5 fL Immature Granulocyte % (Auto) 0.5 0-1 % Neutrophils (%) (Auto) 63.0 40.0-77.0 % Lymphocytes (%) (Auto) 24.3 21.0-51.0 % Monocytes (%) (Auto) 8.4 3.0-13.0 % Eosinophils (%) (Auto) 3.0 0.0-8.0 % Basophils (%) (Auto) 0.8 0.0-5.0 % Neutrophils # (Auto) 4.7 1.8-7.7 K/uL Lymphocytes # (Auto) 1.8 1.0-4.8 K/uL Monocytes # (Auto) 0.6 0.1-1.0 K/uL Eosinophils # (Auto) 0.22 0.00-0.70 K/uL Basophils # (Auto) 0.06 0.00-0.20 K/uL Absolute Immature Granulocyte (auto 0.04 0-1 K/uL Nucleated Red Blood Cells 0.0 0.0-0.19 % Sodium Level 137 136-145 mmol/L Potassium Level 4.0 3.5-5.1 mmol/L Chloride Level 103 101-111 mmol/L Carbon Dioxide Level 29 21-32 mmol/L Blood Urea Nitrogen 13 7-18 mg/dL Creatinine 0.6 0.5-1.3 mg/dL Glomerular Filtration Rate Calc 104 >90 mL/min Random Glucose 106 H 70-105 mg/dL Total Calcium 9.2 8.5-10.1 mg/dL Magnesium Level 1.60 L 1.80-2.40 mg/dL Total Bilirubin 0.5 0.2-1.0 mg/dL Aspartate Amino Transf (AST/SGOT) 21 10-37 U/L Alanine Aminotransferase (ALT/SGPT) 26 12-78 U/L Alkaline Phosphatase 75 50-136 U/L Total Protein 6.2 6.0-8.3 g/dL Albumin 2.4 L 3.5-5.0 g/dL Current Medications Medications (Trade) Dose Ordered Sig/Beau Route PRN Reason Start Time Stop Time Status Last Admin Dose Admin Acetaminophen (TYLenol 325MG TAB) 650 mg Q6H PRN PO FEVER/MILD PAIN LEVEL 1-3 05/03/24 01:00 06/02/24 00:59 05/08/24 09:16 650 MG Acetaminophen (TYLenol 650MG SUPPOSITORY) 650 mg Q6H PRN RC FEVER / MILD PAIN 1-3 IF NPO 05/03/24 01:00 06/02/24 00:59 Acetaminophen/ Hydrocodone Bitart (NORco 5/325MG) 1 tab Q6H PRN PO MILD PAIN (1-3) 05/03/24 01:00 05/08/24 00:59 DC 05/04/24 12:06 1 TAB Albuterol Sulfate (Proventil 0.083% 2.5mg/3ml) 2.5 mg [id number] PRN IH SHORTNESS OF BREATH 05/03/24 01:00 06/02/24 00:59 05/09/24 23:13 2.5 MG Atorvastatin Calcium (LIPItor 40MG) 40 mg HS PO 05/03/24 21:00 05/03/24 15:27 DC Atorvastatin Calcium (LIPItor 40MG) 40 mg HS PO 05/03/24 21:00 06/02/24 20:59 05/10/24 20:08 40 MG Docusate Sodium (COLace 100MG CAP) 100 mg BID PRN PO c 05/03/24 01:00 06/02/24 00:59 05/07/24 00:01 100 MG Doxycycline Hyclate 250 ml @ 125 mls/hr Q12H IV 05/03/24 10:00 05/11/24 12:00 DC 05/11/24 09:28 125 MLS/HR Heparin Sodium (Porcine) (HEParin 5,000 UNIT VIAL) *calculation based on ACTUAL B... AD PRN IV HEPARIN PROTOCOL 05/03/24 15:00 05/03/24 14:18 DC Heparin Sodium/ Dextrose 250 ml @ 0 mls/hr Q6H IV 05/03/24 15:00 05/03/24 14:18 DC Hydralazine HCl (APRESOLine 20MG INJ) 10 mg Q2H PRN IV SBP GREATER THAN 160 05/03/24 01:00 06/02/24 00:59 Insulin Human Regular (humuLIN R 100 UNIT/ML 3ML) INSULIN SLIDING SCAL... ACHS SQ 05/03/24 07:30 06/02/24 07:29 Ipratropium [place] (AtrovENT UD) 0.5 mg [id number] IH 05/03/24 06:00 06/02/24 05:59 05/11/24 11:02 0.5 MG Lactulose (Constulose 20gm/ 30ml Udcup) 20 gm Q6H PRN PO CONSTIPATION 05/03/24 01:00 06/02/24 00:59 05/08/24 09:17 20 GM Magnesium Sulfate 50 ml @ 0 mls/hr PROTOCOL PRN IV electrolyte abnormality 05/03/24 13:30 05/10/24 12:00 DC 05/09/24 05:45 25 MLS/HR Metoprolol Tartrate (loprESSOR) 12.5 mg BID PO 05/03/24 21:00 05/08/24 12:00 DC 05/08/24 10:05 12.5 MG Norepinephrine 250 ml @ 0 mls/hr PROTOCOL IV 05/03/24 10:00 06/02/24 09:59 Ondansetron HCl (zoFRAN 4MG INJ) 4 mg Q6H PRN IVP NAUSEA/VOMITING 05/03/24 01:00 06/02/24 00:59 Pantoprazole Sodium (PROTonix 40MG INJ) 40 mg DAILY IVP 05/04/24 09:00 05/08/24 12:00 DC 05/08/24 09:15 40 MG Piperacillin Sod/ Tazobactam Sod (Zosyn 3.375gm+NS 50ml) 3.375 gm Q8H IVPB 05/03/24 07:30 05/05/24 19:23 DC 05/05/24 18:26 3.375 GM Piperacillin Sod/ Tazobactam Sod (Zosyn 3.375gm+NS 50ml) 3.375 gm Q8H IVPB 05/06/24 02:00 05/16/24 01:59 05/11/24 01:13 3.375 GM Potassium Chloride 100 ml @ 50 mls/hr AD PRN IV POTASSIUM PROTOCOL 05/03/24 13:30 06/02/24 13:29 Sodium Chloride 1,000 ml @ 999 mls/hr Q1H1M IV 05/03/24 10:00 05/03/24 14:21 DC Sodium Chloride (NS 50ml) 50 ml AD IV 05/03/24 07:30 05/03/24 14:22 DC Temazepam (restORIL 15 MG CAP) 15 mg HS PRN PO INSOMNIA/SLEEP 05/03/24 01:00 06/02/24 00:59 05/10/24 02:26 15 MG Tramadol HCl (UltRAM) 50 mg Q6H PRN PO SEVERE PAIN (7-10) 05/10/24 02:30 05/15/24 02:29 05/10/24 02:27 50 MG DIAGNOSTICS / RADIOLOGY: [ ] ASSESSMENT: Ulcerated cancer lesion on the left parietal area Suicidal ideation Possible new diagnosis of acute gout POA Acute hypoxemic respiratory failure, needing oxygen supplementation-patient already has oxygen concentrator at bedside but currently on room air. 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 Obesity, BMI 38.0. Chronic problem list: AFib, hypertension, hyperlipidemia, COPD, skin cancer to scalp, BPH, urinary retention s/p Jung placement about 7-10 days ago at [facility]. PLAN: Uric acid pending Port-A-Cath pending 05/11/2024 by surgeon Patient was evaluated by oncologist and is recommending Port-A-Cath and discharged home follow-up outpatient for nine adjuvant chemotherapy every 21 days and radiation Continue medical floor Patient has been cleared from [place] [facility] Monitor respiratory status closely, currently on room air. Keep oxygen supplementation to keep O2 sat greater than 92%, we will slowly titrate until tolerating room air Albuterol p.r.n. shortness of breath. Atrovent nebulizer treatments scheduled q.6 hours. RT to provide IS and education on use. Cough and deep breathe q.2 hours. Chest physiotherapy if sputum production increases. Final urine culture negative Blood culture final negative five days Continue doxycycline IV discontinue Zosyn and doxycycline Deescalate antibiotics when appropriate. In regards with atrial fibrillation, rate controlled, continue with metoprolol tartrate 12.5 mg p.o. b.i.d., continue with Eliquis5 mg p.o. b.i.d. 3 Patient is working with the physical therapy We will request addiction social worker to assist with insurance Once medically cleared patient patient to be discharged home ATTESTATION BY PHYSICIAN I have seen and examined the patient. I reviewed the documentation, medical decision making, and treatment plan as noted by the mid-level provider above. I agree with the findings and plan of care. ANUSHA Hernandes MD [facility] May 11, 2024 12:52
--- NOTE | 2024-05-11 12:58 | NUR ---
NUTRITIONAL F/U Pt reported being placed on NPO due to procedure and nurse asked dietary staff to pecan picker breakfast tray. Observed no NPO sign on the door during visit. Pt reported was tolerating mechanical soft modifier, tolerating Glucerna shake and Prostat Jello, last BM 05/09, and nausea, reported 100%PO intake. Pt adherence expectance is good. Recommendations: - Advance diet to HH + 75 gm cho when medically feasible -Add Glucerna [place] BID AM and dinner and Prostat 30 ml BID for lunch and dinner tray when medically feasible - Consider MVI QD -Monitor wts -Reweigh as able -Monitor goals of care RD to follow + available for consult per protocol DIETETIC STUDENT, NEIDA ARAIZA Addendum: 05/11/[address] at [address] Amended: Links added.
--- NOTE | 2024-05-11 16:49 | PN ---
Mr. Marshall is a 68-year-old male with history of recent mild stroke", atrial fibrillation, hypertension, hyperlipidemia, COPD, skin cancer (scalp closed), BPH, and urinary retention who presented to [facility] via EMS for evaluation of cough, dysphagia, shortness of breath, and general body weakness. The patient also reported he is unable to ambulate due to generalized weakness and worsening chronic back pain. Patient reported he was admitted at [facility] in [place], [place] where he experienced a CVA inpatient. The patient reported he was discharged and returned back to [facility] due to no improvement of symptoms. He was was discharged this afternoon again from [facility] where he had been readmitted for approximately 10 days. He stated that he did not receive physical therapy while in hospital and rehab was not an option". He also stated that he had a Jung catheter placed proximally 7-10 days ago for urinary retention and it remains in place. He stated he thinks he may have a low-grade fever as well as chills. He denied having any chest pain, palpitations, edema, abdominal pain, nausea, vomiting, diarrhea, headache, visual disturbance, focal weakness/paresthesia, or dizziness. The patient reported that on his last admission to [facility] the admitting hospitalist and certified ophthalmic surgical assistant were not nice which prompted him to come to [facility] instead this time. I was consulted because this patient have necrotic mass to the scalp. Biopsy was done before consistent with squamous cell. This patient was seen by general surgery. There is a plan for Port-A-Cath insertion tomorrow PHYSICAL EXAM GENERAL APPEARANCE: The patient is awake, alert, and oriented, in no acute cardiopulmonary distress. NEUROLOGICAL: Cranial nerves II-XII grossly intact. Motor is 5/5 in bilateral upper and lower extremities proximal to distal. No sensory deficits. HEENT: Face is symmetric. Pupils are equal and reactive. Extraocular movements are intact. NECK: Supple. No JVD. No thyromegaly. No submental, submandibular, pre- /postauricular, occipital or supraclavicular lymphadenopathy. CHEST: Normal chest expansion. No Telemetry. LUNGS: Absence of any rales, rhonchi or any wheezing. CARDIOVASCULAR: Regular. S1 and S2 normal. No appreciable rubs, murmurs or gallops. ABDOMEN: Soft, nontender, and nondistended. There is no rebound, voluntary guarding, or rigidity. : Deferred. No Jung. EXTREMITIES: Non-edematous and not cyanotic. No clubbing. Good capillary refill. SKIN: No skin breakdown. Assessment 1. 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 2. Hypertension 3. Hyperlipidemia 4. COPD 5. Sepsis Plan 1. I have long discussion with the patient regarding the plan of care. I answer all question and concern and I spent more than 35 minutes. This patient is not surgical candidate because of the necrotic area is very weak. 2. This patient could benefit from neoadjuvant chemotherapy treatments carboplatin-taxol every 21 days 3. This patient will need Port-A-Cath inserted. There is plan to be done tomorrow 4. This patient if stable after Port-A-Cath inserted he could be discharged to follow-up with me as outpatient so we can start the treatment Vitals/Labs Vital Signs Date Time Temp Pulse Resp B/P (MAP) Pulse Ox O2 Delivery O2 Flow Rate FiO2 05/11/24 16:00 98.1 95 19 113/77 99 Room Air 05/11/24 11:03 21 05/11/24 08:00 2.0 Laboratory Tests 05/11/24 05:33 Medications Current Medications Piperacillin Sod/ Tazobactam Sod 3.375 gm ONCE ONCE IV Last administered on 05/03/24at 00:01; Start 05/02/24 at 23:30; Stop 05/02/24 at 23:38; Status DC Hydromorphone HCl 0.5 mg ONCE ONCE IVP Last administered on 05/02/24at 23:23; Start 05/02/24 at 22:30; Stop 05/02/24 at 22:31; Status DC Iohexol 35,000 mg STK-MED ONCE IV; Start 05/03/24 at 00:40; Stop 05/03/24 at 00:41; Status DC Albuterol Sulfate 2.5 mg [id number] PRN IH Last administered on 05/09/24at 23:13; Start 05/03/24 at 01:00; Stop 06/02/24 at 00:59 Ipratropium [place] 0.5 mg [id number] IH Last administered on 05/11/24at 11:02; Start 05/03/24 at 06:00; Stop 06/02/24 at 05:59 Acetaminophen 650 mg Q6H PRN PO Last administered on 05/08/24at 09:16; Start 05/03/24 at 01:00; Stop 06/02/24 at 00:59 Acetaminophen 650 mg Q6H PRN RC; Start 05/03/24 at 01:00; Stop 06/02/24 at 00:59 Acetaminophen/ Hydrocodone Bitart 1 tab Q6H PRN PO Last administered on 05/04/24at 12:06; Start 05/03/24 at 01:00; Stop 05/08/24 at 00:59; Status DC Lactulose 20 gm Q6H PRN PO Last administered on 05/08/24at 09:17; Start 05/03/24 at 01:00; Stop 06/02/24 at 00:59 Docusate Sodium 100 mg BID PRN PO Last administered on 05/07/24at 00:01; Start 05/03/24 at 01:00; Stop 06/02/24 at 00:59 Temazepam 15 mg HS PRN PO Last administered on 05/10/24at 02:26; Start 05/03/24 at 01:00; Stop 06/02/24 at 00:59 Ondansetron HCl 4 mg Q6H PRN IVP; Start 05/03/24 at 01:00; Stop 06/02/24 at 00:59 Hydralazine HCl 10 mg Q2H PRN IV; Start 05/03/24 at 01:00; Stop 06/02/24 at 00:59 Insulin Human Regular INSULIN SLIDING SCAL... ACHS SQ; Start 05/03/24 at 07:30; Stop 06/02/24 at 07:29 Sodium Chloride 4 ml STK-MED ONCE IH Last administered on 05/03/24at 06:58; Start 05/03/24 at 06:41; Stop 05/03/24 at 06:41; Status DC Piperacillin Sod/ Tazobactam Sod 3.375 gm Q8H IVPB Last administered on 05/05/24at 18:26; Start 05/03/24 at 07:30; Stop 05/05/24 at 19:23; Status DC Sodium Chloride 50 ml AD IV; Start 05/03/24 at 07:30; Stop 05/03/24 at 14:22; Status DC Norepinephrine 250 ml @ As Directed STK-MED ONCE IV; Start 05/03/24 at 09:30; Stop 05/03/24 at 09:31; Status DC Sodium Chloride 1,368 ml @ 456 mls/hr ONCE ONCE IV Last administered on 05/03/24at 10:06; Start 05/03/24 at 10:00; Stop 05/03/24 at 12:59; Status DC Sodium Chloride 1,000 ml @ 999 mls/hr Q1H1M IV; Start 05/03/24 at 10:00; Stop 05/03/24 at 14:21; Status DC Norepinephrine 250 ml @ 0 mls/hr PROTOCOL IV; Start 05/03/24 at 10:00; Stop 06/02/24 at 09:59 Doxycycline Hyclate 250 ml @ 125 mls/hr Q12H IV Last administered on 05/11/24at 09:28; Start 05/03/24 at 10:00; Stop 05/11/24 at 12:00; Status DC Sodium Chloride 4 ml STK-MED ONCE IH Last administered on 05/03/24at 12:11; Start 05/03/24 at 12:09; Stop 05/03/24 at 12:10; Status DC Magnesium Sulfate 50 ml @ 0 mls/hr PROTOCOL PRN IV Last administered on 05/09/24at 05:45; Start 05/03/24 at 13:30; Stop 05/10/24 at 12:00; Status DC Potassium Chloride 100 ml @ 50 mls/hr AD PRN IV; Start 05/03/24 at 13:30; Stop 06/02/24 at 13:29 Pantoprazole Sodium 40 mg DAILY IVP Last administered on 05/08/24at 09:15; Start 05/04/24 at 09:00; Stop 05/08/24 at 12:00; Status DC Heparin Sodium (Porcine) *calculation based on ACTUAL B... AD PRN IV; Start 05/03/24 at 15:00; Stop 05/03/24 at 14:18; Status DC Heparin Sodium/ Dextrose 250 ml @ 0 mls/hr Q6H IV; Start 05/03/24 at 15:00; Stop 05/03/24 at 14:18; Status DC Metoprolol Tartrate 12.5 mg BID PO Last administered on 05/08/24at 10:05; Start 05/03/24 at 21:00; Stop 05/08/24 at 12:00; Status DC Apixaban 5 mg ONCE ONCE PO Last administered on 05/03/24at 16:21; Start 05/03/24 at 14:30; Stop 05/03/24 at 14:31; Status DC Atorvastatin Calcium 40 mg ONCE ONCE PO Last administered on 05/03/24at 16:21; Start 05/03/24 at 14:30; Stop 05/03/24 at 14:31; Status DC Apixaban 5 mg ONCE ONCE PO; Start 05/03/24 at 04:00; Stop 05/03/24 at 15:37; Status DC Atorvastatin Calcium 40 mg HS PO; Start 05/03/24 at 21:00; Stop 05/03/24 at 15:27; Status DC Atorvastatin Calcium 40 mg HS PO Last administered on 05/10/24at 20:08; Start 05/03/24 at 21:00; Stop 06/02/24 at 20:59 Sodium Chloride 4 ml STK-MED ONCE IH Last administered on 05/03/24at 19:17; Start 05/03/24 at 17:59; Stop 05/03/24 at 18:00; Status DC Piperacillin Sod/ Tazobactam Sod 3.375 gm Q8H IVPB Last administered on 05/11/24at 13:05; Start 05/06/24 at 02:00; Stop 05/16/24 at 01:59 Tramadol HCl 50 mg Q6H PRN PO Last administered on 05/10/24at 02:27; Start 05/10/24 at 02:30; Stop 05/15/24 at 02:29 Tramadol HCl 50 mg STK-MED ONCE .ROUTE; Start 05/10/24 at 02:25; Stop 05/10/24 at 02:26; Status DC Magnesium Sulfate 50 ml @ 0 mls/hr PROTOCOL IV; Start 05/11/24 at 13:00; Stop 06/10/24 at 12:59 TU CARRERA MD May 11, 2024 16:49
[2024-05-12] VITALS (28 sets, daily range): BP systolic 91–149; BP diastolic 58–82; PULSE 82–101; RESP 14–20; TEMP 97.4–98; O2SAT 96–97
[2024-05-12] MEDS: HEParin-NS 1,000 UNIT/500 ML 500 ML IV ONE
[2024-05-12] MEDS: BUPIvacaine HCL/EPINEPHrine/PF 0.25% 10ML VIAL IJ ONE
[2024-05-12] MEDS: morPHINE 2 MG SYG IVP STA (00:19)
[2024-05-12 06:06] LABS: BASOPHILS # (AUTO) 0.06 K/uL (0.00-0.20); BASOPHILS % (AUTO) 0.8 % (0.0-5.0); EOSINOPHILS # (AUTO) 0.28 K/uL (0.00-0.70); EOSINOPHILS % (AUTO) 3.8 % (0.0-8.0); HEMATOCRIT 34.3 % (42-54); IMMATURE GRANULOCYTE ABSOLUTE 0.02 K/uL (0-1); LYMPHOCYTES # (AUTO) 2.1 K/uL (1.0-4.8); LYMPHOCYTES % (AUTO) 28.2 % (21.0-51.0); MEAN CORPUSCULAR HEMOGLOBIN 28.5 pg (27.0-33.0); MEAN CORPUSCULAR HGB CONC 31.8 g/dL (32.0-36.0); MEAN CORPUSCULAR VOLUME 89.8 fL (79-99); MONOCYTES # (AUTO) 0.8 K/uL (0.1-1.0); MONOCYTES % (AUTO) 10.4 % (3.0-13.0); NEUTROPHILS # (AUTO) 4.2 K/uL (1.8-7.7); NEUTROPHILS % (AUTO) 56.5 % (40.0-77.0); PLATELET COUNT (AUTO) 180 K/uL (130-400); RED BLOOD CELL COUNT(AUTO) 3.82 MIL/uL (4.50-6.20); RED CELL DISTRIBUTION WIDTH 15.4 % (11.0-15.5); WHITE BLOOD COUNT (AUTO) 7.3 K/uL (4.8-10.8)
[2024-05-12 06:22] LABS: ALBUMIN 2.5 g/dL (3.5-5.0); BILIRUBIN,TOTAL 0.7 mg/dL (0.2-1.0); CREATININE 0.6 mg/dL (0.5-1.3); MAGNESIUM 1.8 mg/dL (1.80-2.40); TOTAL PROTEIN, SERUM 6.4 g/dL (6.0-8.3)
--- NOTE | 2024-05-12 13:35 | PN ---
Mr. Marshall is a 68-year-old male with history of recent mild stroke", atrial fibrillation, hypertension, hyperlipidemia, COPD, skin cancer (scalp closed), BPH, and urinary retention who presented to [facility] via EMS for evaluation of cough, dysphagia, shortness of breath, and general body weakness. The patient also reported he is unable to ambulate due to generalized weakness and worsening chronic back pain. Patient reported he was admitted at [facility] in [place], [place] where he experienced a CVA inpatient. The patient reported he was discharged and returned back to [facility] due to no improvement of symptoms. He was was discharged this afternoon again from [facility] where he had been readmitted for approximately 10 days. He stated that he did not receive physical therapy while in hospital and rehab was not an option". He also stated that he had a Jung catheter placed proximally 7-10 days ago for urinary retention and it remains in place. He stated he thinks he may have a low-grade fever as well as chills. He denied having any chest pain, palpitations, edema, abdominal pain, nausea, vomiting, diarrhea, headache, visual disturbance, focal weakness/paresthesia, or dizziness. The patient reported that on his last admission to [facility] the admitting hospitalist and developer advocate were not nice which prompted him to come to [facility] instead this time. I was consulted because this patient have necrotic mass to the scalp. Biopsy was done before consistent with squamous cell. This patient was seen by general surgery. There is a plan for Port-A-Cath insertion today PHYSICAL EXAM GENERAL APPEARANCE: The patient is awake, alert, and oriented, in no acute cardiopulmonary distress. NEUROLOGICAL: Cranial nerves II-XII grossly intact. Motor is 5/5 in bilateral upper and lower extremities proximal to distal. No sensory deficits. HEENT: Face is symmetric. Pupils are equal and reactive. Extraocular movements are intact. NECK: Supple. No JVD. No thyromegaly. No submental, submandibular, pre- /postauricular, occipital or supraclavicular lymphadenopathy. CHEST: Normal chest expansion. No Telemetry. LUNGS: Absence of any rales, rhonchi or any wheezing. CARDIOVASCULAR: Regular. S1 and S2 normal. No appreciable rubs, murmurs or gallops. ABDOMEN: Soft, nontender, and nondistended. There is no rebound, voluntary guarding, or rigidity. : Deferred. No Jung. EXTREMITIES: Non-edematous and not cyanotic. No clubbing. Good capillary refill. SKIN: No skin breakdown. Assessment 1. 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 2. Hypertension 3. Hyperlipidemia 4. COPD 5. Sepsis Plan 1. I have long discussion with the patient regarding the plan of care. I answer all question and concern and I spent more than 35 minutes. This patient is not surgical candidate because of the necrotic area is very weak. 2. This patient could benefit from neoadjuvant chemotherapy treatments carboplatin-taxol every 21 days 3. This patient will need Port-A-Cath inserted. There is plan to be done tomorrow 4. This patient if stable after Port-A-Cath inserted he could be discharged to follow-up with me as outpatient so we can start the treatment Vitals/Labs Vital Signs Date Time Temp Pulse Resp B/P (MAP) Pulse Ox O2 Delivery O2 Flow Rate FiO2 05/12/24 11:25 97.9 91 18 114/78 97 Room Air 21 05/12/24 07:30 0 Laboratory Tests 05/12/24 05:43 Medications Current Medications Piperacillin Sod/ Tazobactam Sod 3.375 gm ONCE ONCE IV Last administered on 05/03/24at 00:01; Start 05/02/24 at 23:30; Stop 05/02/24 at 23:38; Status DC Hydromorphone HCl 0.5 mg ONCE ONCE IVP Last administered on 05/02/24at 23:23; Start 05/02/24 at 22:30; Stop 05/02/24 at 22:31; Status DC Iohexol 35,000 mg STK-MED ONCE IV; Start 05/03/24 at 00:40; Stop 05/03/24 at 00:41; Status DC Albuterol Sulfate 2.5 mg [id number] PRN IH Last administered on 05/09/24at 23:13; Start 05/03/24 at 01:00; Stop 06/02/24 at 00:59 Ipratropium [place] 0.5 mg [id number] IH Last administered on 05/12/24at 11:02; Start 05/03/24 at 06:00; Stop 06/02/24 at 05:59 Acetaminophen 650 mg Q6H PRN PO Last administered on 05/08/24at 09:16; Start 05/03/24 at 01:00; Stop 06/02/24 at 00:59 Acetaminophen 650 mg Q6H PRN RC; Start 05/03/24 at 01:00; Stop 06/02/24 at 00:59 Acetaminophen/ Hydrocodone Bitart 1 tab Q6H PRN PO Last administered on 05/04/24at 12:06; Start 05/03/24 at 01:00; Stop 05/08/24 at 00:59; Status DC Lactulose 20 gm Q6H PRN PO Last administered on 05/08/24at 09:17; Start 05/03/24 at 01:00; Stop 06/02/24 at 00:59 Docusate Sodium 100 mg BID PRN PO Last administered on 05/07/24at 00:01; Start 05/03/24 at 01:00; Stop 06/02/24 at 00:59 Temazepam 15 mg HS PRN PO Last administered on 05/10/24at 02:26; Start 05/03/24 at 01:00; Stop 06/02/24 at 00:59 Ondansetron HCl 4 mg Q6H PRN IVP; Start 05/03/24 at 01:00; Stop 06/02/24 at 00:59 Hydralazine HCl 10 mg Q2H PRN IV; Start 05/03/24 at 01:00; Stop 06/02/24 at 00:59 Insulin Human Regular INSULIN SLIDING SCAL... ACHS SQ; Start 05/03/24 at 07:30; Stop 06/02/24 at 07:29 Sodium Chloride 4 ml STK-MED ONCE IH Last administered on 05/03/24at 06:58; Start 05/03/24 at 06:41; Stop 05/03/24 at 06:41; Status DC Piperacillin Sod/ Tazobactam Sod 3.375 gm Q8H IVPB Last administered on 05/05/24at 18:26; Start 05/03/24 at 07:30; Stop 05/05/24 at 19:23; Status DC Sodium Chloride 50 ml AD IV; Start 05/03/24 at 07:30; Stop 05/03/24 at 14:22; Status DC Norepinephrine 250 ml @ As Directed STK-MED ONCE IV; Start 05/03/24 at 09:30; Stop 05/03/24 at 09:31; Status DC Sodium Chloride 1,368 ml @ 456 mls/hr ONCE ONCE IV Last administered on 05/03/24at 10:06; Start 05/03/24 at 10:00; Stop 05/03/24 at 12:59; Status DC Sodium Chloride 1,000 ml @ 999 mls/hr Q1H1M IV; Start 05/03/24 at 10:00; Stop 05/03/24 at 14:21; Status DC Norepinephrine 250 ml @ 0 mls/hr PROTOCOL IV; Start 05/03/24 at 10:00; Stop 06/02/24 at 09:59 Doxycycline Hyclate 250 ml @ 125 mls/hr Q12H IV Last administered on 05/11/24at 09:28; Start 05/03/24 at 10:00; Stop 05/11/24 at 12:00; Status DC Sodium Chloride 4 ml STK-MED ONCE IH Last administered on 05/03/24at 12:11; Start 05/03/24 at 12:09; Stop 05/03/24 at 12:10; Status DC Magnesium Sulfate 50 ml @ 0 mls/hr PROTOCOL PRN IV Last administered on 05/09/24at 05:45; Start 05/03/24 at 13:30; Stop 05/10/24 at 12:00; Status DC Potassium Chloride 100 ml @ 50 mls/hr AD PRN IV; Start 05/03/24 at 13:30; Stop 06/02/24 at 13:29 Pantoprazole Sodium 40 mg DAILY IVP Last administered on 05/08/24at 09:15; Start 05/04/24 at 09:00; Stop 05/08/24 at 12:00; Status DC Heparin Sodium (Porcine) *calculation based on ACTUAL B... AD PRN IV; Start 05/03/24 at 15:00; Stop 05/03/24 at 14:18; Status DC Heparin Sodium/ Dextrose 250 ml @ 0 mls/hr Q6H IV; Start 05/03/24 at 15:00; Stop 05/03/24 at 14:18; Status DC Metoprolol Tartrate 12.5 mg BID PO Last administered on 05/08/24at 10:05; Start 05/03/24 at 21:00; Stop 05/08/24 at 12:00; Status DC Apixaban 5 mg ONCE ONCE PO Last administered on 05/03/24at 16:21; Start 05/03/24 at 14:30; Stop 05/03/24 at 14:31; Status DC Atorvastatin Calcium 40 mg ONCE ONCE PO Last administered on 05/03/24at 16:21; Start 05/03/24 at 14:30; Stop 05/03/24 at 14:31; Status DC Apixaban 5 mg ONCE ONCE PO; Start 05/03/24 at 04:00; Stop 05/03/24 at 15:37; Status DC Atorvastatin Calcium 40 mg HS PO; Start 05/03/24 at 21:00; Stop 05/03/24 at 15:27; Status DC Atorvastatin Calcium 40 mg HS PO Last administered on 05/11/24at 20:14; Start 05/03/24 at 21:00; Stop 06/02/24 at 20:59 Sodium Chloride 4 ml STK-MED ONCE IH Last administered on 05/03/24at 19:17; Start 05/03/24 at 17:59; Stop 05/03/24 at 18:00; Status DC Piperacillin Sod/ Tazobactam Sod 3.375 gm Q8H IVPB Last administered on 05/12/24at 09:44; Start 05/06/24 at 02:00; Stop 05/16/24 at 01:59 Tramadol HCl 50 mg Q6H PRN PO Last administered on 05/12/24at 02:16; Start 05/10/24 at 02:30; Stop 05/15/24 at 02:29 Tramadol HCl 50 mg STK-MED ONCE .ROUTE; Start 05/10/24 at 02:25; Stop 05/10/24 at 02:26; Status DC Magnesium Sulfate 50 ml @ 0 mls/hr PROTOCOL IV; Start 05/11/24 at 13:00; Stop 06/10/24 at 12:59 Morphine Sulfate 2 mg ONCE STAT IVP Last administered on 05/12/24at 00:19; Start 05/12/24 at 00:14; Stop 05/12/24 at 00:17; Status DC Bupivacaine HCl/ Epinephrine Bitart 10 ml STK-MED ONCE IJ; Start 05/12/24 at 12:50; Stop 05/12/24 at 12:50; Status DC Heparin Sodium/ Sodium Chloride 500 ml @ As Directed STK-MED ONCE IV; Start 05/12/24 at 12:51; Stop 05/12/24 at 12:52; Status DC TU CARRERA MD May 12, 2024 13:35
--- NOTE | 2024-05-12 14:13 | PN ---
CATALYST PROGRESS NOTE Date of Service: May 12, 2024 Time of Service: 14:[address] Osorio SUBJECTIVE: Mr. Marshall is a 68-year-old male with history of recent mild stroke", atrial fibrillation, hypertension, hyperlipidemia, COPD, skin cancer (scalp closed), BPH, and urinary retention who presented to [facility] ED via EMS for evaluation of cough, dysphagia, shortness of breath, and general body weakness. The patient also reported he is unable to ambulate due to generalized weakness and worsening chronic back pain. Patient reported he was admitted at [facility] in [place], [place] where he experienced a CVA inpat ient. The patient reported he was discharged and returned back to [facility] due to no improvement of symptoms. He was was discharged this afternoon again from [facility] where he had been readmitted for approximately 10 days. He stated that he did not receive physical therapy while in hospital and rehab was not an option". He also stated that he had a Jung catheter placed proximally 7-10 days ago for urinary retention and it remains in place. He stated he thinks he may have a low-grade fever as well as chills. He denied having any chest pain, palpitations, edema, abdominal pain, nausea, vomiting, diarrhea, headache, visual disturbance, focal weakness/paresthesia, or dizziness. The patient reported that on his last admission to [facility] the admitting hospitalist and truck chauffeur were not nice which prompted him to come to [facility] instead this time. Labs: WBCs elevated at 16.4, H and H 13.3/41.1, Na/Cl 132/95, K 5.4, CO2 33, BUN 23, albumin three, and glucose 155. ABG on 2 L nasal cannula: PH 7.463, pCO2 32, PO2 113.3, bicarb 22.3, and base excess -0.6. EKG: Atrial fibrillation, heart rate 97 beats per minute. Chest x-ray: Mild bilateral pulmonary infiltrates are seen may be related to mild pulmonary vascular congestion with possible superimposed pneumonitis. In ED the patient continue to complain congestion, cough, and difficulty swallowing. In ED the patient was administered dose Zosyn 3.375 g x 1 for suspected aspiration pneumonia. He received dose Dilaudid 0.5 Mg x 1 dose for complains of low back pain. ED provider request patient be admitted with the diagnosis of suspected aspiration pneumonia, dysphagia, failure to thrive in adult, hyperkalemia, physical debility, leukocytosis. I went to assess the patient at bedside. The patient appeared chronically ill, breathing was even and unlabored, in no distress. Patient was conversive, answered appropriately. I informed patient of labs, diagnostics, and plan of care. The patient verbalized understanding and is in agreement with the plan. Plan and assessment are listed below. May 03, 2024 The patient was examined at the bedside. His shortness of breath slightly improved with oxygen saturation of PaO2 of 99% on nasal cannula 2.0. Patient had low MEP a and his blood pressure is at 79 /43 which was improved to 100 x 60 after an IV NS bolus at 30 cc kg per body weight. Evaluating further causes of his chest pain, his WBC count remains elevated at at 12.4 And no overnight events reported. monitoring him and treating him for pneumonia. Pulmonary embolism ruled out due to a negative chest CT scan and a negative ultrasound venous Doppler scan. 05/04/24 was examined in the room today, he is currently lying in bed, patient stated that he is having a hard time with his bowel movement. Patient is constipated and he has pain during bowel movement. Patient stated that he has been hospitalized and was recently discharged from [facility]. We continue with current management. 05/06 patient was supposed to be discharged yesterday, apparently he failed 6 minute walk , saturating 82% on room air. Patient continues to be weak, we will request physical therapy to eval and treat. We will try to wean patient off oxygen and re-evaluate in the next 24-48 hours. Patient is unable to obtain home oxygen as he currently does not have medical insurance. Otherwise patient was evaluated in the room, he is still complaints of weakness and cough. He also feels dizzy on walking short distance. 05/07/24 Patient is for DC planning and was awaiting for Oxygen arrangement. [facility] provided oxygen concentrator currently at bedside but patient right now is on room air. He is medically clear unfortunately he did voiced out suicidal ideation for which patient was placed on one-to-one supervision. Tropical has been consulted. 05/08 patient was evaluated this morning. He was sitting on the recliner chair. Patient was just seen by branch specialist who recommended debridement on the scalp and also Oncology consultation to rule out skin cancer. Patient has been cleared from [facility]. 05/09 the patient was seen and examined in the room while is eating lunch. Patient reported that he was evaluated by general surgeon, plan is to follow up with Oncology on further recommendation. For now patient will remain hospitalized. No acute events reported overnight. 05/10 patient was seen by nurse practitioner and physician during rounding in room 403. Patient was complaining of the left foot pain and swelling. Ultrasound venous Doppler was negative for DVT. Ultrasound arterial Doppler showed atherosclerosis. Left foot x-ray showed calcaneal spur for degenerative changes. Ankle x-ray showed swelling calcaneal spur. Tibia fibula x-ray was negative. We are still pending oncology evaluation for possible non adjuvant chemotherapy with radiation which probably might happen outpatient. As per surgeon patient will need the outpatient therapy 1st in order in future to do any surgical procedure. As per Wound Dr. Apply normal saline or wound cleanser , pat dry and apply Vaseline. We will continue to monitor patient in the meantime. A.m. labs. Anticipated discharge within 24 hours once cleared by oncologist. A.m. labs 05/11 patient was seen by nurse practitioner and physician during rounding in room 403. Patient was evaluated by oncologist and at this moment he is recommending Port-A-Cath prior discharge once patient Port-A-Cath will be inserted by surgeon patient could be discharged home and follow-up outpatient with the oncologist for non adjuvant chemotherapy every 21 days and radiation. Surgeon was consulted and is planning to insert Port-A-Cath today 05/11/2024 in the afternoon. Regarding the left lower pain that patient was complaining ultrasound venous Doppler was negative for DVT. Ultrasound arterial Doppler negative it showed atherosclerosis. X-ray of the left foot showed calcaneus spur degenerative changes. Ankle x-ray shows swelling calcaneal spur. Tibia fibula x-ray negative. Patient received 2 g of magnesium due to magnesium being at 1.6. We will order uric acid to check for possible gout. Anticipated discharge within 24 hours. In the meantime we will continue to monitor patient. A.m. labs 3 seen by nurse practitioner physician during rounding in room 403 lying in bed. Patient is pending Port-A-Cath placement today with . In the meantime patient was complaining of abdominal pain last night and today, nurse practitioner order ultrasound abdomen. All the labs and results were evaluated/reviewed by RN FIELD. Anticipated discharge within 24 hours to home REVIEW OF SYSTEMS 12-point ROS reviewed with patient. All pertinent positives mentioned above. Otherwise negative, noncontributory, or non-pertinent. PHYSICAL EXAM GENERAL APPEARANCE: The patient is awake, alert, and oriented, in no acute cardiopulmonary distress. NEUROLOGICAL: Cranial nerves II-XII grossly intact. Motor is 5/5 in bilateral upper and lower extremities proximal to distal. No sensory deficits. HEENT: Face is symmetric. Pupils are equal and reactive. Extraocular movements are intact. NECK: Supple. No JVD. No thyromegaly. No submental, submandibular, pre- /postauricular, occipital or supraclavicular lymphadenopathy. CHEST: Normal chest expansion. No Telemetry. LUNGS: Absence of any rales, rhonchi or any wheezing. CARDIOVASCULAR: Regular. S1 and S2 normal. No appreciable rubs, murmurs or gallops. ABDOMEN: Soft, nontender, and nondistended. There is no rebound, voluntary guarding, or rigidity. Complains of abdominal pain : Deferred. No Jung. EXTREMITIES: Non-edematous and not cyanotic. No clubbing. Good capillary refill. Complains of left lower extremity pain SKIN: No skin breakdown. Vital Signs (last 8hr) Date Time Temp Pulse Resp B/P (MAP) Pulse Ox O2 Delivery O2 Flow Rate FiO2 05/12/24 11:25 97.9 91 18 114/78 97 Room Air 21 05/12/24 11:02 96 18 05/12/24 07:30 97 Room Air* 0 21 05/12/24 07:30 97.3 82 18 94/58 97 Room Air 21 05/12/24 06:20 92 18 N/A Room Air 21 05/12/24 06:17 92 18 LABS: Laboratory: Test 05/12/24 13:30 05/12/24 05:43 05/11/24 05:33 Range/Units Whole Blood Glucose 96 70-110 MG/DL White Blood Count 7.3 4.8-10.8 K/uL Red Blood Count 3.82 L 4.50-6.20 MIL/uL Hemoglobin 10.9 L 14.0-18.0 g/dL Hematocrit 34.3 L 42-54 % Mean Corpuscular Volume 89.8 79-99 fL Mean Corpuscular Hemoglobin 28.5 27.0-33.0 pg Mean Corpuscular Hemoglobin Concent 31.8 L 32.0-36.0 g/dL Red Cell Distribution Width 15.4 11.0-15.5 % Platelet Count 180 130-400 K/uL Mean Platelet Volume 9.6 7.5-10.5 fL Immature Granulocyte % (Auto) 0.3 0-1 % Neutrophils (%) (Auto) 56.5 40.0-77.0 % Lymphocytes (%) (Auto) 28.2 21.0-51.0 % Monocytes (%) (Auto) 10.4 3.0-13.0 % Eosinophils (%) (Auto) 3.8 0.0-8.0 % Basophils (%) (Auto) 0.8 0.0-5.0 % Neutrophils # (Auto) 4.2 1.8-7.7 K/uL Lymphocytes # (Auto) 2.1 1.0-4.8 K/uL Monocytes # (Auto) 0.8 0.1-1.0 K/uL Eosinophils # (Auto) 0.28 0.00-0.70 K/uL Basophils # (Auto) 0.06 0.00-0.20 K/uL Absolute Immature Granulocyte (auto 0.02 0-1 K/uL Nucleated Red Blood Cells 0.0 0.0-0.19 % Sodium Level 138 136-145 mmol/L Potassium Level 4.0 3.5-5.1 mmol/L Chloride Level 103 101-111 mmol/L Carbon Dioxide Level 28 21-32 mmol/L Blood Urea Nitrogen 13 7-18 mg/dL Creatinine 0.6 0.5-1.3 mg/dL Glomerular Filtration Rate Calc 104 >90 mL/min Random Glucose 103 70-105 mg/dL Total Calcium 9.3 8.5-10.1 mg/dL Magnesium Level 1.80 1.80-2.40 mg/dL Total Bilirubin 0.7 0.2-1.0 mg/dL Aspartate Amino Transf (AST/SGOT) 21 10-37 U/L Alanine Aminotransferase (ALT/SGPT) 21 12-78 U/L Alkaline Phosphatase 69 50-136 U/L Total Protein 6.4 6.0-8.3 g/dL Albumin 2.5 L 3.5-5.0 g/dL Uric Acid 3.6 2.6-7.2 mg/dL Current Medications Medications (Trade) Dose Ordered Sig/Beau Route PRN Reason Start Time Stop Time Status Last Admin Dose Admin Acetaminophen (TYLenol 325MG TAB) 650 mg Q6H PRN PO FEVER/MILD PAIN LEVEL 1-3 05/03/24 01:00 06/02/24 00:59 05/08/24 09:16 650 MG Acetaminophen (TYLenol 650MG SUPPOSITORY) 650 mg Q6H PRN RC FEVER / MILD PAIN 1-3 IF NPO 05/03/24 01:00 06/02/24 00:59 Acetaminophen/ Hydrocodone Bitart (NORco 5/325MG) 1 tab Q6H PRN PO MILD PAIN (1-3) 05/03/24 01:00 05/08/24 00:59 DC 05/04/24 12:06 1 TAB Albuterol Sulfate (Proventil 0.083% 2.5mg/3ml) 2.5 mg [id number] PRN IH SHORTNESS OF BREATH 05/03/24 01:00 06/02/24 00:59 05/09/24 23:13 2.5 MG Atorvastatin Calcium (LIPItor 40MG) 40 mg HS PO 05/03/24 21:00 05/03/24 15:27 DC Atorvastatin Calcium (LIPItor 40MG) 40 mg HS PO 05/03/24 21:00 06/02/24 20:59 05/11/24 20:14 40 MG Docusate Sodium (COLace 100MG CAP) 100 mg BID PRN PO c 05/03/24 01:00 06/02/24 00:59 05/07/24 00:01 100 MG Doxycycline Hyclate 250 ml @ 125 mls/hr Q12H IV 05/03/24 10:00 05/11/24 12:00 DC 05/11/24 09:28 125 MLS/HR Heparin Sodium (Porcine) (HEParin 5,000 UNIT VIAL) *calculation based on ACTUAL B... AD PRN IV HEPARIN PROTOCOL 05/03/24 15:00 05/03/24 14:18 DC Heparin Sodium/ Dextrose 250 ml @ 0 mls/hr Q6H IV 05/03/24 15:00 05/03/24 14:18 DC Hydralazine HCl (APRESOLine 20MG INJ) 10 mg Q2H PRN IV SBP GREATER THAN 160 05/03/24 01:00 06/02/24 00:59 Insulin Human Regular (humuLIN R 100 UNIT/ML 3ML) INSULIN SLIDING SCAL... ACHS SQ 05/03/24 07:30 06/02/24 07:29 Ipratropium [place] (AtrovENT UD) 0.5 mg [id number] IH 05/03/24 06:00 06/02/24 05:59 05/12/24 11:02 0.5 MG Lactulose (Constulose 20gm/ 30ml Udcup) 20 gm Q6H PRN PO CONSTIPATION 05/03/24 01:00 06/02/24 00:59 05/08/24 09:17 20 GM Magnesium Sulfate 50 ml @ 0 mls/hr PROTOCOL IV 05/11/24 13:00 06/10/24 12:59 Magnesium Sulfate 50 ml @ 0 mls/hr PROTOCOL PRN IV electrolyte abnormality 05/03/24 13:30 05/10/24 12:00 DC 05/09/24 05:45 25 MLS/HR Metoprolol Tartrate (loprESSOR) 12.5 mg BID PO 05/03/24 21:00 05/08/24 12:00 DC 05/08/24 10:05 12.5 MG Morphine Sulfate (morPHINE 2MG SYG) 2 mg ONCE STAT IVP 05/12/24 00:14 05/12/24 00:17 DC 05/12/24 00:19 2 MG Norepinephrine 250 ml @ 0 mls/hr PROTOCOL IV 05/03/24 10:00 06/02/24 09:59 Ondansetron HCl (zoFRAN 4MG INJ) 4 mg Q6H PRN IVP NAUSEA/VOMITING 05/03/24 01:00 06/02/24 00:59 Pantoprazole Sodium (PROTonix 40MG INJ) 40 mg DAILY IVP 05/04/24 09:00 05/08/24 12:00 DC 05/08/24 09:15 40 MG Piperacillin Sod/ Tazobactam Sod (Zosyn 3.375gm+NS 50ml) 3.375 gm Q8H IVPB 05/03/24 07:30 05/05/24 19:23 DC 05/05/24 18:26 3.375 GM Piperacillin Sod/ Tazobactam Sod (Zosyn 3.375gm+NS 50ml) 3.375 gm Q8H IVPB 05/06/24 02:00 05/16/24 01:59 05/12/24 09:44 3.375 GM Potassium Chloride 100 ml @ 50 mls/hr AD PRN IV POTASSIUM PROTOCOL 05/03/24 13:30 06/02/24 13:29 Sodium Chloride 1,000 ml @ 999 mls/hr Q1H1M IV 05/03/24 10:00 05/03/24 14:21 DC Sodium Chloride (NS 50ml) 50 ml AD IV 05/03/24 07:30 05/03/24 14:22 DC Temazepam (restORIL 15 MG CAP) 15 mg HS PRN PO INSOMNIA/SLEEP 05/03/24 01:00 06/02/24 00:59 05/10/24 02:26 15 MG Tramadol HCl (UltRAM) 50 mg Q6H PRN PO SEVERE PAIN (7-10) 05/10/24 02:30 05/15/24 02:29 05/12/24 02:16 50 MG DIAGNOSTICS / RADIOLOGY: [ ] ASSESSMENT: Ulcerated cancer lesion on the left parietal area Suicidal ideation Possible new diagnosis of acute gout POA Acute hypoxemic respiratory failure, needing oxygen supplementation-patient already has oxygen concentrator at bedside but currently on room air. Pneumonia, (suspected aspiration pneumonia), POA Elevated D-dimer, PE was ruled out Dysphagia, POA Failure to thrive, POA Debility/frailty/general body weakness, POA Hematuria, POA, Jung catheter in place MANAGER CREDIT COLLECTIONS Atrial fibrillation, 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 Obesity, BMI 38.0. Chronic problem list: AFib, hypertension, hyperlipidemia, COPD, skin cancer to scalp, BPH, urinary retention s/p Jung placement about 7-10 days ago at [facility]. PLAN: Uric acid negative Port-A-Cath pending 05/12/[address] Silvestre Patient was evaluated by oncologist and is recommending Port-A-Cath and discharged home follow-up outpatient for nine adjuvant chemotherapy every 21 days and radiation Continue medical floor Patient has been cleared from [place] [facility] Monitor respiratory status closely, currently on room air. Keep oxygen supplementation to keep O2 sat greater than 92%, we will slowly titrate until tolerating room air Albuterol p.r.n. shortness of breath. Atrovent nebulizer treatments scheduled q.6 hours. RT to provide IS and education on use. Cough and deep breathe q.2 hours. Chest physiotherapy if sputum production increases. Final urine culture negative Blood culture final negative five days Continue doxycycline IV discontinue Zosyn and doxycycline Deescalate antibiotics when appropriate. In regards with atrial fibrillation, rate controlled, continue with metoprolol tartrate 12.5 mg p.o. b.i.d., continue with Eliquis 5 mg p.o. b.i.d. 3 Patient is working with the physical therapy We will request social work msw to assist with insurance Once medically cleared patient patient to be discharged home ATTESTATION BY PHYSICIAN I have seen and examined the patient. I reviewed the documentation, medical decision making, and treatment plan as noted by the mid-level provider above. I agree with the findings and plan of care. ANUSHA Hernandes MD DIE CUTTER APPRENTICE May 12, 2024 14:13
--- NOTE | 2024-05-12 14:29 | HMCIMG ---
ULTRASOUND ABDOMEN COMPLETE INDICATION: Abdominal Pain COMPARISON: 03/12/2013. FINDINGS: The liver is normal in size and slightly increased in echogenicity; no focal lesion demonstrated. Main portal vein is patent, and normal direction of vascular flow demonstrated. The common bile duct caliber is remeasured at 6.7 mm. Gallbladder is distended. Echogenic shadowing stones within the gallbladder lumen without any associated pericholecystic fluid. No sonographic Galvin's sign elicited by the ultrasound concrete pile driver operator. Wall thickness measures 3.0 mm. The spleen is normal in size and echotexture. The spleen measures 12.7 cm. Visible portions of the pancreas appear unremarkable. The right kidney measures 10.1 x 4.4 x 3.8 cm,and is normal in echogenicity, without evidence for hydronephrosis or shadowing stones. The left kidney measures 10.9 x 4.7 x 4.6 cm,and is normal in echogenicity, without evidence for hydronephrosis or shadowing stones. Visible portions of the proximal abdominal aorta are within normal limits. Mid to distal abdominal aortic segments are scattered by overlying bowel gas. Visible portions of the inferior vena cava are within normal limits. No free fluid demonstrated. Limitations as reported. IMPRESSION: Cholelithiasis and gallbladder distention, including nominal common bile duct dilation, without cholecystitis. Correlation with alkaline phosphatase and bilirubin levels is recommended. Findings suggesting mild hepatic steatosis.
--- NOTE | 2024-05-12 14:52 | NUR ---
PT note Pt not as frustrated today about delays in procedure; and agreeable to work with PT for exercises in bed. Noted maceration to B heels and educated on off loading importance so that wounds do not open. Notified VICENTE Ferguson Addendum: 05/12/24 at 1456 by JOVANNA NEWMAN PTA PT Amended: Links added.
[2024-05-12] MEDS ORDERED: LIDOCAINE PF 100MG/5ML (2%) SYRINGE 5ML ONE (17:50)
[2024-05-12] MEDS ORDERED: MIDAZOLAM HCL 1 MG/ML 2ML VIAL ONE (17:50)
[2024-05-12] MEDS ORDERED: proPOFol 10 MG/ML 20ML VIAL IV ONE (17:50)
[2024-05-12] MEDS ORDERED: ketaMINE 50MG/ML SYRINGE 50 MG/ML DISP.SYRIN ONE (17:53)
[2024-05-12] MEDS ORDERED: proPOFol 1000 MG/100 ML 100 ML IV ONE (17:53)
--- NOTE | 2024-05-12 18:46 | OP ---
Operative Note: DATE OF PROCEDURE: 05/12/24 SURGEON: KORTNEY THURMAN MD SPECIAL EDUCATION AIDE: [Kevyn Toure CFA] ANESTHESIA: [Monitored anesthesia care with local anesthetic] ANESTHESIOLOGIST/RN MEDICAL SURGICAL: [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 Positioned in supine position. Preoperative antibiotics were given. Bilateral SCDs were placed. Patient was intubated. Patient was prepped and draped the usual fashion. Then local anesthetic was instilled over the right subclavian. Needle was introduced and advanced into the subclavian vein without any complication. Wire was placed. Position of wire was verified and fluoroscopic guidance. Then the pocket was created in the subcutaneous space on the chest. The catheter was advanced into the subclavian vein into the superior vena cava. Position was verified on fluoroscopic guidance. Then the cath was tunneled into the pocket that had been created. The catheter was attached to hub. Catheter and help were aspirated and flushed. Good aspiration and flushing was noted. Then the hub was sutured to the fascia of the pectoralis major. Then the wound was veronika irrigated. All irrigant was removed. Appropriate hemostasis was observed. Then the skin incision was closed with suture in layers. Appropriate dressings were placed. Then my attention was turned to the left scalp lesion. The left scalp was prepped and draped in the usual fashion. Then utilizing a 15 blade a portion of the lesion was excised and sent off to pathology. Bleeding was controlled with the Bovie. Then appropriate dressings were placed. Patient was woken up, transferred to, taken to recovery room to recover. All sponge instrument accounted for the end the case. Patient tolerated the procedure well, there is no complications.] KORTNEY THURMAN MD May 12, 2024 18:46
--- NOTE | 2024-05-12 20:16 | HMCIMG ---
INTRAOPERATIVE FLUOROSCOPIC GUIDANCE UP TO 1 HOUR. IMPRESSION: Intraoperative fluoroscopic guidance was provided for Port-A-Cath placement, which was performed by Dr. Silvestre. Total fluoroscopy time was 14 seconds, and administered dose, 2.35 mGy. A total of 2 spot images obtained. Please refer to the procedure note for further details.
--- NOTE | 2024-05-12 20:43 | HMCIMG ---
PORTABLE CHEST RADIOGRAPH INDICATION: S/P PORT-A-CATH PLACEMENT COMPARISON: None FINDINGS: wildlife rehabilitator leads overlie the field of view. Left-sided Port-A-Cath is in appropriate position. Heart size is normal. The pulmonary vascularity and hoa appear normal. No abnormal pulmonary parenchymal opacity or consolidation identified. No significant pleural effusion noted. No pneumothorax detected. IMPRESSION: No radiographic evidence for any acute cardiopulmonary process.
[2024-05-13] VITALS (13 sets, daily range): BP systolic 94–171; BP diastolic 60–75; PULSE 80–97; RESP 17–19; TEMP 97.6–98.6; O2SAT 93–95
[2024-05-13 04:09] LABS: BASOPHILS # (AUTO) 0.03 K/uL (0.00-0.20); BASOPHILS % (AUTO) 0.4 % (0.0-5.0); EOSINOPHILS # (AUTO) 0.25 K/uL (0.00-0.70); EOSINOPHILS % (AUTO) 3.3 % (0.0-8.0); HEMATOCRIT 34.6 % (42-54); IMMATURE GRANULOCYTE ABSOLUTE 0.02 K/uL (0-1); LYMPHOCYTES % (AUTO) 26.8 % (21.0-51.0); MEAN CORPUSCULAR HEMOGLOBIN 28.7 pg (27.0-33.0); MEAN CORPUSCULAR HGB CONC 32.4 g/dL (32.0-36.0); MEAN CORPUSCULAR VOLUME 88.7 fL (79-99); MONOCYTES # (AUTO) 0.7 K/uL (0.1-1.0); MONOCYTES % (AUTO) 9.4 % (3.0-13.0); NEUTROPHILS # (AUTO) 4.5 K/uL (1.8-7.7); NEUTROPHILS % (AUTO) 59.8 % (40.0-77.0); PLATELET COUNT (AUTO) 167 K/uL (130-400); RED CELL DISTRIBUTION WIDTH 15.3 % (11.0-15.5); WHITE BLOOD COUNT (AUTO) 7.6 K/uL (4.8-10.8)
[2024-05-13 04:25] LABS: ALBUMIN 2.4 g/dL (3.5-5.0); BILIRUBIN,TOTAL 0.6 mg/dL (0.2-1.0); CREATININE 0.7 mg/dL (0.5-1.3); MAGNESIUM 1.8 mg/dL (1.80-2.40); POTASSIUM 3.6 mmol/L (3.5-5.1); TOTAL PROTEIN, SERUM 6.4 g/dL (6.0-8.3)
--- NOTE | 2024-05-13 06:37 | NUR ---
HIDA SCAN PATIENT TAKEN BY MICA BUILDER FOR A HIDA SCAN AT THIS TIME. PATIENT IN NO DISTRESS.
--- NOTE | 2024-05-13 09:38 | HMCIMG ---
NM ROBIN WO EF/CCK REASON: CHOLELITHIASIS. COMPARISON: None TECHNIQUE: Hepatobiliary imaging study was performed with 7 mCi of technetium Choletec through intravenous route. FINDINGS: Normal visualization of gallbladder and bowel activity noted within 1 hour. IMPRESSION: Unremarkable hepatobiliary imaging study.
--- NOTE | 2024-05-13 12:20 | NUR ---
TROPICAL PHONED NURSING STATION, STATING PATIENT LEFT MESSAGE WITH THEIR SERVICE, THAT PATIENT HAD A KNIFE AND WAS GOING TO CUT HIS THROAT. ARRIVED TO ROOM AND FOUND PATIENT WITH A KNIFE IN HIS HAND AND THEN PLACED IT ON THE TABLE. PATIENT HAD A CUT ON LEFT FOREARM. WHEN QUESTION WHAT HAPPEN TO HIS ARM, PATIENT STATES HE CUT HIMSELF BECAUSE HE DOESN'T WANT TO LIVE ANY MORE. ARTS ADMINISTRATOR USMAN AND KIRSTIE JHAVERI WERE INFORMED. SECURITY WAS CALLED TO ROOM. A ONE TO ONE SITTER WAS PLACED IN ROOM.
--- NOTE | 2024-05-13 12:27 | NUR ---
contacted bradly abdullahi for screening, patient placed on 1:1, provider notified, suicide precautions in place
--- NOTE | 2024-05-13 13:42 | NUR ---
CM NOTE: DEPT AGING CM GAVE IVÁN W/DEPT AGING A HEADS UP. PT NEEDING ASSISTANCE AT HOME, POSSIBLE PROVIDER, MAYBE HOUSING, PT DECLINED TO RETURN HOME. STATE HE HAS A ROOMMATE BUT PRETTY MUCH NON-EXISTING AND DOES NOT ASSIST. CM TO CONTINUE TO FOLLOW UP.
--- NOTE | 2024-05-13 15:17 | PN ---
[facility] PROGRESS NOTE Date of Service: May 13, 2024 Time of Service: 15:[address] Osorio SUBJECTIVE: Mr. Marshall is a 68-year-old male with history of recent mild stroke", atrial fibrillation, hypertension, hyperlipidemia, COPD, skin cancer (scalp closed), BPH, and urinary retention who presented to [facility] ED via EMS for evaluation of cough, dysphagia, shortness of breath, and general body weakness. The patient also reported he is unable to ambulate due to generalized weakness and worsening chronic back pain. Patient reported he was admitted at [facility] in [place], [place] where he experienced a CVA inpat ient. The patient reported he was discharged and returned back to [facility] due to no improvement of symptoms. He was was discharged this afternoon again from [facility] where he had been readmitted for approximately 10 days. He stated that he did not receive physical therapy while in hospital and rehab was not an option". He also stated that he had a Jung catheter placed proximally 7-10 days ago for urinary retention and it remains in place. He stated he thinks he may have a low-grade fever as well as chills. He denied having any chest pain, palpitations, edema, abdominal pain, nausea, vomiting, diarrhea, headache, visual disturbance, focal weakness/paresthesia, or dizziness. 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 instead this time. Labs: WBCs elevated at 16.4, H and H 13.3/41.1, Na/Cl 132/95, K 5.4, CO2 33, BUN 23, albumin three, and glucose 155. ABG on 2 L nasal cannula: PH 7.463, pCO2 32, PO2 113.3, bicarb 22.3, and base excess -0.6. EKG: Atrial fibrillation, heart rate 97 beats per minute. Chest x-ray: Mild bilateral pulmonary infiltrates are seen may be related to mild pulmonary vascular congestion with possible superimposed pneumonitis. In ED the patient continue to complain congestion, cough, and difficulty swallowing. In ED the patient was administered dose Zosyn 3.375 g x 1 for suspected aspiration pneumonia. He received dose Dilaudid 0.5 Mg x 1 dose for complains of low back pain. ED provider request patient be admitted with the diagnosis of suspected aspiration pneumonia, dysphagia, failure to thrive in adult, hyperkalemia, physical debility, leukocytosis. I went to assess the patient at bedside. The patient appeared chronically ill, breathing was even and unlabored, in no distress. Patient was conversive, answered appropriately. I informed patient of labs, diagnostics, and plan of care. The patient verbalized understanding and is in agreement with the plan. Plan and assessment are listed below. May 03, 2024 The patient was examined at the bedside. His shortness of breath slightly improved with oxygen saturation of PaO2 of 99% on nasal cannula 2.0. Patient had low MEP a and his blood pressure is at 79 /43 which was improved to 100 x 60 after an IV NS bolus at 30 cc kg per body weight. Evaluating further causes of his chest pain, his WBC count remains elevated at at 12.4 And no overnight events reported. monitoring him and treating him for pneumonia. Pulmonary embolism ruled out due to a negative chest CT scan and a negative ultrasound venous Doppler scan. 05/04/24 was examined in the room today, he is currently lying in bed, patient stated that he is having a hard time with his bowel movement. Patient is constipated and he has pain during bowel movement. Patient stated that he has been hospitalized and was recently discharged from [facility]. We continue with current management. 05/06 patient was supposed to be discharged yesterday, apparently he failed 6 minute walk , saturating 82% on room air. Patient continues to be weak, we will request physical therapy to eval and treat. We will try to wean patient off oxygen and re-evaluate in the next 24-48 hours. Patient is unable to obtain home oxygen as he currently does not have medical insurance. Otherwise patient was evaluated in the room, he is still complaints of weakness and cough. He also feels dizzy on walking short distance. 05/07/24 Patient is for DC planning and was awaiting for Oxygen arrangement. [facility] provided oxygen concentrator currently at bedside but patient right now is on room air. He is medically clear unfortunately he did voiced out suicidal ideation for which patient was placed on one-to-one supervision. Tropical has been consulted. 05/08 patient was evaluated this morning. He was sitting on the recliner chair. Patient was just seen by clutch specialist who recommended debridement on the scalp and also Oncology consultation to rule out skin cancer. Patient has been cleared from [facility]. 05/09 the patient was seen and examined in the room while is eating lunch. Patient reported that he was evaluated by general surgeon, plan is to follow up with Oncology on further recommendation. For now patient will remain hospitalized. No acute events reported overnight. 05/10 patient was seen by nurse practitioner and physician during rounding in room 403. Patient was complaining of the left foot pain and swelling. Ultrasound venous Doppler was negative for DVT. Ultrasound arterial Doppler showed atherosclerosis. Left foot x-ray showed calcaneal spur for degenerative changes. Ankle x-ray showed swelling calcaneal spur. Tibia fibula x-ray was negative. We are still pending oncology evaluation for possible non adjuvant chemotherapy with radiation which probably might happen outpatient. As per surgeon patient will need the outpatient therapy 1st in order in future to do any surgical procedure. As per Wound Dr. Apply normal saline or wound cleanser , pat dry and apply Vaseline. We will continue to monitor patient in the meantime. A.m. labs. Anticipated discharge within 24 hours once cleared by oncologist. A.m. labs 05/11 patient was seen by nurse practitioner and physician during rounding in room 403. Patient was evaluated by oncologist and at this moment he is recommending Port-A-Cath prior discharge once patient Port-A-Cath will be inserted by surgeon patient could be discharged home and follow-up outpatient with the oncologist for non adjuvant chemotherapy every 21 days and radiation. Surgeon was consulted and is planning to insert Port-A-Cath today 05/11/2024 in the afternoon. Regarding the left lower pain that patient was complaining ultrasound venous Doppler was negative for DVT. Ultrasound arterial Doppler negative it showed atherosclerosis. X-ray of the left foot showed calcaneus spur degenerative changes. Ankle x-ray shows swelling calcaneal spur. Tibia fibula x-ray negative. Patient received 2 g of magnesium due to magnesium being at 1.6. We will order uric acid to check for possible gout. Anticipated discharge within 24 hours. In the meantime we will continue to monitor patient. A.m. labs 3 seen by nurse practitioner physician during rounding in room 403 lying in bed. Patient is pending Port-A-Cath placement today with . In the meantime patient was complaining of abdominal pain last night and today, nurse practitioner order ultrasound abdomen. All the labs and results were evaluated/reviewed by INSURANCE ACCOUNT MANAGER. Anticipated discharge within 24 hours to home 05/13/24 patient was seen by INSURANCE ACCOUNT MANAGER and physician during rounding in room 403. Patient was cleared by oncologist to follow up outpatient for non adjuvant chemo and radiation. Patient was also cleared by one two doctor Dr. Araiza and to follow up outpatient as well. Patient is s/p Port-A-Cath placement 05/12/2024 by , and was also cleared to be discharged home. Nurse practitioner and physician instructed patient regarding the follow-up and discharge home today. Later within an hour, hour and a half, nurse practitioner was paged by RN stating that patient called hotline and stated that he suicidal. As per RN patient grab the plastic knife and cut his skin on the arm/hand and stated that he will kill himself. One-to-one was placed. [facility] to be reconsulted. Discharge orders canceled. We will continue to monitor patient in the meantime. A.m. labs REVIEW OF SYSTEMS 12-point ROS reviewed with patient. All pertinent positives mentioned above. Otherwise negative, noncontributory, or non-pertinent. PHYSICAL EXAM GENERAL APPEARANCE: The patient is awake, alert, and oriented, in no acute cardiopulmonary distress. NEUROLOGICAL: Cranial nerves II-XII grossly intact. Motor is 5/5 in bilateral upper and lower extremities proximal to distal. No sensory deficits. HEENT: Face is symmetric. Pupils are equal and reactive. Extraocular movements are intact. NECK: Supple. No JVD. No thyromegaly. No submental, submandibular, pre- /postauricular, occipital or supraclavicular lymphadenopathy. CHEST: Normal chest expansion. No Telemetry. LUNGS: Absence of any rales, rhonchi or any wheezing. CARDIOVASCULAR: Regular. S1 and S2 normal. No appreciable rubs, murmurs or gallops. ABDOMEN: Soft, nontender, and nondistended. There is no rebound, voluntary guarding, or rigidity. Complains of abdominal pain : Deferred. No Jung. EXTREMITIES: Non-edematous and not cyanotic. No clubbing. Good capillary refill. Complains of left lower extremity pain SKIN: No skin breakdown. Vital Signs (last 8hr) Date Time Temp Pulse Resp B/P (MAP) Pulse Ox O2 Delivery O2 Flow Rate FiO2 05/13/24 12:00 97.9 80 19 99/60 96 Room Air 21 05/13/24 11:00 86 18 N/A Room Air 21 05/13/24 10:59 86 18 05/13/24 08:00 97.7 88 19 94/60 95 Room Air LABS: Laboratory: Test 05/13/24 11:24 05/13/24 03:58 Range/Units Whole Blood Glucose 160 #H 70-110 MG/DL White Blood Count 7.6 4.8-10.8 K/uL Red Blood Count 3.90 L 4.50-6.20 MIL/uL Hemoglobin 11.2 L 14.0-18.0 g/dL Hematocrit 34.6 L 42-54 % Mean Corpuscular Volume 88.7 79-99 fL Mean Corpuscular Hemoglobin 28.7 27.0-33.0 pg Mean Corpuscular Hemoglobin Concent 32.4 32.0-36.0 g/dL Red Cell Distribution Width 15.3 11.0-15.5 % Platelet Count 167 130-400 K/uL Mean Platelet Volume 9.3 7.5-10.5 fL Immature Granulocyte % (Auto) 0.3 0-1 % Neutrophils (%) (Auto) 59.8 40.0-77.0 % Lymphocytes (%) (Auto) 26.8 21.0-51.0 % Monocytes (%) (Auto) 9.4 3.0-13.0 % Eosinophils (%) (Auto) 3.3 0.0-8.0 % Basophils (%) (Auto) 0.4 0.0-5.0 % Neutrophils # (Auto) 4.5 1.8-7.7 K/uL Lymphocytes # (Auto) 2.0 1.0-4.8 K/uL Monocytes # (Auto) 0.7 0.1-1.0 K/uL Eosinophils # (Auto) 0.25 0.00-0.70 K/uL Basophils # (Auto) 0.03 0.00-0.20 K/uL Absolute Immature Granulocyte (auto 0.02 0-1 K/uL Nucleated Red Blood Cells 0.0 0.0-0.19 % Sodium Level 138 136-145 mmol/L Potassium Level 3.6 3.5-5.1 mmol/L Chloride Level 102 101-111 mmol/L Carbon Dioxide Level 31 21-32 mmol/L Blood Urea Nitrogen 13 7-18 mg/dL Creatinine 0.7 0.5-1.3 mg/dL Glomerular Filtration Rate Calc 99 >90 mL/min Random Glucose 112 H 70-105 mg/dL Total Calcium 8.9 8.5-10.1 mg/dL Magnesium Level 1.80 1.80-2.40 mg/dL Total Bilirubin 0.6 0.2-1.0 mg/dL Aspartate Amino Transf (AST/SGOT) 21 10-37 U/L Alanine Aminotransferase (ALT/SGPT) 26 # 12-78 U/L Alkaline Phosphatase 68 50-136 U/L Total Protein 6.4 6.0-8.3 g/dL Albumin 2.4 L 3.5-5.0 g/dL Current Medications Medications (Trade) Dose Ordered Sig/Beau Route PRN Reason Start Time Stop Time Status Last Admin Dose Admin Acetaminophen (TYLenol 325MG TAB) 650 mg Q6H PRN PO FEVER/MILD PAIN LEVEL 1-3 05/03/24 01:00 06/02/24 00:59 05/08/24 09:16 650 MG Acetaminophen (TYLenol 650MG SUPPOSITORY) 650 mg Q6H PRN RC FEVER / MILD PAIN 1-3 IF NPO 05/03/24 01:00 06/02/24 00:59 Acetaminophen/ Hydrocodone Bitart (NORco 5/325MG) 1 tab Q6H PRN PO MILD PAIN (1-3) 05/03/24 01:00 05/08/24 00:59 DC 05/04/24 12:06 1 TAB Albuterol Sulfate (Proventil 0.083% 2.5mg/3ml) 2.5 mg [id number] PRN IH SHORTNESS OF BREATH 05/03/24 01:00 06/02/24 00:59 05/09/24 23:13 2.5 MG Atorvastatin Calcium (LIPItor 40MG) 40 mg HS PO 05/03/24 21:00 05/03/24 15:27 DC Atorvastatin Calcium (LIPItor 40MG) 40 mg HS PO 05/03/24 21:00 06/02/24 20:59 05/12/24 19:57 40 MG Docusate Sodium (COLace 100MG CAP) 100 mg BID PRN PO c 05/03/24 01:00 06/02/24 00:59 05/13/24 09:20 100 MG Doxycycline Hyclate 250 ml @ 125 mls/hr Q12H IV 05/03/24 10:00 05/11/24 12:00 DC 05/11/24 09:28 125 MLS/HR Heparin Sodium (Porcine) (HEParin 5,000 UNIT VIAL) *calculation based on ACTUAL B... AD PRN IV HEPARIN PROTOCOL 05/03/24 15:00 05/03/24 14:18 DC Heparin Sodium/ Dextrose 250 ml @ 0 mls/hr Q6H IV 05/03/24 15:00 05/03/24 14:18 DC Hydralazine HCl (APRESOLine 20MG INJ) 10 mg Q2H PRN IV SBP GREATER THAN 160 05/03/24 01:00 06/02/24 00:59 Insulin Human Regular (humuLIN R 100 UNIT/ML 3ML) INSULIN SLIDING SCAL... ACHS SQ 05/03/24 07:30 06/02/24 07:29 Ipratropium [place] (AtrovENT UD) 0.5 mg [id number] IH 05/03/24 06:00 06/02/24 05:59 05/13/24 10:59 0.5 MG Lactulose (Constulose 20gm/ 30ml Udcup) 20 gm Q6H PRN PO CONSTIPATION 05/03/24 01:00 06/02/24 00:59 05/13/24 09:20 20 GM Magnesium Sulfate 50 ml @ 0 mls/hr PROTOCOL IV 05/11/24 13:00 06/10/24 12:59 Magnesium Sulfate 50 ml @ 0 mls/hr PROTOCOL PRN IV electrolyte abnormality 05/03/24 13:30 05/10/24 12:00 DC 05/09/24 05:45 25 MLS/HR Metoprolol Tartrate (loprESSOR) 12.5 mg BID PO 05/03/24 21:00 05/08/24 12:00 DC 05/08/24 10:05 12.5 MG Morphine Sulfate (morPHINE 2MG SYG) 2 mg ONCE STAT IVP 05/12/24 00:14 05/12/24 00:17 DC 05/12/24 00:19 2 MG Norepinephrine 250 ml @ 0 mls/hr PROTOCOL IV 05/03/24 10:00 06/02/24 09:59 Ondansetron HCl (zoFRAN 4MG INJ) 4 mg Q6H PRN IVP NAUSEA/VOMITING 05/03/24 01:00 06/02/24 00:59 Pantoprazole Sodium (PROTonix 40MG INJ) 40 mg DAILY IVP 05/04/24 09:00 05/08/24 12:00 DC 05/08/24 09:15 40 MG Piperacillin Sod/ Tazobactam Sod (Zosyn 3.375gm+NS 50ml) 3.375 gm Q8H IVPB 05/03/24 07:30 05/05/24 19:23 DC 05/05/24 18:26 3.375 GM Piperacillin Sod/ Tazobactam Sod (Zosyn 3.375gm+NS 50ml) 3.375 gm Q8H IVPB 05/06/24 02:00 05/16/24 01:59 05/13/24 09:20 3.375 GM Potassium Chloride 100 ml @ 50 mls/hr AD PRN IV POTASSIUM PROTOCOL 05/03/24 13:30 06/02/24 13:29 Sodium Chloride 1,000 ml @ 999 mls/hr Q1H1M IV 05/03/24 10:00 05/03/24 14:21 DC Sodium Chloride (NS 50ml) 50 ml AD IV 05/03/24 07:30 05/03/24 14:22 DC Temazepam (restORIL 15 MG CAP) 15 mg HS PRN PO INSOMNIA/SLEEP 05/03/24 01:00 06/02/24 00:59 05/12/24 23:25 15 MG Tramadol HCl (UltRAM) 50 mg Q6H PRN PO SEVERE PAIN (7-10) 05/10/24 02:30 05/15/24 02:29 05/13/24 09:20 50 MG DIAGNOSTICS / RADIOLOGY: [ ] ASSESSMENT: Ulcerated cancer lesion on the left parietal area Suicidal ideation Possible new diagnosis of acute gout POA Acute hypoxemic respiratory failure, needing oxygen supplementation-patient already has oxygen concentrator at bedside but currently on room air. 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 Obesity, BMI 38.0. Chronic problem list: AFib, hypertension, hyperlipidemia, COPD, skin cancer to scalp, BPH, urinary retention s/p Jung placement about 7-10 days ago at [facility]. PLAN: Patient stated suicidal ideation called hot line SI ideation protocol 1 to 1 ordered [facility] consulted dc orderes cancelled HIDA scan negative Uric acid negative Port-A-Cath placed 05/12/[address] Silvestre Patient was evaluated by oncologist and is recommending Port-A-Cath and discharged home follow-up outpatient for nine adjuvant chemotherapy every 21 days and radiation Continue medical floor Patient has been cleared from [facility] Monitor respiratory status closely, currently on room air. Keep oxygen supplementation to keep O2 sat greater than 92%, we will slowly titrate until tolerating room air Albuterol p.r.n. shortness of breath. Atrovent nebulizer treatments scheduled q.6 hours. RT to provide IS and education on use. Cough and deep breathe q.2 hours. Chest physiotherapy if sputum production increases. Final urine culture negative Blood culture final negative five days Continue doxycycline IV discontinue Zosyn and doxycycline Deescalate antibiotics when appropriate. In regards with atrial fibrillation, rate controlled, continue with metoprolol tartrate 12.5 mg p.o. b.i.d., continue with Eliquis 5 mg p.o. b.i.d. 3 Patient is working with the physical therapy We will request perinatal social worker to assist with insurance Once medically cleared patient patient to be discharged home ATTESTATION BY PHYSICIAN I have seen and examined the patient. I reviewed the documentation, medical decision making, and treatment plan as noted by the mid-level provider above. I agree with the findings and plan of care. ANUSHA Hernandes MD LAMINATOR [employer]FORMS May 13, 2024 15:17
[2024-05-14] VITALS (13 sets, daily range): BP systolic 100–118; BP diastolic 65–81; PULSE 78–101; RESP 18–19; TEMP 97.8–98.2; O2SAT 96–98
[2024-05-14 04:43] LABS: BASOPHILS # (AUTO) 0.04 K/uL (0.00-0.20); BASOPHILS % (AUTO) 0.5 % (0.0-5.0); EOSINOPHILS # (AUTO) 0.32 K/uL (0.00-0.70); EOSINOPHILS % (AUTO) 3.9 % (0.0-8.0); HEMATOCRIT 35.2 % (42-54); IMMATURE GRANULOCYTE ABSOLUTE 0.03 K/uL (0-1); LYMPHOCYTES # (AUTO) 2.2 K/uL (1.0-4.8); LYMPHOCYTES % (AUTO) 26.4 % (21.0-51.0); MEAN CORPUSCULAR HGB CONC 32.4 g/dL (32.0-36.0); MEAN CORPUSCULAR VOLUME 89.6 fL (79-99); MONOCYTES # (AUTO) 0.8 K/uL (0.1-1.0); MONOCYTES % (AUTO) 10.1 % (3.0-13.0); NEUTROPHILS # (AUTO) 4.9 K/uL (1.8-7.7); NEUTROPHILS % (AUTO) 58.7 % (40.0-77.0); PLATELET COUNT (AUTO) 178 K/uL (130-400); RED BLOOD CELL COUNT(AUTO) 3.93 MIL/uL (4.50-6.20); RED CELL DISTRIBUTION WIDTH 15.1 % (11.0-15.5); WHITE BLOOD COUNT (AUTO) 8.3 K/uL (4.8-10.8)
[2024-05-14 05:01] LABS: ALBUMIN 2.4 g/dL (3.5-5.0); BILIRUBIN,TOTAL 0.5 mg/dL (0.2-1.0); CREATININE 0.8 mg/dL (0.5-1.3); MAGNESIUM 1.7 mg/dL (1.80-2.40); POTASSIUM 4.2 mmol/L (3.5-5.1); TOTAL PROTEIN, SERUM 6.4 g/dL (6.0-8.3)
[2024-05-14] MEDS: MAGNESIUM 2GM PREMIX 50ML 50 ML IV SCH (05:34)
[2024-05-14] MEDS ORDERED: MAGNESIUM 2GM PREMIX 50ML 50 ML IV SCH (08:00)
--- NOTE | 2024-05-14 11:32 | PN ---
[facility] PROGRESS NOTE Date of Service: May 14, 2024 Time of Service: 11:30 Attending doctor Devon SUBJECTIVE: Mr. Marshall is a 68-year-old male with history of recent mild stroke", atrial fibrillation, hypertension, hyperlipidemia, COPD, skin cancer (scalp closed), BPH, and urinary retention who presented to [facility] via EMS for evaluation of cough, dysphagia, shortness of breath, and general body weakness. The patient also reported he is unable to ambulate due to generalized weakness and worsening chronic back pain. Patient reported he was admitted at [facility] in [place], [place] where he experienced a CVA i npatient. The patient reported he was discharged and returned back to [facility] due to no improvement of symptoms. He was was discharged this afternoon again from [facility] where he had been readmitted for approximately 10 days. He stated that he did not receive physical therapy while in hospital and rehab was not an option". He also stated that he had a Jung catheter placed proximally 7-10 days ago for urinary retention and it remains in place. He stated he thinks he may have a low-grade fever as well as chills. He denied having any chest pain, palpitations, edema, abdominal pain, nausea, vomiting, diarrhea, headache, visual disturbance, focal weakness/paresthesia, or dizziness. The patient reported that on his last admis césar to [facility] the admitting hospitalist and quality head were not nice which prompted him to come to [facility] instead this time. Labs: WBCs elevated at 16.4, H and H 13.3/41.1, Na/Cl 132/95, K 5.4, CO2 33, BUN 23, albumin three, and glucose 155. ABG on 2 L nasal cannula: PH 7.463, pCO2 32, PO2 113.3, bicarb 22.3, and base excess -0.6. EKG: Atrial fibrillation, heart rate 97 beats per minute. Chest x-ray: Mild bilateral pulmonary infiltrates are seen may be related to mild pulmonary vascular congestion with possible superimposed pneumonitis. In ED the patient continue to complain congestion, cough, and difficulty swallowing. In ED the patient was administered dose Zosyn 3.375 g x 1 for suspected aspiration pneumonia. He received dose Dilaudid 0.5 Mg x 1 dose for complains of low back pain. ED provider request patient be admitted with the diagnosis of suspected aspiration pneumonia, dysphagia, failure to thrive in adult, hyperkalemia, physical debility, leukocytosis. I went to assess the patient at bedside. The patient appeared chronically ill, breathing was even and unlabored, in no distress. Patient was conversive, answered appropriately. I informed patient of labs, diagnostics, and plan of care. The patient verbalized understanding and is in agreement with the plan. Plan and assessment are listed below. May 03, 2024 The patient was examined at the bedside. His shortness of breath slightly improved with oxygen saturation of PaO2 of 99% on nasal cannula 2.0. Patient had low MEP a and his blood pressure is at 79 /43 which was improved to 100 x 60 after an IV NS bolus at 30 cc kg per body weight. Evaluating further causes o f his chest pain, his WBC count remains elevated at at 12.4 And no overnight events reported. monitoring him and treating him for pneumonia. Pulmonary embolism ruled out due to a negative chest CT scan and a negative ultrasound venous Doppler scan. 05/04/24 was examined in the room today, he is currently lying in bed, patient stated that he is having a hard time with his bowel movement. Patient is constipated and he has pain during bowel movement. Patient stated that he has been hospitalized and was recently discharged from [facility]. We continue with current management. 05/06 patient was supposed to be discharged yesterday, apparently he failed 6 minute walk , saturating 82% on room air. Patient continues to be weak, we will request physical therapy to eval and treat. We will try to wean patient off oxygen and re-evaluate in the next 24-48 hours. Patient is unable to obtain home oxygen as he currently does not have medical insurance. Otherwise patient was evaluated in the room, he is still complaints of weakness and cough. He also feels dizzy on walking short distance. 05/07/24 Patient is for DC planning and was awaiting for Oxygen arrangement. [facility] provided oxygen concentrator currently at bedside but patient right now is on room air. He is medically clear unfortunately he did voiced out suicidal ideation for which patient was placed on one-to-one supervision. Tropical has been consulted. 05/08 patient was evaluated this morning. He was sitting on the recliner chair. Patient was just seen by accounting support specialist who recommended debridement on the scalp and also Oncology consultation to rule out skin cancer. Patient has been cleared from [facility]. 05/09 the patient was seen and examined in the room while is eating lunch. Patient reported that he was evaluated by general surgeon, plan is to follow up with Oncology on further recommendation. For now patient will remain hospitalized. No acute events reported overnight. 05/10 patient was seen by nurse practitioner and physician during rounding in room 403. Patient was complaining of the left foot pain and swelling. Ultrasound venous Doppler was negative for DVT. Ultrasound arterial Doppler showed atherosclerosis. Left foot x-ray showed calcaneal spur for degenerative changes. Ankle x-ray showed swelling calcaneal spur. Tibia fibula x-ray was negative. We are still pending oncology evaluation for possible non adjuvant chemotherapy with radiation which probably might happen outpatient. As per surgeon patient will need the outpatient therapy 1st in order in future to do any surgical procedure. As per Wound Dr. Apply normal saline or wound cleanser , pat dry and apply Vaseline. We will continue to monitor patient in the meantime. A.m. labs. Anticipated discharge within 24 hours once cleared by oncologist. A.m. labs 05/11 patient was seen by nurse practitioner and physician during rounding in room 403. Patient was evaluated by oncologist and at this moment he is recommending Port-A-Cath prior discharge once patient Port-A-Cath will be inserted by surgeon patient could be discharged home and follow-up outpatient with the oncologist for non adjuvant chemotherapy every 21 days and radiation. Surgeon was consulted and is planning to insert Port-A-Cath today 05/11/2024 in the afternoon. Regarding the left lower pain that patient was complaining ultrasound venous Doppler was negative for DVT. Ultrasound arterial Doppler negative it showed atherosclerosis. X-ray of the left foot showed calcaneus spur degenerative changes. Ankle x-ray shows swelling calcaneal spur. Tibia fibula x-ray negative. Patient received 2 g of magnesium due to magnesium being at 1.6. We will order uric acid to check for possible gout. Anticipated discharge within 24 hours. In the meantime we will continue to monitor patient. A.m. labs 3 seen by nurse practitioner physician during rounding in room 403 lying in bed. Patient is pending Port-A-Cath placement today with . In the meantime patient was complaining of abdominal pain last night and today, nurse practitioner order ultrasound abdomen. All the labs and results were evaluated/reviewed by NEGATIVE NOTCHER. Anticipated discharge within 24 hours to home 05/13/24 patient was seen by NEGATIVE NOTCHER and physician during rounding in room 403. Patient was cleared by oncologist to follow up outpatient for non adjuvant chemo and radiation. Patient was also cleared by one two doctor Dr. Araiza and to follow up outpatient as well. Patient is s/p Port-A-Cath placement 05/12/2024 by , and was also cleared to be discharged home. Nurse practitioner and physician instructed patient regarding the follow-up and discharge home today. Later within an hour, hour and a half, nurse practitioner was paged by RN stating that patient called hotline and stated that he suicidal. As per RN patient grab the plastic knife and cut his skin on the arm/hand and stated that he will kill himself. One-to-one was placed. [facility] to be reconsulted. Discharge orders canceled. We will continue to monitor patient in the meantime. A.m. labs 05/14/24 patient was seen by nurse practitioner physician during rounding in room 403 lying in bed. Nurse practitioner was able to talk to the patient regarding the suicidal ideation. He is unable to explain himself he just knows that if he goes home he will kill himself. We are waiting for evaluation of the [facility] for now. Case management is also trying to work on disposition for the patient and possible insurance. Patient receive 2 g of magnesium for magnesium of 1.7 today. We will continue to monitor patient in the meantime. A.m. labs REVIEW OF SYSTEMS 12-point ROS reviewed with patient. All pertinent positives mentioned above. Otherwise negative, noncontributory, or non-pertinent. PHYSICAL EXAM GENERAL APPEARANCE: The patient is awake, alert, and oriented, in no acute cardiopulmonary distress. NEUROLOGICAL: Cranial nerves II-XII grossly intact. Motor is 5/5 in bilateral upper and lower extremities proximal to distal. No sensory deficits. HEENT: Face is symmetric. Pupils are equal and reactive. Extraocular movements are intact. NECK: Supple. No JVD. No thyromegaly. No submental, submandibular, pre- /postauricular, occipital or supraclavicular lymphadenopathy. CHEST: Normal chest expansion. No Telemetry. LUNGS: Absence of any rales, rhonchi or any wheezing. CARDIOVASCULAR: Regular. S1 and S2 normal. No appreciable rubs, murmurs or gallops. ABDOMEN: Soft, nontender, and nondistended. There is no rebound, voluntary guarding, or rigidity. Complains of abdominal pain : Deferred. No Jung. EXTREMITIES: Non-edematous and not cyanotic. No clubbing. Good capillary re fill. Complains of left lower extremity pain SKIN: No skin breakdown. Vital Signs (last 8hr) Date Time Temp Pulse Resp B/P (MAP) Pulse Ox O2 Delivery O2 Flow Rate FiO2 05/14/24 11:10 80 18 05/14/24 11:09 80 18 N/A Room Air 21 05/14/24 08:00 98.1 82 19 107/74 98 05/14/24 06:39 99 18 05/14/24 06:38 99 18 N/A Room Air 21 05/14/24 04:00 97.9 91 18 100/65 97 Room Air LABS: Laboratory: Test 05/14/24 05:16 05/14/24 04:18 Range/Units Whole Blood Glucose 114 H 70-110 MG/DL White Blood Count 8.3 4.8-10.8 K/uL Red Blood Count 3.93 L 4.50-6.20 MIL/uL Hemoglobin 11.4 L 14.0-18.0 g/dL Hematocrit 35.2 L 42-54 % Mean Corpuscular Volume 89.6 79-99 fL Mean Corpuscular Hemoglobin 29.0 27.0-33.0 pg Mean Corpuscular Hemoglobin Concent 32.4 32.0-36.0 g/dL Red Cell Distribution Width 15.1 11.0-15.5 % Platelet Count 178 130-400 K/uL Mean Platelet Volume 9.6 7.5-10.5 fL Immature Granulocyte % (Auto) 0.4 0-1 % Neutrophils (%) (Auto) 58.7 40.0-77.0 % Lymphocytes (%) (Auto) 26.4 21.0-51.0 % Monocytes (%) (Auto) 10.1 3.0-13.0 % Eosinophils (%) (Auto) 3.9 0.0-8.0 % Basophils (%) (Auto) 0.5 0.0-5.0 % Neutrophils # (Auto) 4.9 1.8-7.7 K/uL Lymphocytes # (Auto) 2.2 1.0-4.8 K/uL Monocytes # (Auto) 0.8 0.1-1.0 K/uL Eosinophils # (Auto) 0.32 0.00-0.70 K/uL Basophils # (Auto) 0.04 0.00-0.20 K/uL Absolute Immature Granulocyte (auto 0.03 0-1 K/uL Nucleated Red Blood Cells 0.0 0.0-0.19 % Sodium Level 139 136-145 mmol/L Potassium Level 4.2 3.5-5.1 mmol/L Chloride Level 104 101-111 mmol/L Carbon Dioxide Level 32 21-32 mmol/L Blood Urea Nitrogen 12 7-18 mg/dL Creatinine 0.8 0.5-1.3 mg/dL Glomerular Filtration Rate Calc 95 >90 mL/min Random Glucose 104 70-105 mg/dL Total Calcium 9.0 8.5-10.1 mg/dL Magnesium Level 1.70 L 1.80-2.40 mg/dL Total Bilirubin 0.5 0.2-1.0 mg/dL Aspartate Amino Transf (AST/SGOT) 24 10-37 U/L Alanine Aminotransferase (ALT/SGPT) 25 12-78 U/L Alkaline Phosphatase 70 50-136 U/L Total Protein 6.4 6.0-8.3 g/dL Albumin 2.4 L 3.5-5.0 g/dL Current Medications Medications (Trade) Dose Ordered Sig/Beau Route PRN Reason Start Time Stop Time Status Last Admin Dose Admin Acetaminophen (TYLenol 325MG TAB) 650 mg Q6H PRN PO FEVER/MILD PAIN LEVEL 1-3 05/03/24 01:00 06/02/24 00:59 05/08/24 09:16 650 MG Acetaminophen (TYLenol 650MG SUPPOSITORY) 650 mg Q6H PRN RC FEVER / MILD PAIN 1-3 IF NPO 05/03/24 01:00 06/02/24 00:59 Acetaminophen/ Hydrocodone Bitart (NORco 5/325MG) 1 tab Q6H PRN PO MILD PAIN (1-3) 05/03/24 01:00 05/08/24 00:59 DC 05/04/24 12:06 1 TAB Albuterol Sulfate (Proventil 0.083% 2.5mg/3ml) 2.5 mg [id number] PRN IH SHORTNESS OF BREATH 05/03/24 01:00 06/02/24 00:59 05/09/24 23:13 2.5 MG Atorvastatin Calcium (LIPItor 40MG) 40 mg HS PO 05/03/24 21:00 05/03/24 15:27 DC Atorvastatin Calcium (LIPItor 40MG) 40 mg HS PO 05/03/24 21:00 06/02/24 20:59 05/13/24 20:01 40 MG Docusate Sodium (COLace 100MG CAP) 100 mg BID PRN PO c 05/03/24 01:00 06/02/24 00:59 05/13/24 09:20 100 MG Doxycycline Hyclate 250 ml @ 125 mls/hr Q12H IV 05/03/24 10:00 05/11/24 12:00 DC 05/11/24 09:28 125 MLS/HR Heparin Sodium (Porcine) (HEParin 5,000 UNIT VIAL) *calculation based on ACTUAL B... AD PRN IV HEPARIN PROTOCOL 05/03/24 15:00 05/03/24 14:18 DC Heparin Sodium/ Dextrose 250 ml @ 0 mls/hr Q6H IV 05/03/24 15:00 05/03/24 14:18 DC Hydralazine HCl (APRESOLine 20MG INJ) 10 mg Q2H PRN IV SBP GREATER THAN 160 05/03/24 01:00 06/02/24 00:59 Insulin Human Regular (humuLIN R 100 UNIT/ML 3ML) INSULIN SLIDING SCAL... ACHS SQ 05/03/24 07:30 06/02/24 07:29 Ipratropium [place] (AtrovENT UD) 0.5 mg [id number] IH 05/03/24 06:00 06/02/24 05:59 05/14/24 11:10 0.5 MG Lactulose (Constulose 20gm/ 30ml Udcup) 20 gm Q6H PRN PO CONSTIPATION 05/03/24 01:00 06/02/24 00:59 05/13/24 09:20 20 GM Magnesium Sulfate 50 ml @ 0 mls/hr PROTOCOL IV 05/11/24 13:00 05/14/24 08:02 DC 05/14/24 05:34 25 MLS/HR Magnesium Sulfate 50 ml @ 0 mls/hr PROTOCOL IV 05/14/24 08:00 06/13/24 07:59 Magnesium Sulfate 50 ml @ 0 mls/hr PROTOCOL PRN IV electrolyte abnormality 05/03/24 13:30 05/10/24 12:00 DC 05/09/24 05:45 25 MLS/HR Metoprolol Tartrate (loprESSOR) 12.5 mg BID PO 05/03/24 21:00 05/08/24 12:00 DC 05/08/24 10:05 12.5 MG Morphine Sulfate (morPHINE 2MG SYG) 2 mg ONCE STAT IVP 05/12/24 00:14 05/12/24 00:17 DC 05/12/24 00:19 2 MG Norepinephrine 250 ml @ 0 mls/hr PROTOCOL IV 05/03/24 10:00 05/14/24 10:44 DC Ondansetron HCl (zoFRAN 4MG INJ) 4 mg Q6H PRN IVP NAUSEA/VOMITING 05/03/24 01:00 06/02/24 00:59 Pantoprazole Sodium (PROTonix 40MG INJ) 40 mg DAILY IVP 05/04/24 09:00 05/08/24 12:00 DC 05/08/24 09:15 40 MG Piperacillin Sod/ Tazobactam Sod (Zosyn 3.375gm+NS 50ml) 3.375 gm Q8H IVPB 05/03/24 07:30 05/05/24 19:23 DC 05/05/24 18:26 3.375 GM Piperacillin Sod/ Tazobactam Sod (Zosyn 3.375gm+NS 50ml) 3.375 gm Q8H IVPB 05/06/24 02:00 05/16/24 01:59 05/14/24 10:48 3.375 GM Potassium Chloride 100 ml @ 50 mls/hr AD PRN IV POTASSIUM PROTOCOL 05/03/24 13:30 06/02/24 13:29 Sodium Chloride 1,000 ml @ 999 mls/hr Q1H1M IV 05/03/24 10:00 05/03/24 14:21 DC Sodium Chloride (NS 50ml) 50 ml AD IV 05/03/24 07:30 05/03/24 14:22 DC Temazepam (restORIL 15 MG CAP) 15 mg HS PRN PO INSOMNIA/SLEEP 05/03/24 01:00 06/02/24 00:59 05/12/24 23:25 15 MG Tramadol HCl (UltRAM) 50 mg Q6H PRN PO SEVERE PAIN (7-10) 05/10/24 02:30 05/15/24 02:29 05/13/24 09:20 50 MG DIAGNOSTICS / RADIOLOGY: [ ] ASSESSMENT: Ulcerated cancer lesion on the left parietal area Suicidal ideation Possible new diagnosis of acute gout POA Acute hypoxemic respiratory failure, needing oxygen supplementation-patient already has oxygen concentrator at bedside but currently on room air. 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 Obesity, BMI 38.0. Chronic problem list: AFib, hypertension, hyperlipidemia, COPD, skin cancer to scalp, BPH, urinary retention s/p Jung placement about 7-10 days ago at [facility]. PLAN: Patient will receive 2 g of magnesium for magnesium of 1.7 Patient stated suicidal ideation called hot line SI ideation protocol 1 to 1 ordered [facility] consulted dc orderes cancelled HIDA scan negative Uric acid negative Port-A-Cath placed 05/12/[address] Silvestre Patient was evaluated by oncologist and is recommending Port-A-Cath and discharged home follow-up outpatient for nine adjuvant chemotherapy every 21 days and radiation Continue medical floor Patient has been cleared from [facility] Monitor respiratory status closely, currently on room air. Keep oxygen supplementation to keep O2 sat greater than 92%, we will slowly titrate until tolerating room air Albuterol p.r.n. shortness of breath. Atrovent nebulizer treatments scheduled q.6 hours. RT to provide IS and education on use. Cough and deep breathe q.2 hours. Chest physiotherapy if sputum production increases. Final urine culture negative Blood culture final negative five days Continue doxycycline IV discontinue Zosyn and doxycycline Deescalate antibiotics when appropriate. In regards with atrial fibrillation, rate controlled, continue with metoprolol tartrate 12.5 mg p.o. b.i.d., continue with Eliquis 5 mg p.o. b.i.d. 3 Patient is working with the physical therapy We will request web content & social media manager to assist with insurance Once medically cleared patient patient to be discharged home ATTESTATION BY PHYSICIAN I have seen and examined the patient. I reviewed the documentation, medical decision making, and treatment plan as noted by the mid-level provider above. I agree with the findings and plan of care. ANUSHA Hernandes MD PAN HELPER May 14, 2024 11:32
--- NOTE | 2024-05-14 13:07 | NUR ---
CELESTINO BINGHAM Called [place] tropical Crisis hotline, requested revaluation,
--- NOTE | 2024-05-14 13:09 | PN ---
Mr. Marshall is a 68-year-old male with history of recent mild stroke", atrial fibrillation, hypertension, hyperlipidemia, COPD, skin cancer (scalp closed), BPH, and urinary retention who presented to [facility] via EMS for evaluation of cough, dysphagia, shortness of breath, and general body weakness. The patient also reported he is unable to ambulate due to generalized weakness and worsening chronic back pain. Patient reported he was admitted at [facility] in [place], [place] where he experienced a CVA inpatient. The patient reported he was discharged and returned back to [facility] due to no improvement of symptoms. He was was discharged this afternoon again from [facility] where he had been readmitted for approximately 10 days. He stated that he did not receive physical therapy while in hospital and rehab was not an option". He also stated that he had a Jung catheter placed proximally 7-10 days ago for urinary retention and it remains in place. He stated he thinks he may have a low-grade fever as well as chills. He denied having any chest pain, palpitations, edema, abdominal pain, nausea, vomiting, diarrhea, headache, visual disturbance, focal weakness/paresthesia, or dizziness. The patient reported that on his last admission to [facility] the admitting hospitalist and deputy chief sheriff were not nice which prompted him to come to [facility] instead this time. I was consulted because this patient have necrotic mass to the scalp. Biopsy was done before consistent with squamous cell. This patient was seen by general surgery. This patient is threatening to commit suicide. With the patient want to be evaluated by by psychiatry. PHYSICAL EXAM GENERAL APPEARANCE: The patient is awake, alert, and oriented, in no acute cardiopulmonary distress. NEUROLOGICAL: Cranial nerves II-XII grossly intact. Motor is 5/5 in bilateral upper and lower extremities proximal to distal. No sensory deficits. HEENT: Face is symmetric. Pupils are equal and reactive. Extraocular movements are intact. NECK: Supple. No JVD. No thyromegaly. No submental, submandibular, pre- /postauricular, occipital or supraclavicular lymphadenopathy. CHEST: Normal chest expansion. No Telemetry. LUNGS: Absence of any rales, rhonchi or any wheezing. CARDIOVASCULAR: Regular. S1 and S2 normal. No appreciable rubs, murmurs or gallops. ABDOMEN: Soft, nontender, and nondistended. There is no rebound, voluntary guarding, or rigidity. : Deferred. No Jung. EXTREMITIES: Non-edematous and not cyanotic. No clubbing. Good capillary refill. SKIN: No skin breakdown. Assessment 1. 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 2. Hypertension 3. Hyperlipidemia 4. COPD 5. Sepsis Plan 1. I have long discussion with the patient regarding the plan of care. I answer all question and concern and I spent more than 35 minutes. This patient is not surgical candidate because of the necrotic area is very weak. 2. This patient could benefit from neoadjuvant chemotherapy treatments carboplatin-taxol every 21 days 3. This patient actually threatening to commit suicide. This patient need to be evaluated by psychiatry. 4. If this patient discharged to follow-up with me in the next week or 2. Vitals/Labs Vital Signs Date Time Temp Pulse Resp B/P (MAP) Pulse Ox O2 Delivery O2 Flow Rate FiO2 05/14/24 12:00 98.1 95 19 113/76 99 Room Air 05/14/24 11:09 21 05/13/24 20:00 0 Laboratory Tests 05/14/24 04:18 Medications Current Medications Piperacillin Sod/ Tazobactam Sod 3.375 gm ONCE ONCE IV Last administered on 05/03/24at 00:01; Start 05/02/24 at 23:30; Stop 05/02/24 at 23:38; Status DC Hydromorphone HCl 0.5 mg ONCE ONCE IVP Last administered on 05/02/24at 23:23; Start 05/02/24 at 22:30; Stop 05/02/24 at 22:31; Status DC Iohexol 35,000 mg STK-MED ONCE IV; Start 05/03/24 at 00:40; Stop 05/03/24 at 00:41; Status DC Albuterol Sulfate 2.5 mg [id number] PRN IH Last administered on 05/09/24at 23:13; Start 05/03/24 at 01:00; Stop 06/02/24 at 00:59 Ipratropium [place] 0.5 mg [id number] IH Last administered on 05/14/24at 11:10; Start 05/03/24 at 06:00; Stop 06/02/24 at 05:59 Acetaminophen 650 mg Q6H PRN PO Last administered on 05/08/24at 09:16; Start 05/03/24 at 01:00; Stop 06/02/24 at 00:59 Acetaminophen 650 mg Q6H PRN RC; Start 05/03/24 at 01:00; Stop 06/02/24 at 00:59 Acetaminophen/ Hydrocodone Bitart 1 tab Q6H PRN PO Last administered on 05/04/24at 12:06; Start 05/03/24 at 01:00; Stop 05/08/24 at 00:59; Status DC Lactulose 20 gm Q6H PRN PO Last administered on 05/13/24at 09:20; Start 05/03/24 at 01:00; Stop 06/02/24 at 00:59 Docusate Sodium 100 mg BID PRN PO Last administered on 05/13/24at 09:20; Start 05/03/24 at 01:00; Stop 06/02/24 at 00:59 Temazepam 15 mg HS PRN PO Last administered on 05/12/24at 23:25; Start 05/03/24 at 01:00; Stop 06/02/24 at 00:59 Ondansetron HCl 4 mg Q6H PRN IVP; Start 05/03/24 at 01:00; Stop 06/02/24 at 00:59 Hydralazine HCl 10 mg Q2H PRN IV; Start 05/03/24 at 01:00; Stop 06/02/24 at 00:59 Insulin Human Regular INSULIN SLIDING SCAL... ACHS SQ; Start 05/03/24 at 07:30; Stop 06/02/24 at 07:29 Sodium Chloride 4 ml STK-MED ONCE IH Last administered on 05/03/24at 06:58; Start 05/03/24 at 06:41; Stop 05/03/24 at 06:41; Status DC Piperacillin Sod/ Tazobactam Sod 3.375 gm Q8H IVPB Last administered on 05/05/24at 18:26; Start 05/03/24 at 07:30; Stop 05/05/24 at 19:23; Status DC Sodium Chloride 50 ml AD IV; Start 05/03/24 at 07:30; Stop 05/03/24 at 14:22; Status DC Norepinephrine 250 ml @ As Directed STK-MED ONCE IV; Start 05/03/24 at 09:30; Stop 05/03/24 at 09:31; Status DC Sodium Chloride 1,368 ml @ 456 mls/hr ONCE ONCE IV Last administered on 05/03/24at 10:06; Start 05/03/24 at 10:00; Stop 05/03/24 at 12:59; Status DC Sodium Chloride 1,000 ml @ 999 mls/hr Q1H1M IV; Start 05/03/24 at 10:00; Stop 05/03/24 at 14:21; Status DC Norepinephrine 250 ml @ 0 mls/hr PROTOCOL IV; Start 05/03/24 at 10:00; Stop 05/14/24 at 10:44; Status DC Doxycycline Hyclate 250 ml @ 125 mls/hr Q12H IV Last administered on 05/11/24at 09:28; Start 05/03/24 at 10:00; Stop 05/11/24 at 12:00; Status DC Sodium Chloride 4 ml STK-MED ONCE IH Last administered on 05/03/24at 12:11; Start 05/03/24 at 12:09; Stop 05/03/24 at 12:10; Status DC Magnesium Sulfate 50 ml @ 0 mls/hr PROTOCOL PRN IV Last administered on 05/09/24at 05:45; Start 05/03/24 at 13:30; Stop 05/10/24 at 12:00; Status DC Potassium Chloride 100 ml @ 50 mls/hr AD PRN IV; Start 05/03/24 at 13:30; Stop 06/02/24 at 13:29 Pantoprazole Sodium 40 mg DAILY IVP Last administered on 05/08/24at 09:15; Start 05/04/24 at 09:00; Stop 05/08/24 at 12:00; Status DC Heparin Sodium (Porcine) *calculation based on ACTUAL B... AD PRN IV; Start 05/03/24 at 15:00; Stop 05/03/24 at 14:18; Status DC Heparin Sodium/ Dextrose 250 ml @ 0 mls/hr Q6H IV; Start 05/03/24 at 15:00; Stop 05/03/24 at 14:18; Status DC Metoprolol Tartrate 12.5 mg BID PO Last administered on 05/08/24at 10:05; Start 05/03/24 at 21:00; Stop 05/08/24 at 12:00; Status DC Apixaban 5 mg ONCE ONCE PO Last administered on 05/03/24at 16:21; Start 05/03/24 at 14:30; Stop 05/03/24 at 14:31; Status DC Atorvastatin Calcium 40 mg ONCE ONCE PO Last administered on 05/03/24at 16:21; Start 05/03/24 at 14:30; Stop 05/03/24 at 14:31; Status DC Apixaban 5 mg ONCE ONCE PO; Start 05/03/24 at 04:00; Stop 05/03/24 at 15:37; Status DC Atorvastatin Calcium 40 mg HS PO; Start 05/03/24 at 21:00; Stop 05/03/24 at 15:27; Status DC Atorvastatin Calcium 40 mg HS PO Last administered on 05/13/24at 20:01; Start 05/03/24 at 21:00; Stop 06/02/24 at 20:59 Sodium Chloride 4 ml STK-MED ONCE IH Last administered on 05/03/24at 19:17; Start 05/03/24 at 17:59; Stop 05/03/24 at 18:00; Status DC Piperacillin Sod/ Tazobactam Sod 3.375 gm Q8H IVPB Last administered on 05/14/24at 10:48; Start 05/06/24 at 02:00; Stop 05/16/24 at 01:59 Tramadol HCl 50 mg Q6H PRN PO Last administered on 05/13/24at 09:20; Start 05/10/24 at 02:30; Stop 05/15/24 at 02:29 Tramadol HCl 50 mg STK-MED ONCE .ROUTE; Start 05/10/24 at 02:25; Stop 05/10/24 at 02:26; Status DC Magnesium Sulfate 50 ml @ 0 mls/hr PROTOCOL IV Last administered on 05/14/24at 05:34; Start 05/11/24 at 13:00; Stop 05/14/24 at 08:02; Status DC Morphine Sulfate 2 mg ONCE STAT IVP Last administered on 05/12/24at 00:19; Start 05/12/24 at 00:14; Stop 05/12/24 at 00:17; Status DC Bupivacaine HCl/ Epinephrine Bitart 10 ml STK-MED ONCE IJ Last administered on 05/12/24at 00:00; Start 05/12/24 at 12:50; Stop 05/12/24 at 12:50; Status DC Heparin Sodium/ Sodium Chloride 500 ml @ As Directed STK-MED ONCE IV Last administered on 05/12/24at 00:00; Start 05/12/24 at 12:51; Stop 05/12/24 at 12:52; Status DC Lidocaine HCl 100 mg STK-MED ONCE .ROUTE; Start 05/12/24 at 17:50; Stop 05/12/24 at 17:50; Status DC Propofol 200 mg STK-MED ONCE IV; Start 05/12/24 at 17:50; Stop 05/12/24 at 17:50; Status DC Midazolam HCl 2 mg STK-MED ONCE .ROUTE; Start 05/12/24 at 17:50; Stop 05/12/24 at 17:50; Status DC Propofol 100 ml @ As Directed STK-MED ONCE IV; Start 05/12/24 at 17:53; Stop 05/12/24 at 17:53; Status DC Ketamine HCl 50 mg STK-MED ONCE .ROUTE; Start 05/12/24 at 17:53; Stop 05/12/24 at 17:53; Status DC Magnesium Sulfate 50 ml @ 0 mls/hr PROTOCOL IV; Start 05/14/24 at 08:00; Stop 06/13/24 at 07:59 TU CARRERA MD May 14, 2024 13:09
[2024-05-15] VITALS (12 sets, daily range): BP systolic 100–126; BP diastolic 61–74; PULSE 71–106; RESP 16–20; TEMP 97.7–99.1; O2SAT 95–97
[2024-05-15 07:23] LABS: BASOPHILS # (AUTO) 0.04 K/uL (0.00-0.20); BASOPHILS % (AUTO) 0.6 % (0.0-5.0); EOSINOPHILS # (AUTO) 0.29 K/uL (0.00-0.70); EOSINOPHILS % (AUTO) 4.1 % (0.0-8.0); HEMATOCRIT 36.5 % (42-54); IMMATURE GRANULOCYTE ABSOLUTE 0.03 K/uL (0-1); LYMPHOCYTES # (AUTO) 2.2 K/uL (1.0-4.8); LYMPHOCYTES % (AUTO) 30.3 % (21.0-51.0); MEAN CORPUSCULAR HEMOGLOBIN 29.2 pg (27.0-33.0); MEAN CORPUSCULAR HGB CONC 32.6 g/dL (32.0-36.0); MEAN CORPUSCULAR VOLUME 89.5 fL (79-99); MONOCYTES # (AUTO) 0.6 K/uL (0.1-1.0); MONOCYTES % (AUTO) 8.8 % (3.0-13.0); NEUTROPHILS % (AUTO) 55.8 % (40.0-77.0); PLATELET COUNT (AUTO) 180 K/uL (130-400); RED BLOOD CELL COUNT(AUTO) 4.08 MIL/uL (4.50-6.20); RED CELL DISTRIBUTION WIDTH 15.2 % (11.0-15.5); WHITE BLOOD COUNT (AUTO) 7.2 K/uL (4.8-10.8)
[2024-05-15 07:42] LABS: ALBUMIN 2.5 g/dL (3.5-5.0); BILIRUBIN,TOTAL 0.6 mg/dL (0.2-1.0); CREATININE 0.7 mg/dL (0.5-1.3); MAGNESIUM 1.9 mg/dL (1.80-2.40); POTASSIUM 3.9 mmol/L (3.5-5.1); TOTAL PROTEIN, SERUM 6.4 g/dL (6.0-8.3)
--- NOTE | 2024-05-15 07:44 | PN ---
Mr. Marshall is a 68-year-old male with history of recent mild stroke", atrial fibrillation, hypertension, hyperlipidemia, COPD, skin cancer (scalp closed), BPH, and urinary retention who presented to [facility] ED via EMS for evaluation of cough, dysphagia, shortness of breath, and general body weakness. The patient also reported he is unable to ambulate due to generalized weakness and worsening chronic back pain. Patient reported he was admitted at [facility] in [place], [place] where he experienced a CVA inpatient. The patient reported he was discharged and returned back to [facility] due to no improvement of symptoms. He was was discharged this afternoon again from [facility] where he had been readmitted for approximately 10 days. He stated that he did not receive physical therapy while in hospital and rehab was not an option". He also stated that he had a Jung catheter placed proximally 7-10 days ago for urinary retention and it remains in place. He stated he thinks he may have a low-grade fever as well as chills. He denied having any chest pain, palpitations, edema, abdominal pain, nausea, vomiting, diarrhea, headache, visual disturbance, focal weakness/paresthesia, or dizziness. The patient reported that on his last admission to [facility] the admitting hospitalist and internal control specialist were not nice which prompted him to come to [facility] instead this time. I was consulted because this patient have necrotic mass to the scalp. Biopsy was done before consistent with squamous cell. This patient was seen by general surgery. This patient is threatening to commit suicide. With the patient want to be evaluated by by psychiatry. PHYSICAL EXAM GENERAL APPEARANCE: The patient is awake, alert, and oriented, in no acute cardiopulmonary distress. NEUROLOGICAL: Cranial nerves II-XII grossly intact. Motor is 5/5 in bilateral upper and lower extremities proximal to distal. No sensory deficits. HEENT: Face is symmetric. Pupils are equal and reactive. Extraocular movements are intact. NECK: Supple. No JVD. No thyromegaly. No submental, submandibular, pre- /postauricular, occipital or supraclavicular lymphadenopathy. CHEST: Normal chest expansion. No Telemetry. LUNGS: Absence of any rales, rhonchi or any wheezing. CARDIOVASCULAR: Regular. S1 and S2 normal. No appreciable rubs, murmurs or gallops. ABDOMEN: Soft, nontender, and nondistended. There is no rebound, voluntary guarding, or rigidity. : Deferred. No Jung. EXTREMITIES: Non-edematous and not cyanotic. No clubbing. Good capillary refill. SKIN: No skin breakdown. Assessment 1. 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 2. Hypertension 3. Hyperlipidemia 4. COPD 5. Sepsis Plan 1. I have long discussion with the patient regarding the plan of care. I answer all question and concern and I spent more than 35 minutes. This patient is not surgical candidate because of the necrotic area is very weak. 2. This patient could benefit from neoadjuvant chemotherapy treatments carboplatin-taxol every 21 days 3. This patient actually threatening to commit suicide. This patient need to be evaluated by psychiatry. 4. If this patient discharged to follow-up with me in the next week 1-2. Vitals/Labs Vital Signs Date Time Temp Pulse Resp B/P (MAP) Pulse Ox O2 Delivery O2 Flow Rate FiO2 05/15/24 06:33 87 18 N/A Room Air 21 05/15/24 00:10 98.4 126/71 100 05/14/24 20:00 0 Laboratory Tests 05/15/24 06:56 Medications Current Medications Piperacillin Sod/ Tazobactam Sod 3.375 gm ONCE ONCE IV Last administered on 05/03/24at 00:01; Start 05/02/24 at 23:30; Stop 05/02/24 at 23:38; Status DC Hydromorphone HCl 0.5 mg ONCE ONCE IVP Last administered on 05/02/24at 23:23; Start 05/02/24 at 22:30; Stop 05/02/24 at 22:31; Status DC Iohexol 35,000 mg STK-MED ONCE IV; Start 05/03/24 at 00:40; Stop 05/03/24 at 00:41; Status DC Albuterol Sulfate 2.5 mg [id number] PRN IH Last administered on 05/09/24at 23:13; Start 05/03/24 at 01:00; Stop 06/02/24 at 00:59 Ipratropium [place] 0.5 mg [id number] IH Last administered on 05/15/24at 06:29; Start 05/03/24 at 06:00; Stop 06/02/24 at 05:59 Acetaminophen 650 mg Q6H PRN PO Last administered on 05/08/24at 09:16; Start 05/03/24 at 01:00; Stop 06/02/24 at 00:59 Acetaminophen 650 mg Q6H PRN RC; Start 05/03/24 at 01:00; Stop 06/02/24 at 00:59 Acetaminophen/ Hydrocodone Bitart 1 tab Q6H PRN PO Last administered on 05/04/24at 12:06; Start 05/03/24 at 01:00; Stop 05/08/24 at 00:59; Status DC Lactulose 20 gm Q6H PRN PO Last administered on 05/13/24at 09:20; Start 05/03/24 at 01:00; Stop 06/02/24 at 00:59 Docusate Sodium 100 mg BID PRN PO Last administered on 05/13/24at 09:20; Start 05/03/24 at 01:00; Stop 06/02/24 at 00:59 Temazepam 15 mg HS PRN PO Last administered on 05/15/24at 01:51; Start 05/03/24 at 01:00; Stop 06/02/24 at 00:59 Ondansetron HCl 4 mg Q6H PRN IVP; Start 05/03/24 at 01:00; Stop 06/02/24 at 00:59 Hydralazine HCl 10 mg Q2H PRN IV; Start 05/03/24 at 01:00; Stop 06/02/24 at 00:59 Insulin Human Regular INSULIN SLIDING SCAL... ACHS SQ; Start 05/03/24 at 07:30; Stop 06/02/24 at 07:29 Sodium Chloride 4 ml STK-MED ONCE IH Last administered on 05/03/24at 06:58; Start 05/03/24 at 06:41; Stop 05/03/24 at 06:41; Status DC Piperacillin Sod/ Tazobactam Sod 3.375 gm Q8H IVPB Last administered on 05/05/24at 18:26; Start 05/03/24 at 07:30; Stop 05/05/24 at 19:23; Status DC Sodium Chloride 50 ml AD IV; Start 05/03/24 at 07:30; Stop 05/03/24 at 14:22; Status DC Norepinephrine 250 ml @ As Directed STK-MED ONCE IV; Start 05/03/24 at 09:30; Stop 05/03/24 at 09:31; Status DC Sodium Chloride 1,368 ml @ 456 mls/hr ONCE ONCE IV Last administered on 05/03/24at 10:06; Start 05/03/24 at 10:00; Stop 05/03/24 at 12:59; Status DC Sodium Chloride 1,000 ml @ 999 mls/hr Q1H1M IV; Start 05/03/24 at 10:00; Stop 05/03/24 at 14:21; Status DC Norepinephrine 250 ml @ 0 mls/hr PROTOCOL IV; Start 05/03/24 at 10:00; Stop 05/14/24 at 10:44; Status DC Doxycycline Hyclate 250 ml @ 125 mls/hr Q12H IV Last administered on 05/11/24at 09:28; Start 05/03/24 at 10:00; Stop 05/11/24 at 12:00; Status DC Sodium Chloride 4 ml STK-MED ONCE IH Last administered on 05/03/24at 12:11; Start 05/03/24 at 12:09; Stop 05/03/24 at 12:10; Status DC Magnesium Sulfate 50 ml @ 0 mls/hr PROTOCOL PRN IV Last administered on 05/09/24at 05:45; Start 05/03/24 at 13:30; Stop 05/10/24 at 12:00; Status DC Potassium Chloride 100 ml @ 50 mls/hr AD PRN IV; Start 05/03/24 at 13:30; Stop 06/02/24 at 13:29 Pantoprazole Sodium 40 mg DAILY IVP Last administered on 05/08/24at 09:15; Start 05/04/24 at 09:00; Stop 05/08/24 at 12:00; Status DC Heparin Sodium (Porcine) *calculation based on ACTUAL B... AD PRN IV; Start 05/03/24 at 15:00; Stop 05/03/24 at 14:18; Status DC Heparin Sodium/ Dextrose 250 ml @ 0 mls/hr Q6H IV; Start 05/03/24 at 15:00; Stop 05/03/24 at 14:18; Status DC Metoprolol Tartrate 12.5 mg BID PO Last administered on 05/08/24at 10:05; Start 05/03/24 at 21:00; Stop 05/08/24 at 12:00; Status DC Apixaban 5 mg ONCE ONCE PO Last administered on 05/03/24at 16:21; Start 05/03/24 at 14:30; Stop 05/03/24 at 14:31; Status DC Atorvastatin Calcium 40 mg ONCE ONCE PO Last administered on 05/03/24at 16:21; Start 05/03/24 at 14:30; Stop 05/03/24 at 14:31; Status DC Apixaban 5 mg ONCE ONCE PO; Start 05/03/24 at 04:00; Stop 05/03/24 at 15:37; Status DC Atorvastatin Calcium 40 mg HS PO; Start 05/03/24 at 21:00; Stop 05/03/24 at 15:27; Status DC Atorvastatin Calcium 40 mg HS PO Last administered on 05/14/24at 20:28; Start 05/03/24 at 21:00; Stop 06/02/24 at 20:59 Sodium Chloride 4 ml STK-MED ONCE IH Last administered on 05/03/24at 19:17; Start 05/03/24 at 17:59; Stop 05/03/24 at 18:00; Status DC Piperacillin Sod/ Tazobactam Sod 3.375 gm Q8H IVPB Last administered on 05/15/24at 01:43; Start 05/06/24 at 02:00; Stop 05/16/24 at 01:59 Tramadol HCl 50 mg Q6H PRN PO Last administered on 05/13/24at 09:20; Start 05/10/24 at 02:30; Stop 05/15/24 at 02:29; Status DC Tramadol HCl 50 mg STK-MED ONCE .ROUTE; Start 05/10/24 at 02:25; Stop 05/10/24 at 02:26; Status DC Magnesium Sulfate 50 ml @ 0 mls/hr PROTOCOL IV Last administered on 05/14/24at 05:34; Start 05/11/24 at 13:00; Stop 05/14/24 at 08:02; Status DC Morphine Sulfate 2 mg ONCE STAT IVP Last administered on 05/12/24at 00:19; Start 05/12/24 at 00:14; Stop 05/12/24 at 00:17; Status DC Bupivacaine HCl/ Epinephrine Bitart 10 ml STK-MED ONCE IJ Last administered on 05/12/24at 00:00; Start 05/12/24 at 12:50; Stop 05/12/24 at 12:50; Status DC Heparin Sodium/ Sodium Chloride 500 ml @ As Directed STK-MED ONCE IV Last administered on 05/12/24at 00:00; Start 05/12/24 at 12:51; Stop 05/12/24 at 12:52; Status DC Lidocaine HCl 100 mg STK-MED ONCE .ROUTE; Start 05/12/24 at 17:50; Stop 05/12/24 at 17:50; Status DC Propofol 200 mg STK-MED ONCE IV; Start 05/12/24 at 17:50; Stop 05/12/24 at 17:50; Status DC Midazolam HCl 2 mg STK-MED ONCE .ROUTE; Start 05/12/24 at 17:50; Stop 05/12/24 at 17:50; Status DC Propofol 100 ml @ As Directed STK-MED ONCE IV; Start 05/12/24 at 17:53; Stop 05/12/24 at 17:53; Status DC Ketamine HCl 50 mg STK-MED ONCE .ROUTE; Start 05/12/24 at 17:53; Stop 05/12/24 at 17:53; Status DC Magnesium Sulfate 50 ml @ 0 mls/hr PROTOCOL IV; Start 05/14/24 at 08:00; Stop 06/13/24 at 07:59 TU CARRERA MD May 15, 2024 07:44
--- NOTE | 2024-05-15 10:30 | NUR ---
PATIENT RESTING IN BED QUIETLY. NO INDICATIONS OF SI. PATIENT PARTICIPATED WITH PHYSICAL THERAPY AND WALKED 50FT. NO S/S OF DISTRESS NOTED AT THIS TIME
--- NOTE | 2024-05-15 11:00 | PN ---
CATALYST PROGRESS NOTE Date of Service: May 15, 2024 Time of Service: 10:55 SUBJECTIVE: Mr. Marshall is a 68-year-old male with history of recent mild stroke", atrial fibrillation, hypertension, hyperlipidemia, COPD, skin cancer (scalp closed), BPH, and urinary retention who presented to [facility] ED via EMS for evaluation of cough, dysphagia, shortness of breath, and general body weakness. The patient also reported he is unable to ambulate due to generalized weakness and worsening chronic back pain. Patient reported he was admitted at [facility] in [place], [place] where he experienced a CVA inpatient. The patient reported he was discharged and returned back to [facility] due to no improvement of symptoms. He was was discharged this af ternoon again from [facility] where he had been readmitted for approximately 10 days. He stated that he did not receive physical therapy while in hospital and rehab was not an option". He also stated that he had a Jung catheter placed proximally 7-10 days ago for urinary retention and it remains in place. He stated he thinks he may have a low-grade fever as well as chills. He denied having any chest pain, palpitations, edema, abdominal pain, nausea, vomiting, diarrhea, headache, visual disturbance, focal weakness/paresthesia, or dizziness. 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 Labs: WBCs elevated at 16.4, H and H 13.3/41.1, Na/Cl 132/95, K 5.4, CO2 33, BUN 23, albumin three, and glucose 155. ABG on 2 L nasal cannula: PH 7.463, pCO2 32, PO2 113.3, bicarb 22.3, and base excess -0.6. EKG: Atrial fibrillation, heart rate 97 beats per minute. Chest x-ray: Mild bilateral pulmonary infiltrates are seen may be related to mild pulmonary vascular congestion with possible superimposed pneumonitis. In ED the patient continue to complain congestion, cough, and difficulty swallowing. In ED the patient was administered dose Zosyn 3.375 g x 1 for suspected aspiration pneumonia. He received dose Dilaudid 0.5 Mg x 1 dose for complains of low back pain. ED provider request patient be admitted with the diagnosis of suspected aspiration pneumonia, dysphagia, failure to thrive in adult, hyperkalemia, physical debility, leukocytosis. I went to assess the patient at bedside. The patient appeared chronically ill, breathing was even and unlabored, in no distress. Patient was conversive, answered appropriately. I informed patient of labs, diagnostics, and plan of care. The patient verbalized understanding and is in agreement with the plan. Plan and assessment are listed below. May 03, 2024 The patient was examined at the bedside. His shortness of breath slightly impro lauren with oxygen saturation of PaO2 of 99% on nasal cannula 2.0. Patient had low MEP a and his blood pressure is at 79 /43 which was improved to 100 x 60 after an IV NS bolus at 30 cc kg per body weight. Evaluating further causes of his chest pain, his WBC count remains elevated at at 12.4 And no overnight events reported. monitoring him and treating him for pneumonia. Pulmonary embolism ruled out due to a negative chest CT scan and a negative ultrasound venous Doppler scan. 05/04/24 was examined in the room today, he is currently lying in bed, patient stated that he is having a hard time with his bowel movement. Patient is cons tipated and he has pain during bowel movement. Patient stated that he has been hospitalized and was recently discharged from [facility]. We continue with current management. 05/06 patient was supposed to be discharged yesterday, apparently he failed 6 minute walk , saturating 82% on room air. Patient continues to be weak, we will request physical therapy to eval and treat. We will try to wean patient off oxygen and re-evaluate in the next 24-48 hours. Patient is unable to obtain home oxygen as he currently does not have medical insurance. Otherwise patient was evaluated in the room, he is still complaints of weakness and cough. He also feels dizzy on walking short distance. 05/07/24 Patient is for DC planning and was awaiting for Oxygen arrangement. [facility] provided oxygen concentrator currently at bedside but patient right now is on room air. He is medically clear unfortunately he did voiced out suicidal ideation for which patient was placed on one-to-one supervision. Tropical has been consulted. 05/08 patient was evaluated this morning. He was sitting on the recliner chair. Patient was just seen by it infrastructure specialist who recommended debridement on the scalp and also Oncology consultation to rule out skin cancer. Patient has been cleared from [facility]. 05/09 the patient was seen and examined in the room while is eating lunch. Patient reported that he was evaluated by general surgeon, plan is to follow up with Oncology on further recommendation. For now patient will remain hospitalized. No acute events reported overnight. 05/10 patient was seen by nurse practitioner and physician during rounding in room 403. Patient was complaining of the left foot pain and swelling. Ultrasound venous Doppler was negative for DVT. Ultrasound arterial Doppler showed atherosclerosis. Left foot x-ray showed calcaneal spur for degenerative changes. Ankle x-ray showed swelling calcaneal spur. Tibia fibula x-ray was negative. We are still pending oncology evaluation for possible non adjuvant chemotherapy with radiation which probably might happen outpatient. As per surgeon patient will need the outpatient therapy 1st in order in future to do any surgical procedure. As per Wound Dr. Apply normal saline or wound cleanser , pat dry and apply Vaseline. We will continue to monitor patient in the meantime. A.m. labs. Anticipated discharge within 24 hours once cleared by oncologist. A.m. labs 05/11 patient was seen by nurse practitioner and physician during rounding in room 403. Patient was evaluated by oncologist and at this moment he is recommending Port-A-Cath prior discharge once patient Port-A-Cath will be inserted by surgeon patient could be discharged home and follow-up outpatient with the oncologist for non adjuvant chemotherapy every 21 days and radiation. Surgeon was consulted and is planning to insert Port-A-Cath today 05/11/2024 in the afternoon. Regarding the left lower pain that patient was complaining ultrasound venous Doppler was negative for DVT. Ultrasound arterial Doppler negative it showed atherosclerosis. X-ray of the left foot showed calcaneus spur degenerative changes. Ankle x-ray shows swelling calcaneal spur. Tibia fibula x-ray negative. Patient received 2 g of magnesium due to magnesium being at 1.6. We will order uric acid to check for possible gout. Anticipated discharge within 24 hours. In the meantime we will continue to monitor patient. A.m. labs 05/12 seen by nurse practitioner physician during rounding in room 403 lying in bed. Patient is pending Port-A-Cath placement today with . In the meantime patient was complaining of abdominal pain last night and today, nurse practitioner order ultrasound abdomen. All the labs and results were evaluated/reviewed by SENIOR PRIVATE CLIENT ADVISOR. Anticipated discharge within 24 hours to home 05/13/24 patient was seen by SENIOR PRIVATE CLIENT ADVISOR and physician during rounding in room 403. Patient was cleared by oncologist to follow up outpatient for non adjuvant chemo and radiation. Patient was also cleared by one two doctor Dr. Araiza and to follow up outpatient as well. Patient is s/p Port-A-Cath placement 05/12/2024 by , and was also cleared to be discharged home. Nurse practitioner and physician instructed patient regarding the follow-up and discharge home today. Later within an hour, hour and a half, nurse practitioner was paged by RN stating that [facility] and stated that he suicidal. As per RN patient grab the plastic knife and cut his skin on the arm/hand and stated that he will kill himself. One-to-one was placed. [facility] to be reconsulted. Discharge orders canceled. We will continue to monitor patient in the meantime. A.m. labs 05/14/24 patient was seen by nurse practitioner physician during rounding in room 403 lying in bed. Nurse practitioner was able to talk to the patient regarding the suicidal ideation. He is unable to explain himself he just knows that if he goes home he will kill himself. We are waiting for evaluation of the [facility] for now. Case management is also trying to work on disposition for the patient and possible insurance. Patient receive 2 g of magnesium for magnesium of 1.7 today. We will continue to monitor patient in the meantime. A.m. labs 05/15/2024 patient was seen by myself on a.m. rounds. 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 He offers no complaints of chest pain or shortness for breath. He states he is not thinking of harming himself or others. He did show me an area where he scratched himself as a suicidal gesture in order to get [facility] to come evaluate him for possible admission. Patient complains of intermittent coughing without much phlegm production although it does feel like he could come up per patient. REVIEW OF SYSTEMS 12-point ROS reviewed with patient. All pertinent positives mentioned above. Otherwise negative, noncontributory, or non-pertinent. PHYSICAL EXAM GENERAL APPEARANCE: The patient is awake, alert, and oriented, in no acute cardiopulmonary distress. NEUROLOGICAL: Cranial nerves II-XII grossly intact. Motor is 5/5 in bilateral upper and lower extremities proximal to distal. No sensory deficits. HEENT: Face is symmetric. Pupils are equal and reactive. Extraocular movements are intact. NECK: Supple. No JVD. No thyromegaly. No submental, submandibular, pre- /postauricular, occipital or supraclavicular lymphadenopathy. CHEST: Normal chest expansion. No Telemetry. LUNGS: Scattered transmitted upper bronchial sounds but good air movement CARDIOVASCULAR: Regular. S1 and S2 normal. No appreciable rubs, murmurs or gallops. ABDOMEN: Soft, nontender, and nondistended. There is no rebound, voluntary guarding, or rigidity. : Deferred. No Jung. EXTREMITIES: Non-edematous and not cyanotic. No clubbing. Good capillary refill. SKIN: No skin breakdown. Vital Signs (last 8hr) Date Time Temp Pulse Resp B/P (MAP) Pulse Ox O2 Delivery O2 Flow Rate FiO2 05/15/24 08:00 98.6 71 18 100/61 97 Room Air 05/15/24 08:00 97 Room Air* 0 21 05/15/24 06:33 87 18 N/A Room Air 21 05/15/24 06:29 84 18 LABS: Laboratory: Test 05/15/24 06:56 05/15/24 06:34 Range/Units White Blood Count 7.2 4.8-10.8 K/uL Red Blood Count 4.08 L 4.50-6.20 MIL/uL Hemoglobin 11.9 L 14.0-18.0 g/dL Hematocrit 36.5 L 42-54 % Mean Corpuscular Volume 89.5 79-99 fL Mean Corpuscular Hemoglobin 29.2 27.0-33.0 pg Mean Corpuscular Hemoglobin Concent 32.6 32.0-36.0 g/dL Red Cell Distribution Width 15.2 11.0-15.5 % Platelet Count 180 130-400 K/uL Mean Platelet Volume 9.5 7.5-10.5 fL Immature Granulocyte % (Auto) 0.4 0-1 % Neutrophils (%) (Auto) 55.8 40.0-77.0 % Lymphocytes (%) (Auto) 30.3 21.0-51.0 % Monocytes (%) (Auto) 8.8 3.0-13.0 % Eosinophils (%) (Auto) 4.1 0.0-8.0 % Basophils (%) (Auto) 0.6 0.0-5.0 % Neutrophils # (Auto) 4.0 1.8-7.7 K/uL Lymphocytes # (Auto) 2.2 1.0-4.8 K/uL Monocytes # (Auto) 0.6 0.1-1.0 K/uL Eosinophils # (Auto) 0.29 0.00-0.70 K/uL Basophils # (Auto) 0.04 0.00-0.20 K/uL Absolute Immature Granulocyte (auto 0.03 0-1 K/uL Nucleated Red Blood Cells 0.0 0.0-0.19 % Sodium Level 138 136-145 mmol/L Potassium Level 3.9 3.5-5.1 mmol/L Chloride Level 105 101-111 mmol/L Carbon Dioxide Level 28 21-32 mmol/L Blood Urea Nitrogen 9 7-18 mg/dL Creatinine 0.7 0.5-1.3 mg/dL Glomerular Filtration Rate Calc 99 >90 mL/min Random Glucose 121 H 70-105 mg/dL Total Calcium 9.0 8.5-10.1 mg/dL Magnesium Level 1.90 1.80-2.40 mg/dL Total Bilirubin 0.6 0.2-1.0 mg/dL Aspartate Amino Transf (AST/SGOT) 21 10-37 U/L Alanine Aminotransferase (ALT/SGPT) 21 12-78 U/L Alkaline Phosphatase 79 50-136 U/L Total Protein 6.4 6.0-8.3 g/dL Albumin 2.5 L 3.5-5.0 g/dL Whole Blood Glucose 116 H 70-110 MG/DL Current Medications Medications (Trade) Dose Ordered Sig/Beau Route PRN Reason Start Time Stop Time Status Last Admin Dose Admin Acetaminophen (TYLenol 325MG TAB) 650 mg Q6H PRN PO FEVER/MILD PAIN LEVEL 1-3 05/03/24 01:00 06/02/24 00:59 05/08/24 09:16 650 MG Acetaminophen (TYLenol 650MG SUPPOSITORY) 650 mg Q6H PRN RC FEVER / MILD PAIN 1-3 IF NPO 05/03/24 01:00 06/02/24 00:59 Acetaminophen/ Hydrocodone Bitart (NORco 5/325MG) 1 tab Q6H PRN PO MILD PAIN (1-3) 05/03/24 01:00 05/08/24 00:59 DC 05/04/24 12:06 1 TAB Albuterol Sulfate (Proventil 0.083% 2.5mg/3ml) 2.5 mg [id number] PRN IH SHORTNESS OF BREATH 05/03/24 01:00 06/02/24 00:59 05/09/24 23:13 2.5 MG Atorvastatin Calcium (LIPItor 40MG) 40 mg HS PO 05/03/24 21:00 05/03/24 15:27 DC Atorvastatin Calcium (LIPItor 40MG) 40 mg HS PO 05/03/24 21:00 06/02/24 20:59 05/14/24 20:28 40 MG Docusate Sodium (COLace 100MG CAP) 100 mg BID PRN PO c 05/03/24 01:00 06/02/24 00:59 05/13/24 09:20 100 MG Doxycycline Hyclate 250 ml @ 125 mls/hr Q12H IV 05/03/24 10:00 05/11/24 12:00 DC 05/11/24 09:28 125 MLS/HR Heparin Sodium (Porcine) (HEParin 5,000 UNIT VIAL) *calculation based on ACTUAL B... AD PRN IV HEPARIN PROTOCOL 05/03/24 15:00 05/03/24 14:18 DC Heparin Sodium/ Dextrose 250 ml @ 0 mls/hr Q6H IV 05/03/24 15:00 05/03/24 14:18 DC Hydralazine HCl (APRESOLine 20MG INJ) 10 mg Q2H PRN IV SBP GREATER THAN 160 05/03/24 01:00 06/02/24 00:59 Insulin Human Regular (humuLIN R 100 UNIT/ML 3ML) INSULIN SLIDING SCAL... ACHS SQ 05/03/24 07:30 06/02/24 07:29 Ipratropium [place] (AtrovENT UD) 0.5 mg [id number] IH 05/03/24 06:00 06/02/24 05:59 05/15/24 06:29 0.5 MG Lactulose (Constulose 20gm/ 30ml Udcup) 20 gm Q6H PRN PO CONSTIPATION 05/03/24 01:00 06/02/24 00:59 05/13/24 09:20 20 GM Magnesium Sulfate 50 ml @ 0 mls/hr PROTOCOL IV 05/11/24 13:00 05/14/24 08:02 DC 05/14/24 05:34 25 MLS/HR Magnesium Sulfate 50 ml @ 0 mls/hr PROTOCOL IV 05/14/24 08:00 06/13/24 07:59 Magnesium Sulfate 50 ml @ 0 mls/hr PROTOCOL PRN IV electrolyte abnormality 05/03/24 13:30 05/10/24 12:00 DC 05/09/24 05:45 25 MLS/HR Metoprolol Tartrate (loprESSOR) 12.5 mg BID PO 05/03/24 21:00 05/08/24 12:00 DC 05/08/24 10:05 12.5 MG Morphine Sulfate (morPHINE 2MG SYG) 2 mg ONCE STAT IVP 05/12/24 00:14 05/12/24 00:17 DC 05/12/24 00:19 2 MG Norepinephrine 250 ml @ 0 mls/hr PROTOCOL IV 05/03/24 10:00 05/14/24 10:44 DC Ondansetron HCl (zoFRAN 4MG INJ) 4 mg Q6H PRN IVP NAUSEA/VOMITING 05/03/24 01:00 06/02/24 00:59 Pantoprazole Sodium (PROTonix 40MG INJ) 40 mg DAILY IVP 05/04/24 09:00 05/08/24 12:00 DC 05/08/24 09:15 40 MG Piperacillin Sod/ Tazobactam Sod (Zosyn 3.375gm+NS 50ml) 3.375 gm Q8H IVPB 05/03/24 07:30 05/05/24 19:23 DC 05/05/24 18:26 3.375 GM Piperacillin Sod/ Tazobactam Sod (Zosyn 3.375gm+NS 50ml) 3.375 gm Q8H IVPB 05/06/24 02:00 05/16/24 01:59 05/15/24 08:44 3.375 GM Potassium Chloride 100 ml @ 50 mls/hr AD PRN IV POTASSIUM PROTOCOL 05/03/24 13:30 06/02/24 13:29 Sodium Chloride 1,000 ml @ 999 mls/hr Q1H1M IV 05/03/24 10:00 05/03/24 14:21 DC Sodium Chloride (NS 50ml) 50 ml AD IV 05/03/24 07:30 05/03/24 14:22 DC Temazepam (restORIL 15 MG CAP) 15 mg HS PRN PO INSOMNIA/SLEEP 05/03/24 01:00 06/02/24 00:59 05/15/24 01:51 15 MG Tramadol HCl (UltRAM) 50 mg Q6H PRN PO SEVERE PAIN (7-10) 05/10/24 02:30 05/15/24 02:29 DC 05/13/24 09:20 50 MG DIAGNOSTICS / RADIOLOGY: [ ] ASSESSMENT: Ulcerated cancer lesion on the left parietal area Suicidal ideation Possible new diagnosis of acute gout POA Acute hypoxemic respiratory failure, needing oxygen supplementation-patient already has oxygen concentrator at bedside but currently on room air. 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 Obesity, BMI 38.0. Chronic problem list: AFib, hypertension, hyperlipidemia, COPD, skin cancer to scalp, BPH, urinary retention s/p Jung placement about 7-10 days ago at [facility]. PLAN: Patient will receive 2 g of magnesium for magnesium of 1.7 Patient stated suicidal ideation called hot line SI ideation protocol 1 to 1 ordered [facility] consulted HIDA scan negative Uric acid negative Port-A-Cath placed 05/12/[address] Silvestre Patient was evaluated by oncologist and is recommending Port-A-Cath and discharged home follow-up outpatient for nine adjuvant chemotherapy every 21 days and radiation Continue medical floor Patient has been cleared from [facility] Monitor respiratory status closely, currently on room air. Keep oxygen supplementation to keep O2 sat greater than 92%, we will slowly titrate until tolerating room air Albuterol p.r.n. shortness of breath. Atrovent nebulizer treatments scheduled q.6 hours. RT to provide IS and education on use. Cough and deep breathe q.2 hours. Chest physiotherapy if sputum production increases. Final urine culture negative Blood culture final negative five days Continue doxycycline IV discontinue Zosyn and doxycycline Deescalate antibiotics when appropriate. In regards with atrial fibrillation, rate controlled, continue with metoprolol tartrate 12.5 mg p.o. b.i.d., continue with Eliquis 5 mg p.o. b.i.d. 3 Patient is working with the physical therapy We will request social group worker to assist with insurance Once medically cleared patient patient to be discharged home HOFFMAN,MAGDALENA Myers MD May 15, 2024 11:00
[2024-05-15] MEDS ORDERED: mecliZINE HCL 12.5 MG TABLET PO PRN (14:30)
[2024-05-15] MEDS: BisaCODYL 10 MG SUPP.RECT RC ONE (15:51)
--- NOTE | 2024-05-15 15:54 | NUR ---
PATIENT RECEIVED 1 TIME ORDER FOR DULCOLAX SUPPOSITORY D/T CONSTIPATION. PATIENT REFUSED SUPPOSITORY AND STATED HE PREFERRED LACTULOSE
--- NOTE | 2024-05-15 20:00 | NUR ---
ASSESSMENT PATIENT AWAKE ALERT, OX3, NO THOUGHTS OF SI, PATIENT IN [employer]IR[employer] WATCHING BASKETBALL GAME, TALKING ABOUT EATING BBQ, 1:1 AT BEDSIDE, CONTINUE MONITORING PATIENT FOR SI
[2024-05-16] VITALS (12 sets, daily range): BP systolic 103–121; BP diastolic 52–79; PULSE 72–105; RESP 16–19; TEMP 97.5–99.2; O2SAT 98–100
[2024-05-16 07:00] LABS: BASOPHILS # (AUTO) 0.04 K/uL (0.00-0.20); BASOPHILS % (AUTO) 0.5 % (0.0-5.0); EOSINOPHILS # (AUTO) 0.27 K/uL (0.00-0.70); EOSINOPHILS % (AUTO) 3.1 % (0.0-8.0); HEMATOCRIT 35.9 % (42-54); IMMATURE GRANULOCYTE ABSOLUTE 0.04 K/uL (0-1); LYMPHOCYTES # (AUTO) 2.5 K/uL (1.0-4.8); LYMPHOCYTES % (AUTO) 28.5 % (21.0-51.0); MEAN CORPUSCULAR HEMOGLOBIN 28.6 pg (27.0-33.0); MEAN CORPUSCULAR HGB CONC 31.8 g/dL (32.0-36.0); MONOCYTES # (AUTO) 0.7 K/uL (0.1-1.0); MONOCYTES % (AUTO) 8.1 % (3.0-13.0); NEUTROPHILS # (AUTO) 5.2 K/uL (1.8-7.7); NEUTROPHILS % (AUTO) 59.3 % (40.0-77.0); PLATELET COUNT (AUTO) 213 K/uL (130-400); RED BLOOD CELL COUNT(AUTO) 3.99 MIL/uL (4.50-6.20); RED CELL DISTRIBUTION WIDTH 15.4 % (11.0-15.5); WHITE BLOOD COUNT (AUTO) 8.8 K/uL (4.8-10.8)
[2024-05-16 07:09] LABS: CREATININE 0.7 mg/dL (0.5-1.3)
--- NOTE | 2024-05-16 11:58 | PN ---
CATALYST PROGRESS NOTE Date of Service: May 16, 2024 Time of Service: 11:53 SUBJECTIVE: Mr. Marshall is a 68-year-old male with history of recent mild stroke", atrial fibrillation, hypertension, hyperlipidemia, COPD, skin cancer (scalp closed), BPH, and urinary retention who presented to [facility] via EMS for evaluation of cough, dysphagia, shortness of breath, and general body weakness. The patient also reported he is unable to ambulate due to generalized weakness and worsening chronic back pain. Patient reported he was admitted at [facility] in [place], [place] where he experienced a CVA inpatient. The patient reported he was discharged and returned back to [facility] due to no improvement of symptoms. He was was discharged this af ternoon again from [facility] where he had been readmitted for approximately 10 days. He stated that he did not receive physical therapy while in hospital and rehab was not an option". He also stated that he had a Jung catheter placed proximally 7-10 days ago for urinary retention and it remains in place. He stated he thinks he may have a low-grade fever as well as chills. He denied having any chest pain, palpitations, edema, abdominal pain, nausea, vomiting, diarrhea, headache, visual disturbance, focal weakness/paresthesia, or dizziness. The patient reported that on his last admission to [facility] the admitting hospitalist and baggage security checker were not nice which prompted him to come to [facility] instead this time. Labs: WBCs elevated at 16.4, H and H 13.3/41.1, Na/Cl 132/95, K 5.4, CO2 33, BUN 23, albumin three, and glucose 155. ABG on 2 L nasal cannula: PH 7.463, pCO2 32, PO2 113.3, bicarb 22.3, and base excess -0.6. EKG: Atrial fibrillation, heart rate 97 beats per minute. Chest x-ray: Mild bilateral pulmonary infiltrates are seen may be related to mild pulmonary vascular congestion with possible superimposed pneumonitis. In ED the patient continue to complain congestion, cough, and difficulty swallowing. In ED the patient was administered dose Zosyn 3.375 g x 1 for suspected aspiration pneumonia. He received dose Dilaudid 0.5 Mg x 1 dose for complains of low back pain. ED provider request patient be admitted with the diagnosis of suspected aspiration pneumonia, dysphagia, failure to thrive in adult, hyperkalemia, physical debility, leukocytosis. I went to assess the patient at bedside. The patient appeared chronically ill, breathing was even and unlabored, in no distress. Patient was conversive, answered appropriately. I informed patient of labs, diagnostics, and plan of care. The patient verbalized understanding and is in agreement with the plan. Plan and assessment are listed below. May 03, 2024 The patient was examined at the bedside. His shortness of breath slightly impro lauren with oxygen saturation of PaO2 of 99% on nasal cannula 2.0. Patient had low MEP a and his blood pressure is at 79 /43 which was improved to 100 x 60 after an IV NS bolus at 30 cc kg per body weight. Evaluating further causes of his chest pain, his WBC count remains elevated at at 12.4 And no overnight events reported. monitoring him and treating him for pneumonia. Pulmonary embolism ruled out due to a negative chest CT scan and a negative ultrasound venous Doppler scan. 05/04/24 was examined in the room today, he is currently lying in bed, patient stated that he is having a hard time with his bowel movement. Patient is cons tipated and he has pain during bowel movement. Patient stated that he has been hospitalized and was recently discharged from [facility]. We continue with current management. 05/06 patient was supposed to be discharged yesterday, apparently he failed 6 minute walk , saturating 82% on room air. Patient continues to be weak, we will request physical therapy to eval and treat. We will try to wean patient off oxygen and re-evaluate in the next 24-48 hours. Patient is unable to obtain home oxygen as he currently does not have medical insurance. Otherwise patient was evaluated in the room, he is still complaints of weakness and cough. He also feels dizzy on walking short distance. 05/07/24 Patient is for DC planning and was awaiting for Oxygen arrangement. [facility] [place] oxygen concentrator currently at bedside but patient right now is on room air. He is medically clear unfortunately he did voiced out suicidal ideation for which patient was placed on one-to-one supervision. Tropical has been consulted. 05/08 patient was evaluated this morning. He was sitting on the recliner chair. Patient was just seen by adaptive physical education specialist who recommended debridement on the scalp and also Oncology consultation to rule out skin cancer. Patient has been cleared from [facility]. 05/09 the patient was seen and examined in the room while is eating lunch. Patient reported that he was evaluated by general surgeon, plan is to follow up with Oncology on further recommendation. For now patient will remain hospitalized. No acute events reported overnight. 05/10 patient was seen by nurse practitioner and physician during rounding in room 403. Patient was complaining of the left foot pain and swelling. Ultrasound venous Doppler was negative for DVT. Ultrasound arterial Doppler showed atherosclerosis. Left foot x-ray showed calcaneal spur for degenerative changes. Ankle x-ray showed swelling calcaneal spur. Tibia fibula x-ray was negative. We are still pending oncology evaluation for possible non adjuvant chemotherapy with radiation which probably might happen outpatient. As per surgeon patient will need the outpatient therapy 1st in order in future to do any surgical procedure. As per Wound Dr. Apply normal saline or wound cleanser , pat dry and apply Vaseline. We will continue to monitor patient in the meantime. A.m. labs. Anticipated discharge within 24 hours once cleared by oncologist. A.m. labs 05/11 patient was seen by nurse practitioner and physician during rounding in room 403. Patient was evaluated by oncologist and at this moment he is recommending Port-A-Cath prior discharge once patient Port-A-Cath will be inserted by surgeon patient could be discharged home and follow-up outpatient with the oncologist for non adjuvant chemotherapy every 21 days and radiation. Surgeon was consulted and is planning to insert Port-A-Cath today 05/11/2024 in the afternoon. Regarding the left lower pain that patient was complaining ultrasound venous Doppler was negative for DVT. Ultrasound arterial Doppler negative it showed atherosclerosis. X-ray of the left foot showed calcaneus spur degenerative changes. Ankle x-ray shows swelling calcaneal spur. Tibia fibula x-ray negative. Patient received 2 g of magnesium due to magnesium being at 1.6. We will order uric acid to check for possible gout. Anticipated discharge within 24 hours. In the meantime we will continue to monitor patient. A.m. labs 05/12 seen by nurse practitioner physician during rounding in room 403 lying in bed. Patient is pending Port-A-Cath placement today with . In the meantime patient was complaining of abdominal pain last night and today, nurse practitioner order ultrasound abdomen. All the labs and results were evaluated/reviewed by CANDY COOKER HELPER. Anticipated discharge within 24 hours to home 05/13/24 patient was seen by CANDY COOKER HELPER and physician during rounding in room 403. Patient was cleared by oncologist to follow up outpatient for non adjuvant chemo and radiation. Patient was also cleared by one two doctor Dr. Araiza and to follow up outpatient as well. Patient is s/p Port-A-Cath placement 05/12/2024 by , and was also cleared to be discharged home. Nurse practitioner and physician instructed patient regarding the follow-up and discharge home today. Later within an hour, hour and a half, nurse practitioner was paged by RN stating that patient [facility] and stated that he suicidal. As per RN patient grab the plastic knife and cut his skin on the arm/hand and stated that he will kill himself. One-to-one was placed. [facility] to be reconsulted. Discharge orders canceled. We will continue to monitor patient in the meantime. A.m. labs 05/14/24 patient was seen by nurse practitioner physician during rounding in room 403 lying in bed. Nurse practitioner was able to talk to the patient regarding the suicidal ideation. He is unable to explain himself he just knows that if he goes home he will kill himself. We are waiting for evaluation of the [facility] for now. Case management is also trying to work on disposition for the patient and possible insurance. Patient receive 2 g of magnesium for magnesium of 1.7 today. We will continue to monitor patient in the meantime. A.m. labs 05/15/2024 patient was seen by myself on a.m. rounds. 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 He offers no complaints of chest pain or shortness for breath. He states he is not thinking of harming himself or others. He did show me an area where he scratched himself as a suicidal gesture in order to get [facility] to come evaluate him for possible admission. Patient complains of intermittent coughing without much phlegm production although it does feel like he could come up per patient. 05/16/2024 patient was seen on a.m. rounds by myself. He is watching TV in no acute distress. He complains of left and right lower extremity pains to the feet and states that his legs have been cramping in the night. He does have underlying diabetes but blood sugars have been fairly controlled his hemoglobin A1c on this admission was 6.7 signaling an average blood sugar concentration 146. Patient is still having suicidal ideation and stating that if he went home he would likely take pills or medications to go to sleep he thinks the chances of him acting on this plan would be greater than 50%. He is still under a one-to-o ne supervision. REVIEW OF SYSTEMS 12-point ROS reviewed with patient. All pertinent positives mentioned above. Otherwise negative, noncontributory, or non-pertinent. He did have a large bowel movement quite hard yesterday. PHYSICAL EXAM GENERAL APPEARANCE: The patient is awake, alert, and oriented, in no acute cardiopulmonary distress. NEUROLOGICAL: Cranial nerves II-XII grossly intact. Motor is 5/5 in bilateral upper and lower extremities proximal to distal. No sensory deficits. HEENT: Face is symmetric. Pupils are equal and reactive. Extraocular movements are intact. NECK: Supple. No JVD. No thyromegaly. No submental, submandibular, pre- /postauricular, occipital or supraclavicular lymphadenopathy. CHEST: Normal chest expansion. No Telemetry. LUNGS: Scattered transmitted upper bronchial sounds but good air movement CARDIOVASCULAR: Regular. S1 and S2 normal. No appreciable rubs, murmurs or gallops. ABDOMEN: Soft, nontender, and nondistended. There is no rebound, voluntary guarding, or rigidity. : Deferred. No Jung. EXTREMITIES: Non-edematous and not cyanotic. No clubbing. Bilateral palpable pedal pulses SKIN: No skin breakdown. Vital Signs (last 8hr) Date Time Temp Pulse Resp B/P (MAP) Pulse Ox O2 Delivery O2 Flow Rate FiO2 05/16/24 11:17 99 18 05/16/24 07:54 99.1 91 16 103/52 98 05/16/24 06:49 92 18 05/16/24 06:48 92 18 N/A Room Air 21 05/16/24 04:00 98.1 72 18 112/68 98 Room Air LABS: Laboratory: Test 05/16/24 10:57 05/16/24 06:40 05/16/24 05:08 05/15/24 06:56 Range/Units Whole Blood Glucose 118 H 70-110 MG/DL White Blood Count 8.8 4.8-10.8 K/uL Red Blood Count 3.99 L 4.50-6.20 MIL/uL Hemoglobin 11.4 L 14.0-18.0 g/dL Hematocrit 35.9 L 42-54 % Mean Corpuscular Volume 90.0 79-99 fL Mean Corpuscular Hemoglobin 28.6 27.0-33.0 pg Mean Corpuscular Hemoglobin Concent 31.8 L 32.0-36.0 g/dL Red Cell Distribution Width 15.4 11.0-15.5 % Platelet Count 213 130-400 K/uL Mean Platelet Volume 9.5 7.5-10.5 fL Immature Granulocyte % (Auto) 0.5 0-1 % Neutrophils (%) (Auto) 59.3 40.0-77.0 % Lymphocytes (%) (Auto) 28.5 21.0-51.0 % Monocytes (%) (Auto) 8.1 3.0-13.0 % Eosinophils (%) (Auto) 3.1 0.0-8.0 % Basophils (%) (Auto) 0.5 0.0-5.0 % Neutrophils # (Auto) 5.2 1.8-7.7 K/uL Lymphocytes # (Auto) 2.5 1.0-4.8 K/uL Monocytes # (Auto) 0.7 0.1-1.0 K/uL Eosinophils # (Auto) 0.27 0.00-0.70 K/uL Basophils # (Auto) 0.04 0.00-0.20 K/uL Absolute Immature Granulocyte (auto 0.04 0-1 K/uL Nucleated Red Blood Cells 0.0 0.0-0.19 % Sodium Level 139 136-145 mmol/L Potassium Level 4.0 3.5-5.1 mmol/L Chloride Level 105 101-111 mmol/L Carbon Dioxide Level 30 21-32 mmol/L Blood Urea Nitrogen 10 7-18 mg/dL Creatinine 0.7 0.5-1.3 mg/dL Glomerular Filtration Rate Calc 99 >90 mL/min Random Glucose 103 70-105 mg/dL Total Calcium 9.3 8.5-10.1 mg/dL Bedside Glucose Comment Notified Nurse Magnesium Level 1.90 1.80-2.40 mg/dL Total Bilirubin 0.6 0.2-1.0 mg/dL Aspartate Amino Transf (AST/SGOT) 21 10-37 U/L Alanine Aminotransferase (ALT/SGPT) 21 12-78 U/L Alkaline Phosphatase 79 50-136 U/L Total Protein 6.4 6.0-8.3 g/dL Albumin 2.5 L 3.5-5.0 g/dL Current Medications Medications (Trade) Dose Ordered Sig/Beau Route PRN Reason Start Time Stop Time Status Last Admin Dose Admin Acetaminophen (TYLenol 325MG TAB) 650 mg Q6H PRN PO FEVER/MILD PAIN LEVEL 1-3 05/03/24 01:00 06/02/24 00:59 05/08/24 09:16 650 MG Acetaminophen (TYLenol 650MG SUPPOSITORY) 650 mg Q6H PRN RC FEVER / MILD PAIN 1-3 IF NPO 05/03/24 01:00 06/02/24 00:59 Acetaminophen/ Hydrocodone Bitart (NORco 5/325MG) 1 tab Q6H PRN PO MILD PAIN (1-3) 05/03/24 01:00 05/08/24 00:59 DC 05/04/24 12:06 1 TAB Albuterol Sulfate (Proventil 0.083% 2.5mg/3ml) 2.5 mg [id number] PRN IH SHORTNESS OF BREATH 05/03/24 01:00 06/02/24 00:59 05/09/24 23:13 2.5 MG Atorvastatin Calcium (LIPItor 40MG) 40 mg HS PO 05/03/24 21:00 05/03/24 15:27 DC Atorvastatin Calcium (LIPItor 40MG) 40 mg HS PO 05/03/24 21:00 06/02/24 20:59 05/15/24 19:58 40 MG Docusate Sodium (COLace 100MG CAP) 100 mg BID PRN PO c 05/03/24 01:00 06/02/24 00:59 05/13/24 09:20 100 MG Doxycycline Hyclate 250 ml @ 125 mls/hr Q12H IV 05/03/24 10:00 05/11/24 12:00 DC 05/11/24 09:28 125 MLS/HR Heparin Sodium (Porcine) (HEParin 5,000 UNIT VIAL) *calculation based on ACTUAL B... AD PRN IV HEPARIN PROTOCOL 05/03/24 15:00 05/03/24 14:18 DC Heparin Sodium/ Dextrose 250 ml @ 0 mls/hr Q6H IV 05/03/24 15:00 05/03/24 14:18 DC Hydralazine HCl (APRESOLine 20MG INJ) 10 mg Q2H PRN IV SBP GREATER THAN 160 05/03/24 01:00 06/02/24 00:59 Insulin Human Regular (humuLIN R 100 UNIT/ML 3ML) INSULIN SLIDING SCAL... ACHS SQ 05/03/24 07:30 06/02/24 07:29 Ipratropium Rogers (AtrovENT UD) 0.5 mg [id number] IH 05/03/24 06:00 06/02/24 05:59 05/16/24 11:15 0.5 MG Lactulose (Constulose 20gm/ 30ml Udcup) 20 gm Q6H PRN PO CONSTIPATION 05/03/24 01:00 06/02/24 00:59 05/15/24 15:55 20 GM Magnesium Sulfate 50 ml @ 0 mls/hr PROTOCOL IV 05/11/24 13:00 05/14/24 08:02 DC 05/14/24 05:34 25 MLS/HR Magnesium Sulfate 50 ml @ 0 mls/hr PROTOCOL IV 05/14/24 08:00 06/13/24 07:59 Magnesium Sulfate 50 ml @ 0 mls/hr PROTOCOL PRN IV electrolyte abnormality 05/03/24 13:30 05/10/24 12:00 DC 05/09/24 05:45 25 MLS/HR Meclizine HCl (ANTIvert 12.5 mg) 12.5 mg TID PRN PO DIZZINESS 05/15/24 14:30 06/14/24 14:29 Metoprolol Tartrate (loprESSOR) 12.5 mg BID PO 05/03/24 21:00 05/08/24 12:00 DC 05/08/24 10:05 12.5 MG Morphine Sulfate (morPHINE 2MG SYG) 2 mg ONCE STAT IVP 05/12/24 00:14 05/12/24 00:17 DC 05/12/24 00:19 2 MG Norepinephrine 250 ml @ 0 mls/hr PROTOCOL IV 05/03/24 10:00 05/14/24 10:44 DC Ondansetron HCl (zoFRAN 4MG INJ) 4 mg Q6H PRN IVP NAUSEA/VOMITING 05/03/24 01:00 06/02/24 00:59 Pantoprazole Sodium (PROTonix 40MG INJ) 40 mg DAILY IVP 05/04/24 09:00 05/08/24 12:00 DC 05/08/24 09:15 40 MG Piperacillin Sod/ Tazobactam Sod (Zosyn 3.375gm+NS 50ml) 3.375 gm Q8H IVPB 05/03/24 07:30 05/05/24 19:23 DC 05/05/24 18:26 3.375 GM Piperacillin Sod/ Tazobactam Sod (Zosyn 3.375gm+NS 50ml) 3.375 gm Q8H IVPB 05/06/24 02:00 05/16/24 01:59 DC 05/15/24 18:36 3.375 GM Potassium Chloride 100 ml @ 50 mls/hr AD PRN IV POTASSIUM PROTOCOL 05/03/24 13:30 06/02/24 13:29 Sodium Chloride 1,000 ml @ 999 mls/hr Q1H1M IV 05/03/24 10:00 05/03/24 14:21 DC Sodium Chloride (NS 50ml) 50 ml AD IV 05/03/24 07:30 05/03/24 14:22 DC Temazepam (restORIL 15 MG CAP) 15 mg HS PRN PO INSOMNIA/SLEEP 05/03/24 01:00 06/02/24 00:59 05/16/24 02:11 15 MG Tramadol HCl (UltRAM) 50 mg Q6H PRN PO SEVERE PAIN (7-10) 05/10/24 02:30 05/15/24 02:29 DC 05/13/24 09:20 50 MG DIAGNOSTICS / RADIOLOGY: [ ] ASSESSMENT: Ulcerated cancer lesion on the left parietal area consistent with squamous cell carcinoma Suicidal ideation Possible new diagnosis of acute gout POA Acute hypoxemic respiratory failure, needing oxygen supplementation-patient already has oxygen concentrator at bedside but currently on room air. Pneumonia, (suspected aspiration pneumonia), POA Elevated D-dimer, PE was ruled out Dysphagia, POA Failure to thrive, POA Debility/frailty/general body weakness, POA Hematuria, POA, Jung catheter in place [employer] Atrial fibrillation, 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 Obesity, BMI 38.0. Chronic problem list: AFib, hypertension, hyperlipidemia, COPD, skin cancer to scalp, BPH, urinary retention s/p Jung placement about 7-10 days ago at [facility]. PLAN: Patient will receive 2 g of magnesium for magnesium of 1.7 Patient stated suicidal ideation called hot line SI ideation protocol 1 to 1 to continue Port-A-Cath placed 05/12/[address] Silvestre Patient was evaluated by oncologist and is recommending Port-A-Cath and discharged home follow-up outpatient for nine adjuvant chemotherapy every 21 days and radiation Continue medical floor Case management has been consulted regarding his discharge Monitor respiratory status closely, currently on room air. Keep oxygen supplementation to keep O2 sat greater than 92%, we will slowly titrate until tolerating room air Albuterol p.r.n. shortness of breath. Atrovent nebulizer treatments scheduled q.6 hours. RT to provide IS and education on use. Cough and deep breathe q.2 hours. Chest physiotherapy if sputum production increases. Continue doxycycline IV discontinue Zosyn and doxycycline Deescalate antibiotics when appropriate. In regards with atrial fibrillation, rate controlled, continue with metoprolol tartrate 12.5 mg p.o. b.i.d., continue with Eliquis 5 mg p.o. b.i.d. 3 Patient is working with the physical therapy We will request social media content manager to assist with insurance Once medically cleared patient patient to be discharged home HOFFMAN,MAGDALENA Myers MD May 16, 2024 11:58
[2024-05-16] MEDS: doCUSate SODIUM 100 MG CAP PO SCH (12:38)
[2024-05-17] VITALS (14 sets, daily range): BP systolic 111–127; BP diastolic 67–83; PULSE 76–105; RESP 16–21; TEMP 97.6–98.5; O2SAT 97–100
[2024-05-17 04:38] LABS: BASOPHILS # (AUTO) 0.05 K/uL (0.00-0.20); BASOPHILS % (AUTO) 0.6 % (0.0-5.0); EOSINOPHILS # (AUTO) 0.32 K/uL (0.00-0.70); EOSINOPHILS % (AUTO) 3.9 % (0.0-8.0); HEMATOCRIT 35.1 % (42-54); IMMATURE GRANULOCYTE ABSOLUTE 0.04 K/uL (0-1); LYMPHOCYTES # (AUTO) 2.5 K/uL (1.0-4.8); MEAN CORPUSCULAR HEMOGLOBIN 29.1 pg (27.0-33.0); MEAN CORPUSCULAR HGB CONC 32.5 g/dL (32.0-36.0); MEAN CORPUSCULAR VOLUME 89.5 fL (79-99); MONOCYTES # (AUTO) 0.7 K/uL (0.1-1.0); MONOCYTES % (AUTO) 8.1 % (3.0-13.0); NEUTROPHILS # (AUTO) 4.7 K/uL (1.8-7.7); NEUTROPHILS % (AUTO) 56.9 % (40.0-77.0); PLATELET COUNT (AUTO) 193 K/uL (130-400); RED BLOOD CELL COUNT(AUTO) 3.92 MIL/uL (4.50-6.20); RED CELL DISTRIBUTION WIDTH 15.4 % (11.0-15.5); WHITE BLOOD COUNT (AUTO) 8.3 K/uL (4.8-10.8)
[2024-05-17 04:48] LABS: CREATININE 0.6 mg/dL (0.5-1.3); MAGNESIUM 1.7 mg/dL (1.80-2.40); POTASSIUM 3.9 mmol/L (3.5-5.1)
[2024-05-17] MEDS ORDERED: MAGNESIUM 2GM PREMIX 50ML 50 ML IV SCH (10:00)
--- NOTE | 2024-05-17 10:00 | NUR ---
CM NOTE: POC CM RECEIVED RESPONSE FROM IVÁN Santoro/SAULT AGING THIS MORNING, WILL CALL PATIENT AND FOLLOW PATIENT AT HOME FOR ANY NEEDS AND INSURANCE APPLICATION. PER TROPICAL SCREEN X2 UNABLE TO ADMIT PT REASON FOR SUICIDAL IDEATION IS DUE TO NOT WANTING TO RETURN HOME. PER NOTES, APS FOLLOWING PATIENT NO NEED FOR PLACEMENT AT THIS TIME, PT SAFE TO RETURN HOME. DCP HOME ONCE MD CLEARED. PRIMARY NURSE GIANA DEMPSEY. CM TO CONTINUE TO FOLLOW UP.
[2024-05-17] MEDS ORDERED: MECL-226 PO (13:43)
--- NOTE | 2024-05-17 13:47 | PN ---
Mr. Marshall is a 68-year-old male with history of recent mild stroke", atrial fibrillation, hypertension, hyperlipidemia, COPD, skin cancer (scalp closed), BPH, and urinary retention who presented to [facility] [place] [place] [facility] via EMS for evaluation of cough, dysphagia, shortness of breath, and general body weakness. The patient also reported he is unable to ambulate due to generalized weakness and worsening chronic back pain. Patient reported he was admitted at [facility] in [place], [place] where he experienced a CVA inpatient. The patient reported he was discharged and returned back to [facility] due to no improvement of symptoms. He was was discharged this afternoon again from [facility] where he had been readmitted for approximately 10 days. He stated that he did not receive physical therapy while in hospital and rehab was not an option". He also stated that he had a Jung catheter placed proximally 7-10 days ago for urinary retention and it remains in place. He stated he thinks he may have a low-grade fever as well as chills. He denied having any chest pain, palpitations, edema, abdominal pain, nausea, vomiting, diarrhea, headache, visual disturbance, focal weakness/paresthesia, or dizziness. The patient reported that on his last admission to [facility] the admitting hospitalist and molded goods operator were not nice which prompted him to come to [facility] instead this time. I was consulted because this patient have necrotic mass to the scalp. Biopsy was done before consistent with squamous cell. This patient was seen by general surgery. There is plan to discharge patient home. PHYSICAL EXAM GENERAL APPEARANCE: The patient is awake, alert, and oriented, in no acute cardiopulmonary distress. NEUROLOGICAL: Cranial nerves II-XII grossly intact. Motor is 5/5 in bilateral upper and lower extremities proximal to distal. No sensory deficits. HEENT: Face is symmetric. Pupils are equal and reactive. Extraocular movements are intact. NECK: Supple. No JVD. No thyromegaly. No submental, submandibular, pre- /postauricular, occipital or supraclavicular lymphadenopathy. CHEST: Normal chest expansion. No Telemetry. LUNGS: Absence of any rales, rhonchi or any wheezing. CARDIOVASCULAR: Regular. S1 and S2 normal. No appreciable rubs, murmurs or gallops. ABDOMEN: Soft, nontender, and nondistended. There is no rebound, voluntary guarding, or rigidity. : Deferred. No Jung. EXTREMITIES: Non-edematous and not cyanotic. No clubbing. Good capillary refill. SKIN: No skin breakdown. Assessment 1. 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 2. Hypertension 3. Hyperlipidemia 4. COPD 5. Sepsis Plan 1. This patient could benefit from neoadjuvant chemotherapy treatments carboplatin-taxol every 21 days. 2. Continue care as per primary 3. If this patient discharged to follow-up with me in the next week 1-2. Vitals/Labs Vital Signs Date Time Temp Pulse Resp B/P (MAP) Pulse Ox O2 Delivery O2 Flow Rate FiO2 05/17/24 11:06 101 18 05/17/24 08:35 N/A Room Air 21 05/17/24 04:02 97.9 119/74 99 05/16/24 19:05 0 Laboratory Tests 05/17/24 04:29 Medications Current Medications Piperacillin Sod/ Tazobactam Sod 3.375 gm ONCE ONCE IV Last administered on 05/03/24at 00:01; Start 05/02/24 at 23:30; Stop 05/02/24 at 23:38; Status DC Hydromorphone HCl 0.5 mg ONCE ONCE IVP Last administered on 05/02/24at 23:23; Start 05/02/24 at 22:30; Stop 05/02/24 at 22:31; Status DC Iohexol 35,000 mg STK-MED ONCE IV; Start 05/03/24 at 00:40; Stop 05/03/24 at 00:41; Status DC Albuterol Sulfate 2.5 mg [id number] PRN IH Last administered on 05/09/24at 23:13; Start 05/03/24 at 01:00; Stop 06/02/24 at 00:59 Ipratropium [place] 0.5 mg [id number] IH Last administered on 05/17/24at 11:06; Start 05/03/24 at 06:00; Stop 06/02/24 at 05:59 Acetaminophen 650 mg Q6H PRN PO Last administered on 05/08/24at 09:16; Start 05/03/24 at 01:00; Stop 06/02/24 at 00:59 Acetaminophen 650 mg Q6H PRN RC; Start 05/03/24 at 01:00; Stop 06/02/24 at 00:59 Acetaminophen/ Hydrocodone Bitart 1 tab Q6H PRN PO Last administered on 05/04/24at 12:06; Start 05/03/24 at 01:00; Stop 05/08/24 at 00:59; Status DC Lactulose 20 gm Q6H PRN PO Last administered on 05/15/24at 15:55; Start 05/03/24 at 01:00; Stop 06/02/24 at 00:59 Docusate Sodium 100 mg BID PRN PO Last administered on 05/13/24at 09:20; Start 05/03/24 at 01:00; Stop 05/16/24 at 12:00; Status DC Temazepam 15 mg HS PRN PO Last administered on 05/16/24at 02:11; Start 05/03/24 at 01:00; Stop 06/02/24 at 00:59 Ondansetron HCl 4 mg Q6H PRN IVP; Start 05/03/24 at 01:00; Stop 06/02/24 at 00:59 Hydralazine HCl 10 mg Q2H PRN IV; Start 05/03/24 at 01:00; Stop 06/02/24 at 00:59 Insulin Human Regular INSULIN SLIDING SCAL... ACHS SQ; Start 05/03/24 at 07:30; Stop 06/02/24 at 07:29 Sodium Chloride 4 ml STK-MED ONCE IH Last administered on 05/03/24at 06:58; Start 05/03/24 at 06:41; Stop 05/03/24 at 06:41; Status DC Piperacillin Sod/ Tazobactam Sod 3.375 gm Q8H IVPB Last administered on 05/05/24at 18:26; Start 05/03/24 at 07:30; Stop 05/05/24 at 19:23; Status DC Sodium Chloride 50 ml AD IV; Start 05/03/24 at 07:30; Stop 05/03/24 at 14:22; Status DC Norepinephrine 250 ml @ As Directed STK-MED ONCE IV; Start 05/03/24 at 09:30; Stop 05/03/24 at 09:31; Status DC Sodium Chloride 1,368 ml @ 456 mls/hr ONCE ONCE IV Last administered on 05/03/24at 10:06; Start 05/03/24 at 10:00; Stop 05/03/24 at 12:59; Status DC Sodium Chloride 1,000 ml @ 999 mls/hr Q1H1M IV; Start 05/03/24 at 10:00; Stop 05/03/24 at 14:21; Status DC Norepinephrine 250 ml @ 0 mls/hr PROTOCOL IV; Start 05/03/24 at 10:00; Stop 05/14/24 at 10:44; Status DC Doxycycline Hyclate 250 ml @ 125 mls/hr Q12H IV Last administered on 05/11/24at 09:28; Start 05/03/24 at 10:00; Stop 05/11/24 at 12:00; Status DC Sodium Chloride 4 ml STK-MED ONCE IH Last administered on 05/03/24at 12:11; Start 05/03/24 at 12:09; Stop 05/03/24 at 12:10; Status DC Magnesium Sulfate 50 ml @ 0 mls/hr PROTOCOL PRN IV Last administered on 05/09/24at 05:45; Start 05/03/24 at 13:30; Stop 05/10/24 at 12:00; Status DC Potassium Chloride 100 ml @ 50 mls/hr AD PRN IV; Start 05/03/24 at 13:30; Stop 06/02/24 at 13:29 Pantoprazole Sodium 40 mg DAILY IVP Last administered on 05/08/24at 09:15; Start 05/04/24 at 09:00; Stop 05/08/24 at 12:00; Status DC Heparin Sodium (Porcine) *calculation based on ACTUAL B... AD PRN IV; Start 05/03/24 at 15:00; Stop 05/03/24 at 14:18; Status DC Heparin Sodium/ Dextrose 250 ml @ 0 mls/hr Q6H IV; Start 05/03/24 at 15:00; Stop 05/03/24 at 14:18; Status DC Metoprolol Tartrate 12.5 mg BID PO Last administered on 05/08/24at 10:05; Start 05/03/24 at 21:00; Stop 05/08/24 at 12:00; Status DC Apixaban 5 mg ONCE ONCE PO Last administered on 05/03/24at 16:21; Start 05/03/24 at 14:30; Stop 05/03/24 at 14:31; Status DC Atorvastatin Calcium 40 mg ONCE ONCE PO Last administered on 05/03/24at 16:21; Start 05/03/24 at 14:30; Stop 05/03/24 at 14:31; Status DC Apixaban 5 mg ONCE ONCE PO; Start 05/03/24 at 04:00; Stop 05/03/24 at 15:37; Status DC Atorvastatin Calcium 40 mg HS PO; Start 05/03/24 at 21:00; Stop 05/03/24 at 15:27; Status DC Atorvastatin Calcium 40 mg HS PO Last administered on 05/16/24at 20:12; Start 05/03/24 at 21:00; Stop 06/02/24 at 20:59 Sodium Chloride 4 ml STK-MED ONCE IH Last administered on 05/03/24at 19:17; Start 05/03/24 at 17:59; Stop 05/03/24 at 18:00; Status DC Piperacillin Sod/ Tazobactam Sod 3.375 gm Q8H IVPB Last administered on 05/15/24at 18:36; Start 05/06/24 at 02:00; Stop 05/16/24 at 01:59; Status DC Tramadol HCl 50 mg Q6H PRN PO Last administered on 05/13/24at 09:20; Start 05/10/24 at 02:30; Stop 05/15/24 at 02:29; Status DC Tramadol HCl 50 mg STK-MED ONCE .ROUTE; Start 05/10/24 at 02:25; Stop 05/10/24 at 02:26; Status DC Magnesium Sulfate 50 ml @ 0 mls/hr PROTOCOL IV Last administered on 05/14/24at 05:34; Start 05/11/24 at 13:00; Stop 05/14/24 at 08:02; Status DC Morphine Sulfate 2 mg ONCE STAT IVP Last administered on 05/12/24at 00:19; Start 05/12/24 at 00:14; Stop 05/12/24 at 00:17; Status DC Bupivacaine HCl/ Epinephrine Bitart 10 ml STK-MED ONCE IJ Last administered on 05/12/24at 00:00; Start 05/12/24 at 12:50; Stop 05/12/24 at 12:50; Status DC Heparin Sodium/ Sodium Chloride 500 ml @ As Directed STK-MED ONCE IV Last administered on 05/12/24at 00:00; Start 05/12/24 at 12:51; Stop 05/12/24 at 12:52; Status DC Lidocaine HCl 100 mg STK-MED ONCE .ROUTE; Start 05/12/24 at 17:50; Stop 05/12/24 at 17:50; Status DC Propofol 200 mg STK-MED ONCE IV; Start 05/12/24 at 17:50; Stop 05/12/24 at 17:50; Status DC Midazolam HCl 2 mg STK-MED ONCE .ROUTE; Start 05/12/24 at 17:50; Stop 05/12/24 at 17:50; Status DC Propofol 100 ml @ As Directed STK-MED ONCE IV; Start 05/12/24 at 17:53; Stop 05/12/24 at 17:53; Status DC Ketamine HCl 50 mg STK-MED ONCE .ROUTE; Start 05/12/24 at 17:53; Stop 05/12/24 at 17:53; Status DC Magnesium Sulfate 50 ml @ 0 mls/hr PROTOCOL IV; Start 05/14/24 at 08:00; Stop 05/17/24 at 09:41; Status DC Meclizine HCl 12.5 mg TID PRN PO; Start 05/15/24 at 14:30; Stop 06/14/24 at 14:29 Bisacodyl 5 mg ONCE ONCE RC; Start 05/15/24 at 15:00; Stop 05/15/24 at 15:01; Status DC Docusate Sodium 100 mg BID PO Last administered on 05/17/24at 08:52; Start 05/16/24 at 12:00; Stop 06/15/24 at 11:59 Magnesium Sulfate 50 ml @ 0 mls/hr PROTOCOL IV; Start 05/17/24 at 10:00; Stop 06/16/24 at 09:59 TU CARRERA MD May 17, 2024 13:46
--- NOTE | 2024-05-17 13:53 | DS ---
Discharge Summary Hospital Course Summary: DATE OF ADMISSION:[05/02/2024] DATE OF DISCHARGE:[05/16/2024] DISPOSITION:[Home] CONDITION:[Medically stable/cleared] CONSULTANTS:[Татьяна Cadet, surgeon, oncologist, Dr. Araiza] FOLLOW UP APPOINTMENTS:[PCP 2 to 3 days. Psych within 2 to 3 days. Surgeon after completed radiation and or non adjuvant therapy with oncologist, oncologist as soon as possible possibly within one week. Dr. Araiza within one week] PROCEDURES:[Port-A-Cath placement 05/11/2024] IMAGING: report attached to summary MICROBIOLOGY: report attached to summary ACTIVITY:[One-person assist/independent] HOME MEDICATIONS: see [facility] NEW MEDICATIONS:[Tylenol 650 p.r.n. , albuterol 2.5 mg inhaler q.4 hours p.r.n. for shortness of breaths, Eliquis 2.5 mg p.o. b.i.d., atorvastatin 40 mg p.o. at bedtime, doxycycline 100 mg b.i.d. for five days, ipratropium p.r.n. q.6 hours, lactulose p.r.n. for constipation, levofloxacin 750 mg p.o. x7 days, meclizine 12.5 mg tablets for dizziness, metformin 1000 mg p.o. daily, metoprolol 12.5 mg p.o. b.i.d.] EMERGENCY INSTRUCTIONS: The patient was instructed to present to the nearest Emergency departmentr or call 911 once their symptoms will return or worsen [employer] Continuous Process(s): Mr. Marshall is a 68-year-old male with history of recent mild stroke", atrial fibrillation, hypertension, hyperlipidemia, COPD, skin cancer (scalp closed), BPH, and urinary retention who presented to [facility] via EMS for evaluation of cough, dysphagia, shortness of breath, and general body weakness. The patient also reported he is unable to ambulate due to generalized weakness and worsening chronic back pain. Patient reported he was admitted at [facility] in [place], [place] where he experienced a CVA inpatient. The patient reported he was discharged and returned back to [facility] due to no improvement of symptoms. He was was discharged this afternoon again from [facility] where he had been readmitted for approximately 10 days. He stated that he did not receive physical therapy while in hospital and rehab was not an option". He also stated that he had a Jung catheter placed proximally 7-10 days ago for urinary retention and it remains in place. He stated he thinks he may have a low-grade fever as well as chills. He denied having any chest pain, palpitations, edema, abdominal pain, nausea, vomiting, diarrhea, headache, visual disturbance, focal weakness/paresthesia, or dizziness. The patient reported that on his last admission to [facility] the admitting hospitalist and tubing drier were not nice which prompted him to come to [facility] instead this time.In ED the patient continue to complain congestion, cough, and difficulty swallowing. In ED the patient was administered dose Zosyn 3.375 g x 1 for suspected aspiration pneumonia. He received dose Dilaudid 0.5 Mg x 1 dose for complains of low back pain. ED provider request patient be admitted with the diagnosis of suspected aspiration pneumonia, dysphagia, failure to thrive in adult, hyperkalemia, physical debility, leukocytosis. Throughout the hospitalization patient failed 6 minute walk and oxygen tank was delivered to patient's room already. Also patient was complaining of left lower extremity pain ultrasound venous Doppler was negative for DVT. Ultrasound arterial Doppler showed atherosclerosis. Left foot x-ray showed calcaneal spur for degenerative changes. Ankle x-ray showed swelling calcaneal spur. Tibia fibula x-ray was negative.Patient was evaluated by oncologist and at this moment he is recommending Port-A-Cath prior discharge once patient Port-A-Cath will be inserted by surgeon patient could be discharged home and follow-up outpatient with the oncologist for non adjuvant chemotherapy every 21 days and radiation. Surgeon was consulted and Port-A-Cath was inserted on 05/11/2024. After that patient was notified that he is cleared to be discharged home and follow-up ou tpatient unfortunately patient stated that he is suicidal and he will kill himself. [facility] was consulted again and patient again was cleared by psych. Today patient is cleared again to be discharged home follow up outpatient with the PCP 2 to 3 days. With surgeon after non adjuvant chemo therapy and or radiation. Follow up with oncologist within 2 to 3 days for radiation/non adjuvant chemotherapy. Follow-up with Dr. Araiza within 2 to 3 days for the wound change. We will also recommend that patient follow ups with psych within 2 to 3 days. Procedure(s): REVIEW OF SYSTEMS 12-point ROS reviewed with patient. All pertinent positives mentioned above. Otherwise negative, noncontributory, or non-pertinent. He did have a large bowel movement quite hard yesterday. PHYSICAL EXAM GENERAL APPEARANCE: The patient is awake, alert, and oriented, in no acute cardiopulmonary distress. NEUROLOGICAL: Cranial nerves II-XII grossly intact. Motor is 5/5 in bilateral upper and lower extremities proximal to distal. No sensory deficits. HEENT: Face is symmetric. Pupils are equal and reactive. Extraocular movements are intact. NECK: Supple. No JVD. No thyromegaly. No submental, submandibular, pre- /postauricular, occipital or supraclavicular lymphadenopathy. CHEST: Normal chest expansion. No Telemetry. LUNGS: Scattered transmitted upper bronchial sounds but good air movement CARDIOVASCULAR: Regular. S1 and S2 normal. No appreciable rubs, murmurs or gallops. ABDOMEN: Soft, nontender, and nondistended. There is no rebound, voluntary guarding, or rigidity. : Deferred. No Jung. EXTREMITIES: Non-edematous and not cyanotic. No clubbing. Bilateral palpable pedal pulses SKIN: No skin breakdown. Assessment/Plan: ASSESSMENT: Ulcerated cancer lesion on the left parietal area consistent with squamous cell carcinoma Suicidal ideation Possible new diagnosis of acute gout POA Acute hypoxemic respiratory failure, needing oxygen supplementation-patient already has oxygen concentrator at bedside but currently on room air. 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 Obesity, BMI 38.0. Chronic problem list: AFib, hypertension, hyperlipidemia, COPD, skin cancer to scalp, BPH, urinary retention s/p Jung placement about 7-10 days ago at [facility]. Time spent arranging discharge: 31-60 minutes ATTESTATION BY PHYSICIAN I have seen and examined the patient. I reviewed the documentation, medical decision making, and treatment plan as noted by the mid-level provider above. I agree with the findings and plan of care. JOSE ALEJANDRO JURADO MD, [employer] B MANAGER [employer] May 17, 2024 13:53
--- NOTE | 2024-05-17 15:50 | NUR ---
CM NOTE: PENDING ACCEPTANCE TO [facility] CM MET WITH IVÁN, VISITED PATED, UDPATED W/POC AND POSSIBLE PENITENTIARY NEED VS HOUSING VS PROVIDER AT HOME AND INSURANCE APPLICATION. PER [facility] PT AGREEABLE TO GO TO A PENITENTIARY, IV[facility]N CONTACTED [facility] TO COME AND VISIT PATIENT. PENDING ACCEPTANCE. PRIMARY NURSE GIANA DEMPSEY. CM TO CONTINUE TO FOLLOW UP.
--- NOTE | 2024-05-17 16:00 | NUR ---
DISCHARGE PENDING DUE TO POSSIBLE ACCEPTANCE TO CARE HOME. DISCHARGE BEING FOLLOWED BY [facility] WITH RISK MANAGEMENT.
[2024-05-18] VITALS (9 sets, daily range): BP systolic 90–123; BP diastolic 53–79; PULSE 85–108; RESP 18–20; TEMP 97.7–98.4; O2SAT 95–100
--- NOTE | 2024-05-18 08:05 | NUR ---
TERELL- MANUELITO JAJA [phone] Pilar recd call from TERELL Ribera casewsamantha requesting update on dc. Pilar reviewed CM notes and updated Manuelito. Pending possible placement in a mcc. Pilar to notify Manuelito with final dcp,
--- NOTE | 2024-05-18 09:13 | NUR ---
DCP: [facility] sw spoke to Raina at [facility] regarding dcp. Per Raina, pt has been accepted and seems excited to go. PPC home is in [place] and she will forward address to home so I can provide to [facility]PS
--- NOTE | 2024-05-18 10:20 | NUR ---
ATTEMPTED MULTIPLE TIMES TO CONTACT [employer] FOR REPORT OF LAST EVALUATION, NO SUCCESS. 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
--- NOTE | 2024-05-18 13:25 | NUR ---
F/U 05/18/24: Reviewed labs, medications, and notes. Wt. change increase of 11 lbs in one week, questionable due to bed scale method. Pt reported last BM 05/17/24, 50% PO intake, did not want coffee on breakfast tray. Pt was agreeable to reinitiate Glucerna chocolate shake and Prostat Jello to supplement diet. Recommendations: - Continue Heart Healthy Diet - Add diet modifier 75 gm CHO - Add Glucerna Chocolate BID AM and dinner + Prostat Jello 30 ml BID for lunch and dinner tray - Add modifiers of no coffee and shellfish allergy for kitchen notes - Consider MVI QD - Monitor wts for trend - Reweigh as able - Monitor goals of care RD to follow + available for consult per protocol DIETETIC STUDENT, NEIDA CASTELLANOS Addendum: 05/18/24 at [address] Amended: Links added.
--- NOTE | 2024-05-18 13:28 | NUR ---
[facility] Follow-up: Patient re-assessed by wound healing team. Assessment and recommendations provided to primary nurse. Education provided. Wound care done. Addendum: 05/18/24 at 1509 by GAVIN SHANNON RN RN/ Amended: Links added.
--- NOTE | 2024-05-18 16:01 | PN ---
[facility] PROGRESS NOTE Date of Service: May 18, 2024 Time of Service: 16:00 SUBJECTIVE: Mr. Marshall is a 68-year-old male with history of recent mild stroke", atrial fibrillation, hypertension, hyperlipidemia, COPD, skin cancer (scalp closed), BPH, and urinary retention who [place] [facility] [place] for evaluation of cough, dysphagia, shortness of breath, and general body weakness. The patient also reported he is unable to ambulate due to generalized weakness and worsening chronic back pain. Patient reported he was admitted at [facility] in [place], [place] where he experienced a CVA inpatient. The patient reported he was discharged and returned back to [facility] due to no improvement of symptoms. He was was discharged this a fternoon again from [facility] where he had been readmitted for approximately 10 days. He stated that he did not receive physical therapy while in hospital and rehab was not an option". He also stated that he had a Jung catheter placed proximally 7-10 days ago for urinary retention and it remains in place. He stated he thinks he may have a low-grade fever as well as chills. He denied having any chest pain, palpitations, edema, abdominal pain, nausea, vomiting, diarrhea, headache, visual disturbance, focal weakness/paresthesia, or dizziness. The patient reported that on his last admission to [facility] the admitting hospitalist and timber hewer were not nice which prompted him to come to [facility] [place] [facility] instead this time. Labs: WBCs elevated at 16.4, H and H 13.3/41.1, Na/Cl 132/95, K 5.4, CO2 33, BUN 23, albumin three, and glucose 155. ABG on 2 L nasal cannula: PH 7.463, pCO2 32, PO2 113.3, bicarb 22.3, and base excess -0.6. EKG: Atrial fibrillation, heart rate 97 beats per minute. Chest x-ray: Mild bilateral pulmonary infiltrates are seen may be related to mild pulmonary vascular congestion with possible superimposed pneumonitis. In ED the patient continue to complain congestion, cough, and difficulty swallowing. In ED the patient was administered dose Zosyn 3.375 g x 1 for suspected aspiration pneumonia. He received dose Dilaudid 0.5 Mg x 1 dose for complains of low back pain. ED provider request patient be admitted with the diagnosis of suspected aspiration pneumonia, dysphagia, failure to thrive in adult, hyperkalemia, physical debility, leukocytosis. I went to assess the patient at bedside. The patient appeared chronically ill, breathing was even and unlabored, in no distress. Patient was conversive, answered appropriately. I informed patient of labs, diagnostics, and plan of care. The patient verbalized understanding and is in agreement with the plan. Plan and assessment are listed below. May 03, 2024 The patient was examined at the bedside. His shortness of breath slightly impr kaylin with oxygen saturation of PaO2 of 99% on nasal cannula 2.0. Patient had low MEP a and his blood pressure is at 79 /43 which was improved to 100 x 60 after an IV NS bolus at 30 cc kg per body weight. Evaluating further causes of his chest pain, his WBC count remains elevated at at 12.4 And no overnight events reported. monitoring him and treating him for pneumonia. Pulmonary embolism ruled out due to a negative chest CT scan and a negative ultrasound venous Doppler scan. 05/04/24 was examined in the room today, he is currently lying in bed, patient stated that he is having a hard time with his bowel movement. Patient is con stipated and he has pain during bowel movement. Patient stated that he has been hospitalized and was recently discharged from [facility]. We continue with current management. 05/06 patient was supposed to be discharged yesterday, apparently he failed 6 minute walk , saturating 82% on room air. Patient continues to be weak, we will request physical therapy to eval and treat. We will try to wean patient off oxygen and re-evaluate in the next 24-48 hours. Patient is unable to obtain home oxygen as he currently does not have medical insurance. Otherwise patient was evaluated in the room, he is still complaints of weakness and cough. He also feels dizzy on walking short distance. 05/07/24 Patient is for DC planning and was awaiting for Oxygen arrangement. [facility] [place] concentr[place] currently at bedside but patient right now is on room air. He is medically clear unfortunately he did voiced out suicidal ideation for which patient was placed on one-to-one supervision. [facility] has been consulted. 05/08 patient was evaluated this morning. He was sitting on the recliner chair. Patient was just seen by quality measurement specialist who recommended debridement on the scalp and also Oncology consultation to rule out skin cancer. Patient has been cleared from [facility]. 05/09 the patient was seen and examined in the room while is eating lunch. Patient reported that he was evaluated by general surgeon, plan is to follow up with Oncology on further recommendation. For now patient will remain hospitalized. No acute events reported overnight. 05/10 patient was seen by nurse practitioner and physician during rounding in room 403. Patient was complaining of the left foot pain and swelling. Ultrasound venous Doppler was negative for DVT. Ultrasound arterial Doppler showed atherosclerosis. Left foot x-ray showed calcaneal spur for degenerative changes. Ankle x-ray showed swelling calcaneal spur. Tibia fibula x-ray was negative. We are still pending oncology evaluation for possible non adjuvant chemotherapy with radiation which probably might happen outpatient. As per surgeon patient will need the outpatient therapy 1st in order in future to do any surgical procedure. As per Wound Dr. Apply normal saline or wound cleanser , pat dry and apply Vaseline. We will continue to monitor patient in the meantime. A.m. labs. Anticipated discharge within 24 hours once cleared by oncologist. A.m. labs 05/11 patient was seen by nurse practitioner and physician during rounding in room 403. Patient was evaluated by oncologist and at this moment he is recommending Port-A-Cath prior discharge once patient Port-A-Cath will be inserted by surgeon patient could be discharged home and follow-up outpatient with the oncologist for non adjuvant chemotherapy every 21 days and radiation. Surgeon was consulted and is planning to insert Port-A-Cath today 05/11/2024 in the afternoon. Regarding the left lower pain that patient was complaining ultrasound venous Doppler was negative for DVT. Ultrasound arterial Doppler negative it showed atherosclerosis. X-ray of the left foot showed calcaneus spur degenerative changes. Ankle x-ray shows swelling calcaneal spur. Tibia fibula x-ray negative. Patient received 2 g of magnesium due to magnesium being at 1.6. We will order uric acid to check for possible gout. Anticipated discharge within 24 hours. In the meantime we will continue to monitor patient. A.m. labs 05/12 seen by nurse practitioner physician during rounding in room 403 lying in bed. Patient is pending Port-A-Cath placement today with . In the meantime patient was complaining of abdominal pain last night and today, nurse practitioner order ultrasound abdomen. All the labs and results were evaluated/reviewed by GAUGE CHECKER. Anticipated discharge within 24 hours to home 05/13/24 patient was seen by GAUGE CHECKER and physician during rounding in room 403. Patient was cleared by oncologist to follow up outpatient for non adjuvant chemo and radiation. Patient was also cleared by one two doctor Dr. Araiza and to follow up outpatient as well. Patient is s/p Port-A-Cath placement 05/12/2024 by , and was also cleared to be discharged home. Nurse practitioner and physician instructed patient regarding the follow-up and discharge home today. Later within an hour, hour and a half, nurse practitioner was paged by RN stating that patient [facility] and stated that he suicidal. As per RN patient grab the plastic knife and cut his skin on the arm/hand and stated that he will kill himself. One-to-one was placed. [facility] to be reconsulted. Discharge orders canceled. We will continue to monitor patient in the meantime. A.m. labs 05/14/24 patient was seen by nurse practitioner physician during rounding in room 403 lying in bed. Nurse practitioner was able to talk to the patient regarding the suicidal ideation. He is unable to explain himself he just knows that if he goes home he will kill himself. We are waiting for evaluation of the [facility] for now. Case management is also trying to work on disposition for the patient and possible insurance. Patient receive 2 g of magnesium for magnesium of 1.7 today. We will continue to monitor patient in the meantime. A.m. labs 05/15/2024 patient was seen by myself on a.m. rounds. 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 He offers no complaints of chest pain or shortness for breath. He states he is not thinking of harming himself or others. He did show me an area where he scratched himself as a suicidal gesture in order to get [facility] to come evaluate him for possible admission. Patient complains of intermittent coughing without much phlegm production although it does feel like he could come up per patient. 05/16/2024 patient was seen on a.m. rounds by myself. He is watching TV in no acute distress. He complains of left and right lower extremity pains to the feet and states that his legs have been cramping in the night. He does have underlying diabetes but blood sugars have been fairly controlled his hemoglobin A1c on this admission was 6.7 signaling an average blood sugar concentration 146. Patient is still having suicidal ideation and stating that if he went home he would likely take pills or medications to go to sleep he thinks the chances of him acting on this plan would be greater than 50%. He is still under a one-to- one supervision. 05/18/24 patient was seen and examined. Case discussed with RN awaiting disposition REVIEW OF SYSTEMS 12-point ROS reviewed with patient. All pertinent positives mentioned above. Otherwise negative, noncontributory, or non-pertinent. He did have a large bowel movement quite hard yesterday. PHYSICAL EXAM GENERAL APPEARANCE: The patient is awake, alert, and oriented, in no acute cardiopulmonary distress. NEUROLOGICAL: Cranial nerves II-XII grossly intact. Motor is 5/5 in bilateral upper and lower extremities proximal to distal. No sensory deficits. HEENT: Face is symmetric. Pupils are equal and reactive. Extraocular movements are intact. NECK: Supple. No JVD. No thyromegaly. No submental, submandibular, pre- /postauricular, occipital or supraclavicular lymphadenopathy. CHEST: Normal chest expansion. No Telemetry. LUNGS: Scattered transmitted upper bronchial sounds but good air movement CARDIOVASCULAR: Regular. S1 and S2 normal. No appreciable rubs, murmurs or gallops. ABDOMEN: Soft, nontender, and nondistended. There is no rebound, voluntary guarding, or rigidity. : Deferred. No Jung. EXTREMITIES: Non-edematous and not cyanotic. No clubbing. Bilateral palpable pedal pulses SKIN: No skin breakdown. Vital Signs (last 8hr) Date Time Temp Pulse Resp B/P (MAP) Pulse Ox O2 Delivery O2 Flow Rate FiO2 05/18/24 11:44 97.7 108 20 90/66 100 Room Air 05/18/24 11:35 85 19 05/18/24 08:33 98.4 99 19 123/79 99 Nasal Cannula 2.0 LABS: Laboratory: Test 05/18/24 15:51 05/17/24 05:22 05/17/24 04:29 Range/Units Whole Blood Glucose 115 H 70-110 MG/DL Bedside Glucose Comment Notified Nurse White Blood Count 8.3 4.8-10.8 K/uL Red Blood Count 3.92 L 4.50-6.20 MIL/uL Hemoglobin 11.4 L 14.0-18.0 g/dL Hematocrit 35.1 L 42-54 % Mean Corpuscular Volume 89.5 79-99 fL Mean Corpuscular Hemoglobin 29.1 27.0-33.0 pg Mean Corpuscular Hemoglobin Concent 32.5 32.0-36.0 g/dL Red Cell Distribution Width 15.4 11.0-15.5 % Platelet Count 193 130-400 K/uL Mean Platelet Volume 9.3 7.5-10.5 fL Immature Granulocyte % (Auto) 0.5 0-1 % Neutrophils (%) (Auto) 56.9 40.0-77.0 % Lymphocytes (%) (Auto) 30.0 21.0-51.0 % Monocytes (%) (Auto) 8.1 3.0-13.0 % Eosinophils (%) (Auto) 3.9 0.0-8.0 % Basophils (%) (Auto) 0.6 0.0-5.0 % Neutrophils # (Auto) 4.7 1.8-7.7 K/uL Lymphocytes # (Auto) 2.5 1.0-4.8 K/uL Monocytes # (Auto) 0.7 0.1-1.0 K/uL Eosinophils # (Auto) 0.32 0.00-0.70 K/uL Basophils # (Auto) 0.05 0.00-0.20 K/uL Absolute Immature Granulocyte (auto 0.04 0-1 K/uL Nucleated Red Blood Cells 0.0 0.0-0.19 % Sodium Level 138 136-145 mmol/L Potassium Level 3.9 3.5-5.1 mmol/L Chloride Level 105 101-111 mmol/L Carbon Dioxide Level 27 21-32 mmol/L Blood Urea Nitrogen 7 7-18 mg/dL Creatinine 0.6 0.5-1.3 mg/dL Glomerular Filtration Rate Calc 104 >90 mL/min Random Glucose 102 70-105 mg/dL Total Calcium 9.5 8.5-10.1 mg/dL Magnesium Level 1.70 L 1.80-2.40 mg/dL Current Medications Medications (Trade) Dose Ordered Sig/Beau Route PRN Reason Start Time Stop Time Status Last Admin Dose Admin Acetaminophen (TYLenol 325MG TAB) 650 mg Q6H PRN PO FEVER/MILD PAIN LEVEL 1-3 05/03/24 01:00 06/02/24 00:59 05/08/24 09:16 650 MG Acetaminophen (TYLenol 650MG SUPPOSITORY) 650 mg Q6H PRN RC FEVER / MILD PAIN 1-3 IF NPO 05/03/24 01:00 06/02/24 00:59 Acetaminophen/ Hydrocodone Bitart (NORco 5/325MG) 1 tab Q6H PRN PO MILD PAIN (1-3) 05/03/24 01:00 05/08/24 00:59 DC 05/04/24 12:06 1 TAB Albuterol Sulfate (Proventil 0.083% 2.5mg/3ml) 2.5 mg [id number] PRN IH SHORTNESS OF BREATH 05/03/24 01:00 06/02/24 00:59 05/09/24 23:13 2.5 MG Atorvastatin Calcium (LIPItor 40MG) 40 mg HS PO 05/03/24 21:00 05/03/24 15:27 DC Atorvastatin Calcium (LIPItor 40MG) 40 mg HS PO 05/03/24 21:00 06/02/24 20:59 05/17/24 19:14 40 MG Docusate Sodium (COLace 100MG CAP) 100 mg BID PO 05/16/24 12:00 06/15/24 11:59 05/18/24 09:14 100 MG Docusate Sodium (COLace 100MG CAP) 100 mg BID PRN PO c 05/03/24 01:00 05/16/24 12:00 DC 05/13/24 09:20 100 MG Doxycycline Hyclate 250 ml @ 125 mls/hr Q12H IV 05/03/24 10:00 05/11/24 12:00 DC 05/11/24 09:28 125 MLS/HR Heparin Sodium (Porcine) (HEParin 5,000 UNIT VIAL) *calculation based on ACTUAL B... AD PRN IV HEPARIN PROTOCOL 05/03/24 15:00 05/03/24 14:18 DC Heparin Sodium/ Dextrose 250 ml @ 0 mls/hr Q6H IV 05/03/24 15:00 05/03/24 14:18 DC Hydralazine HCl (APRESOLine 20MG INJ) 10 mg Q2H PRN IV SBP GREATER THAN 160 05/03/24 01:00 06/02/24 00:59 Insulin Human Regular (humuLIN R 100 UNIT/ML 3ML) INSULIN SLIDING SCAL... ACHS SQ 05/03/24 07:30 06/02/24 07:29 Ipratropium [place] (AtrovENT UD) 0.5 mg [id number] IH 05/03/24 06:00 06/02/24 05:59 05/18/24 11:35 0.5 MG Lactulose (Constulose 20gm/ 30ml Udcup) 20 gm Q6H PRN PO CONSTIPATION 05/03/24 01:00 06/02/24 00:59 05/15/24 15:55 20 GM Magnesium Sulfate 50 ml @ 0 mls/hr PROTOCOL IV 05/17/24 10:00 06/16/24 09:59 Magnesium Sulfate 50 ml @ 0 mls/hr PROTOCOL IV 05/11/24 13:00 05/14/24 08:02 DC 05/14/24 05:34 25 MLS/HR Magnesium Sulfate 50 ml @ 0 mls/hr PROTOCOL IV 05/14/24 08:00 05/17/24 09:41 DC Magnesium Sulfate 50 ml @ 0 mls/hr PROTOCOL PRN IV electrolyte abnormality 05/03/24 13:30 05/10/24 12:00 DC 05/09/24 05:45 25 MLS/HR Meclizine HCl (ANTIvert 12.5 mg) 12.5 mg TID PRN PO DIZZINESS 05/15/24 14:30 06/14/24 14:29 Metoprolol Tartrate (loprESSOR) 12.5 mg BID PO 05/03/24 21:00 05/08/24 12:00 DC 05/08/24 10:05 12.5 MG Morphine Sulfate (morPHINE 2MG SYG) 2 mg ONCE STAT IVP 05/12/24 00:14 05/12/24 00:17 DC 05/12/24 00:19 2 MG Norepinephrine 250 ml @ 0 mls/hr PROTOCOL IV 05/03/24 10:00 05/14/24 10:44 DC Ondansetron HCl (zoFRAN 4MG INJ) 4 mg Q6H PRN IVP NAUSEA/VOMITING 05/03/24 01:00 06/02/24 00:59 Pantoprazole Sodium (PROTonix 40MG INJ) 40 mg DAILY IVP 05/04/24 09:00 05/08/24 12:00 DC 05/08/24 09:15 40 MG Piperacillin Sod/ Tazobactam Sod (Zosyn 3.375gm+NS 50ml) 3.375 gm Q8H IVPB 05/03/24 07:30 05/05/24 19:23 DC 05/05/24 18:26 3.375 GM Piperacillin Sod/ Tazobactam Sod (Zosyn 3.375gm+NS 50ml) 3.375 gm Q8H IVPB 05/06/24 02:00 05/16/24 01:59 DC 05/15/24 18:36 3.375 GM Potassium Chloride 100 ml @ 50 mls/hr AD PRN IV POTASSIUM PROTOCOL 05/03/24 13:30 06/02/24 13:29 Sodium Chloride 1,000 ml @ 999 mls/hr Q1H1M IV 05/03/24 10:00 05/03/24 14:21 DC Sodium Chloride (NS 50ml) 50 ml AD IV 05/03/24 07:30 05/03/24 14:22 DC Temazepam (restORIL 15 MG CAP) 15 mg HS PRN PO INSOMNIA/SLEEP 05/03/24 01:00 06/02/24 00:59 05/16/24 02:11 15 MG Tramadol HCl (UltRAM) 50 mg Q6H PRN PO SEVERE PAIN (7-10) 05/10/24 02:30 05/15/24 02:29 DC 05/13/24 09:20 50 MG DIAGNOSTICS / RADIOLOGY: [ ] ASSESSMENT: Ulcerated cancer lesion on the left parietal area consistent with squamous cell carcinoma Suicidal ideation Possible new diagnosis of acute gout POA Acute hypoxemic respiratory failure, needing oxygen supplementation-patient already has oxygen concentrator at bedside but currently on room air. Pneumonia, (suspected aspiration pneumonia), POA Elevated D-dimer, PE was ruled out Dysphagia, POA Failure to thrive, POA Debility/frailty/general body weakness, POA Hematuria, POA, Jung catheter in place CLINICAL FACULTY Atrial fibrillation, 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 Obesity, BMI 38.0. Chronic problem list: AFib, hypertension, hyperlipidemia, COPD, skin cancer to scalp, BPH, urinary retention s/p Jung placement about 7-10 days ago at [facility]. ROSA RICO MD May 18, 2024 16:01
--- NOTE | 2024-05-18 18:46 | NUR ---
UNABLE TO RECEIVE EVALUATION VIA FAX. REPORT EMAILED TO EARLY CHILDHOOD EDUCATION WORKER FROM [employer]. MARY STATED PT IS OKAY FOR DISCHARGE. STATED HE WILL FOLLOW UP FOR REPORT.
--- NOTE | 2024-05-18 20:00 | NUR ---
DISCHARGE LIZBETH VEE IS HERE TO LUNCHROOM SUPERVISOR THE PATIENT TO [facility]. IV CATHETER REMOVED. TIP INTACT. DISCHARGE PAPERWORK GIVEN. SECURITY CANNOT GIVE THE PATIENT BELONGING INCLUDING PHONE AND WALLET BECAUSE THEY "CANNOT OPEN THE SAFE." THEIR PANEL LAMINATOR IS GOING TO OPEN IT TOMORROW AT 07:00 AM AND LIZBETH VEE WILL COME AND LUNCHROOM SUPERVISOR HIS ITEMS TOMORROW. ARTHUR TOOK THE PATIENT DOWN VIA WHEELCHAIR TO [facility].
--- NOTE | 2024-05-18 23:13 | PN ---
Mr. Marshall is a 68-year-old male with history of recent mild stroke", atrial fibrillation, hypertension, hyperlipidemia, COPD, skin cancer (scalp closed), BPH, and urinary retention who presented to [facility] via EMS for evaluation of cough, dysphagia, shortness of breath, and general body weakness. The patient also reported he is unable to ambulate due to generalized weakness and worsening chronic back pain. Patient reported he was admitted at [facility] in [place], [place] where he experienced a CVA inpatient. The patient reported he was discharged and returned back to [facility] due to no improvement of symptoms. He was was discharged this afternoon again from [facility] where he had been readmitted for approximately 10 days. He stated that he did not receive physical therapy while in hospital and rehab was not an option". He also stated that he had a Jung catheter placed proximally 7-10 days ago for urinary retention and it remains in place. He stated he thinks he may have a low-grade fever as well as chills. He denied having any chest pain, palpitations, edema, abdominal pain, nausea, vomiting, diarrhea, headache, visual disturbance, focal weakness/paresthesia, or dizziness. The patient reported that on his last admission to [facility] the admitting hospitalist and production planner scheduler were not nice which prompted him to come to [facility] [place] [place] instead this time. I was consulted because this patient have necrotic mass to the scalp. Biopsy was done before consistent with squamous cell. This patient was seen by general surgery. There is plan to discharge patient home. PHYSICAL EXAM GENERAL APPEARANCE: The patient is awake, alert, and oriented, in no acute cardiopulmonary distress. NEUROLOGICAL: Cranial nerves II-XII grossly intact. Motor is 5/5 in bilateral upper and lower extremities proximal to distal. No sensory deficits. HEENT: Face is symmetric. Pupils are equal and reactive. Extraocular movements are intact. NECK: Supple. No JVD. No thyromegaly. No submental, submandibular, pre- /postauricular, occipital or supraclavicular lymphadenopathy. CHEST: Normal chest expansion. No Telemetry. LUNGS: Absence of any rales, rhonchi or any wheezing. CARDIOVASCULAR: Regular. S1 and S2 normal. No appreciable rubs, murmurs or gallops. ABDOMEN: Soft, nontender, and nondistended. There is no rebound, voluntary guarding, or rigidity. : Deferred. No Jung. EXTREMITIES: Non-edematous and not cyanotic. No clubbing. Good capillary refill. SKIN: No skin breakdown. Assessment 1. 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 2. Hypertension 3. Hyperlipidemia 4. COPD 5. Sepsis Plan 1. This patient could benefit from neoadjuvant chemotherapy treatments carboplatin-taxol every 21 days. 2. Continue care as per primary 3. If this patient discharged to follow-up with me in the next week 1-2. Vitals/Labs Vital Signs Date Time Temp Pulse Resp B/P (MAP) Pulse Ox O2 Delivery O2 Flow Rate FiO2 05/18/24 19:27 100 20 N/A Room Air 21 05/18/24 11:44 97.7 90/66 100 05/18/24 08:33 2.0 Medications Current Medications Piperacillin Sod/ Tazobactam Sod 3.375 gm ONCE ONCE IV Last administered on 05/03/24at 00:01; Start 05/02/24 at 23:30; Stop 05/02/24 at 23:38; Status DC Hydromorphone HCl 0.5 mg ONCE ONCE IVP Last administered on 05/02/24at 23:23; S tart 05/02/24 at 22:30; Stop 05/02/24 at 22:31; Status DC Iohexol 35,000 mg STK-MED ONCE IV; Start 05/03/24 at 00:40; Stop 05/03/24 at 00:41; Status DC Albuterol Sulfate 2.5 mg [id number] PRN IH Last administered on 05/09/24at 23:13; Start 05/03/24 at 01:00; Stop 05/18/24 at 21:01; Status DC Ipratropium [place] 0.5 mg [id number] IH Last administered on 05/18/24at 19:27; Start 05/03/24 at 06:00; Stop 05/18/24 at 21:01; Status DC Acetaminophen 650 mg Q6H PRN PO Last administered on 05/08/24at 09:16; Start 05/03/24 at 01:00; Stop 05/18/24 at 21:01; Status DC Acetaminophen 650 mg Q6H PRN RC; Start 05/03/24 at 01:00; Stop 05/18/24 at 21:01; Status DC Acetaminophen/ Hydrocodone Bitart 1 tab Q6H PRN PO Last administered on 05/04/24at 12:06; Start 05/03/24 at 01:00; Stop 05/08/24 at 00:59; Status DC Lactulose 20 gm Q6H PRN PO Last administered on 05/15/24at 15:55; Start 05/03/24 at 01:00; Stop 05/18/24 at 21:01; Status DC Docusate Sodium 100 mg BID PRN PO Last administered on 05/13/24at 09:20; Start 05/03/24 at 01:00; Stop 05/16/24 at 12:00; Status DC Temazepam 15 mg HS PRN PO Last administered on 05/16/24at 02:11; Start 05/03/24 at 01:00; Stop 05/18/24 at 21:01; Status DC Ondansetron HCl 4 mg Q6H PRN IVP; Start 05/03/24 at 01:00; Stop 05/18/24 at 21:01; Status DC Hydralazine HCl 10 mg Q2H PRN IV; Start 05/03/24 at 01:00; Stop 05/18/24 at 21:01; Status DC Insulin Human Regular INSULIN SLIDING SCAL... ACHS SQ; Start 05/03/24 at 07:30; Stop 05/18/24 at 21:01; Status DC Sodium Chloride 4 ml STK-MED ONCE IH Last administered on 05/03/24at 06:58; Start 05/03/24 at 06:41; Stop 05/03/24 at 06:41; Status DC Piperacillin Sod/ Tazobactam Sod 3.375 gm Q8H IVPB Last administered on 05/05/24at 18:26; Start 05/03/24 at 07:30; Stop 05/05/24 at 19:23; Status DC Sodium Chloride 50 ml AD IV; Start 05/03/24 at 07:30; Stop 05/03/24 at 14:22; Status DC Norepinephrine 250 ml @ As Directed STK-MED ONCE IV; Start 05/03/24 at 09:30; Stop 05/03/24 at 09:31; Status DC Sodium Chloride 1,368 ml @ 456 mls/hr ONCE ONCE IV Last administered on at 10:06; Start 05/03/24 at 10:00; Stop 05/03/24 at 12:59; Status DC Sodium Chloride 1,000 ml @ 999 mls/hr Q1H1M IV; Start 05/03/24 at 10:00; Stop 05/03/24 at 14:21; Status DC Norepinephrine 250 ml @ 0 mls/hr PROTOCOL IV; Start 05/03/24 at 10:00; Stop 05/14/24 at 10:44; Status DC Doxycycline Hyclate 250 ml @ 125 mls/hr Q12H IV Last administered on 05/11/24at 09:28; Start 05/03/24 at 10:00; Stop 05/11/24 at 12:00; Status DC Sodium Chloride 4 ml STK-MED ONCE IH Last administered on 05/03/24at 12:11; St art 05/03/24 at 12:09; Stop 05/03/24 at 12:10; Status DC Magnesium Sulfate 50 ml @ 0 mls/hr PROTOCOL PRN IV Last administered on 05/09/24at 05:45; Start 05/03/24 at 13:30; Stop 05/10/24 at 12:00; Status DC Potassium Chloride 100 ml @ 50 mls/hr AD PRN IV; Start 05/03/24 at 13:30; Stop 05/18/24 at 21:01; Status DC Pantoprazole Sodium 40 mg DAILY IVP Last administered on 05/08/24at 09:15; Start 05/04/24 at 09:00; Stop 05/08/24 at 12:00; Status DC Heparin Sodium (Porcine) *calculation based on ACTUAL B... AD PRN IV; Start 05/03/24 at 15:00; Stop 05/03/24 at 14:18; Status DC Heparin Sodium/ Dextrose 250 ml @ 0 mls/hr Q6H IV; Start 05/03/24 at 15:00; Stop 05/03/24 at 14:18; Status DC Metoprolol Tartrate 12.5 mg BID PO Last administered on 05/08/24at 10:05; Start 05/03/24 at 21:00; Stop 05/08/24 at 12:00; Status DC Apixaban 5 mg ONCE ONCE PO Last administered on 05/03/24at 16:21; Start 05/03/24 at 14:30; Stop 05/03/24 at 14:31; Status DC Atorvastatin Calcium 40 mg ONCE ONCE PO Last administered on 05/03/24at 16:21; Start 05/03/24 at 14:30; Stop 05/03/24 at 14:31; Status DC Apixaban 5 mg ONCE ONCE PO; Start 05/03/24 at 04:00; Stop 05/03/24 at 15:37; Status DC Atorvastatin Calcium 40 mg HS PO; Start 05/03/24 at 21:00; Stop 05/03/24 at 15:27; Status DC Atorvastatin Calcium 40 mg HS PO Last administered on 05/18/24at 19:51; Start 05/03/24 at 21:00; Stop 05/18/24 at 21:01; Status DC Sodium Chloride 4 ml STK-MED ONCE IH Last administered on 05/03/24at 19:17; Start 05/03/24 at 17:59; Stop 05/03/24 at 18:00; Status DC Piperacillin Sod/ Tazobactam Sod 3.375 gm Q8H IVPB Last administered on 05/15/24at 18:36; Start 05/06/24 at 02:00; Stop 05/16/24 at 01:59; Status DC Tramadol HCl 50 mg Q6H PRN PO Last administered on 05/13/24at 09:20; Start 05/10/24 at 02:30; Stop 05/15/24 at 02:29; Status DC Tramadol HCl 50 mg STK-MED ONCE .ROUTE; Start 05/10/24 at 02:25; Stop 05/10/24 at 02:26; Status DC Magnesium Sulfate 50 ml @ 0 mls/hr PROTOCOL IV Last administered on 05/14/24at 05:34; Start 05/11/24 at 13:00; Stop 05/14/24 at 08:02; Status DC Morphine Sulfate 2 mg ONCE STAT IVP Last administered on 05/12/24at 00:19; Start 05/12/24 at 00:14; Stop 05/12/24 at 00:17; Status DC Bupivacaine HCl/ Epinephrine Bitart 10 ml STK-MED ONCE IJ Last administered on 05/12/24at 00:00; Start 05/12/24 at 12:50; Stop 05/12/24 at 12:50; Status DC Heparin Sodium/ Sodium Chloride 500 ml @ As Directed STK-MED ONCE IV Last administered on 05/12/24at 00:00; Start 05/12/24 at 12:51; Stop 05/12/24 at 12:52; Status DC Lidocaine HCl 100 mg STK-MED ONCE .ROUTE; Start 05/12/24 at 17:50; Stop 05/12/24 at 17:50; Status DC Propofol 200 mg STK-MED ONCE IV; Start 05/12/24 at 17:50; Stop 05/12/24 at 17:50; Status DC Midazolam HCl 2 mg STK-MED ONCE .ROUTE; Start 05/12/24 at 17:50; Stop 05/12/24 at 17:50; Status DC Propofol 100 ml @ As Directed STK-MED ONCE IV; Start 05/12/24 at 17:53; Stop 05/12/24 at 17:53; Status DC Ketamine HCl 50 mg STK-MED ONCE .ROUTE; Start 05/12/24 at 17:53; Stop 05/12/24 at 17:53; Status DC Magnesium Sulfate 50 ml @ 0 mls/hr PROTOCOL IV; Start 05/14/24 at 08:00; Stop 05/17/24 at 09:41; Status DC Meclizine HCl 12.5 mg TID PRN PO; Start 05/15/24 at 14:30; Stop 05/18/24 at 21:01; Status DC Bisacodyl 5 mg ONCE ONCE RC; Start 05/15/24 at 15:00; Stop 05/15/24 at 15:01; Status DC Docusate Sodium 100 mg BID PO Last administered on 05/18/24at 19:51; Start 05/16/24 at 12:00; Stop 05/18/24 at 21:01; Status DC Magnesium Sulfate 50 ml @ 0 mls/hr PROTOCOL IV; Start 05/17/24 at 10:00; Stop 05/18/24 at 21:01; Status DC TU CARRERA MD May 18, 2024 23:13
== END 2024-05-18 20:00 | disposition home or self-care (01) | DRG 853 ==
LOC: EDH 21:52 → EDHIP 21:53 → 4AH 05-03 19:55
PROVIDERS: ADMIT Internal Medicine; ATTEND Internal Medicine
PROC: B5181ZA Fluoroscopy of Superior Vena Cava using Low Osmolar Contrast, Guidance (ICD-10-PCS; 2024-05-12)
PROC: 0HB0XZX Excision of Scalp Skin, External Approach, Diagnostic (ICD-10-PCS; 2024-05-12)
PROC: 02HV33Z Insertion of Infusion Device into Superior Vena Cava, Percutaneous Approach (ICD-10-PCS; principal; 2024-05-12 17:57)
PROC: 0JH60WZ Insertion of Totally Implantable Vascular Access Device into Chest Subcutaneous Tissue and Fascia, Open Approach (ICD-10-PCS; 2024-05-12 17:57)
DX: A41.9 Sepsis, unspecified organism (principal); J69.0 Pneumonitis due to inhalation of food and vomit; J96.01 Acute respiratory failure with hypoxia; E87.1 Hypo-osmolality and hyponatremia; R45.851 Suicidal ideations; J44.0 Chronic obstructive pulmonary disease with (acute) lower respiratory infection; D63.8 Anemia in other chronic diseases classified elsewhere; E11.65 Type 2 diabetes mellitus with hyperglycemia; E66.9 Obesity, unspecified; E87.8 Other disorders of electrolyte and fluid balance, not elsewhere classified; E88.09 Other disorders of plasma-protein metabolism, not elsewhere classified; I10 Essential (primary) hypertension; I48.91 Unspecified atrial fibrillation; Z20.822 Contact with and (suspected) exposure to COVID-19; N40.1 Benign prostatic hyperplasia with lower urinary tract symptoms; R13.10 Dysphagia, unspecified; R33.8 Other retention of urine; E87.5 Hyperkalemia; E78.00 Pure hypercholesterolemia, unspecified; G89.29 Other chronic pain; Z86.73 Personal history of transient ischemic attack (TIA), and cerebral infarction without residual deficits; Z68.38 Body mass index [BMI] 38.0-38.9, adult; Z85.828 Personal history of other malignant neoplasm of skin; Z79.899 Other long term (current) drug therapy
CPT/HCPCS: 36415; 36600; 71045; 71270; 73590; 73600; 73630; 74230; 76000; 76700; 78226; 80048; 80053; 81001; 82306; 82435; 82803; 82947; 82948; 83036; 83605; 83735; 83880; 84100; 84132; 84145; 84295; 84443; 84484; 84550; 85018; 85025; 85027; 85378; 87040; 87086; 87635; 87804; 92611; 93005; 93306; 93925; 93926; 93970; 93971; 94640; 94664; 94667; 94668; 94760; 96374; 99285; A4606; A6248; A9537; C1788; G0378; J1171; J1644; J2003; J2250; J2270; J2470; J2543; J2704; J3475; J3490; Q9967; A4215; A4221; A4222; A4223; A4930

== ENCOUNTER 2024-06-02 14:16 | Emergency (ER) | payer SELFPAY ==
[~2024-06-02] VITALS: Ht 172.7 cm; Wt 95.7 kg
[~2024-06-02 14:16] MED LIST: ACET650S14 RC; ALBU2.5V2 IH; APIX2.5T PO; ATOR40TA69 PO; DOXY100C5 PO; IPRNEB IH; LACT10SO9 PO; LEVO750T40 PO; MECL-226 PO; METF-527 PO; METO25 PO
--- NOTE | 2024-06-02 14:54 | ERN ---
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 ACCORDING TO THE PATIENT AND PAPER WORK FROM HIS PCP/WOUND CENTER THE WOUND BEGAN BLEEDING SUDDENLY TODAY WITHOUT ANY RECENT TRAUMA OR MANIPULATION. THE BLEEDING WAS PERSISTENT, PROMPTING THE PROVIDER TO REFER THE PATIENT TO ED FOR FURTHER EVALUATION OF ACUTE HEAD TRAUMA AND ACTIVE HEMORRHAGE. PATIENT REPORTS PRIOR EPISODES OF MINOR OOZING BUT THIS IS THE 1ST TIME HE EXPERIENCED ACTIVE SIGNIFICANT BLEEDING FROM THE WOUND. HE DENIES LOSS OF CONSCIOUSNESS, NAUSEA, VOMITING OR HEAD TRAUMA. Allergies: Coded Allergies: Penicillins (Verified Allergy, 03/08/13) Home Meds Active Scripts Meclizine HCl (Meclizine HCl) 12.5 Mg Tablet, 12.5 MG PO TID PRN for DIZZINESS, #15 TAB Prov:ANUSHA PRAJAPATI FIELD SUPPORT REPRESENTATIVE 05/17/24 Ipratropium [place] (Atrovent Neb Soln) 0.2 Mg/Ml (0.02 %) Soln, 0.5 MG IH [id number] for 30 Days, #30 ML Prov:SIMON DE LA VEGA MD 05/05/24 Apixaban (Eliquis) 2.5 Mg Tablet, 1 TAB PO BID for 30 Days, #60 TAB 0 Refills Prov:SIMON DE LA VEGA MD 05/05/24 Metformin HCl (Metformin HCl ER) 1,000 Mg Tab.er.24, 1 TAB PO DAILY for 30 Days, #30 TAB 0 Refills Prov:SIMON DE LA VEGA MD 05/05/24 Lactulose (Lactulose) 10 Gram/15 Ml Solution, 20 GM PO Q6H PRN for CONSTIPATION for 30 Days, #30 ML Prov:SIMON DE LA VEGA MD 05/05/24 Doxycycline Hyclate (Doxycycline Hyclate) 100 Mg Capsule, 1 CAP PO BID for 5 Days, #14 CAP 0 Refills Prov:SIMON DE LA VEGA MD 05/05/24 Levofloxacin (Levofloxacin) 750 Mg Tablet, 1 TAB PO DAILY for 7 Days, #7 TAB 0 Refills Prov:SIMON DE LA VEGA MD 05/05/24 Metoprolol Tartrate (Lopressor) 25 Mg Tab, 12.5 MG PO BID for 30 Days, #30 TAB Prov:SIMON DE LA VEGA MD 05/05/24 Atorvastatin Calcium (LIPITOR) 40 Mg Tablet, 40 MG PO HS for 30 Days, #30 TAB Prov:SIMON DE LA VEGA MD 05/05/24 Albuterol Sulfate (Albuterol Sulfate) 2.5 Mg/3 Ml (0.083 %) Vial.neb, 2.5 MG IH [id number] PRN for SHORTNESS OF BREATH for 30 Days, #30 INH Prov:SIMON DE LA VEGA MD 05/05/24 Acetaminophen (Acetaminophen) 650 Mg Supp.rect, 650 MG RC Q6H PRN for FEVER / MILD PAIN 1-3 IF NPO for 30 Days, #30 EA Prov:SIMON DE LA VEGA MD 05/05/24 Past Medical History Past Medical History: A-Fib, COPD, CVA, Diabetes-Type II, High Cholesterol, Hypertension Medical History Other: BPH, SKIN CANCER, CHRONIC BACK PAIN, LUMBAR STENOSIS Past Surgical History: Tonsillectomy Social History Social History: Other ROS Dictation CONSTITUTIONAL: NO CHILLS, NO FEVER, NO WEAKNESS, NO DIAPHORESIS, NO MALAISE. HEAD/FACE: NO SIGNS OF TRAUMA. SKIN: ACTIVE BLEEDING FROM THE KNOWN ULCERATIVE SCALP LESION. NO NEW RASH OR OTHER LESIONS. EENT: NO EYE PAIN, NO BLURRED VISION, NO TEARING, NO DOUBLE VISION, NO EAR PAIN, NO EAR DISCHARGE, NO NOSE PAIN, NO NASAL CONGESTION, NO THROAT PAIN, NO THROAT SWELLING, NO MOUTH PAIN. RESPIRATORY: NO COUGH, NO ORTHOPNEA, NO SOB, NO STRIDOR, NO WHEEZING. CARDIOVASCULAR: NO CHEST PAIN, NO EDEMA, NO PALPITATIONS, NO SYNCOPE. GASTROINTESTINAL/ABDOMINAL: NO ABDOMINAL PAIN, NO CONSTIPATION, NO DIARRHEA, NO NAUSEA, NO VOMITING. GENITOURINARY: NO ABNORMAL DISCHARGE, NO DYSURIA, NO FREQUENT URINATION, NO HEMATURIA. NO COMPLAINTS OF PAIN IN THE GENITALS. MUSCULOSKELETAL: NO BACK PAIN, NO GOUT, NO JOINT PAIN, NO JOINT SWELLING, NO MUSCLE PAIN, NO MUSCLE STIFFNESS, NO NECK PAIN. INTEGUMENTARY: CHANGE IN COLOR, NO CHANGE IN HAIR/NAILS, NO DRYNESS, NO LESION, NO LUMPS, PAINFUL BLISTERS, RASH ON THE LEFT MEDIAL LEG AND WORSENING SWELLING NEUROLOGICAL/PSYCH: NO ANXIETY, NOT DEPRESSED, NO EMOTIONAL PROBLEM, NO HEADACHE, NO NUMBNESS, NO PRE-EXISTING DEFICIT, NO HISTORY OF SEIZURES, NO TREMORS, NO WEAKNESS. HEMATOLOGIC/LYMPHATIC: ON APIXABAN. DENIES KNOWN BLEEDING DISORDERS. NOT ANEMIC, NO HISTORY OF BLOOD CLOTS, NO APPARENT BLEEDING, NO BRUISING, GLANDS NOT SWOLLEN. ALL SYSTEMS NEGATIVE, EXCEPT NOTED. Physical Exam Physical Exam Dictation VITAL SIGNS: REVIEWED. GENERAL APPEARANCE: ALERT, ORIENTED X3, NO ACUTE DISTRESS, OBESE. HEAD AND FACE: NON-TRAUMATIC. EYES: PERRL, PINK CONJUNCTIVAS, EYELID NO TRAUMA, ANTERIOR CHAMBER CLEAR. EARS: PINNAS INTACT AND NO SIGNS OF TRAUMA OR ERYTHEMA. EAR CANALS CLEAR AND NO DISCHARGE. TMS NO ERYTHEMA. NOSE: NO DISCHARGE, NO BLEEDING. OROPHARYNX: MOUTH NORMAL, TEETH NO CARIES, TONGUE PINK. PHARYNX CLEAR, NO ERYTHEMA. TONSILS NO EXUDATES, NO ABSCESSES NOTED. MUCOUS MEMBRANE MOIST. NECK: SUPPLE, NON-TENDER, NO THYROMEGALY, NO MASSES, NO JVD, NO BRUITS. BREAST: DEFERRED. CHEST: NO TENDERNESS, NO CREPITUS, NO PARADOXICAL MOVEMENT, NO RETRACTIONS. LUNGS: CLEAR, WELL-VENTILATED, SYMMETRIC, NO RALES, NO WHEEZING, NO RHONCHI, NO STRIDOR, GOOD BREATH SOUNDS BILATERALLY. HEART: REGULAR RATE, REGULAR RHYTHM, NO MURMUR, NO GALLOPS. VASCULAR: NO PERIPHERAL EDEMA. ABDOMEN: SOFT, POSITIVE BOWEL SOUNDS, NONDISTENDED, NO GUARDING, NONTENDER, NO REBOUND, NO MASSES NO HEPATOMEGALY, NO SPLENOMEGALY, NO KENNY'S SIGN, NO HERNIAS. RECTAL: DEFERRED. GENITAL: DEFERRED. NEUROLOGICAL: NORMAL SPEECH, GROSS MOTOR FUNCTION INTACT, GROSS SENSORY FUNCTION INTACT. MUSCULOSKELETAL: NECK NONTENDER, FULL RANGE OF MOTION, BACK NONTENDER, FULL RANGE OF MOTION. EXTREMITIES: NONTENDER, FULL RANGE OF MOTION. SKIN: ULCERATIVE LESION OVER LEFT PARIETAL SCALP, IRREGULAR BORDERS, FRIABLE AND BLEEDING ON TOUCH. MINIMAL SURROUNDING ERYTHEMA. NO SIGNS OF CELLULITIS. NO OBVIOUS FLUCTUANCE OR PURULENT DRAINAGE. LYMPHATICS: DEFERRED. Results Laboratory and Microbiology Lab and Micro Result Laboratory Tests Test 06/02/24 15:01 White Blood Count 8.8 K/uL (4.8-10.8) Red Blood Count 4.42 MIL/uL (4.50-6.20) L Hemoglobin 12.9 g/dL (14.0-18.0) L Hematocrit 39.9 % (42-54) L Mean Corpuscular Volume 90.3 fL (79-99) Mean Corpuscular Hemoglobin 29.2 pg (27.0-33.0) Mean Corpuscular Hemoglobin Concent 32.3 g/dL (32.0-36.0) Red Cell Distribution Width 15.9 % (11.0-15.5) H Platelet Count 201 K/uL (130-400) Mean Platelet Volume 9.1 fL (7.5-10.5) Immature Granulocyte % (Auto) 0.5 % (0-1) Neutrophils (%) (Auto) 68.1 % (40.0-77.0) Lymphocytes (%) (Auto) 21.8 % (21.0-51.0) Monocytes (%) (Auto) 7.4 % (3.0-13.0) Eosinophils (%) (Auto) 1.5 % (0.0-8.0) Basophils (%) (Auto) 0.7 % (0.0-5.0) Neutrophils # (Auto) 6.0 K/uL (1.8-7.7) Lymphocytes # (Auto) 1.9 K/uL (1.0-4.8) Monocytes # (Auto) 0.7 K/uL (0.1-1.0) Eosinophils # (Auto) 0.13 K/uL (0.00-0.70) Basophils # (Auto) 0.06 K/uL (0.00-0.20) Absolute Immature Granulocyte (auto 0.04 K/uL (0-1) Nucleated Red Blood Cells 0.0 % (0.0-0.19) Prothrombin Time 12.6 SEC (9.6-11.6) H Prothromb Time International Ratio 1.21 (0.85-1.15) H Activated Partial Thromboplast Time 37.3 SEC (26.3-35.5) H Sodium Level 140 mmol/L (136-145) Potassium Level 3.9 mmol/L (3.5-5.1) Chloride Level 104 mmol/L (101-111) Carbon Dioxide Level 26 mmol/L (21-32) Blood Urea Nitrogen 12 mg/dL (7-18) Creatinine 0.9 mg/dL (0.5-1.3) Glomerular Filtration Rate Calc 92 mL/min (>90) Random Glucose 87 mg/dL (70-105) Total Calcium 9.3 mg/dL (8.5-10.1) Total Bilirubin 0.9 mg/dL (0.2-1.0) Direct Bilirubin 0.4 mg/dL (0.0-0.3) H Aspartate Amino Transf (AST/SGOT) 35 U/L (10-37) Alanine Aminotransferase (ALT/SGPT) 30 U/L (12-78) Alkaline Phosphatase 106 U/L (50-136) Total Protein 7.3 g/dL (6.0-8.3) Albumin 3.0 g/dL (3.5-5.0) L EKG/XRAY/US/CT/MRI CT Scan Comment PATIENT: DAYANA MAYO MR#: [id number] : 1955 SEX: M AGE: 68 LOCATION: [facility] ORDER 45 STATUS: [facility] REPORT#: [id number] SERVICE 144 REASON: RULE OUT HEAD TRAUMA ORDERING PHYSICIAN: SIMON DE LA VEGA MD PROCEDURE: HEAD WO - CT HEAD/BRAIN W/O CONTRAST CT HEAD WITHOUT CONTRAST INDICATION: head trauma TECHNIQUE: Noncontrast axial helical CT images from the vertex through the skull base using 5 mm slice thickness without contrast material. Coronal and sagittal reconstructions were also included. Dose reduction techniques was used using integrated, automated and adaptive dose reduction exposure control. CT was performed with one or more of the following dose reduction techniques: Automated exposure control, adjustment of the mA and/or kV according to patient size, or use of iterative reconstruction technique. COMPARISON: None FINDINGS: Scattered and coalescent subcortical and periventricular white matter low attenuating areas likely represent residual of chronic small vessel arteriopathy and/or remote vascular insult. Generalized mild cerebral cortical atrophy is present.. No evidence for abnormal extra-axial fluid collections or masses. The ventricles and sulci are normal in size and configuration. No evidence for intracranial parenchymal, epidural, or subdural hemorrhage, mass effect or midline shift. The alexander-white matter differentiation is well preserved. No secondary evidence to suggest acute ischemia. Mild calcific plaque is present along the pettit of the cavernous segments of both internal carotid arteries, including mild along the pettit of both vertebral arteries at the level of the foramen magnum. The brainstem and cerebellum appear normal. The visualized orbits appear unremarkable. The visible paranasal sinuses and mastoid air cells are clear. The calvarium appears normal. IMPRESSION: Chronic white matter ischemic changes, mild brain atrophy, and arteriosclerotic disease as described, without acute component. DICTATED BY: DELANO JOHNSON MD DATE: 06/02/24 1531 ELECTRONICALLY SIGNED BY: DELANO JOHNSON MD DATE: 06/02/24 1535 [facility] MDM: DIFFERENTIAL DIAGNOSIS: TO HEMORRHAGE FROM ULCERATED SCC LESION, HEMORRHAGE SECONDARY TO APIXABAN, SCALP INFECTION WITH EROSION OF VASCULAR STRUCTURES, SUB GALEAL HEMATOMA, LOCALIZED CELLULITIS OR EARLY NECROTIZING INFECTION, DEEPLY INVASIVE SQUAMOUS CELL CARCINOMA. RATIONALE: TESTS CONSIDERED AND ORDERED SECONDARY TO SHARED DECISION MAKING INCLUDE: LABS, ECG AND RADIOLOGY PREVIOUS OUTSIDE RECORDS REVIEWED: OLD ER VISITS. RISK OF COMPLICATION AND/OR MORBIDITY OR MORTALITY OF PATIENT MANAGEMENT: NONE MEDICATIONS-PER MEDICATION RECONCILIATION NEED FOR HOSPITALIZATION: PATIENT DOES MEET CRITERIA FOR HOSPITALIZATION. NEED FOR EMERGENCY MAJOR/MINOR SURGERY: NO THERE ARE NO SOCIAL CONCERNS WITH THIS PATIENT. PRESCRIPTION DRUG MANAGEMENT PRESCRIPTIONS WILL INCLUDE SYMPTOMATIC CARE PATIENT'S PRIOR EXTERNAL MEDICAL RECORDS FROM OTHER ER VISITS WERE REVIEWED BY ME INDICATED. PRIOR TESTING AND RESULTS FROM PREVIOUS VISITS WERE REVIEWED. PRIOR TESTS WERE TAKEN INTO ACCOUNT WITH MEDICAL DECISION MAKING AND RESOURCE UTILIZATION, INDEPENDENT HISTORIAN/HISTORIANS WERE USED TO OBTAIN COMPLETE MEDICAL HISTORY. I INDEPENDENTLY INTERPRETED THE TEST THAT WERE PERFORMED, RESULTS WERE REVIEWED BY ME AND CONSIDERED FINDINGS ON RADIOLOGY IF ORDERED. MEDICAL MANAGEMENT AND EXAMINATION INTERPRETATION DISCUSSIONS WERE HAD BY ME WITH OTHER QUALIFIED HEALTHCARE PROFESSIONALS INDICATED FOR THE PATIENT'S CARE. PATIENT PRESENTS WITH ACTIVE SCALP BLEEDING FROM A KNOWN ULCERATIVE, CELL CARCINOMA. GIVEN APIXABAN USE, THERE IS CONCERN FOR ONGOING HEMORRHAGE. NO SIGNS OF TRAUMA, ALTERED MENTAL STATUS OR INTRACRANIAL INVOLVEMENT. HOWEVER, IMAGING WARRANTED TO RULE OUT DEEP EXTENSION, SKULL INVOLVEMENT OR SUBGALEAL COLLECTION. HEMODYNAMICALLY STABLE, ALERT AND ORIENTED. HOME HEMOSTASIS ACHIEVED WITH PRESSURE DRESSING. LABS ORDERED TO ASSESS COAGULATION PROFILE, HEMOGLOBIN INFECTION. CT HEAD TO EVALUATE FOR UNDERLYING BONE OR INTRACRANIAL INVOLVEMENT ONCOLOGY AND POSSIBLE DERMATOLOGY REFERRAL IS PENDING. ORDERED A CBC PT INR AND A PTT, CT SCAN OF THE HEAD WITHOUT CONTRAST WAS ORDERED AWAITING RESULTS. LABS INCLUDING CBC METABOLIC PANEL REMAINED WITHIN NORMAL LIMITS AND COAGULATION PROFILE WAS APPROPRIATE FOR HIS APIXABAN USE. CT SCAN OF HEAD WITHOUT CONTRAST DEMONSTRATED NO ACUTE INTRACRANIAL PROCESS. FINDINGS WERE LIMITED TO CHRONIC WHITE MATTER ISCHEMIC CHANGES, MILD CEREBRAL ATROPHY, ATHEROSCLEROTIC VASCULAR CHANGES ALL CONSISTENT WITH CHRONIC AGE-RELATED CHANGES. THERE IS NO EVIDENCE OF SKULL INVOLVEMENT, SUBGALEAL HEMATOMA OR ACUTE HEMORRHAGE. BLEEDING WAS LOCALIZED AND CONTROLLED IN THE ED WITH PRESSURE DRESSING. NO SIGNS OF DEEP INFECTION OR HEMODYNAMIC INSTABILITY. GIVEN THE HOMEOSTASIS AND STABLE CONDITION THE PATIENT IS DEEMED MEDICALLY STABLE FOR DISCHARGE WITH INSTRUCTIONS FOR ONGOING WOUND CARE AND CLOSE OUTPATIENT FOLLOW- UP. PATIENT AND CAREGIVER ARE EDUCATED ON THE SIGNS OF WORSENING BLEEDING OR INFECTION. HE WILL CONTINUE HIS CURRENT MEDICATION INCLUDING IS APIXABAN WITH OUTPATIENT ONCOLOGY AND DERMATOLOGY CONSULTATION SCHEDULED. ED Course Orders Procedure Category Date Status Time Cbc With Differential LAB 06/02/24 Complete 14:31 Basic Metabolic Panel LAB 06/02/24 Complete 14:31 Hepatic Function Panel LAB 06/02/24 Complete 14:31 Ct Head/Brain W/O CT 06/02/24 Resulted Contrast 14:44 Prothrombin Time With LAB 06/02/24 Complete INR 14:54 Partial LAB 06/02/24 Complete Thromboplastin Time 14:54 Lidocaine Hcl 1% 20ml PHA 06/02/24 Complete Vial (Lidocaine Hc 16:03 Silver Nitrate PHA 06/02/24 Complete Applicator (Silver 16:30 Current Medications Medications (Trade) Dose Ordered Sig/Beau Route PRN Reason Start Time Stop Time Status Last Admin Dose Admin Lidocaine HCl (Lidocaine HCl 1% 20ml Vial) 20 ml STK-MED ONCE .ROUTE 06/02/24 16:03 06/02/24 16:03 DC 06/02/24 16:35 Silver Nitrate (Silver Nitrate Applicator) 10 each ONCE ONCE TP 06/02/24 16:30 06/02/24 16:31 DC 06/02/24 16:35 Vital Signs Date Time Temp Pulse Resp B/P (MAP) Pulse Ox O2 Delivery O2 Flow Rate FiO2 06/02/24 15:09 98.2 114 16 142/87 100 Room Air* 0 21 06/02/24 14:19 97.9 65 16 133/82 98 Room Air DX & DISP Disposition: Discharge Departure Impression: Primary Impression: 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 CHANGE DRESSINGS DAILY USING STERILE TECHNIQUE INSTRUCTED BY WOUND CARE TEAM. TOPICAL ANTIBIOTIC APPLICATION IF ADVICE. MONITOR FOR SIGNS OF INFECTION LIKE INCREASING REDNESS, PROMPTING, SWELLING OR PURULENT DISCHARGE. CONTINUE HOME MEDICATIONS PREVIOUSLY PRESCRIBED. LIMIT DIRECT PRESSURE OR TRAUMA TO THE SCALP AREA. AVOID SCRATCHING OR MANIPULATING THE LESION. PRIMARY CARE PHYSICIAN FOLLOW-UP WITHIN 3-5 DAYS. WOUND CARE CLINIC SCHEDULED. HEMATOLOGY AND ONCOLOGY APPOINTMENTS FOR FURTHER MANAGEMENT OF SCC SCHEDULED. RETURN TO ED IMMEDIATELY IF RECURRENT OR UNCONTROLLED BLEEDING FROM SCALP LESION. SIGNS OF INFECTION LIKE FEVER REDNESS PUS OR FOUL ODOR. NEW OR WORSENING HEADACHE, CONFUSION VISION CHANGES. DIZZINESS, SYNCOPE OR NEW NEUROLOGICAL SYMPTOMS. Referrals: SELF,REFERRAL (PCP) Time of Disposition: 15:57 ATTESTATION BY PHYSICIAN I have seen and examined the patient. I reviewed the documentation, medical decision making, and treatment plan as noted by the mid-level provider above. I agree with the findings and plan of care. Deborah Dalal MD, RAGHAVA R MD Jun 02, 2024 14:54
[2024-06-02 15:10] LABS: BASOPHILS # (AUTO) 0.06 K/uL (0.00-0.20); BASOPHILS % (AUTO) 0.7 % (0.0-5.0); EOSINOPHILS # (AUTO) 0.13 K/uL (0.00-0.70); EOSINOPHILS % (AUTO) 1.5 % (0.0-8.0); HEMATOCRIT 39.9 % (42-54); IMMATURE GRANULOCYTE ABSOLUTE 0.04 K/uL (0-1); LYMPHOCYTES # (AUTO) 1.9 K/uL (1.0-4.8); LYMPHOCYTES % (AUTO) 21.8 % (21.0-51.0); MEAN CORPUSCULAR HEMOGLOBIN 29.2 pg (27.0-33.0); MEAN CORPUSCULAR HGB CONC 32.3 g/dL (32.0-36.0); MEAN CORPUSCULAR VOLUME 90.3 fL (79-99); MONOCYTES # (AUTO) 0.7 K/uL (0.1-1.0); MONOCYTES % (AUTO) 7.4 % (3.0-13.0); NEUTROPHILS % (AUTO) 68.1 % (40.0-77.0); PLATELET COUNT (AUTO) 201 K/uL (130-400); RED BLOOD CELL COUNT(AUTO) 4.42 MIL/uL (4.50-6.20); RED CELL DISTRIBUTION WIDTH 15.9 % (11.0-15.5); WHITE BLOOD COUNT (AUTO) 8.8 K/uL (4.8-10.8)
[2024-06-02 15:20] LABS: INR 1.21 (0.85-1.15); PROTHROMBIN TIME 12.6 SEC (9.6-11.6)
[2024-06-02 15:21] LABS: PARTIAL THROMBOPLASTIN TIME 37.3 SEC (26.3-35.5)
[2024-06-02 15:27] LABS: BILIRUBIN,DIRECT 0.4 mg/dL (0.0-0.3); BILIRUBIN,TOTAL 0.9 mg/dL (0.2-1.0); CREATININE 0.9 mg/dL (0.5-1.3); POTASSIUM 3.9 mmol/L (3.5-5.1); TOTAL PROTEIN, SERUM 7.3 g/dL (6.0-8.3)
--- NOTE | 2024-06-02 15:35 | HMCIMG ---
CT HEAD WITHOUT CONTRAST INDICATION: head trauma TECHNIQUE: Noncontrast axial helical CT images from the vertex through the skull base using 5 mm slice thickness without contrast material. Coronal and sagittal reconstructions were also included. Dose reduction techniques was used using integrated, automated and adaptive dose reduction exposure control. CT was performed with one or more of the following dose reduction techniques: Automated exposure control, adjustment of the mA and/or kV according to patient size, or use of iterative reconstruction technique. COMPARISON: None FINDINGS: Scattered and coalescent subcortical and periventricular white matter low attenuating areas likely represent residual of chronic small vessel arteriopathy and/or remote vascular insult. Generalized mild cerebral cortical atrophy is present.. No evidence for abnormal extra-axial fluid collections or masses. The ventricles and sulci are normal in size and configuration. No evidence for intracranial parenchymal, epidural, or subdural hemorrhage, mass effect or midline shift. The alexander-white matter differentiation is well preserved. No secondary evidence to suggest acute ischemia. Mild calcific plaque is present along the pettit of the cavernous segments of both internal carotid arteries, including mild along the pettit of both vertebral arteries at the level of the foramen magnum. The brainstem and cerebellum appear normal. The visualized orbits appear unremarkable. The visible paranasal sinuses and mastoid air cells are clear. The calvarium appears normal. IMPRESSION: Chronic white matter ischemic changes, mild brain atrophy, and arteriosclerotic disease as described, without acute component.
[2024-06-02] MEDS: SILVER NITRATE APPLICATOR 1 SWAB TP ONE (16:35)
[2024-06-02] MEDS: LIDOCAINE HCL 1% 20 ML VIAL ONE (16:35)
[2024-06-02 18:21] VITALS: BP 124/80; PULSE 95; RESP 16; TEMP 98.3; O2SAT 98
--- NOTE | 2024-06-02 18:38 | NUR ---
lesion to scalp sutures x2 silver nitrate used to stop bleeding and non adhearant dressing along wit 4x4 and kerlex used to apply slight pressure
== END 2024-06-02 19:26 | disposition home or self-care (01) ==
LOC: EDH 14:16
DX: C44.42 Squamous cell carcinoma of skin of scalp and neck (principal); I10 Essential (primary) hypertension; I48.91 Unspecified atrial fibrillation; J44.9 Chronic obstructive pulmonary disease, unspecified; Z79.01 Long term (current) use of anticoagulants; Z79.84 Long term (current) use of oral hypoglycemic drugs; Z79.899 Other long term (current) drug therapy; Z85.828 Personal history of other malignant neoplasm of skin; Z86.73 Personal history of transient ischemic attack (TIA), and cerebral infarction without residual deficits; Z88.0 Allergy status to penicillin; Z90.89 Acquired absence of other organs
CPT/HCPCS: 36415; 70450; 80048; 80076; 85025; 85610; 85730; 99284

== ENCOUNTER 2024-06-16 10:52 | Inpatient (IN) | payer SELFPAY ==
[~2024-06-16] VITALS: Ht 175.3 cm; Wt 90.3 kg
[~2024-06-16 10:52] MED LIST changes: -LEVO750T40 PO; +LEVO750T90 PO
[2024-06-16] MEDS ORDERED: DEXTROSE 50%-WATER 50 ML DISP.SYRIN IV PRN (12:00)
[2024-06-16] MEDS ORDERED: PoTASSium chloRIDE 20MEQ ER 20 MEQ ERTAB PO PRN (12:00)
[2024-06-16] MEDS ORDERED: PoTASSium chloRIDE 20MEQ/100ML 100 ML IV PRN ×3 (12:00)
[2024-06-16] MEDS ORDERED: acetaMINOPHEN 325 MG TAB PO PRN ×3 (12:00)
[2024-06-16] MEDS ORDERED: ondanSETRON 4MG INJ IVP PRN (12:00)
[2024-06-16] MEDS ORDERED: GLUCAGON 1MG KIT 1 MG ML IM PRN (12:00)
[2024-06-16] MEDS ORDERED: PoTASSium chl 10% ELIXIR 20MEQ 20 MEQ/15 ML UDCUP PO PRN (12:00)
[2024-06-16 12:01] LABS: HEMATOCRIT 41.3 % (42-54); MEAN CORPUSCULAR HEMOGLOBIN 29.1 pg (27.0-33.0); MEAN CORPUSCULAR HGB CONC 32.2 g/dL (32.0-36.0); MEAN CORPUSCULAR VOLUME 90.4 fL (79-99); RED BLOOD CELL COUNT(AUTO) 4.57 MIL/uL (4.50-6.20); RED CELL DISTRIBUTION WIDTH 16.1 % (11.0-15.5); WHITE BLOOD COUNT (AUTO) 11.2 K/uL (4.8-10.8)
[2024-06-16] MEDS ORDERED: TAMS-55 PO (12:02)
[2024-06-16 12:09] LABS: CREATININE 1.3 mg/dL (0.5-1.3); POTASSIUM 4.5 mmol/L (3.5-5.1)
[2024-06-16] MEDS: metoPROLOL tartRATE 25 MG TAB ONE (12:09)
[2024-06-16] MEDS: metoPROLOL tartRATE 25 MG TAB PO ONE (12:10)
--- NOTE | 2024-06-16 12:10 | NUR ---
JOEL VEE, ELECTRIC METER REPAIRER HELPER [phone] OR [phone]
--- NOTE | 2024-06-16 12:11 | HMCIMG ---
CHEST 1VW HISTORY: Respiratory failure COMPARISON: None FINDINGS: A frontal projection of the chest was obtained. Prominent interstitial markings are seen with possible superimposed infiltrates. The heart is borderline enlarged. Oral catheter is seen entering from the left. No evidence of aortic calcification is seen. IMPRESSION: 1. Prominent interstitial markings are seen with possible superimposed infiltrates.
[2024-06-16] MEDS: ENOXAPARIN SODIUM 100 MG/1 ML SQ SCH (12:12)
[2024-06-16 12:15] LABS: ABG BASE EXCESS -4.6 mmol/L (-2.0-3.0); ABG OXYGEN SATURATION 98.6 % (94.0-98.0); ABG PCO2 28 mmHg (35-48); ABG PH 7.432 (7.350-7.450); DEVICE COMMENT LR PETE; PO2, ARTERIAL BG 126.1 mmHg (83.0-108.0); VENT MODE, BG 2LNC (ROOM AIR)
[2024-06-16 12:22] LABS: ALBUMIN 2.7 g/dL (3.5-5.0); BILIRUBIN,TOTAL 1.2 mg/dL (0.2-1.0); MAGNESIUM 1.5 mg/dL (1.80-2.40); THYROID STIMULATING HORMONE 0.39 uIU/mL (0.36-3.74); TOTAL PROTEIN, SERUM 7.7 g/dL (6.0-8.3)
[2024-06-16] MEDS: 0.9%NACL 1000ML 1,000 ML IV SCH (12:28)
[2024-06-16] MEDS: 0.9% NACL 250ML 250 ML IV SCH (12:28)
[2024-06-16] MEDS ORDERED: AMIOdarone 150MG VIAL 150 MG in DEXTROSE 5%-WATER 100 ML IV SCH (12:30)
[2024-06-16] MEDS: metoPROLOL tartRATE 1 MG/ML 5ML VIAL IV ONE (12:32)
--- NOTE | 2024-06-16 12:50 | HP ---
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 On assessment patient is awake alert and oriented x3. He was on O2 at 2 L via nasal cannula saturating 93%. Patient is a. Pale with generalized body weakness. He reported he was at the [facility] for irregular follow up and when he was called into the office as he was walking and he had symptoms of near- syncope. He reports he did not completely pass out but salivary squeamish and and thought that he was going to faint. He reports he was sent here to [facility] for fast heart rate. He denies any chest pain shortness breath or palpitations at this time. He does report generalized body weakness and a few days of cloudy foul odor to his urine. He denies any burning with urination. Patient also reports poor appetite. Patient's caregiver confirmed that patient has not been eating very well due to no appetite. Chest x-ray appears unremarkable. On CBC white count is 11.2 H&H is 13.3/41.3 with a platelet count that is 221 K. chemistry sodium is normal potassium is 4.5 chloride is 100 carbon dioxide 25 BUN of 32 creatinine of 1.3 and GFR 59. Glucose 114 mg/dL. We will start patient on Zosyn to cover for healthcare associated UTI due to recent hospitalization. He will be admitted to the PCCU floor and consult Cardiology for rebound recommendations we will restart his home cardiac medication and give him a trial of metoprolol 2.5 mg IV push x1 for now for AFib with RVR with heart rate of 109 beats per minute. Currently he is hemodynamically stable with a blood pressure 120/69 on the bedside monitor saturating 93% with 2 L via nasal cannula and afebrile. PAST MEDICAL HX: AFib with RVR Stroke Squamous cell carcinoma of the skin in the head Hyperlipidemia Cholelithiasis PAST SURGICAL HX: Port-A-Cath placement SOCIAL HISTORY: No tobacco, ETOH, or illicit drug use Coded Allergies: Penicillins (Verified Allergy, 03/08/13) REVIEW OF SYSTEMS: 12 point ROS reviewed with patient. Pertinent positives mentioned above. Otherwise negative. PHYSICAL EXAM: GENERAL: Awake alert oriented x3, with generalized weakness, pale HEENT: EOMI, Sclera non icteric, moist mucosa NECK: Supple, no JVD, trachea midline LUNGS: Clear breath sounds bilaterally. No wheezes HEART: Regular rate and rhythm. Normal S1 and S2, without murmurs ABD: Abdomen soft, nontender. Bowel sounds present EXT: No clubbing cyanosis or edema NEURO: Alert and oriented to person, follows commands Vital Signs (last 8hr) Date Time Temp Pulse Resp B/P (MAP) Pulse Ox O2 Delivery O2 Flow Rate FiO2 06/16/24 11:11 97.7 80 18 104/73 100 Room Air* 0 21 06/16/24 10:54 97.7 80 18 104/73 100 N/C High Flow System LABS: Hematology Labs: Test 06/16/24 11:50 Range/Units White Blood Count 11.2 H 4.8-10.8 K/uL Red Blood Count 4.57 4.50-6.20 MIL/uL Hemoglobin 13.3 L 14.0-18.0 g/dL Hematocrit 41.3 L 42-54 % Mean Corpuscular Volume 90.4 79-99 fL Mean Corpuscular Hemoglobin 29.1 27.0-33.0 pg Mean Corpuscular Hemoglobin Concent 32.2 32.0-36.0 g/dL Red Cell Distribution Width 16.1 H 11.0-15.5 % Platelet Count 221 130-400 K/uL Mean Platelet Volume 9.6 7.5-10.5 fL Nucleated Red Blood Cells 0.0 0.0-0.19 % Chemistry Labs: Test 06/16/24 11:50 Range/Units Sodium Level 140 136-145 mmol/L Potassium Level 4.5 3.5-5.1 mmol/L Chloride Level 100 L 101-111 mmol/L Carbon Dioxide Level 25 21-32 mmol/L Blood Urea Nitrogen 32 H 7-18 mg/dL Creatinine 1.3 0.5-1.3 mg/dL Glomerular Filtration Rate Calc 59 >90 mL/min Random Glucose 114 H 70-105 mg/dL Total Calcium 10.1 8.5-10.1 mg/dL Magnesium Level 1.50 L 1.80-2.40 mg/dL Total Bilirubin 1.2 H 0.2-1.0 mg/dL Aspartate Amino Transf (AST/SGOT) 44 H 10-37 U/L Alanine Aminotransferase (ALT/SGPT) 33 12-78 U/L Alkaline Phosphatase 94 50-136 U/L Troponin I High Sensitivity 7 4-75 ng/L Total Protein 7.7 6.0-8.3 g/dL Albumin 2.7 L 3.5-5.0 g/dL Procalcitonin 0.55 H 0.05-0.5 ng/mL Thyroid Stimulating Hormone (TSH) 0.39 # 0.36-3.74 uIU/mL DIAGNOSTICS / RADIOLOGY RESULTS: [ ] PLAN 2D echo Carotid ultrasound Hold Eliquis and start Lovenox 1 mg/kilogram b.i.d. subQ Resume metoprolol 12.5 mg p.o. b.i.d. One time dose of metoprolol 2.5 mg IV x1 Continue statin therapy CBC, CMP, blood cultures. lactic Urinalysis with microscopic if indicated Lactic acid Cardiac panel EKG Consult cardiology and follow the recommendations Consult wound care due to patient had wound care appointment today with Dr. Sarmad Araiza would not be able to make it. He has a wound to his scalp secondary to his squamous cell carcinoma.. NEURO: Minimize central acting medications as possible. Maintain fall precautions, adequate lighting during the day PULMONARY: Supplemental 02 as needed. Maintain aspiration precautions at all times CARDIOVASCULAR: Follow hemodynamics. Vital signs per facility protocol GI & NUTRITION: Continue with nutritional support. Continue stool softeners and laxatives as needed. KIDNEYS & ELECTROLYTES: Strict monitoring of intake, output and overall fluid balance. Avoid nephrotoxic medications to the extent possible. Medications to be dosed according to renal function. Monitor electrolytes and replace as needed ENDOCRINE: Maintain blood glucose between 100-180 at all times. Hypoglycemia protocol in place INFECTIOUS DISEASE: Trend temperature, WBC and procalcitonin level Follow cultures, deescalate antibiotics as soon as possible. Panculture if new onset fever ONCOLOGY/HEMATOLOGY/COAGULATION: Monitor for s/s of bleeding Monitor hemoglobin, coagulation studies as needed SKIN: Pressure ulcer prevention per facility protocol Specialty mattress ORTHO/REHAB: Continue PT/OT Prophylaxis: Continue GI and DVT prophylaxis Code Status: Full Resuscitation Disposition: TBD Other: Total patient care time exceeds 35 minutes excluding all procedures. CHADD NICE [facility] Jun 16, 2024 12:50
[2024-06-16] MEDS: ZOSYN 3.375GM +NS 50ML IV SCH (13:06)
[2024-06-16] MEDS: AMIODARONE 360MG/200ML D5W(1MG/MIN) IV SCH (13:39)
--- NOTE | 2024-06-16 13:55 | NUR ---
[facility] Consult: Patient assessed by wound healing team. See wound assessment. Assessment and recommendations provided to primary nurse. Education provided. Wound care done. Addendum: 06/17/24 at 1650 by GAVIN SHANNON RN RN/ Amended: Links added.
--- NOTE | 2024-06-16 14:11 | NUR ---
NURSE NOT READY FOR REPORT
--- NOTE | 2024-06-16 14:33 | HMCIMG ---
US CAROTID DUPLEX HISTORY: Near syncope COMPARISON: None TECHNIQUE: Duplex carotid arterial Doppler ultrasound study was performed. FINDINGS: The common, internal and external carotid arteries are visualized. The peak systolic velocities of right common carotid artery is 53 centimeters per second, right internal carotid artery is 69 centimeters per second, right external carotid artery is 99 centimeters per second, and right vertebral artery is 37 centimeters per second. Right internal carotid artery to right common carotid artery ratio is 1 3. Right vertebral artery is seen with antegrade flow. The peak systolic velocities of left common carotid artery is 49 centimeters per second, left internal carotid artery is 78 centimeters per second, left external carotid artery is 83 centimeters per second, and left vertebral artery is 32 centimeters per second. Left internal carotid artery to left common carotid artery ratio is 1.6. Left vertebral artery is seen with antegrade flow. IMPRESSION: 1. No hemodynamically significant lesion is seen of either extracranial carotid artery system.
[2024-06-16 15:20] VITALS: O2SAT 100
--- NOTE | 2024-06-16 15:33 | NUR ---
DCP: RETURN TO [facility] [phone] Pt is a resident a [facility] since Apr 2024. Pt reports that he is very happy there and receives good care. Staff assists pt with ADLS and IADLS as needed, pt has walker and w/c. Yfn Vogel is PCP and uses [facility] for medications. Pt sates he will return to [place] at [place]. Caregivers Sharonda Montesinos [phone] and Michelle Nicole [phone].
[2024-06-16] MEDS ORDERED: PHARMACY COMMUNICATION MISC SCH (16:30)
[2024-06-16] MEDS: INSULIN humuLIN R 100 UNIT/ML 3ML SQ SCH (16:30)
[2024-06-16] MEDS ORDERED: INSULIN humuLIN R 100 UNIT/ML 3ML SQ SCH (16:30)
[2024-06-16 17:59] LABS: APPEARANCE,URINE HAZY (CLEAR); BACTERIA,URINE MANY /HPF (None Seen); BILIRUBIN,URINE NEGATIVE (NEGATIVE); COLOR,URINE YELLOW (YELLOW); GLUCOSE, URINE (UA) NEGATIVE (NEGATIVE); KETONES,URINE NEGATIVE (NEGATIVE); LEUKOCYTE ESTERASE ,URINE 75 Leu/uL (NEGATIVE); NITRATE,URINE NEGATIVE (NEGATIVE); OCCULT BLOOD,URINE SMALL (NEGATIVE); PROTEIN,URINE 20 mg/dL (NEGATIVE); UROBILINOGEN,URINE 0.2 mg/dL (0.2-1.0)
[2024-06-16 18:02] VITALS: BP 114/79; PULSE 59; RESP 18; TEMP 97.3
[2024-06-16] MEDS ORDERED: LINEZOLID 600 MG/ISO-OSM 300 ML IV SCH (18:30)
[2024-06-16 19:07] VITALS: PULSE 95; RESP 18; O2SAT 95
[2024-06-16 19:09] VITALS: PULSE 87; RESP 18; RESP 22; O2SAT 100; O2SAT 98
[2024-06-16 19:41] VITALS: BP 116/60; PULSE 102; RESP 18
[2024-06-16 19:57] LABS: INR 1.47 (0.85-1.15)
[2024-06-16 19:58] LABS: PARTIAL THROMBOPLASTIN TIME 29.3 SEC (26.3-35.5)
[2024-06-16] MEDS: AMIODARONE 540 MG/D5W 300ML (0.5MG/MIN) IV SCH (20:02)
[2024-06-16 20:15] VITALS: O2SAT 98
--- NOTE | 2024-06-16 20:23 | HMCSR ---
APPROVED REPORT EXAM: Two-dimensional and M-mode echocardiogram with Doppler and color Doppler. INDICATION ICD: Assess left ventricular ejection fraction 2D Dimensions IVSd0.8 (0.7-1.1cm)LVEF(%)49.2 (>50%) LVDd5.4 (3.8-5.6cm)FS(%)25 % PWd0.7 (0.7-1.1cm)LA (2D)4.7 (1.6-4.0cm) IVSs0.7 cmAo Root(2D)3.8 (2.0-3.7cm) LVDs4.0 (2.5-4.0cm)LVOT diam2.1 (1.8-2.4cm) PWs1.1 cmIVC diam2.2 cm M-Mode Dimensions EPSS1.4 cm LA (MM)4.6 (1.6-4.0cm) Ao Root(MM)3.5 (2.0-3.7cm) Aortic Valve AoV Vmax1.1 m/Flo Peak GR4.5 mmHgLVOT Vmax0.8 m/s AoV VTI0.2 mAo Mean GR2.7 mmHgLVOT VTI0.14 m HUMBERTO (VMAX)2.4 cm2Al P1/2G9189 msAVA (VTI) 2.4 cm2 Mitral Valve MV E Vmax86.3 cm/sDECEL Uabt748 ms TDI E/E' Kqbauy59.8E/E' Lateral9.6 Medial E' Peak V3.00 cm/sLateral E' Peak V9.00 cm/s Pulmonary Valve PV Vmax0.7 m/s Tricuspid Valve TR Vmax2.5 m/sRAP (EST) 15 syVkHQQH50.7 mmHg TR Peak GR25.7 mmHg Left Ventricle The left ventricle is normal size. Paradoxic septal motion. There is normal left ventricular wall thi ckness. Reduced ejection fraction estimated 40-45%. The left ventricular diastolic function is normal . Right Ventricle The right ventricle is severely dilated with RVID of 4.9 cm at the base (normal is 4.1 cm). Right romulo tricular systolic function is borderline reduced. Atria The left atrium size is moderately dilated. Evidence of ASD by color Doppler (image 50) with moderate left to right shunting. The right atrium is moderately dilated. Aortic Valve The aortic valve is trileaflet and mildly sclerotic. Mild aortic regurgitation is present. . There is no aortic valvular stenosis. Mitral Valve The mitral valve is normal in structure. There is no mitral valve regurgitation noted. There is no mi tral valve stenosis. Tricuspid Valve The tricuspid valve is normal in structure. There is moderate tricuspid valve regurgitation noted. RV SP is 41 mmHg. Pulmonic Valve Pulmonic valve is not well visualized.. There is no pulmonic valvular regurgitation. Great Vessels The aortic root is normal in size. IVC is dilated and collapses <50% with inspiration. Pericardium There is no pericardial effusion. Other Information Quality : Technically difficult challenging study Conclusion Evidence of ASD by color Doppler (image 50) with moderate left to right shunting. The right ventricle is severely dilated with RVID of 4.9 cm at the base (normal is 4.1 cm). Right ventricular systolic function is borderline reduced. Paradoxic septal motion. There is moderate tricuspid valve regurgitation noted. RVSP is 41 mmHg. There is normal left ventricular wall thickness. Reduced ejection fraction estimated 40-45%. The left ventricular diastolic function is normal. IVC is dilated and collapses <50% with inspiration. There is no pericardial effusion.
--- NOTE | 2024-06-16 20:33 | HMCIMG ---
US RENAL SONOGRAM HISTORY: Evaluate kidneys COMPARISON: None TECHNIQUE: Renal and bladder ultrasound study was performed. FINDINGS: The right kidney measures 11 x 4 x 4 cm. The left kidney measures 10.5 x 4.2 x 5.1 cm. No evidence of hydronephrosis is seen of either kidney. Both kidneys are seen. Bladder is poorly distended. IMPRESSION: 1. No hydronephrosis is seen.
[2024-06-16] MEDS: LINEZOLID 600 MG/ISO-OSM 300 ML IV SCH (20:49)
[2024-06-16] MEDS: FAMOTIDINE 20MG TAB PO SCH (20:49)
[2024-06-16] MEDS: metoPROLOL tartRATE 25 MG TAB PO SCH (20:49)
[2024-06-16] MEDS: atorVAStatin 40 MG TABLET PO SCH (20:49)
[2024-06-16] MEDS: MAGNESIUM 2GM PREMIX 50ML 50 ML IV PRN (20:53)
--- NOTE | 2024-06-16 22:21 | NUR ---
PATIENT STATED HE HAS MONEY IN A [employer] BLACK BAG AT BEDSIDE. PATIENT REQUESTED TO HAVE SECURITY SAVE HIS MONEY IN A SAFE. NOTIFIED SECURITY. [employer] RESTAURANT JONATAN AT BEDSIDE. THIS NURSE AND NURSE AIDE AIME PRESENT. TOTAL OF 2, 652 DOLLARS ACCOUNTED FOR. SECURITY TOOK MONEY TO SAVE IN SAFE. PATIENT SIGNED PATIENT VALUABLES FORM.
[2024-06-17] VITALS (20 sets, daily range): BP systolic 79–116; BP diastolic 54–75; PULSE 70–108; RESP 18–20; TEMP 97.6–98; O2SAT 94–100
[2024-06-17] MEDS: 0.9% NACL 250ML 250 ML IV SCH (02:34)
--- NOTE | 2024-06-17 02:35 | NUR ---
@0208am Paged [facility] to report bp of 94/57, patient on amiodarone iv drip. @0215am Received call back from dr. madera. Report blood pressure and currently on amio drip for afib. Stated not to stop iv drip. Does not think iv amiodarone is causing hypotension. MD ordered 0.9% normal saline 250ml iv bolus x1, then continue on 0.9% normal saline @50ml/hr as ordered. As per md, if hypotension persists contact [facility].
[2024-06-17 03:55] LABS: BASOPHILS # (AUTO) 0.04 K/uL (0.00-0.20); BASOPHILS % (AUTO) 0.4 % (0.0-5.0); EOSINOPHILS # (AUTO) 0.12 K/uL (0.00-0.70); EOSINOPHILS % (AUTO) 1.1 % (0.0-8.0); IMMATURE GRANULOCYTE ABSOLUTE 0.11 K/uL (0-1); LYMPHOCYTES # (AUTO) 1.4 K/uL (1.0-4.8); LYMPHOCYTES % (AUTO) 12.1 % (21.0-51.0); MEAN CORPUSCULAR HEMOGLOBIN 28.9 pg (27.0-33.0); MEAN CORPUSCULAR HGB CONC 32.6 g/dL (32.0-36.0); MEAN CORPUSCULAR VOLUME 88.6 fL (79-99); MONOCYTES # (AUTO) 1.1 K/uL (0.1-1.0); MONOCYTES % (AUTO) 9.3 % (3.0-13.0); NEUTROPHILS # (AUTO) 8.6 K/uL (1.8-7.7); NEUTROPHILS % (AUTO) 76.1 % (40.0-77.0); PLATELET COUNT (AUTO) 185 K/uL (130-400); RED BLOOD CELL COUNT(AUTO) 4.29 MIL/uL (4.50-6.20); RED CELL DISTRIBUTION WIDTH 15.9 % (11.0-15.5); WHITE BLOOD COUNT (AUTO) 11.3 K/uL (4.8-10.8)
[2024-06-17 05:06] LABS: ALBUMIN 2.2 g/dL (3.5-5.0); BILIRUBIN,TOTAL 0.9 mg/dL (0.2-1.0); TOTAL PROTEIN, SERUM 6.5 g/dL (6.0-8.3)
--- NOTE | 2024-06-17 06:39 | EKG ---
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1955 Requested By: CHADD NICE Order Number: [id number] Reading MD: Caty Berry Measurements Intervals [place] Rate: 108 P: 0 IL: 117 QRS: -15 QRSD: 115 T: -7 QT: 354 QTc: 473 Interpretive Statements Sinus tachycardia Atrial premature complex Incomplete right bundle branch block Inferior infarct, age indeterminate Compared to ECG 05/02/2024 22:27:21 Atrial premature complex(es) now present Atrial fibrillation no longer present Myocardial infarct finding still present Electronically Signed On 06-18-2024 10:54:27 CDT by Caty Berry Please click the below link to view image of tracing.
--- NOTE | 2024-06-17 06:39 | EKG ---
[facility] Test Date: 2024-06-17 Test Time: 04:08:56 Pat Name: DAYANA MAYO Department: [facility] Room: 225 1 Gender: M [employer] Liaison: justyna : 1955 Requested By: CHADD NICE Order Number: [id number] [facility] Reading MD: Caty Berry Measurements Intervals [place] Rate: 66 P: 0 NC: 0 QRS: -156 QRSD: 130 T: -9 QT: 453 QTc: 474 Interpretive Statements Atrial fibrillation with isolated PVCs IVCD, consider RBBB Compared to ECG 06/16/2024 20:49:49 Myocardial infarct finding no longer present Electronically Signed On 06-18-2024 10:56:33 CDT by Caty Berry Please click the below link to view image of tracing.
--- NOTE | 2024-06-17 06:39 | EKG ---
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 : 1955 Requested By: CHADD NICE Order Number: [id number] [facility] Reading MD: Caty Berry Measurements Intervals [place] Rate: 85 P: 0 ID: 0 QRS: -8 QRSD: 130 T: -7 QT: 411 QTc: 492 Interpretive Statements Atrial flutter with variable block Right bundle branch block Anteroseptal infarct, age indeterminate Compared to ECG 06/16/2024 11:50:22 Right bundle-branch block now present Sinus tachycardia no longer present Atrial premature complex(es) no longer present Incomplete right bundle-branch block no longer present Myocardial infarct finding still present Electronically Signed On 06-18-2024 10:55:52 CDT by Caty Berry Please click the below link to view image of tracing.
[2024-06-17] MEDS: tamSULOsin HCL 0.4 MG CAP.ER.24H PO SCH (08:17)
--- NOTE | 2024-06-17 09:49 | PN ---
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, 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, Port-A-Cath placement PLAN SUMMARY: Supplemental oxygen as needed Wean off as tolerated Telemetry monitoring Continue amiodarone drip via Protocol Resume metoprolol Follow Cardiology recommendations Orthostatic vital sign Out of bed to chair and ambulate Dispo: Home once medically stable for discharge INTERVAL HISTORY: We were asked per Cardiology team to direct admit this 68-year-old male with a past medical history of AFib recently started on Eliquis in April of this year, hyperlipidemia, squamous cell carcinoma of the skin of the head and previous CVA with mild residual weakness to the left side who was sent from the [facility] for AFib with RVR requiring rate control. On assessment patient is awake alert and oriented x3. He was on O2 at 2 L via nasal cannula saturating 93%. Patient is a. Pale with generalized body weakness. He reported he was at the [facility] for irregular follow up and when he was called into the office as he was walking and he had symptoms of near- syncope. He reports he did not completely pass out but salivary squeamish and and thought that he was going to faint. He reports he was sent here to [facility] [place] [place] for fast heart rate. He denies any chest pain shortness breath or palpitations at this time. He does report generalized body weakness and a few days of cloudy foul odor to his urine. He denies any burning with urination. Patient also reports poor appetite. Patient's caregiver confirmed that patient has not been eating very well due to no appetite. Chest x-ray appears unremarkable. On CBC white count is 11.2 H&H is 13.3/41.3 with a platelet count that is 221 K. chemistry sodium is normal potassium is 4.5 chloride is 100 carbon dioxide 25 BUN of 32 creatinine of 1.3 and GFR 59. Glucose 114 mg/dL. We will start patient on Zosyn to cover for healthcare associated UTI due to recent hospitalization. He will be admitted to the PCCU floor and consult Cardiology for rebound recommendations we will restart his home cardiac medication and give him a trial of metoprolol 2.5 mg IV push x1 for now for AFib with RVR with heart rate of 109 beats per minute. Currently he is hemodynamically stable with a blood pressure 120/69 on the bedside monitor saturating 93% with 2 L via nasal cannula and afebrile. 06/17 - patient is seen and evaluated at the bedside. Patient is sitting up in bed with no signs of acute distress. Patient has been weaned off O2 and currently on room air and denies dyspnea. Patient denies chest discomfort, chest pain at this time. Patient continues on amiodarone drip via protocol and as per nursing, patient's heart rate is currently 80 beats per minute. Patient did report light presyncopal episode yesterday evening as he was getting out of bed attempting to go to the bathroom. Patient instructed to remain in bed and request assistance. We are pending orthostatic vital signs. Patient had a bilateral carotid ultrasound performed which was unremarkable. Patient had a 2D echo which shows evidence of ASD with moderate [id number] shunting. Severely dilated right ventricle, Pradaxa septal motion. Moderate tricuspid valve regurgitation. We will DC ejection fraction estimated at 40-45%. Patient had a chest x-ray done which shows prominent interstitial markings seen with possible superimposed infiltrates. Patient had a renal ultrasound which shows no hydronephrosis seen. Vital signs are stable. Labs are within normal limits. We will await Cardiology evaluation and further recommendations. REVIEW OF SYSTEMS: 12 point ROS reviewed with patient. Pertinent positives mentioned above. Otherwise negative. PHYSICAL EXAM: GENERAL: Awake alert oriented x3, with generalized weakness, pale HEENT: EOMI, Sclera non icteric, moist mucosa NECK: Supple, no JVD, trachea midline LUNGS: Clear breath sounds bilaterally. No wheezes HEART: Regular rate and rhythm. Normal S1 and S2, without murmurs ABD: Abdomen soft, nontender. Bowel sounds present EXT: No clubbing cyanosis or edema NEURO: Alert and oriented to person, follows commands Vital Signs (last 8hr) Date Time Temp Pulse Resp B/P (MAP) Pulse Ox O2 Delivery O2 Flow Rate FiO2 06/17/24 08:20 98 Room Air* 0 21 06/17/24 07:50 97.5 75 18 107/68 98 Room Air 06/17/24 06:52 89 18 N/A Room Air 06/17/24 05:45 100/54 06/17/24 03:36 97.9 80 20 107/61 99 Room Air 0.0 06/17/24 03:24 18 N/A Room Air 06/17/24 02:39 105/60 06/17/24 02:05 94/57 LABS: Hematology Labs: Test 06/17/24 03:33 Range/Units White Blood Count 11.3 H 4.8-10.8 K/uL Red Blood Count 4.29 L 4.50-6.20 MIL/uL Hemoglobin 12.4 L 14.0-18.0 g/dL Hematocrit 38.0 L 42-54 % Mean Corpuscular Volume 88.6 79-99 fL Mean Corpuscular Hemoglobin 28.9 27.0-33.0 pg Mean Corpuscular Hemoglobin Concent 32.6 32.0-36.0 g/dL Red Cell Distribution Width 15.9 H 11.0-15.5 % Platelet Count 185 130-400 K/uL Mean Platelet Volume 9.6 7.5-10.5 fL Immature Granulocyte % (Auto) 1.0 0-1 % Neutrophils (%) (Auto) 76.1 40.0-77.0 % Lymphocytes (%) (Auto) 12.1 L 21.0-51.0 % Monocytes (%) (Auto) 9.3 3.0-13.0 % Eosinophils (%) (Auto) 1.1 0.0-8.0 % Basophils (%) (Auto) 0.4 0.0-5.0 % Neutrophils # (Auto) 8.6 H 1.8-7.7 K/uL Lymphocytes # (Auto) 1.4 1.0-4.8 K/uL Monocytes # (Auto) 1.1 H 0.1-1.0 K/uL Eosinophils # (Auto) 0.12 0.00-0.70 K/uL Basophils # (Auto) 0.04 0.00-0.20 K/uL Absolute Immature Granulocyte (auto 0.11 0-1 K/uL Nucleated Red Blood Cells 0.0 0.0-0.19 % Chemistry Labs: Test 06/17/24 07:35 06/17/24 03:33 06/16/24 20:04 06/16/24 11:50 Range/Units Lactic Acid Level 1.7 0.8-2.5 mmol/L Sodium Level 142 136-145 mmol/L Potassium Level 4.0 3.5-5.1 mmol/L Chloride Level 102 101-111 mmol/L Carbon Dioxide Level 22 21-32 mmol/L Blood Urea Nitrogen 30 H 7-18 mg/dL Creatinine 1.0 0.5-1.3 mg/dL Glomerular Filtration Rate Calc 81 >90 mL/min Random Glucose 115 H 70-105 mg/dL Hemoglobin A1c 6.0 4.0-6.0 % Estimated Average Glucose (eAG) 126 70-126 mg/dL Total Calcium 9.8 8.5-10.1 mg/dL Ionized Calcium 1.15 L 1.16-1.32 MMOL/L Magnesium Level 2.00 1.80-2.40 mg/dL Total Bilirubin 0.9 # 0.2-1.0 mg/dL Aspartate Amino Transf (AST/SGOT) 34 10-37 U/L Alanine Aminotransferase (ALT/SGPT) 25 # 12-78 U/L Alkaline Phosphatase 79 50-136 U/L Total Creatine Kinase 14 #L 21-232 U/L Troponin I High Sensitivity 11.7 4-75 ng/L Total Protein 6.5 6.0-8.3 g/dL Albumin 2.2 L 3.5-5.0 g/dL Whole Blood Glucose 104 70-110 MG/DL B-Type Natriuretic Peptide 365 H 0-100 pg/mL Procalcitonin 0.55 H 0.05-0.5 ng/mL Thyroid Stimulating Hormone (TSH) 0.39 # 0.36-3.74 uIU/mL Coagulation Labs: Test 06/16/24 19:37 Range/Units Prothrombin Time 15.0 H 9.6-11.6 SEC Prothromb Time International Ratio 1.47 H 0.85-1.15 Activated Partial Thromboplast Time 29.3 26.3-35.5 SEC DIAGNOSTICS / RADIOLOGY RESULTS: PATIENT: DAYANA MAYO MR#: [id number] : 1955 SEX: M AGE: 68 LOCATION: [facility] ORDER [id number] STATUS: REG ER REPORT#: [id number] SERVICE 1143 REASON: HYPOXIC RESP FAILURE ORDERING PHYSICIAN: CHADD NICE PROCEDURE: CXR1VW - CHEST 1VW CHEST 1VW HISTORY: Respiratory failure COMPARISON: None FINDINGS: A frontal projection of the chest was obtained. Prominent interstitial markings are seen with possible superimposed infiltrates. The heart is borderline enlarged. Oral catheter is seen entering from the left. No evidence of aortic calcification is seen. IMPRESSION: 1. Prominent interstitial markings are seen with possible superimposed infiltrates. DICTATED BY: GALE MIR MD DATE: 06/16/24 1208 ELECTRONICALLY SIGNED BY: GALE MIR MD DATE: 06/16/24 1211 PLAN 2D echo Carotid ultrasound Hold Eliquis and start Lovenox 1 mg/kilogram b.i.d. subQ Resume metoprolol 12.5 mg p.o. b.i.d. One time dose of metoprolol 2.5 mg IV x1 Continue statin therapy CBC, CMP, blood cultures. lactic Urinalysis with microscopic if indicated Lactic acid Cardiac panel EKG Consult cardiology and follow the recommendations Consult wound care due to patient had wound care appointment today with Dr. Sarmad Araiza would not be able to make it. He has a wound to his scalp secondary to his squamous cell carcinoma.. NEURO: Minimize central acting medications as possible. Maintain fall precautions, adequate lighting during the day PULMONARY: Supplemental 02 as needed. Maintain aspiration precautions at all times CARDIOVASCULAR: Follow hemodynamics. Vital signs per facility protocol GI & NUTRITION: Continue with nutritional support. Continue stool softeners and laxatives as needed. KIDNEYS & ELECTROLYTES: Strict monitoring of intake, output and overall fluid balance. Avoid nephrotoxic medications to the extent possible. Medications to be dosed according to renal function. Monitor electrolytes and replace as needed ENDOCRINE: Maintain blood glucose between 100-180 at all times. Hypoglycemia protocol in place INFECTIOUS DISEASE: Trend temperature, WBC and procalcitonin level Follow cultures, deescalate antibiotics as soon as possible. Panculture if new onset fever ONCOLOGY/HEMATOLOGY/COAGULATION: Monitor for s/s of bleeding Monitor hemoglobin, coagulation studies as needed SKIN: Pressure ulcer prevention per facility protocol Specialty mattress ORTHO/REHAB: Continue PT/OT Prophylaxis: Continue GI and DVT prophylaxis Code Status: Full Resuscitation Disposition: Home once medically stable for discharge Other: Total patient care time exceeds 35 minutes excluding all procedures. ATTESTATION BY PHYSICIAN I have seen and examined the patient. I reviewed the documentation, medical decision making, and treatment plan as noted by the mid-level provider above. I agree with the findings and plan of care. Danny Gonzalez MD, ECTOR N KIRSTIE Jun 17, 2024 09:49
--- NOTE | 2024-06-17 15:32 | NUR ---
Nutritional Note: Pt reported nausea, NKFA, problems swallowing, PO 30% x 2wks, UBW 211 lbs, recent wt loss in 3 wks, last BM 06/17, last PCP visit 1 wk ago, and no MVI. Pt requested no eggs and coffee in diet order. NFPE conducted to find moderate muscle depletion in gastrocnemius, clavicle, interosseus, and temporalis regions and moderate fat loss in orbital and triceps regions. Pt has PCM due to PO 30% x 2wks, 4% wt loss in 3 wks, NFPE muscle+fat loss, and edema. Pt on D5W @ rate 16.6 ml/hr provides 68 kcals. Pt was agreeable to Glucerna vanilla BID and Prostat Jello TID to supplement diet. Pt was agreeable to pureed diet modifier per dysphagia. Provided handouts on MNT T2DM education in Swedish as requested by pt. Expected adherence is fair. Recommendations -Continue Consistent carb 75g (1800 2000) diet - Add pureed diet modifier + no eggs + no coffee -Order Prostat Jello 30 ml qd TID all trays -Order Glucerna vanilla BID w/ am and dinner - Order [employer] communication per hx of dysphagia -Monitor PO intake -Encourage PO intake as able -If poor PO intake continues consider appetite stimulant -Monitor BM - Monitor fluid intake, fluid restriction per MD -Monitor wts -Reweigh as able -Monitor care goals RD to follow + available for consult per protocol Dietetic Student, Celine Araiza Addendum: 06/17/24 at [address] Amended: Links added.
--- NOTE | 2024-06-17 17:12 | NUR ---
Attempted PT eval at 1530.Pt refused stating " I am stuck on the phone trying to straighten out this identity theft". Pt noted to be soiled with BM, nurse aware.
--- NOTE | 2024-06-17 19:39 | PN ---
PROGRESS NOTE PROBLEM LIST: Urinary tract infection Gram-negative rods via urine cultures Recent CVA Atrial fibrillation with rapid ventricular response in the setting of urinary tract infection Abnormal 2D echocardiogram for ASD and an ejection fraction at 40-45% in the setting of tachycardia Hypercoagulable state INTERIM HISTORY OF PRESENT ILLNESS: Patient has been maintained on an amiodarone drip secondary to fast heart rates. He has been maintained on anticoagulation to include Eliquis as an outpatient any has been on that medication but prior to having a CVA in [place] he states he had run out of the therapy and was not taking Eliquis daily prior to his CVA. Patient currently has no new no new neurologic complaints and heart rate is better controlled. Patient does not take amiodarone as an outpatient and mainly takes metoprolol 12.5 mg twice daily in addition to Eliquis 5 mg twice daily and tamsulosin 0.4 mg nightly. REVIEW OF SYSTEMS: No fever, headache, chest pain, abdominal pain, nausea, vomiting, or diarrhea. VITAL SIGNS Vital Signs Date Time Temp Pulse Resp B/P (MAP) Pulse Ox O2 Delivery O2 Flow Rate FiO2 06/17/24 18:41 91 18 N/A Room Air 21 06/17/24 18:06 101/75 06/17/24 17:34 97.9 95 06/17/24 08:20 0 Laboratory Tests 06/17/24 03:33 LABS/MEDS Laboratory Tests Test 06/16/24 19:37 06/16/24 20:04 06/17/24 03:33 06/17/24 04:20 Prothrombin Time 15.0 SEC (9.6-11.6) H Prothromb Time International Ratio 1.47 (0.85-1.15) H Activated Partial Thromboplast Time 29.3 SEC (26.3-35.5) Total Creatine Kinase 105 U/L (21-232) # 14 U/L (21-232) #L Troponin I High Sensitivity 5.2 ng/L (4-75) 11.7 ng/L (4-75) Whole Blood Glucose 104 MG/DL (70-110) White Blood Count 11.3 K/uL (4.8-10.8) H Red Blood Count 4.29 MIL/uL (4.50-6.20) L Hemoglobin 12.4 g/dL (14.0-18.0) L Hematocrit 38.0 % (42-54) L Mean Corpuscular Volume 88.6 fL (79-99) Mean Corpuscular Hemoglobin 28.9 pg (27.0-33.0) Mean Corpuscular Hemoglobin Concent 32.6 g/dL (32.0-36.0) Red Cell Distribution Width 15.9 % (11.0-15.5) H Platelet Count 185 K/uL (130-400) Mean Platelet Volume 9.6 fL (7.5-10.5) Immature Granulocyte % (Auto) 1.0 % (0-1) Neutrophils (%) (Auto) 76.1 % (40.0-77.0) Lymphocytes (%) (Auto) 12.1 % (21.0-51.0) L Monocytes (%) (Auto) 9.3 % (3.0-13.0) Eosinophils (%) (Auto) 1.1 % (0.0-8.0) Basophils (%) (Auto) 0.4 % (0.0-5.0) Neutrophils # (Auto) 8.6 K/uL (1.8-7.7) H Lymphocytes # (Auto) 1.4 K/uL (1.0-4.8) Monocytes # (Auto) 1.1 K/uL (0.1-1.0) H Eosinophils # (Auto) 0.12 K/uL (0.00-0.70) Basophils # (Auto) 0.04 K/uL (0.00-0.20) Absolute Immature Granulocyte (auto 0.11 K/uL (0-1) Nucleated Red Blood Cells 0.0 % (0.0-0.19) Sodium Level 142 mmol/L (136-145) Potassium Level 4.0 mmol/L (3.5-5.1) Chloride Level 102 mmol/L (101-111) Carbon Dioxide Level 22 mmol/L (21-32) Blood Urea Nitrogen 30 mg/dL (7-18) H Creatinine 1.0 mg/dL (0.5-1.3) Glomerular Filtration Rate Calc 81 mL/min (>90) Random Glucose 115 mg/dL (70-105) H Hemoglobin A1c 6.0 % (4.0-6.0) Estimated Average Glucose (eAG) 126 mg/dL (70-126) Lactic Acid Level 2.2 mmol/L (0.8-2.5) Total Calcium 9.8 mg/dL (8.5-10.1) Ionized Calcium 1.15 MMOL/L (1.16-1.32) L Magnesium Level 2.00 mg/dL (1.80-2.40) Total Bilirubin 0.9 mg/dL (0.2-1.0) # Aspartate Amino Transf (AST/SGOT) 34 U/L (10-37) Alanine Aminotransferase (ALT/SGPT) 25 U/L (12-78) # Alkaline Phosphatase 79 U/L (50-136) Total Protein 6.5 g/dL (6.0-8.3) Albumin 2.2 g/dL (3.5-5.0) L SARS-CoV-2 Antigen (Rapid) PRESUMPTIVE NEGATIVE Test 06/17/24 07:35 06/17/24 11:47 06/17/24 17:19 Lactic Acid Level 1.7 mmol/L (0.8-2.5) Whole Blood Glucose 150 MG/DL (70-110) H 113 MG/DL (70-110) H Current Medications Metoprolol Tartrate 25 mg STK-MED ONCE .ROUTE; Start 06/16/24 at 11:37; Stop 06/16/24 at 11:37; Status DC Metoprolol Tartrate 12.5 mg ONCE ONCE PO Last administered on 06/16/24at 12:10; Start 06/16/24 at 12:00; Stop 06/16/24 at 12:01; Status DC Enoxaparin Sodium 1 unit BID SQ; Start 06/16/24 at 21:00; Stop 06/16/24 at 12:03; Status DC Acetaminophen 650 mg Q6H PRN PO; Start 06/16/24 at 12:00; Stop 07/16/24 at 11:59 Acetaminophen 650 mg Q4H PRN PO; Start 06/16/24 at 12:00; Stop 07/16/24 at 11:59 Ondansetron HCl 4 mg Q6H PRN IVP; Start 06/16/24 at 12:00; Stop 07/16/24 at 11:59 Dextrose 50 ml AD PRN IV; Start 06/16/24 at 12:00; Stop 07/16/24 at 11:59 Glucagon 1 mg AD PRN IM; Start 06/16/24 at 12:00; Stop 07/16/24 at 11:59 Potassium Chloride 100 ml @ 100 mls/hr AD PRN IV; Start 06/16/24 at 12:00; Stop 06/16/24 at 12:00; Status DC Potassium Chloride 20 meq AD PRN PO; Start 06/16/24 at 12:00; Stop 06/16/24 at 12:00; Status DC Potassium Chloride 20 meq AD PRN PO; Start 06/16/24 at 12:00; Stop 06/16/24 at 12:00; Status DC Insulin Human Regular INSULIN SLIDING SCAL... ACHS SQ; Start 06/16/24 at 16:30; Stop 06/16/24 at 12:02; Status DC Famotidine 20 mg BID PO Last administered on 06/17/24at 08:17; Start 06/16/24 at 21:00; Stop 07/16/24 at 20:59 Acetaminophen 650 mg Q6H PRN PO; Start 06/16/24 at 12:00; Stop 06/16/24 at 12:43; Status DC Ipratropium [place] 0.5 mg [id number] PRN IH; Start 06/16/24 at 12:00; Stop 07/16/24 at 11:59 Insulin Human Regular INSULIN SLIDING SCAL... ACHS SQ; Start 06/16/24 at 16:30; Stop 07/16/24 at 16:29 Potassium Chloride 100 ml @ 100 mls/hr AD PRN IV; Start 06/16/24 at 12:00; Stop 06/16/24 at 12:43; Status DC Potassium Chloride 20 meq AD PRN PO; Start 06/16/24 at 12:00; Stop 07/16/24 at 11:59 Potassium Chloride 20 meq AD PRN PO; Start 06/16/24 at 12:00; Stop 07/16/24 at 11:59 Potassium Chloride 100 ml @ 50 mls/hr AD PRN IV; Start 06/16/24 at 12:00; Stop 07/16/24 at 11:59 Magnesium Sulfate 50 ml @ 0 mls/hr PROTOCOL PRN IV Last administered on 06/16/24at 20:53; Start 06/16/24 at 12:00; Stop 07/16/24 at 11:59 Enoxaparin Sodium 90 mg BID SQ Last administered on 06/17/24at 08:18; Start 06/16/24 at 12:00; Stop 06/17/24 at 19:34; Status DC Sodium Chloride 250 ml @ 0 mls/hr Q0M IV Last administered on 06/16/24at 12:28; Start 06/16/24 at 12:30; Stop 06/17/24 at 08:46; Status DC Sodium Chloride 1,000 ml @ 50 mls/hr Q20H IV Last administered on 06/16/24at 12:28; Start 06/16/24 at 12:30; Stop 06/17/24 at 08:29; Status DC Metoprolol Tartrate 12.5 mg BID PO Last administered on 06/17/24at 08:17; Start 06/16/24 at 21:00; Stop 07/16/24 at 20:59 Tamsulosin HCl 0.4 mg DAILY PO Last administered on 06/17/24at 08:17; Start 06/17/24 at 09:00; Stop 07/17/24 at 08:59 Atorvastatin Calcium 40 mg HS PO Last administered on 06/16/24at 20:49; Start 06/16/24 at 21:00; Stop 07/16/24 at 20:59 Amiodarone HCl 150 mg/Dextrose 100 ml @ 0 mls/hr PROTOCOL IV; Start 06/16/24 at 12:30; Stop 06/16/24 at 12:24; Status DC Metoprolol Tartrate 2.5 mg ONCE ONCE IV Last administered on 06/16/24at 12:32; Start 06/16/24 at 12:30; Stop 06/16/24 at 12:31; Status DC Piperacillin Sod/ Tazobactam Sod 3.375 gm Q12H IV Last administered on 06/17/24at 13:57; Start 06/16/24 at 13:00; Stop 06/26/24 at 12:59 Amiodarone HCL/ Dextrose 100 ml @ 0 mls/hr PROTOCOL ONCE IV Last administered on 06/16/24at 13:38; Start 06/16/24 at 13:00; Stop 06/16/24 at 13:01; Status DC Amiodarone HCL/ Dextrose 200 ml @ 33.333 mls/ hr PROTOCOL IV; Start 06/16/24 at 13:00; Stop 06/16/24 at 12:56; Status DC Amiodarone HCl 540 mg/Dextrose 300 ml @ 16.667 mls/ hr PROTOCOL IV Last administered on 06/16/24at 20:02; Start 06/16/24 at 19:00; Stop 07/16/24 at 18:59 Amiodarone HCl 360 mg/Dextrose 200 ml @ 33.333 mls/ hr PROTOCOL IV Last administered on 06/16/24at 13:39; Start 06/16/24 at 13:00; Stop 06/17/24 at 08:46; Status DC Pharmacy Profile Note 1 each ONCE MISC; Start 06/16/24 at 16:30; Stop 06/16/24 at 18:09; Status DC Linezolid 300 ml @ 150 mls/hr Q12H IV; Start 06/16/24 at 18:30; Stop 06/16/24 at 20:32; Status DC Linezolid 300 ml @ 150 mls/hr Q12H IV Last administered on 06/17/24at 08:17; Start 06/16/24 at 21:00; Stop 06/26/24 at 20:59 Sodium Chloride 250 ml @ 0 mls/hr Q0M IV Last administered on 06/17/24at 02:34; Start 06/17/24 at 02:30; Stop 07/17/24 at 02:29 Amiodarone HCl 200 mg DAILY PO; Start 06/18/24 at 09:00; Stop 06/17/24 at 19:33; Status DC Amiodarone HCl 200 mg ONCE ONCE PO; Start 06/17/24 at 21:00; Stop 06/17/24 at 19:33; Status DC Apixaban 2.5 mg BID PO; Start 06/17/24 at 21:00; Stop 07/17/24 at 20:59; Status UNV PHYSICAL EXAMINATION: GENERAL: No acute distress. HEENT: Normocephalic, atraumatic. CARDIAC: Positive S1 and S2 irregularly irregular. Systolic murmur noted at left sternal border LUNGS: Clear to auscultation bilaterally. ABDOMEN: Bowel sounds present, soft, nontender. EXTREMITIES: No edema bilaterally. NEUROLOGIC: Cranial nerves 2-12 grossly intact. PSYCHIATRIC: Calm. TELEMETRY: AFib controlled rate ASSESSMENT: See above PLAN: Continue metoprolol 12.5 mg twice daily and Eliquis at 5 mg twice daily. We will not continue amiodarone intravenously or orally. Patient we will continue with treatment for underlying urinary tract infection. In regards to patient's ASD we will continue with anticoagulation reassess LVEF pulmonary pressures with repeat echocardiogram in the setting of normal ventricular rate. We will continue to follow closely. MAYE SALAMANCA MD Jun 17, 2024 19:39
[2024-06-17] MEDS ORDERED: AMIOdarone 200 MG TABLET PO ONE (21:00)
[2024-06-17] MEDS: APIXaban 2.5 MG TABLET PO SCH (21:41)
[2024-06-18] VITALS (11 sets, daily range): BP systolic 73–143; BP diastolic 46–74; PULSE 67–108; RESP 18–20; TEMP 97.8–98.7; O2SAT 94–98
[2024-06-18 03:57] LABS: BASOPHILS # (AUTO) 0.04 K/uL (0.00-0.20); BASOPHILS % (AUTO) 0.4 % (0.0-5.0); EOSINOPHILS # (AUTO) 0.17 K/uL (0.00-0.70); EOSINOPHILS % (AUTO) 1.8 % (0.0-8.0); HEMATOCRIT 33.2 % (42-54); LYMPHOCYTES # (AUTO) 1.3 K/uL (1.0-4.8); LYMPHOCYTES % (AUTO) 14.2 % (21.0-51.0); MEAN CORPUSCULAR HEMOGLOBIN 28.8 pg (27.0-33.0); MEAN CORPUSCULAR HGB CONC 33.1 g/dL (32.0-36.0); MEAN CORPUSCULAR VOLUME 86.9 fL (79-99); MONOCYTES % (AUTO) 10.7 % (3.0-13.0); NEUTROPHILS # (AUTO) 6.8 K/uL (1.8-7.7); NEUTROPHILS % (AUTO) 71.8 % (40.0-77.0); PLATELET COUNT (AUTO) 175 K/uL (130-400); RED BLOOD CELL COUNT(AUTO) 3.82 MIL/uL (4.50-6.20); RED CELL DISTRIBUTION WIDTH 15.8 % (11.0-15.5); WHITE BLOOD COUNT (AUTO) 9.4 K/uL (4.8-10.8)
[2024-06-18 04:18] LABS: CREATININE 0.8 mg/dL (0.5-1.3); POTASSIUM 3.3 mmol/L (3.5-5.1)
[2024-06-18 04:24] LABS: BILIRUBIN,TOTAL 0.8 mg/dL (0.2-1.0); MAGNESIUM 1.5 mg/dL (1.80-2.40); PHOSPHORUS 2.9 mg/dL (2.5-4.9); TOTAL PROTEIN, SERUM 5.9 g/dL (6.0-8.3)
[2024-06-18] MEDS ORDERED: AMIOdarone 200 MG TABLET PO SCH (09:00)
--- NOTE | 2024-06-18 10:10 | PN ---
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 Follow Cardiology recommendations Orthostatic vital sign Out of bed to chair and ambulate Dispo: Home once medically stable for discharge INTERVAL HISTORY: We were asked per Cardiology team to direct admit this 68-year-old male with a past medical history of AFib recently started on Eliquis in April of this year, hyperlipidemia, squamous cell carcinoma of the skin of the head and previous CVA with mild residual weakness to the left side who was sent from the [facility] for AFib with RVR requiring rate control. On assessment patient is awake alert and oriented x3. He was on O2 at 2 L via nasal cannula saturating 93%. Patient is a. Pale with generalized body weakness. He reported he was at the [facility] for irregular follow up and when he was called into the office as he was walking and he had symptoms of near- syncope. He reports he did not completely pass out but salivary squeamish and and thought that he was going to faint. He reports he was sent here to [facility] for fast heart rate. He denies any chest pain shortness breath or palpitations at this time. He does report generalized body weakness and a few days of cloudy foul odor to his urine. He denies any burning with urination. Patient also reports poor appetite. Patient's caregiver confirmed that patient has not been eating very well due to no appetite. Chest x-ray appears unremarkable. On CBC white count is 11.2 H&H is 13.3/41.3 with a platelet count that is 221 K. chemistry sodium is normal potassium is 4.5 chloride is 100 carbon dioxide 25 BUN of 32 creatinine of 1.3 and GFR 59. Glucose 114 mg/dL. We will start patient on Zosyn to cover for healthcare associated UTI due to recent hospitalization. He will be admitted to the PCCU floor and consult Cardiology for rebound recommendations we will restart his home cardiac medication and give him a trial of metoprolol 2.5 mg IV push x1 for now for AFib with RVR with heart rate of 109 beats per minute. Currently he is hemodynamically stable with a blood pressure 120/69 on the bedside monitor saturating 93% with 2 L via nasal cannula and afebrile. 06/17 - patient is seen and evaluated at the bedside. Patient is sitting up in bed with no signs of acute distress. Patient has been weaned off O2 and currently on room air and denies dyspnea. Patient denies chest discomfort, chest pain at this time. Patient continues on amiodarone drip via protocol and as per nursing, patient's heart rate is currently 80 beats per minute. Patient did report light presyncopal episode yesterday evening as he was getting out of bed attempting to go to the bathroom. Patient instructed to remain in bed and request assistance. We are pending orthostatic vital signs. Patient had a bilateral carotid ultrasound performed which was unremarkable. Patient had a 2D echo which shows evidence of ASD with moderate [id number] shunting. Severely dilated right ventricle, Pradaxa septal motion. Moderate tricuspid valve regurgitation. We will DC ejection fraction estimated at 40-45%. Patient had a chest x-ray done which shows prominent interstitial markings seen with possible superimposed infiltrates. Patient had a renal ultrasound which shows no hydronephrosis seen. Vital signs are stable. Labs are within normal limits. We will await Cardiology evaluation and further recommendations. 06/18 - patient is seen and evaluated at the bedside. Patient is sitting up in bed with no signs of acute respiratory distress. Patient remains on room air and denies chest discomfort, chest pain or dyspnea. Patient did report that orthostatic vital signs were performed yesterday afternoon in his blood pressure dropped significantly once he stood him up out of bed. Currently his blood pressure is soft really 96/60. We will add midodrine at this time. Labs show white count has trended down within normal limits. Patient was seen by Cardiology and recommended to continue metoprolol 12.5 b.i.d., Eliquis5 b.i.d. discontinue amiodarone. Patient was found to have atrial septum deviation 2D echo and cardio recommendations repeat echo in the setting of normal ventricular rate. We are still pending physical therapy evaluation for discharge recommendations. Patient's urine culture is positive for E coli therefore we will continue current antibiotic treatment for now. REVIEW OF SYSTEMS: 12 point ROS reviewed with patient. Pertinent positives mentioned above. Otherwise negative. PHYSICAL EXAM: GENERAL: Awake alert oriented x3, with generalized weakness, pale HEENT: EOMI, Sclera non icteric, moist mucosa NECK: Supple, no JVD, trachea midline LUNGS: Clear breath sounds bilaterally. No wheezes HEART: Regular rate and rhythm. Normal S1 and S2, without murmurs ABD: Abdomen soft, nontender. Bowel sounds present EXT: No clubbing cyanosis or edema NEURO: Alert and oriented to person, follows commands Vital Signs (last 8hr) Date Time Temp Pulse Resp B/P (MAP) Pulse Ox O2 Delivery O2 Flow Rate FiO2 06/18/24 07:43 97.9 83 20 96/60 98 Room Air 06/18/24 06:46 83 18 N/A Room Air 21 06/18/24 04:00 97.9 74 18 118/56 97 Room Air LABS: Hematology Labs: Test 06/18/24 03:35 Range/Units White Blood Count 9.4 4.8-10.8 K/uL Red Blood Count 3.82 L 4.50-6.20 MIL/uL Hemoglobin 11.0 L 14.0-18.0 g/dL Hematocrit 33.2 L 42-54 % Mean Corpuscular Volume 86.9 79-99 fL Mean Corpuscular Hemoglobin 28.8 27.0-33.0 pg Mean Corpuscular Hemoglobin Concent 33.1 32.0-36.0 g/dL Red Cell Distribution Width 15.8 H 11.0-15.5 % Platelet Count 175 130-400 K/uL Mean Platelet Volume 9.5 7.5-10.5 fL Immature Granulocyte % (Auto) 1.1 H 0-1 % Neutrophils (%) (Auto) 71.8 40.0-77.0 % Lymphocytes (%) (Auto) 14.2 L 21.0-51.0 % Monocytes (%) (Auto) 10.7 3.0-13.0 % Eosinophils (%) (Auto) 1.8 0.0-8.0 % Basophils (%) (Auto) 0.4 0.0-5.0 % Neutrophils # (Auto) 6.8 1.8-7.7 K/uL Lymphocytes # (Auto) 1.3 1.0-4.8 K/uL Monocytes # (Auto) 1.0 0.1-1.0 K/uL Eosinophils # (Auto) 0.17 0.00-0.70 K/uL Basophils # (Auto) 0.04 0.00-0.20 K/uL Absolute Immature Granulocyte (auto 0.10 0-1 K/uL Nucleated Red Blood Cells 0.0 0.0-0.19 % Chemistry Labs: Test 06/18/24 06:24 06/18/24 03:35 06/17/24 07:35 06/17/24 03:33 Range/Units Whole Blood Glucose 92 70-110 MG/DL Sodium Level 136 136-145 mmol/L Potassium Level 3.3 L 3.5-5.1 mmol/L Chloride Level 101 101-111 mmol/L Carbon Dioxide Level 23 21-32 mmol/L Blood Urea Nitrogen 20 H 7-18 mg/dL Creatinine 0.8 0.5-1.3 mg/dL Glomerular Filtration Rate Calc 95 >90 mL/min Random Glucose 123 H 70-105 mg/dL Total Calcium 8.9 8.5-10.1 mg/dL Phosphorus Level 2.9 2.5-4.9 mg/dL Magnesium Level 1.50 L 1.80-2.40 mg/dL Total Bilirubin 0.8 0.2-1.0 mg/dL Aspartate Amino Transf (AST/SGOT) 33 10-37 U/L Alanine Aminotransferase (ALT/SGPT) 20 12-78 U/L Alkaline Phosphatase 75 50-136 U/L Total Protein 5.9 L 6.0-8.3 g/dL Albumin 2.0 L 3.5-5.0 g/dL Procalcitonin 0.31 0.05-0.5 ng/mL Lactic Acid Level 1.7 0.8-2.5 mmol/L Hemoglobin A1c 6.0 4.0-6.0 % Estimated Average Glucose (eAG) 126 70-126 mg/dL Ionized Calcium 1.15 L 1.16-1.32 MMOL/L Total Creatine Kinase 14 #L 21-232 U/L Troponin I High Sensitivity 11.7 4-75 ng/L Test 06/16/24 11:50 Range/Units B-Type Natriuretic Peptide 365 H 0-100 pg/mL Thyroid Stimulating Hormone (TSH) 0.39 # 0.36-3.74 uIU/mL Coagulation Labs: Test 06/16/24 19:37 Range/Units Prothrombin Time 15.0 H 9.6-11.6 SEC Prothromb Time International Ratio 1.47 H 0.85-1.15 Activated Partial Thromboplast Time 29.3 26.3-35.5 SEC DIAGNOSTICS / RADIOLOGY RESULTS: [ ] PLAN NEURO: Minimize central acting medications as possible. Maintain fall precautions, adequate lighting during the day PULMONARY: Supplemental 02 as needed. Maintain aspiration precautions at all times CARDIOVASCULAR: Follow hemodynamics. Vital signs per facility protocol GI & NUTRITION: Continue with nutritional support. Continue stool softeners and laxatives as needed. KIDNEYS & ELECTROLYTES: Strict monitoring of intake, output and overall fluid balance. Avoid nephrotoxic medications to the extent possible. Medications to be dosed according to renal function. Monitor electrolytes and replace as needed ENDOCRINE: Maintain blood glucose between 100-180 at all times. Hypoglycemia protocol in place INFECTIOUS DISEASE: Trend temperature, WBC and procalcitonin level Follow cultures, deescalate antibiotics as soon as possible. Panculture if new onset fever ONCOLOGY/HEMATOLOGY/COAGULATION: Monitor for s/s of bleeding Monitor hemoglobin, coagulation studies as needed SKIN: Pressure ulcer prevention per facility protocol Specialty mattress ORTHO/REHAB: Continue PT/OT Prophylaxis: Continue GI and DVT prophylaxis Code Status: Full Resuscitation Disposition: Home once medically stable for discharge Other: Total patient care time exceeds 35 minutes excluding all procedures. ATTESTATION BY PHYSICIAN The patient has been seen and evaluated, the case has been discussed with the SKI PATROL DIRECTOR, I agree with the clinical findings and plan of care. Bakari Araiza MD,NANCY N SKI PATROL DIRECTOR Jun 18, 2024 10:10
[2024-06-18] MEDS: PoTASSium chloRIDE 20MEQ ER 20 MEQ ERTAB PO PRN (11:09)
--- NOTE | 2024-06-18 12:49 | PN ---
[facility] Cardiology Progress Note PROBLEM LIST: [Persistent atrial fibrillation with RVR, diagnosed 2019 2D echo with EF 40-45%, with positive ASD and moderate [id number] shunting, severely dilated RV Gram-negative UTI Noncompliance with Eliquis and other medications Recent CVA in April 2024 at [facility] Hypotension, on midodrine Squamous cell carcinoma of the scalp ] INTERVAL HISTORY: [Patient was seen in the office as a new consult on 06/16. At that time he was severely short of breath with nondetectable blood pressure. EKG in the office revealed AFib with RVR in the 130s. Patient was sent to the ER and started on amiodarone drip, now completed. He had an echo that revealed compromised EF 40-45% with an ASD, severely dilated RV. Blood pressure has been marginal in the low 100s. When he gets up he drops to the 70s. Midodrine was ordered this morning but he has yet to receive it. He has not been receiving the metoprolol due to his low blood pressure. He is on Eliquis 2.5 mg, which is what was prescribed when he left [facility] in April. He thought this dosing was odd. Patient feels much better now than when seen in the office earlier this week. Still feels the palpitations but they are less. Breathing is improved. No chest discomfort. Appetite improved. No reports of bleeding, fever. ] PHYSICAL EXAMINATION: Vital Signs (Last 48hrs) Date Time Temp Pulse Resp B/P (MAP) Pulse Ox O2 Delivery O2 Flow Rate FiO2 06/18/24 12:00 98.6 67 20 115/74 98 Room Air 06/18/24 10:09 108 98/62 100 Room Air 96/62 73/46 06/18/24 07:43 97.9 83 20 96/60 98 Room Air 06/18/24 06:46 83 18 N/A Room Air 06/18/24 04:00 97.9 74 18 118/56 97 Room Air 06/17/24 23:00 97.5 70 18 107/68 94 Room Air 06/17/24 20:00 94 Room Air* 0 06/17/24 19:30 97.5 87 18 116/56 94 Room Air 06/17/24 18:41 91 18 N/A Room Air 06/17/24 18:06 83 101/75 06/17/24 18:02 108 79/64 06/17/24 17:57 98 113/72 06/17/24 17:53 107 105/58 06/17/24 17:34 97.9 80 18 109/69 95 Room Air 06/17/24 12:11 98.1 71 18 97/64 94 Room Air 06/17/24 08:20 98 Room Air* 0 21 06/17/24 07:50 97.5 75 18 107/68 98 Room Air 06/17/24 06:52 89 18 N/A Room Air 06/17/24 05:45 100/54 06/17/24 03:36 97.9 80 20 107/61 99 Room Air 0.0 06/17/24 03:24 18 N/A Room Air 06/17/24 02:39 105/60 06/17/24 02:05 94/57 06/17/24 01:11 102/58 06/17/24 00:35 97.9 85 18 93/60 98 Room Air 06/16/24 20:15 98 Room Air* 0 06/16/24 19:41 102 18 116/60 98 Room Air 06/16/24 19:09 18 N/A Room Air 06/16/24 19:07 95 18 N/A Room Air 06/16/24 18:02 97.3 59 18 114/79 96 Room Air 06/16/24 15:20 100 Room Air* 0 06/16/24 14:04 97.7 77 18 133/62 92 Room Air* 0 21 General: Resting comfortably, no acute distress, pallid, chronically ill- appearing. HEENT: Scalp dressing in place. Hearing is intact. No facial asymmetry, nasal discharge, icterus or lid lag. Cardiovascular: Irregularly irregular, slightly tachycardic. No murmur. No edema. Respiratory: Lungs clear to the bases. No retractions, wheezes or rhonchi. Gastrointestinal: Benign, soft, nontender, nondistended. Extremities: No amputations. Range of motion is grossly normal. Neurology/Psychiatry: No tremors. Speech is clear. Alert and oriented x 3. Cooperative and pleasant. LABORATORY DATA: [ Laboratory Tests Test 06/17/24 17:19 06/17/24 19:56 06/18/24 03:35 06/18/24 06:24 Whole Blood Glucose 113 MG/DL (70-110) H 117 MG/DL (70-110) H 92 MG/DL (70-110) White Blood Count 9.4 K/uL (4.8-10.8) Red Blood Count 3.82 MIL/uL (4.50-6.20) L Hemoglobin 11.0 g/dL (14.0-18.0) L Hematocrit 33.2 % (42-54) L Mean Corpuscular Volume 86.9 fL (79-99) Mean Corpuscular Hemoglobin 28.8 pg (27.0-33.0) Mean Corpuscular Hemoglobin Concent 33.1 g/dL (32.0-36.0) Red Cell Distribution Width 15.8 % (11.0-15.5) H Platelet Count 175 K/uL (130-400) Mean Platelet Volume 9.5 fL (7.5-10.5) Immature Granulocyte % (Auto) 1.1 % (0-1) H Neutrophils (%) (Auto) 71.8 % (40.0-77.0) Lymphocytes (%) (Auto) 14.2 % (21.0-51.0) L Monocytes (%) (Auto) 10.7 % (3.0-13.0) Eosinophils (%) (Auto) 1.8 % (0.0-8.0) Basophils (%) (Auto) 0.4 % (0.0-5.0) Neutrophils # (Auto) 6.8 K/uL (1.8-7.7) Lymphocytes # (Auto) 1.3 K/uL (1.0-4.8) Monocytes # (Auto) 1.0 K/uL (0.1-1.0) Eosinophils # (Auto) 0.17 K/uL (0.00-0.70) Basophils # (Auto) 0.04 K/uL (0.00-0.20) Absolute Immature Granulocyte (auto 0.10 K/uL (0-1) Nucleated Red Blood Cells 0.0 % (0.0-0.19) Sodium Level 136 mmol/L (136-145) Potassium Level 3.3 mmol/L (3.5-5.1) L Chloride Level 101 mmol/L (101-111) Carbon Dioxide Level 23 mmol/L (21-32) Blood Urea Nitrogen 20 mg/dL (7-18) H Creatinine 0.8 mg/dL (0.5-1.3) Glomerular Filtration Rate Calc 95 mL/min (>90) Random Glucose 123 mg/dL (70-105) H Total Calcium 8.9 mg/dL (8.5-10.1) Phosphorus Level 2.9 mg/dL (2.5-4.9) Magnesium Level 1.50 mg/dL (1.80-2.40) L Total Bilirubin 0.8 mg/dL (0.2-1.0) Aspartate Amino Transf (AST/SGOT) 33 U/L (10-37) Alanine Aminotransferase (ALT/SGPT) 20 U/L (12-78) Alkaline Phosphatase 75 U/L (50-136) Total Protein 5.9 g/dL (6.0-8.3) L Albumin 2.0 g/dL (3.5-5.0) L Procalcitonin 0.31 ng/mL (0.05-0.5) ] RADIOLOGY: [] PLAN: [Patient is still his having rate control issues. Have not been able to administer metoprolol because of his low blood pressure. He will be started on midodrine. Continue the low-dose metoprolol, up titrated as tolerated. We will increase the Eliquis to 5 mg b.i.d.. Patient can be discharged once we obtain adequate rate control with acceptable blood pressures] SRUTHI SAMUELS PAC Jun 18, 2024 12:49
[2024-06-18] MEDS: miDODRine HCL 5 MG TABLET PO SCH (13:09)
[2024-06-18] MEDS ORDERED: miDODRine HCL 5 MG TABLET PO SCH ×2 (14:00)
--- NOTE | 2024-06-18 14:18 | NUR ---
[facility] Follow-up: Patient re-assessed by wound healing team. Assessment and recommendations provided to primary nurse. Education provided. Wound care done. Addendum: 06/18/24 at 1418 by GAVIN SHANNON RN RN/ Amended: Links added.
[2024-06-18] MEDS: APIXaban 5 MG TABLET PO SCH (20:42)
[2024-06-19] VITALS (13 sets, daily range): BP systolic 100–125; BP diastolic 63–78; PULSE 64–96; RESP 16–18; TEMP 97.4–98.9; O2SAT 98–99
[2024-06-19 03:48] LABS: BASOPHILS # (AUTO) 0.05 K/uL (0.00-0.20); BASOPHILS % (AUTO) 0.7 % (0.0-5.0); EOSINOPHILS # (AUTO) 0.18 K/uL (0.00-0.70); EOSINOPHILS % (AUTO) 2.5 % (0.0-8.0); HEMATOCRIT 35.4 % (42-54); IMMATURE GRANULOCYTE ABSOLUTE 0.12 K/uL (0-1); LYMPHOCYTES # (AUTO) 1.8 K/uL (1.0-4.8); LYMPHOCYTES % (AUTO) 24.9 % (21.0-51.0); MEAN CORPUSCULAR HEMOGLOBIN 28.5 pg (27.0-33.0); MEAN CORPUSCULAR HGB CONC 32.5 g/dL (32.0-36.0); MEAN CORPUSCULAR VOLUME 87.6 fL (79-99); MONOCYTES # (AUTO) 0.8 K/uL (0.1-1.0); MONOCYTES % (AUTO) 10.8 % (3.0-13.0); NEUTROPHILS # (AUTO) 4.2 K/uL (1.8-7.7); NEUTROPHILS % (AUTO) 59.4 % (40.0-77.0); PLATELET COUNT (AUTO) 189 K/uL (130-400); RED BLOOD CELL COUNT(AUTO) 4.04 MIL/uL (4.50-6.20); RED CELL DISTRIBUTION WIDTH 15.7 % (11.0-15.5); WHITE BLOOD COUNT (AUTO) 7.1 K/uL (4.8-10.8)
[2024-06-19 04:12] LABS: CREATININE 0.8 mg/dL (0.5-1.3); POTASSIUM 3.4 mmol/L (3.5-5.1)
[2024-06-19 04:16] LABS: ALBUMIN 1.9 g/dL (3.5-5.0); BILIRUBIN,TOTAL 0.6 mg/dL (0.2-1.0); MAGNESIUM 1.8 mg/dL (1.80-2.40); TOTAL PROTEIN, SERUM 5.9 g/dL (6.0-8.3)
[2024-06-19] MEDS: PoTASSium chl 10% ELIXIR 20MEQ 20 MEQ/15 ML UDCUP PO PRN (06:09)
--- NOTE | 2024-06-19 08:27 | PN ---
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 Follow Cardiology recommendations Out of bed to chair and ambulate Dispo: Home once medically stable for discharge INTERVAL HISTORY: We were asked per Cardiology team to direct admit this 68-year-old male with a past medical history of AFib recently started on Eliquis in April of this year, hyperlipidemia, squamous cell carcinoma of the skin of the head and previous CVA with mild residual weakness to the left side who was sent from the [facility] for AFib with RVR requiring rate control. On assessment patient is awake alert and oriented x3. He was on O2 at 2 L via nasal cannula saturating 93%. Patient is a. Pale with generalized body weakness. He reported he was at the [facility] for irregular follow up and when he was called into the office as he was walking and he had symptoms of near- syncope. He reports he did not completely pass out but salivary squeamish and and thought that he was going to faint. He reports he [place] [facility] [place]. He denies any chest pain shortness breath or palpitations at this time. He does report generalized body weakness and a few days of cloudy foul odor to his urine. He denies any burning with urination. Patient also reports poor appetite. Patient's caregiver confirmed that patient has not been eating very well due to no appetite. Chest x-ray appears unremarkable. On CBC white count is 11.2 H&H is 13.3/41.3 with a platelet count that is 221 K. chemistry sodium is normal potassium is 4.5 chloride is 100 carbon dioxide 25 BUN of 32 creatinine of 1.3 and GFR 59. Glucose 114 mg/dL. We will start patient on Zosyn to cover for healthcare associated UTI due to recent hospitalization. He will be admitted to the PCCU floor and consult Cardiology for rebound recommendations we will restart his home cardiac medication and give him a trial of metoprolol 2.5 mg IV push x1 for now for AFib with RVR with heart rate of 109 beats per minute. Currently he is hemodynamically stable with a blood pressure 120/69 on the bedside monitor saturating 93% with 2 L via nasal cannula and afebrile. 06/17 - patient is seen and evaluated at the bedside. Patient is sitting up in bed with no signs of acute distress. Patient has been weaned off O2 and currently on room air and denies dyspnea. Patient denies chest discomfort, chest pain at this time. Patient continues on amiodarone drip via protocol and as per nursing, patient's heart rate is currently 80 beats per minute. Patient did report light presyncopal episode yesterday evening as he was getting out of bed attempting to go to the bathroom. Patient instructed to remain in bed and request assistance. We are pending orthostatic vital signs. Patient had a b ilateral carotid ultrasound performed which was unremarkable. Patient had a 2D echo which shows evidence of ASD with moderate xrde-on-[id number] shunting. Severely dilated right ventricle, Pradaxa septal motion. Moderate tricuspid valve regurgitation. We will DC ejection fraction estimated at 40-45%. Patient had a chest x-ray done which shows prominent interstitial markings seen with possible superimposed infiltrates. Patient had a renal ultrasound which shows no hydronephrosis seen. Vital signs are stable. Labs are within normal limits. We will await Cardiology evaluation and further recommendations. 06/18 - patient is seen and evaluated at the bedside. Patient is sitting up in bed with no signs of acute respiratory distress. Patient remains on room air and denies chest discomfort, chest pain or dyspnea. Patient did report that orthostatic vital signs were performed yesterday afternoon in his blood pressure dropped significantly once he stood him up out of bed. Currently his blood pressure is soft really 96/60. We will add midodrine at this time. Labs show white count has trended down within normal limits. Patient was seen by Cardiology and recommended to continue metoprolol 12.5 b.i.d., Eliquis5 b.i.d. discontinue amiodarone. Patient was found to have atrial septum deviation 2D echo and cardio recommendations repeat echo in the setting of normal ventricular rate. We are still pending physical therapy evaluation for discharge recommendations. Patient's urine culture is positive for E coli therefore we will continue current antibiotic treatment for now. 06/19 - patient is seen sitting up in bed does not appear to be in any acute distress at this time. Patient continues on room air denies dyspnea. Patient denies chest discomfort or chest pain. As per chart, patient's heart rate remained stable. Patient has not been receiving his metoprolol due to his low blood pressure. Patient was started on midodrine yesterday afternoon and BP is do show some improvement. We will monitor throughout the day today and plan to DC home in 24 hours. Vital signs are stable. Labs are within normal limits. REVIEW OF SYSTEMS: 12 point ROS reviewed with patient. Pertinent positives mentioned above. Otherwise negative. PHYSICAL EXAM: GENERAL: Awake alert oriented x3, with generalized weakness, pale HEENT: EOMI, Sclera non icteric, moist mucosa NECK: Supple, no JVD, trachea midline LUNGS: Clear breath sounds bilaterally. No wheezes HEART: Regular rate and rhythm. Normal S1 and S2, without murmurs ABD: Abdomen soft, nontender. Bowel sounds present EXT: No clubbing cyanosis or edema NEURO: Alert and oriented to person, follows commands Vital Signs (last 8hr) Date Time Temp Pulse Resp B/P (MAP) Pulse Ox O2 Delivery O2 Flow Rate FiO2 06/19/24 07:13 80 18 N/A Room Air 21 06/19/24 03:00 99.0 64 18 115/70 98 Room Air LABS: Hematology Labs: Test 06/19/24 03:12 Range/Units White Blood Count 7.1 4.8-10.8 K/uL Red Blood Count 4.04 L 4.50-6.20 MIL/uL Hemoglobin 11.5 L 14.0-18.0 g/dL Hematocrit 35.4 L 42-54 % Mean Corpuscular Volume 87.6 79-99 fL Mean Corpuscular Hemoglobin 28.5 27.0-33.0 pg Mean Corpuscular Hemoglobin Concent 32.5 32.0-36.0 g/dL Red Cell Distribution Width 15.7 H 11.0-15.5 % Platelet Count 189 130-400 K/uL Mean Platelet Volume 9.4 7.5-10.5 fL Immature Granulocyte % (Auto) 1.7 H 0-1 % Neutrophils (%) (Auto) 59.4 40.0-77.0 % Lymphocytes (%) (Auto) 24.9 21.0-51.0 % Monocytes (%) (Auto) 10.8 3.0-13.0 % Eosinophils (%) (Auto) 2.5 0.0-8.0 % Basophils (%) (Auto) 0.7 0.0-5.0 % Neutrophils # (Auto) 4.2 1.8-7.7 K/uL Lymphocytes # (Auto) 1.8 1.0-4.8 K/uL Monocytes # (Auto) 0.8 0.1-1.0 K/uL Eosinophils # (Auto) 0.18 0.00-0.70 K/uL Basophils # (Auto) 0.05 0.00-0.20 K/uL Absolute Immature Granulocyte (auto 0.12 0-1 K/uL Nucleated Red Blood Cells 0.0 0.0-0.19 % Chemistry Labs: Test 06/19/24 06:39 06/19/24 03:12 06/18/24 03:35 Range/Units Whole Blood Glucose 85 70-110 MG/DL Sodium Level 139 136-145 mmol/L Potassium Level 3.4 L 3.5-5.1 mmol/L Chloride Level 105 101-111 mmol/L Carbon Dioxide Level 23 21-32 mmol/L Blood Urea Nitrogen 15 7-18 mg/dL Creatinine 0.8 0.5-1.3 mg/dL Glomerular Filtration Rate Calc 95 >90 mL/min Random Glucose 103 70-105 mg/dL Total Calcium 8.8 8.5-10.1 mg/dL Magnesium Level 1.80 1.80-2.40 mg/dL Total Bilirubin 0.6 # 0.2-1.0 mg/dL Aspartate Amino Transf (AST/SGOT) 37 10-37 U/L Alanine Aminotransferase (ALT/SGPT) 26 # 12-78 U/L Alkaline Phosphatase 77 50-136 U/L Total Protein 5.9 L 6.0-8.3 g/dL Albumin 1.9 L 3.5-5.0 g/dL Procalcitonin 0.23 0.05-0.5 ng/mL Phosphorus Level 2.9 2.5-4.9 mg/dL DIAGNOSTICS / RADIOLOGY RESULTS: [ ] PLAN NEURO: Minimize central acting medications as possible. Maintain fall precautions, adequate lighting during the day PULMONARY: Supplemental 02 as needed. Maintain aspiration precautions at all times CARDIOVASCULAR: Follow hemodynamics. Vital signs per facility protocol GI & NUTRITION: Continue with nutritional support. Continue stool softeners and laxatives as needed. KIDNEYS & ELECTROLYTES: Strict monitoring of intake, output and overall fluid balance. Avoid nephrotoxic medications to the extent possible. Medications to be dosed according to renal function. Monitor electrolytes and replace as needed ENDOCRINE: Maintain blood glucose between 100-180 at all times. Hypoglycemia protocol in place INFECTIOUS DISEASE: Trend temperature, WBC and procalcitonin level Follow cultures, deescalate antibiotics as soon as possible. Panculture if new onset fever ONCOLOGY/HEMATOLOGY/COAGULATION: Monitor for s/s of bleeding Monitor hemoglobin, coagulation studies as needed SKIN: Pressure ulcer prevention per facility protocol Specialty mattress ORTHO/REHAB: Continue PT/OT Prophylaxis: Continue GI and DVT prophylaxis Code Status: Full Resuscitation Disposition: Home in 24 hours Other: Total patient care time exceeds 35 minutes excluding all procedures. ATTESTATION BY PHYSICIAN I reviewed the documentation, medical decision making, and treatment plan as noted by the mid-level provider above. I agree with the findings and plan of Tacos Castillo MD,NANCY Kirby NP Jun 19, 2024 08:27
[2024-06-19] MEDS ORDERED: mecliZINE HCL 12.5 MG TABLET PO PRN (13:00)
--- NOTE | 2024-06-19 15:18 | PN ---
[facility] CARDIOLOGY PROGRESS NOTE Date Patient Seen: Jun 19, 2024 Time of Visit: 14:43 Interval History: This 68-year-old white male, resident of [place], has a history of possible permanent atrial fibrillation, recent CVA April 2024 at [facility], and squamous cell carcinoma of the scalp who was admitted from the heart clinic office when he was noted to be dyspneic, hypotensive, and presyncopal. Blood pressure was near undetectable. In addition he was in atrial fibrillation with rapid ventricular response in the 130 beat per minute range. He has been found to have an E. coli urinary tract infection but blood cultures have been negative. He has been initiated on midodrine for blood pressure support and a 2D echocardiogram has demonstrated a mild congestive cardiomyopathy with LVEF of 40-45%, evidence of an ASD with moderate [id number] shunting, and a severely dilated right ventricle with borderline reduced RV systolic function and paradoxic septal motion. The RV systolic pressure estimate was 41 mmHg. Admission labs were remarkable for a borderline elevated procalcitonin of 0.55 (normal 0.5 or less), and a borderline elevated lactic acid of 2.6 (normal less than 2.5). Blood cultures are no growth thus far. Of note the patient reports anorexia, poor p.o. intake, and a recent 26 lb weight loss. The patient has tolerated low-dose metoprolol 12.5 b.i.d. and remains on midodrine 10 mg t.i.d. with correction of his orthostatic hypotension and of his rapid ventricular response of his atrial fibrillation. Physical Examination: GENERAL: No acute distress. HEAD: Normal with no signs of head trauma. EYES: PERRLA, EOMI, conjunctiva and sclera normal. NECK: Supple without JVD. There is no tenderness, lymphadenopathy, or masses. No thyromegaly. Normal carotid upstrokes without bruits. LUNGS: Clear breath sounds bilaterally. No wheezes, or rhonchi. HEART: There is an irregularly irregular rhythm. There is no audible murmur in the pulmonic area and no loud P2 or split 2nd heart sound audible. There is no audible gallop or rub.] VASC: Peripheral pulses +2 bilaterally. EXT: No clubbing, cyanosis or edema. NEURO: Awake, alert, and oriented x3. No focal neurological deficits noted. Laboratory: Hematology Labs: Test 06/19/24 03:12 Range/Units White Blood Count 7.1 4.8-10.8 K/uL Red Blood Count 4.04 L 4.50-6.20 MIL/uL Hemoglobin 11.5 L 14.0-18.0 g/dL Hematocrit 35.4 L 42-54 % Mean Corpuscular Volume 87.6 79-99 fL Mean Corpuscular Hemoglobin 28.5 27.0-33.0 pg Mean Corpuscular Hemoglobin Concent 32.5 32.0-36.0 g/dL Red Cell Distribution Width 15.7 H 11.0-15.5 % Platelet Count 189 130-400 K/uL Mean Platelet Volume 9.4 7.5-10.5 fL Immature Granulocyte % (Auto) 1.7 H 0-1 % Neutrophils (%) (Auto) 59.4 40.0-77.0 % Lymphocytes (%) (Auto) 24.9 21.0-51.0 % Monocytes (%) (Auto) 10.8 3.0-13.0 % Eosinophils (%) (Auto) 2.5 0.0-8.0 % Basophils (%) (Auto) 0.7 0.0-5.0 % Neutrophils # (Auto) 4.2 1.8-7.7 K/uL Lymphocytes # (Auto) 1.8 1.0-4.8 K/uL Monocytes # (Auto) 0.8 0.1-1.0 K/uL Eosinophils # (Auto) 0.18 0.00-0.70 K/uL Basophils # (Auto) 0.05 0.00-0.20 K/uL Absolute Immature Granulocyte (auto 0.12 0-1 K/uL Nucleated Red Blood Cells 0.0 0.0-0.19 % Chemistry Labs: Test 06/19/24 12:03 06/19/24 03:12 06/18/24 03:35 Range/Units Whole Blood Glucose 123 H 70-110 MG/DL Sodium Level 139 136-145 mmol/L Potassium Level 3.4 L 3.5-5.1 mmol/L Chloride Level 105 101-111 mmol/L Carbon Dioxide Level 23 21-32 mmol/L Blood Urea Nitrogen 15 7-18 mg/dL Creatinine 0.8 0.5-1.3 mg/dL Glomerular Filtration Rate Calc 95 >90 mL/min Random Glucose 103 70-105 mg/dL Total Calcium 8.8 8.5-10.1 mg/dL Magnesium Level 1.80 1.80-2.40 mg/dL Total Bilirubin 0.6 # 0.2-1.0 mg/dL Aspartate Amino Transf (AST/SGOT) 37 10-37 U/L Alanine Aminotransferase (ALT/SGPT) 26 # 12-78 U/L Alkaline Phosphatase 77 50-136 U/L Total Protein 5.9 L 6.0-8.3 g/dL Albumin 1.9 L 3.5-5.0 g/dL Procalcitonin 0.23 0.05-0.5 ng/mL Phosphorus Level 2.9 2.5-4.9 mg/dL Diagnostics / Radiology: 2D echo 06/16/2024: Conclusion Evidence of ASD by color Doppler (image 50) with moderate left to right shunting. The right ventricle is severely dilated with RVID of 4.9 cm at the base (normal is 4.1 cm). Right ventricular systolic function is borderline reduced. Paradoxic septal motion. There is moderate tricuspid valve regurgitation noted. RVSP is 41 mmHg. There is normal left ventricular wall thickness. Reduced ejection fraction estimated 40-45%. The left ventricular diastolic function is normal. IVC is dilated and collapses <50% with inspiration. There is no pericardial effusion. DICTATED BY: JOSE DAVE MD DATE: 06/16/24 1436 Impression and Plan: Hypotension and near-syncope, multifactorial secondary to E coli UTI with borderline urosepsis (elevated lactic acid, and procalcitonin), and secondary to protein calorie malnutrition with 26 lb weight loss recently: The patient was severely orthostatic yesterday from proximally 100 mm of mercury systolic to 73 mm of mercury standing, improved today from a supine blood pressure 110/73 to a standing blood pressure of 105/71: -reduce midodrine today to 5 mg t.i.d. -optimize dietary, salt, and water intake -repeat orthostatic vital signs Q shift and consider discharge home tomorrow a.m. if no further workup planned -proceed with lab workup including fasting a.m. cortisol, B12 and folic acid level, and HIV to screen for any other causes of orthostatic hypotension E coli UTI with borderline urosepsis, normal blood cultures: -responding to IV antibiotic therapy Permanent atrial fibrillation with rapid ventricular response in the setting of UTI and volume depletion: Long-term anticoagulation with Eliquis: -the patient has stabilized on low-dose metoprolol 12.5 b.i.d. -continue Eliquis 5 mg p.o. b.i.d. Cardiomyopathy of uncertain etiology with LVEF of 40-45%, severe RV dilation, mild pulmonary hypertension with RV systolic pressure of 41 mm of mercury, and evidence of an ASD with moderate vyvy-he-[id number] shunting by 2D echo 06/16/2024: Atrial septal defect with moderate [id number] shunting on 2D echo 06/16/2024: -consider future right and left heart catheterization to assess severity of shunting and consider closure of ASD, if shunt fraction significant (indication for ASD closure include symptoms referable to the ASD, RV dilatation, paradoxical embolism, and QP:QS ratio greater than 1.5) Comorbidities: Noncompliance Squamous cell carcinoma of the scalp JOSE DAVE MD Jun 19, 2024 15:18
[2024-06-19] MEDS ORDERED: metoPROLOL tartRATE 1 MG/ML 5ML VIAL IV PRN (19:00)
[2024-06-19] MEDS: metoPROLOL tartRATE 25 MG TAB PO ONE (19:07)
[2024-06-19] MEDS: miDODRine HCL 5 MG TABLET PO SCH (20:21)
[2024-06-20] VITALS (16 sets, daily range): BP systolic 95–131; BP diastolic 56–90; PULSE 72–119; RESP 18–22; TEMP 97.5–98.7; O2SAT 98–99
[2024-06-20 05:36] LABS: % IRON SATURATION 33.9 % (30-44)
[2024-06-20 05:56] LABS: HIV 1&2 ANTIBODY Non-Reactive (Negative); HIV-1 p24 Antigen Non-Reactive (Negative)
[2024-06-20] MEDS: ALBUTEROL 0.083% 2.5 MG/3 ML INH IH PRN (07:20)
[2024-06-20] MEDS: IpraTROPium 0.5 MG/2.5 ML INH IH PRN (07:21)
[2024-06-20] MEDS ORDERED: miDODRine HCL 5 MG TABLET PO (07:36)
[2024-06-20] MEDS: metoPROLOL tartRATE 25 MG TAB PO SCH (08:38)
--- NOTE | 2024-06-20 09:54 | DS ---
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 On assessment patient is awake alert and oriented x3. He was on O2 at 2 L via nasal cannula saturating 93%. Patient is a. Pale with generalized body weakness. He reported he was at the [facility] for irregular follow up and when he was called into the office as he was walking and he had symptoms of near- syncope. He reports he did not completely pass out but salivary squeamish and and thought that he was going to faint. He reports he was sent here to [facility] for fast heart rate. He denies any chest pain shortness breath or palpitations at this time. He does report generalized body weakness and a few days of cloudy foul odor to his urine. He denies any burning with urination. Patient also reports poor appetite. Patient's caregiver confirmed that patient has not been eating very well due to no appetite. Chest x-ray appears unremarkable. On CBC white count is 11.2 H&H is 13.3/41.3 with a platelet count that is 221 K. chemistry sodium is normal potassium is 4.5 chloride is 100 carbon dioxide 25 BUN of 32 creatinine of 1.3 and GFR 59. Glucose 114 mg/dL. We will start patient on Zosyn to cover for healthcare associated UTI due to recent hospitalization. He will be admitted to the PCCU floor and consult Cardiology for rebound recommendations we will restart his home cardiac medication and give him a trial of metoprolol 2.5 mg IV push x1 for now for AFib with RVR with heart rate of 109 beats per minute. Currently he is hemodynamically stable with a blood pressure 120/69 on the bedside monitor sa turating 93% with 2 L via nasal cannula and afebrile. 06/17 - patient is seen and evaluated at the bedside. Patient is sitting up in bed with no signs of acute distress. Patient has been weaned off O2 and currently on room air and denies dyspnea. Patient denies chest discomfort, chest pain at this time. Patient continues on amiodarone drip via protocol and as per nursing, patient's heart rate is currently 80 beats per minute. Patient did report light presyncopal episode yesterday evening as he was getting out of bed attempting to go to the bathroom. Patient instructed to remain in bed and request assistance. We are pending orthostatic vital signs. Patient had a bilateral carotid ultrasound performed which was unremarkable. Patient had a 2D echo which shows evidence of ASD with moderate [id number] shunting. Severely dilated right ventricle, Pradaxa septal motion. Moderate tricuspid valve regurgitation. We will DC ejection fraction estimated at 40-45%. Patient had a chest x-ray done which shows prominent interstitial markings seen with possible superimposed infiltrates. Patient had a renal ultrasound which shows no hydronephrosis seen. Vital signs are stable. Labs are within normal limits. We will await Cardiology evaluation and further recommendations. 06/18 - patient is seen and evaluated at the bedside. Patient is sitting up in bed with no signs of acute respiratory distress. Patient remains on room air and denies chest discomfort, chest pain or dyspnea. Patient did report that orthostatic vital signs were performed yesterday afternoon in his blood pressure dropped significantly once he stood him up out of bed. Currently his blood pressure is soft really 96/60. We will add midodrine at this time. Labs show white count has trended down within normal limits. Patient was seen by Cardiology and recommended to continue metoprolol 12.5 b.i.d., Eliquis5 b.i.d. discontinue amiodarone. Patient was found to have atrial septum deviation 2D echo and cardio recommendations repeat echo in the setting of normal ventricular rate. We are still pending physical therapy evaluation for discharge recommendations. Patient's urine culture is positive for E coli therefore we will continue current antibiotic treatment for now. 06/19 - patient is seen sitting up in bed does not appear to be in any acute distress at this time. Patient continues on room air denies dyspnea. Patient denies chest discomfort or chest pain. As per chart, patient's heart rate remained stable. Patient has not been receiving his metoprolol due to his low blood pressure. Patient was started on midodrine yesterday afternoon and BP is do show some improvement. We will monitor throughout the day today and plan to DC home in 24 hours. Vital signs are stable. Labs are within normal limits. Today patient is seen sitting up in bed with no signs of acute distress. Was informed by nursing that patient went into AFib with RVR yesterday afternoon. Cardiology increase his metoprolol to 25 mg b.i.d.. As per chart, patient's current heart rate is 72 beats per minute. Blood pressure 131/65. Vital signs are stable. Labs are within normal limits. Patient has been advised to follow up with PCP in the next 1-2 days. Patient has been advised to follow up with Cardiology within 1 week. Patient has been advised to continue monitoring and need dose of metoprolol as per Cardiology recommendations. Patient verbalized understanding. Medication reconciliation has been completed. New prescriptions have been sent to patient's pharmacy. Education regarding current diagnosis been provided to the patient. All questions have been answered. Patient to be discharged home. 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 PCP notified of patients admission, hospital course and discharge. New Medications: Metoprolol Tartrate (Lopressor) 25 Mg Tab 25 MG PO BID for 30 Days, #60 TAB [miDODRine HCL 5 MG TABLET] () 5 MG TABLET 5 MG PO TID for 30 Days, #90 TAB 0 Refills Continued Medications: Albuterol Sulfate (Albuterol Sulfate) 2.5 Mg/3 Ml (0.083 %) Vial.neb 2.5 MG IH [id number] PRN for SHORTNESS OF BREATH for 30 Days, #30 INH Apixaban (Eliquis) 2.5 Mg Tablet 1 TAB PO BID for 30 Days, #60 TAB 0 Refills Atorvastatin Calcium (Lipitor) 40 Mg Tablet 40 MG PO HS for 30 Days, #30 TAB Ipratropium Rincon (Atrovent Neb Soln) 0.2 Mg/Ml (0.02 %) Soln 0.5 MG IH [id number] for 30 Days, #30 ML Meclizine HCl (Meclizine HCl) 12.5 Mg Tablet 12.5 MG PO TID PRN for DIZZINESS, #15 TAB Metformin HCl (Metformin HCl ER) 1,000 Mg Tab.er.24 1 TAB PO DAILY for 30 Days, #30 TAB 0 Refills Tamsulosin HCl (Flomax) 0.4 Mg Cap.er.24h 0.4 MG PO DAILY, CAPSULE.DR Discontinued Medications: Metoprolol Tartrate (Lopressor) 25 Mg Tab 12.5 MG PO BID for 30 Days, #30 TAB PHYSICAL EXAM: GENERAL: Awake alert oriented x3, with generalized weakness, pale HEENT: EOMI, Sclera non icteric, moist mucosa NECK: Supple, no JVD, trachea midline LUNGS: Clear breath sounds bilaterally. No wheezes HEART: Regular rate and rhythm. Normal S1 and S2, without murmurs ABD: Abdomen soft, nontender. Bowel sounds present EXT: No clubbing cyanosis or edema NEURO: Alert and oriented to person, follows commands FOLLOW-UP: Follow-up with PCP in 2-3 days Follow up with Cardiology in 1-2 weeks. RECOMMENDATIONS: See Discharge Instructions This case was seen and discussed with my supervising physician. More than 30 minutes spent on discharge process, including evaluation of the patient, discussion with nursing staff, medication reconciliation and follow-up appointments ATTESTATION BY PHYSICIAN I reviewed the documentation, medical decision making, and treatment plan as noted by the mid-level provider above. I agree with the findings and plan of care. Tacos Easley MD, ECTOR N NP Jun 20, 2024 09:53
--- NOTE | 2024-06-20 14:11 | PN ---
[facility] CARDIOLOGY PROGRESS NOTE Date Patient Seen: Jun 20, 2024 Time of Visit: 14:04 Interval History: This 68-year-old white male, resident of [place] currently residing in a care senior care in [place], [place], has a history of possible permanent atrial fibrillation, recent CVA April 2024 at [facility], and squamous cell carcinoma of the scalp who was [facility] office when he was noted to be dyspneic, hypotensive, and presyncopal. Blood pressure was near undetectable. In addition he was in atrial fibrillation with rapid ventricular response in the 130 beat per minute r moshe. He has been found to have an E. coli urinary tract infection but blood cultures have been negative. He has been initiated on midodrine for blood pressure support currently at 5 mg p.o. t.i.d. and a 2D echocardiogram has demonstrated a mild congestive cardiomyopathy with LVEF of 40-45%, evidence of an ASD with moderate [id number] shunting, and a severely dilated right ventricle with borderline reduced RV systolic function and paradoxic septal motion. The RV systolic pressure estimate was 41 mmHg. Admission labs were remarkable for a borderline elevated procalcitonin of 0.55 (normal 0.5 or less), and a borderline elevated lactic acid of 2.6 (normal less than 2.5). Blood cultures are no growth thus far. But urinalysis has d emonstrated E coli. Of note the patient reports anorexia, poor p.o. intake, and a recent 26 lb weight loss. He was found to have significant orthostatic hypotension with a blood pressure of approximately 100 mmHg to 73 mmHg mean standing. Repeat orthostatic vital signs this morning demonstrated a supine blood pressure 104/68 with pulse of 92, standing blood pressure at 1 minute of 102/56 with pulse of 119 and standing further at 3 minutes with a blood pressure of 112/75 with pulse of 112. He underwent further assessment with vitamin B12 and folate levels which were normal. HIV screen was negative and serum cortisol level is currently pending. He had less dizziness and lower extremity weakness this morning with orthostatic vital signs. He did have a increased heart rate response with activity such as standing. He offers no chest pain or palpitations. Reports only mild dyspnea with activity. Physical Examination: GENERAL: No acute distress. HEAD: Normal with no signs of head trauma. EYES: PERRLA, EOMI, conjunctiva and sclera normal. NECK: Supple without JVD. There is no tenderness, lymphadenopathy, or masses. No thyromegaly. Normal carotid upstrokes without bruits. LUNGS: Clear breath sounds bilaterally. No wheezes, or rhonchi. HEART: There is an irregularly irregular rhythm. There is no audible murmur in the pulmonic area and no loud P2 , there is no gallop or rub.] VASC: Peripheral pulses +2 bilaterally. EXT: No clubbing, cyanosis or edema. NEURO: Awake, alert, and oriented x3. No focal neurological deficits noted. Laboratory: Hematology Labs: Test 06/19/24 03:12 Range/Units White Blood Count 7.1 4.8-10.8 K/uL Red Blood Count 4.04 L 4.50-6.20 MIL/uL Hemoglobin 11.5 L 14.0-18.0 g/dL Hematocrit 35.4 L 42-54 % Mean Corpuscular Volume 87.6 79-99 fL Mean Corpuscular Hemoglobin 28.5 27.0-33.0 pg Mean Corpuscular Hemoglobin Concent 32.5 32.0-36.0 g/dL Red Cell Distribution Width 15.7 H 11.0-15.5 % Platelet Count 189 130-400 K/uL Mean Platelet Volume 9.4 7.5-10.5 fL Immature Granulocyte % (Auto) 1.7 H 0-1 % Neutrophils (%) (Auto) 59.4 40.0-77.0 % Lymphocytes (%) (Auto) 24.9 21.0-51.0 % Monocytes (%) (Auto) 10.8 3.0-13.0 % Eosinophils (%) (Auto) 2.5 0.0-8.0 % Basophils (%) (Auto) 0.7 0.0-5.0 % Neutrophils # (Auto) 4.2 1.8-7.7 K/uL Lymphocytes # (Auto) 1.8 1.0-4.8 K/uL Monocytes # (Auto) 0.8 0.1-1.0 K/uL Eosinophils # (Auto) 0.18 0.00-0.70 K/uL Basophils # (Auto) 0.05 0.00-0.20 K/uL Absolute Immature Granulocyte (auto 0.12 0-1 K/uL Nucleated Red Blood Cells 0.0 0.0-0.19 % Chemistry Labs: Test 06/20/24 11:47 06/20/24 05:08 06/19/24 03:12 Range/Units Whole Blood Glucose 136 H 70-110 MG/DL Iron Level 39 L 65-175 mcg/dL Total Iron Binding Capacity 115 L 250-450 mcg/dL Percent Iron Saturation 33.9 30-44 % Vitamin B12 Level 436 193-986 pg/mL Folic Acid (LAB) 3.60 2-20 ng/mL Sodium Level 139 136-145 mmol/L Potassium Level 3.4 L 3.5-5.1 mmol/L Chloride Level 105 101-111 mmol/L Carbon Dioxide Level 23 21-32 mmol/L Blood Urea Nitrogen 15 7-18 mg/dL Creatinine 0.8 0.5-1.3 mg/dL Glomerular Filtration Rate Calc 95 >90 mL/min Random Glucose 103 70-105 mg/dL Total Calcium 8.8 8.5-10.1 mg/dL Magnesium Level 1.80 1.80-2.40 mg/dL Total Bilirubin 0.6 # 0.2-1.0 mg/dL Aspartate Amino Transf (AST/SGOT) 37 10-37 U/L Alanine Aminotransferase (ALT/SGPT) 26 # 12-78 U/L Alkaline Phosphatase 77 50-136 U/L Total Protein 5.9 L 6.0-8.3 g/dL Albumin 1.9 L 3.5-5.0 g/dL Procalcitonin 0.23 0.05-0.5 ng/mL Diagnostics / Radiology: 2D echo 06/16/2024: Conclusion Evidence of ASD by color Doppler (image 50) with moderate left to right shunting. The right ventricle is severely dilated with RVID of 4.9 cm at the base (normal is 4.1 cm). Right ventricular systolic function is borderline reduced. Paradoxic septal motion. There is moderate tricuspid valve regurgitation noted. RVSP is 41 mmHg. There is normal left ventricular wall thickness. Reduced ejection fraction estimated 40-45%. The left ventricular diastolic function is normal. IVC is dilated and collapses <50% with inspiration. There is no pericardial effusion. DICTATED BY: JOSE DAVE MD DATE: 06/16/24 5216 Impression and Plan: Hypotension and near-syncope, multifactorial secondary to E coli UTI with borderline urosepsis (elevated lactic acid, and procalcitonin), and secondary to protein calorie malnutrition with 26 lb weight loss recently: The patient was severely orthostatic on 06/18/2024 from approximately systolic blood pressure of 100 mmHg to 73 mmHg standing: -wean midodrine today to 5 mg b.i.d., and continue to wean tomorrow or as an outpatient. -optimize dietary, salt, and water intake. Dietitian consult and add Ensure to meals -repeat orthostatic vital signs Q shift and consider discharge home tomorrow a.m. if BP improved -a.m. serum cortisol is pending but his vitamin B12, folic acid level, and HIV to screen were normal E coli UTI with borderline urosepsis, normal blood cultures: -responding to IV antibiotic therapy Permanent atrial fibrillation with rapid ventricular response in the setting of UTI and volume depletion: Long-term anticoagulation with Eliquis: -continue low-dose metoprolol 12.5 mg p.o. b.i.d. -continue Eliquis 5 mg p.o. b.i.d. Cardiomyopathy of uncertain etiology with LVEF of 40-45%, severe RV dilation, mild pulmonary hypertension with RV systolic pressure of 41 mm of mercury, and evidence of an ASD with moderate [id number] shunting by 2D echo 06/16/2024: Atrial septal defect with moderate qfns-hi-[id number] shunting on 2D echo 06/16/2024: -consider future right and left heart catheterization to assess severity of shunting and consider closure of ASD, if shunt fraction significant (indication for ASD closure include symptoms referable to the ASD, RV dilatation, paradoxical embolism, and QP:QS ratio greater than 1.5) Comorbidities: Noncompliance Squamous cell carcinoma of the scalp PHYSICIAN ATTESTATION OF PHYSICIAN FIRE AND SAFETY HELPER DOCUMENTATION: I attest that I was physically present for the thapa portions of the service and evaluated the patient with the [employer], and I reviewed and discussed the case with the [employer] and made modifications to the [employer]'s findings and plans of care as documented above TIM HARRINGTON Jun 20, 2024 14:11 JOSE DAVE MD Jun 20, 2024 15:58
[2024-06-20] MEDS: miDODRine HCL 5 MG TABLET PO SCH (21:00)
[2024-06-21 03:31] VITALS: BP 121/51; PULSE 107; RESP 20; TEMP 97.3
[2024-06-21 03:35] VITALS: BP_SYST 121; BP_SYST 123; BP_DIAS 53; PULSE 118; PULSE 94; RESP 20
[2024-06-21 07:00] VITALS: BP 141/95; PULSE 97; RESP 17; TEMP 97.7
[2024-06-21 07:05] VITALS: PULSE 88; RESP 18; O2SAT 98
[2024-06-21 08:00] VITALS: O2SAT 99
--- NOTE | 2024-06-21 08:12 | PN ---
PROGRESS NOTE PROBLEM LIST: Urinary tract infection Gram-negative rods via urine cultures Recent CVA Atrial fibrillation with rapid ventricular response in the setting of urinary tract infection Abnormal 2D echocardiogram for ASD and an ejection fraction at 40-45% in the setting of tachycardia Hypercoagulable stat Autonomic dystonia with orthostatic symptoms INTERIM HISTORY OF PRESENT ILLNESS: Patient overall remains in telemetry. Patient is currently on rate control medications and anticoagulation. Patient is also had issues with orthostatic hypotension and autonomic dystonia and has been placed on midodrine which has been decreased to 5 mg twice daily over the weekend. REVIEW OF SYSTEMS: No fever, headache, chest pain, abdominal pain, nausea, vomiting, or diarrhea. VITAL SIGNS Vital Signs Date Time Temp Pulse Resp B/P (MAP) Pulse Ox O2 Delivery O2 Flow Rate FiO2 06/21/24 07:05 88 18 N/A Room Air 21 06/21/24 03:35 121/53 98 06/21/24 03:31 97.3 06/20/24 20:00 0 LABS/MEDS Laboratory Tests Test 06/20/24 11:47 06/20/24 16:54 06/20/24 20:32 06/21/24 05:07 Whole Blood Glucose 136 MG/DL (70-110) H 102 MG/DL (70-110) 103 MG/DL (70-110) 111 MG/DL (70-110) H Current Medications Metoprolol Tartrate 25 mg STK-MED ONCE .ROUTE; Start 06/16/24 at 11:37; Stop 06/16/24 at 11:37; Status DC Metoprolol Tartrate 12.5 mg ONCE ONCE PO Last administered on 06/16/24at 12:10; Start 06/16/24 at 12:00; Stop 06/16/24 at 12:01; Status DC Enoxaparin Sodium 1 unit BID SQ; Start 06/16/24 at 21:00; Stop 06/16/24 at 12:03; Status DC Acetaminophen 650 mg Q6H PRN PO; Start 06/16/24 at 12:00; Stop 07/16/24 at 11:59 Acetaminophen 650 mg Q4H PRN PO; Start 06/16/24 at 12:00; Stop 07/16/24 at 11:59 Ondansetron HCl 4 mg Q6H PRN IVP; Start 06/16/24 at 12:00; Stop 07/16/24 at 11:59 Dextrose 50 ml AD PRN IV; Start 06/16/24 at 12:00; Stop 07/16/24 at 11:59 Glucagon 1 mg AD PRN IM; Start 06/16/24 at 12:00; Stop 07/16/24 at 11:59 Potassium Chloride 100 ml @ 100 mls/hr AD PRN IV; Start 06/16/24 at 12:00; Stop 06/16/24 at 12:00; Status DC Potassium Chloride 20 meq AD PRN PO; Start 06/16/24 at 12:00; Stop 06/16/24 at 12:00; Status DC Potassium Chloride 20 meq AD PRN PO; Start 06/16/24 at 12:00; Stop 06/16/24 at 12:00; Status DC Insulin Human Regular INSULIN SLIDING SCAL... ACHS SQ; Start 06/16/24 at 16:30; Stop 06/16/24 at 12:02; Status DC Famotidine 20 mg BID PO Last administered on 06/20/24at 21:21; Start 06/16/24 at 21:00; Stop 07/16/24 at 20:59 Acetaminophen 650 mg Q6H PRN PO; Start 06/16/24 at 12:00; Stop 06/16/24 at 12:43; Status DC Ipratropium Douglas 0.5 mg [id number] PRN IH Last administered on 06/20/24at 07:21; Start 06/16/24 at 12:00; Stop 07/16/24 at 11:59 Insulin Human Regular INSULIN SLIDING SCAL... ACHS SQ; Start 06/16/24 at 16:30; Stop 07/16/24 at 16:29 Potassium Chloride 100 ml @ 100 mls/hr AD PRN IV; Start 06/16/24 at 12:00; Stop 06/16/24 at 12:43; Status DC Potassium Chloride 20 meq AD PRN PO Last administered on 06/19/24at 06:09; Start 06/16/24 at 12:00; Stop 07/16/24 at 11:59 Potassium Chloride 20 meq AD PRN PO Last administered on 06/19/24at 14:08; Start 06/16/24 at 12:00; Stop 07/16/24 at 11:59 Potassium Chloride 100 ml @ 50 mls/hr AD PRN IV; Start 06/16/24 at 12:00; Stop 07/16/24 at 11:59 Magnesium Sulfate 50 ml @ 0 mls/hr PROTOCOL PRN IV Last administered on 06/19/24at 06:11; Start 06/16/24 at 12:00; Stop 07/16/24 at 11:59 Enoxaparin Sodium 90 mg BID SQ Last administered on 06/17/24at 08:18; Start 06/16/24 at 12:00; Stop 06/17/24 at 19:34; Status DC Sodium Chloride 250 ml @ 0 mls/hr Q0M IV Last administered on 06/16/24at 12:28; Start 06/16/24 at 12:30; Stop 06/17/24 at 08:46; Status DC Sodium Chloride 1,000 ml @ 50 mls/hr Q20H IV Last administered on 06/16/24at 12:28; Start 06/16/24 at 12:30; Stop 06/17/24 at 08:29; Status DC Metoprolol Tartrate 12.5 mg BID PO Last administered on 06/19/24at 09:52; Start 06/16/24 at 21:00; Stop 06/19/24 at 18:43; Status DC Tamsulosin HCl 0.4 mg DAILY PO Last administered on 06/20/24at 08:38; Start 06/17/24 at 09:00; Stop 07/17/24 at 08:59 Atorvastatin Calcium 40 mg HS PO Last administered on 06/20/24at 21:21; Start 06/16/24 at 21:00; Stop 07/16/24 at 20:59 Amiodarone HCl 150 mg/Dextrose 100 ml @ 0 mls/hr PROTOCOL IV; Start 06/16/24 at 12:30; Stop 06/16/24 at 12:24; Status DC Metoprolol Tartrate 2.5 mg ONCE ONCE IV Last administered on 06/16/24at 12:32; Start 06/16/24 at 12:30; Stop 06/16/24 at 12:31; Status DC Piperacillin Sod/ Tazobactam Sod 3.375 gm Q12H IV Last administered on 06/21/24at 00:55; Start 06/16/24 at 13:00; Stop 06/26/24 at 12:59 Amiodarone HCL/ Dextrose 100 ml @ 0 mls/hr PROTOCOL ONCE IV Last administered on 06/16/24at 13:38; Start 06/16/24 at 13:00; Stop 06/16/24 at 13:01; Status DC Amiodarone HCL/ Dextrose 200 ml @ 33.333 mls/ hr PROTOCOL IV; Start 06/16/24 at 13:00; Stop 06/16/24 at 12:56; Status DC Amiodarone HCl 540 mg/Dextrose 300 ml @ 16.667 mls/ hr PROTOCOL IV Last administered on 06/16/24at 20:02; Start 06/16/24 at 19:00; Stop 06/19/24 at 18:43; Status DC Amiodarone HCl 360 mg/Dextrose 200 ml @ 33.333 mls/ hr PROTOCOL IV Last administered on 06/16/24at 13:39; Start 06/16/24 at 13:00; Stop 06/17/24 at 08:46; Status DC Pharmacy Profile Note 1 each ONCE MISC; Start 06/16/24 at 16:30; Stop 06/16/24 at 18:09; Status DC Linezolid 300 ml @ 150 mls/hr Q12H IV; Start 06/16/24 at 18:30; Stop 06/16/24 at 20:32; Status DC Linezolid 300 ml @ 150 mls/hr Q12H IV Last administered on 06/17/24at 21:41; Start 06/16/24 at 21:00; Stop 06/18/24 at 07:40; Status DC Sodium Chloride 250 ml @ 0 mls/hr Q0M IV Last administered on 06/17/24at 02:34; Start 06/17/24 at 02:30; Stop 07/17/24 at 02:29 Amiodarone HCl 200 mg DAILY PO; Start 06/18/24 at 09:00; Stop 06/17/24 at 19:33; Status DC Amiodarone HCl 200 mg ONCE ONCE PO; Start 06/17/24 at 21:00; Stop 06/17/24 at 19:33; Status DC Apixaban 2.5 mg BID PO Last administered on 06/18/24at 09:29; Start 06/17/24 at 21:00; Stop 06/18/24 at 12:06; Status DC Midodrine 5 mg TID PO; Start 06/18/24 at 14:00; Stop 06/18/24 at 12:45; Status DC Midodrine 5 mg TID PO; Start 06/18/24 at 14:00; Stop 06/18/24 at 10:22; Status DC Apixaban 5 mg BID PO Last administered on 06/20/24at 21:21; Start 06/18/24 at 21:00; Stop 07/18/24 at 20:59 Midodrine 10 mg TID PO Last administered on 06/19/24at 14:08; Start 06/18/24 at 14:00; Stop 06/19/24 at 15:05; Status DC Albuterol Sulfate 2.5 mg [id number] PRN IH Last administered on 06/20/24at 07:20; Start 06/19/24 at 13:00; Stop 07/19/24 at 12:59 Meclizine HCl 12.5 mg TID PRN PO; Start 06/19/24 at 13:00; Stop 07/19/24 at 12:59 Midodrine 5 mg TID PO Last administered on 06/20/24at 13:29; Start 06/19/24 at 21:00; Stop 06/20/24 at 16:08; Status DC Metoprolol Tartrate 25 mg ONCE ONCE PO Last administered on 06/19/24at 19:07; Start 06/19/24 at 19:00; Stop 06/19/24 at 19:01; Status DC Metoprolol Tartrate 25 mg BID PO Last administered on 06/20/24at 08:38; Start 06/20/24 at 09:00; Stop 07/20/24 at 08:59 Metoprolol Tartrate 5 mg Q2H PRN IV; Start 06/19/24 at 19:00; Stop 07/19/24 at 18:59 Midodrine 5 mg BID PO; Start 06/20/24 at 21:00; Stop 07/19/24 at 20:59 PHYSICAL EXAMINATION: GENERAL: No acute distress. HEENT: Normocephalic, atraumatic. CARDIAC: Positive S1 and S2. irregularly irregular LUNGS: Clear to auscultation bilaterally. ABDOMEN: Bowel sounds present, soft, nontender. EXTREMITIES: No edema bilaterally. NEUROLOGIC: Cranial nerves 2-12 grossly intact. PSYCHIATRIC: Calm. TELEMETRY: AFib ASSESSMENT: Urinary tract infection Gram-negative rods via urine cultures Recent CVA Atrial fibrillation with rapid ventricular response in the setting of urinary tract infection Abnormal 2D echocardiogram for ASD and an ejection fraction at 40-45% in the setting of tachycardia Hypercoagulable stat PLAN: At this time we will increase beta blockade. We will continue on midodrine. Continue with anticoagulation with Eliquis. Patient should be considered stable to be moved to a group long term. MAYE SALAMANCA MD Jun 21, 2024 08:12
[2024-06-21] MEDS ORDERED: METO25 PO (09:48)
--- NOTE | 2024-06-21 09:53 | PN ---
[facility] PROGRESS NOTE Date Patient Seen: Jun 21, 2024 Time of Visit: 09:50 Supervising Physician: Tracee Primary Care Physician: Dr Renner Outpatient Specialists: Sotero Yanes (Cardiology) Inpatient Consults: (Cardiology) Sotero Renner MD, Sarmad Araiza (wound care) PROBLEM LIST: Acute hypoxic respiratory failure, POA resolved AFib with RVR, POA stable Near-syncope, POA resolved Orthostatic hypotension Suspected acute cystitis, POA resolved Leukocytosis, POA Normocytic anemia, POA Poor nutritional intake, POA History of AFib on anticoagulation with the Eliquis, previous CVA affecting left side with mild residual weakness, 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 On assessment patient is awake alert and oriented x3. He was on O2 at 2 L via nasal cannula saturating 93%. Patient is a. Pale with generalized body weakness. He reported he was at the [facility] for irregular follow up and when he was called into the office as he was walking and he had symptoms of near- syncope. He reports he did not completely pass out but salivary squeamish and and thought that he was going to faint. He reports he was sent here to [facility] for fast heart rate. He denies any chest pain shortness breath or palpitations at this time. He does report generalized body weakness and a few days of cloudy foul odor to his urine. He denies any burning with urination. Patient also reports poor appetite. Patient's caregiver confirmed that patient has not been eating very well due to no appetite. Chest x-ray appears unremarkable. On CBC white count is 11.2 H&H is 13.3/41.3 with a platelet count that is 221 K. chemistry sodium is normal potassium is 4.5 chloride is 100 carbon dioxide 25 BUN of 32 creatinine of 1.3 and GFR 59. Glucose 114 mg/dL. We will start patient on Zosyn to cover for healthcare associated UTI due to recent hospitalization. He will be admitted to the PCCU floor and consult Cardiology for rebound recommendations we will restart his home cardiac medication and give him a trial of metoprolol 2.5 mg IV push x1 for now for AFib with RVR with heart rate of 109 beats per minute. Currently he is hemodynamically stable with a blood pressure 120/69 on the bedside monitor saturating 93% with 2 L via nasal cannula and afebrile. 06/17 - patient is seen and evaluated at the bedside. Patient is sitting up in bed with no signs of acute distress. Patient has been weaned off O2 and currently on room air and denies dyspnea. Patient denies chest discomfort, chest pain at this time. Patient continues on amiodarone drip via protocol and as per nursing, patient's heart rate is currently 80 beats per minute. Patient did report light presyncopal episode yesterday evening as he was getting out of bed attempting to go to the bathroom. Patient instructed to remain in bed and request assistance. We are pending orthostatic vital signs. Patient had a bilateral carotid ultrasound performed which was unremarkable. Patient had a 2D echo which shows evidence of ASD with moderate [id number] shunting. Severely dilated right ventricle, Pradaxa septal motion. Moderate tricuspid valve regurgitation. We will DC ejection fraction estimated at 40-45%. Patient had a chest x-ray done which shows prominent interstitial markings seen with possible superimposed infiltrates. Patient had a renal ultrasound which shows no hydronephrosis seen. Vital signs are stable. Labs are within normal limits. We will await Cardiology evaluation and further recommendations. 06/18 - patient is seen and evaluated at the bedside. Patient is sitting up in bed with no signs of acute respiratory distress. Patient remains on room air and denies chest discomfort, chest pain or dyspnea. Patient did report that orthostatic vital signs were performed yesterday afternoon in his blood pressure dropped significantly once he stood him up out of bed. Currently his blood pressure is soft really 96/60. We will add midodrine at this time. Labs show white count has trended down within normal limits. Patient was seen by Cardiology and recommended to continue metoprolol 12.5 b.i.d., Eliquis5 b.i.d. discontinue amiodarone. Patient was found to have atrial septum deviation 2D echo and cardio recommendations repeat echo in the setting of normal ventricular rate. We are still pending physical therapy evaluation for discharge recommendations. Patient's urine culture is positive for E coli therefore we will continue current antibiotic treatment for now. 06/19 - patient is seen sitting up in bed does not appear to be in any acute dis tress at this time. Patient continues on room air denies dyspnea. Patient denies chest discomfort or chest pain. As per chart, patient's heart rate remained stable. Patient has not been receiving his metoprolol due to his low blood pressure. Patient was started on midodrine yesterday afternoon and BP is do show some improvement. We will monitor throughout the day today and plan to DC home in 24 hours. Vital signs are stable. Labs are within normal limits. 06/20 - patient is seen sitting up in bed with no signs of acute distress. Patient remains on room air and denies chest discomfort, chest pain or dyspnea. No acute changes reported overnight. Patient was previously discharged home however his heart rate increased therefore patient was held in house. Cardiology increase his metoprolol to 37.5 mg b.i.d.. His heart rate has remained stable in the last24 hours. Patient has been cleared for discharge from Cardiology standpoint. Patient has been advised to follow up with PCP in the next 1-2 days. Patient has been advised to follow up with Cardiology in 1-2 weeks. Vital signs are stable. Labs are within normal limits. Medication reconciliation has been completed. New prescriptions have been sent to patient's pharmacy. Education regarding current diagnosis been prior to the patient. All questions have been answered. Patient to be discharged home. Total time spent on discharge greater than 30 minutes. REVIEW OF SYSTEMS: 12 point ROS reviewed with patient. Pertinent positives mentioned above. Otherwise negative. PHYSICAL EXAM: GENERAL: Awake alert oriented x3, with generalized weakness, pale HEENT: EOMI, Sclera non icteric, moist mucosa NECK: Supple, no JVD, trachea midline LUNGS: Clear breath sounds bilaterally. No wheezes HEART: Regular rate and rhythm. Normal S1 and S2, without murmurs ABD: Abdomen soft, nontender. Bowel sounds present EXT: No clubbing cyanosis or edema NEURO: Alert and oriented to person, follows commands Vital Signs (last 8hr) Date Time Temp Pulse Resp B/P (MAP) Pulse Ox O2 Delivery O2 Flow Rate FiO2 06/21/24 07:05 88 18 N/A Room Air 21 06/21/24 07:00 97.7 97 17 141/95 99 Room Air 06/21/24 03:35 118 20 121/53 98 Room Air 06/21/24 03:35 94 20 123/53 97 Room Air 06/21/24 03:31 97.3 107 20 121/51 97 Room Air LABS: Chemistry Labs: Test 06/21/24 05:07 06/20/24 05:08 Range/Units Whole Blood Glucose 111 H 70-110 MG/DL Iron Level 39 L 65-175 mcg/dL Total Iron Binding Capacity 115 L 250-450 mcg/dL Percent Iron Saturation 33.9 30-44 % Vitamin B12 Level 436 193-986 pg/mL Folic Acid (LAB) 3.60 2-20 ng/mL DIAGNOSTICS / RADIOLOGY RESULTS: [ ] PLAN Continue metoprolol 37.5 mg p.o. b.i.d. Continue Eliquis5 mg b.i.d. Continue atorvastatin 40 mg daily NEURO: Minimize central acting medications as possible. Maintain fall precautions, adequate lighting during the day PULMONARY: Supplemental 02 as needed. Maintain aspiration precautions at all times CARDIOVASCULAR: Follow hemodynamics. Vital signs per facility protocol GI & NUTRITION: Continue with nutritional support. Continue stool softeners and laxatives as needed. KIDNEYS & ELECTROLYTES: Strict monitoring of intake, output and overall fluid balance. Avoid nephrotoxic medications to the extent possible. Medications to be dosed according to renal function. Monitor electrolytes and replace as needed ENDOCRINE: Maintain blood glucose between 100-180 at all times. Hypoglycemia protocol in place INFECTIOUS DISEASE: Trend temperature, WBC and procalcitonin level Follow cultures, deescalate antibiotics as soon as possible. Panculture if new onset fever ONCOLOGY/HEMATOLOGY/COAGULATION: Monitor for s/s of bleeding Monitor hemoglobin, coagulation studies as needed SKIN: Pressure ulcer prevention per facility protocol Specialty mattress ORTHO/REHAB: Continue PT/OT Prophylaxis: Continue GI and DVT prophylaxis Code Status: Full Resuscitation Disposition: Home Other: Total patient care time exceeds 35 minutes excluding all procedures. ATTESTATION BY PHYSICIAN I reviewed the documentation, medical decision making, and treatment plan as noted by the mid-level provider above. I agree with the findings and plan of care. Tacos Easley MD, ECTOR N KIRSTIE Jun 21, 2024 09:53
[2024-06-21] MEDS: metoPROLOL tartRATE 25 MG TAB PO SCH (09:58)
--- NOTE | 2024-06-21 11:25 | NUR ---
GIVEN DISMISSAL INSTRUCTIONS, VERBALIZED UNDERSTANDING. REMOVED SALINE LOCK FROM LEFT HAND. REMOVED LEFT ARM MIDLINE, BOTH IV SITES WITHOUT REDNESS NOTED. REMOVED TELE PACK. AWAITING FOR PROVIDER TO PICK HIM UP.
== END 2024-06-21 13:07 | disposition home or self-care (01) | DRG 189 ==
LOC: EDH 10:52 → EDHIP 10:53 → 2DH 15:15
PROVIDERS: ADMIT Internal Medicine Critical Care Medicine; ATTEND Internal Medicine Critical Care Medicine
PROC: 05HB33Z Insertion of Infusion Device into Right Basilic Vein, Percutaneous Approach (ICD-10-PCS; principal; 2024-06-16)
PROC: B54MZZA Ultrasonography of Right Upper Extremity Veins, Guidance (ICD-10-PCS; 2024-06-16)
DX: J96.01 Acute respiratory failure with hypoxia (principal); I48.19 Other persistent atrial fibrillation; G24.8 Other dystonia; N39.0 Urinary tract infection, site not specified; D64.9 Anemia, unspecified; B96.20 Unspecified Escherichia coli [E. coli] as the cause of diseases classified elsewhere; B96.89 Other specified bacterial agents as the cause of diseases classified elsewhere; C44.42 Squamous cell carcinoma of skin of scalp and neck; I07.1 Rheumatic tricuspid insufficiency; E78.5 Hyperlipidemia, unspecified; I95.1 Orthostatic hypotension; J34.2 Deviated nasal septum; Z79.01 Long term (current) use of anticoagulants; Z85.828 Personal history of other malignant neoplasm of skin; Z86.73 Personal history of transient ischemic attack (TIA), and cerebral infarction without residual deficits; Z88.0 Allergy status to penicillin; Z91.148 Patient's other noncompliance with medication regimen for other reason
CPT/HCPCS: 36415; 36556; 36600; 71045; 76770; 80053; 81001; 82330; 82533; 82550; 82607; 82746; 82803; 82948; 83036; 83540; 83550; 83605; 83735; 83880; 84100; 84145; 84443; 84484; 85025; 85027; 85610; 85730; 86701; 87040; 87086; 87186; 87390; 87426; 93005; 93306; 93880; 94640; 94664; 96372; 96374; 99285; A6248; G0378; J0282; J1650; J2020; J2543; J3475; J3490; J7030; J7050; J7060; J0283

== ENCOUNTER 2024-06-30 16:01 | Inpatient (IN) | payer SELFPAY ==
[~2024-06-30] VITALS: Ht 175.3 cm; Wt 94.3 kg
[~2024-06-30 16:01] MED LIST changes: -ACET650S14 RC; -DOXY100C5 PO; -LACT10SO9 PO; -LEVO750T90 PO; +TAMS-55 PO; +miDODRine HCL 5 MG TABLET PO
--- NOTE | 2024-06-30 16:24 | NUR ---
PT JUST NOW PLACED IN MY ED BED 8. ASSUMPTION OF CARE AT THIS TIME. PT PLACED BY [facility].
[2024-06-30 16:57] LABS: BASOPHILS # (AUTO) 0.05 K/uL (0.00-0.20); BASOPHILS % (AUTO) 0.4 % (0.0-5.0); EOSINOPHILS # (AUTO) 0.04 K/uL (0.00-0.70); EOSINOPHILS % (AUTO) 0.3 % (0.0-8.0); HEMATOCRIT 40.3 % (42-54); IMMATURE GRANULOCYTE ABSOLUTE 0.06 K/uL (0-1); LYMPHOCYTES # (AUTO) 0.8 K/uL (1.0-4.8); MEAN CORPUSCULAR HGB CONC 32.3 g/dL (32.0-36.0); MONOCYTES # (AUTO) 0.6 K/uL (0.1-1.0); NEUTROPHILS # (AUTO) 11.2 K/uL (1.8-7.7); NEUTROPHILS % (AUTO) 87.8 % (40.0-77.0); PLATELET COUNT (AUTO) 208 K/uL (130-400); RED BLOOD CELL COUNT(AUTO) 4.48 MIL/uL (4.50-6.20); RED CELL DISTRIBUTION WIDTH 16.1 % (11.0-15.5); WHITE BLOOD COUNT (AUTO) 12.7 K/uL (4.8-10.8)
[2024-06-30 17:03] LABS: CREATININE 1.2 mg/dL (0.5-1.3); POTASSIUM 5.1 mmol/L (3.5-5.1)
--- NOTE | 2024-06-30 17:05 | HMCIMG ---
Exam Type: CHEST 1VW Clinical Information: Cough Comparison: None Findings: Left Mediport in place. The lungs are clear of infiltrates. The heart is enlarged. Bony and soft tissue structures of the chest wall are unremarkable. IMPRESSION: Cardiomegaly. Clear lungs.
[2024-06-30 17:07] LABS: ALBUMIN 2.9 g/dL (3.5-5.0); BILIRUBIN,DIRECT 0.4 mg/dL (0.0-0.3); BILIRUBIN,TOTAL 1.2 mg/dL (0.2-1.0); TOTAL PROTEIN, SERUM 7.9 g/dL (6.0-8.3)
[2024-06-30] MEDS: 0.9%NACL 1000ML 1,000 ML IV ONE (17:22)
--- NOTE | 2024-06-30 17:29 | NUR ---
PT VSS. HOB ELEVATED, BED LOW AND LOCKED W/SR UP X 2
[2024-06-30 17:37] LABS: RAPID GROUP A STREP negative (NEGATIVE)
[2024-06-30 17:53] LABS: COVID19 (SARS ANTIGEN RAPID) PRESUMPTIVE NEGATIVE (NEGATIVE); INFLUENZA TYPE A Negative For Type A (NEGATIVE); INFLUENZA TYPE B Negative For Type B (NEGATIVE)
--- NOTE | 2024-06-30 19:07 | NUR ---
REPORT ENDORSED TO BRENNAN DAVIES
[2024-06-30 19:31] LABS: APPEARANCE,URINE TURBID (CLEAR); BILIRUBIN,URINE NEGATIVE (NEGATIVE); COLOR,URINE LIGHT-ORANGE (YELLOW); GLUCOSE, URINE (UA) NEGATIVE (NEGATIVE); KETONES,URINE 20 mg/dL (NEGATIVE); LEUKOCYTE ESTERASE ,URINE 500 Leu/uL (NEGATIVE); NITRATE,URINE 2+ (NEGATIVE); OCCULT BLOOD,URINE LARGE (NEGATIVE); PROTEIN,URINE 30 mg/dL (NEGATIVE); UROBILINOGEN,URINE 0.2 mg/dL (0.2-1.0)
[2024-06-30 19:36] LABS: BACTERIA,URINE MOD /HPF (None Seen); NON-SQUAMOUS EPITHELIAL CELL 3 /HPF (0-2); SQUAMOUS EPITHELIAL CELL,UR RARE /HPF (0-2); UNCLASSIFIED CRYSTAL 11 /HPF (None Seen); WBC CLUMP RARE /HPF (0-1); WBC,URINE 51-100 /HPF (0-1); YEAST,URINE BUDDING RARE /HPF (None Seen)
[2024-06-30] MEDS: cefTRIAXone 1G VIAL IVPB ONE (20:31)
--- NOTE | 2024-06-30 21:32 | ERN ---
General Chief Complaint: Hypotension Stated Complaint: LOW BLOOD PRESSURE Time Seen by : 16:02 Time Seen by Midlevel: 16:02 Source: patient History of Present Illness Initial Comments 68-year-old male who presents to the emergency department due to hypotension that occurred at wound care. Per EMS patient was hypotensive of 60/40, during EMS transportation patient's systolically around 70s. Upon arrival patient's blood pressure was 100/40. Patient reports nausea, vomiting, decreased appetite, dry mouth but denies any fevers, abdominal pain, dysuria or further associated symptoms. PMHx bronchitis, DM, hypercholesterolemia, heart disease, HTN, skin cancer Allergies: Coded Allergies: Penicillins (Verified Allergy, 03/08/13) Home Meds Active Scripts Metoprolol Tartrate (Lopressor) 25 Mg Tab, 37.5 MG PO BID for 30 Days, #60 TAB Prov:NANCY SALMERON BLACK TOP PAVER OPERATOR 06/21/24 [miDODRine HCL 5 MG TABLET] 5 MG TABLET No Conflict Check, 5 MG PO TID for 30 Days, #90 TAB 0 Refills Prov:NANCY SALMERON BLACK TOP PAVER OPERATOR 06/20/24 Meclizine HCl (Meclizine HCl) 12.5 Mg Tablet, 12.5 MG PO TID PRN for DIZZINESS, #15 TAB Prov:ANUSHA PRAJAPATI WIRELESS SALES REPRESENTATIVE 05/17/24 Ipratropium [place] (Atrovent Neb Soln) 0.2 Mg/Ml (0.02 %) Soln, 0.5 MG IH [id number] for 30 Days, #30 ML Prov:SIMON DE LA VEGA MD 05/05/24 Apixaban (Eliquis) 2.5 Mg Tablet, 1 TAB PO BID for 30 Days, #60 TAB 0 Refills Prov:SIMON DE LA VEGA MD 05/05/24 Metformin HCl (Metformin HCl ER) 1,000 Mg Tab.er.24, 1 TAB PO DAILY for 30 Days, #30 TAB 0 Refills Prov:SIMON DE LA VEGA MD 05/05/24 Atorvastatin Calcium (LIPITOR) 40 Mg Tablet, 40 MG PO HS for 30 Days, #30 TAB Prov:SIMON DE LA VEGA MD 05/05/24 Albuterol Sulfate (Albuterol Sulfate) 2.5 Mg/3 Ml (0.083 %) Vial.neb, 2.5 MG IH [id number] PRN for SHORTNESS OF BREATH for 30 Days, #30 INH Prov:SIMON DE LA VEGA MD 05/05/24 Reported Medications Tamsulosin HCl (Flomax) 0.4 Mg Cap.er.24h, 0.4 MG PO DAILY, CAPSULE. 06/16/24 Past Medical History Past Medical History: Bronchitis, Diabetes-Type II, High Cholesterol, Heart Disease, Hypertension Medical History Other: BPH, SKIN CANCER, CHRONIC BACK PAIN, LUMBAR STENOSIS Past Surgical History: Tonsillectomy Social History Social History: Other ROS Dictation Constitutional: Positive for decreased appetite, decreased oral intake Negative for fever,chills, and weight loss Eyes: Negative for injury, pain,redness, and discharge ENT: Negative for injury,pain or swelling Cardiovascular: Negative for chest pain, palpitations, and edema Respiratory: Negative for shortness of breath, cough, and wheezing, Abdomen/GI: Positive for nausea, vomiting Negative for abdominal pain, diarrhea, and constipation Back: Negative for injury and pain : Negative for painful urination, bleeding or discharge MS/Extremity: Negative for injury and deformity Skin: Negative for rash, and discoloration Neuro: Negative for headache, weakness, numbness, tingling, and seizure Psych: Negative for suicide ideation, homicidal ideation, and hallucinations Physical Exam Physical Exam Dictation General: awake, alert, no acute distress Head/Face: Normocephalic, atraumatic Eyes: PERRL, EOMI, normal conjunctiva ENT: oral cavity clear, oral mucosa moist Neck: Supple, normal range of motion Cardiovascular: RRR, normal S1/S2 Respiratory: CTAB, no respiratory distress, no rales or wheezes Abdomen: Soft, non-tender, non-distended, normal bowel sounds, no guarding or rebound. Skin: Warm, dry, normal turgor, no rash MS/Extremity: Pulses equal, no cyanosis, neurovascular intact, FROM Neuro: COAx4, GCS 15, strength 5/5, CN 2-12 intact, normal cerebellar exam Psych: Normal behavior, mood, and affect normal Results Laboratory and Microbiology Lab and Micro Result Laboratory Tests Test 06/30/24 16:29 06/30/24 17:15 06/30/24 19:21 White Blood Count 12.7 K/uL (4.8-10.8) H Red Blood Count 4.48 MIL/uL (4.50-6.20) L Hemoglobin 13.0 g/dL (14.0-18.0) L Hematocrit 40.3 % (42-54) L Mean Corpuscular Volume 90.0 fL (79-99) Mean Corpuscular Hemoglobin 29.0 pg (27.0-33.0) Mean Corpuscular Hemoglobin Concent 32.3 g/dL (32.0-36.0) Red Cell Distribution Width 16.1 % (11.0-15.5) H Platelet Count 208 K/uL (130-400) Mean Platelet Volume 9.5 fL (7.5-10.5) Immature Granulocyte % (Auto) 0.5 % (0-1) Neutrophils (%) (Auto) 87.8 % (40.0-77.0) H Lymphocytes (%) (Auto) 6.0 % (21.0-51.0) L Monocytes (%) (Auto) 5.0 % (3.0-13.0) Eosinophils (%) (Auto) 0.3 % (0.0-8.0) Basophils (%) (Auto) 0.4 % (0.0-5.0) Neutrophils # (Auto) 11.2 K/uL (1.8-7.7) H Lymphocytes # (Auto) 0.8 K/uL (1.0-4.8) L Monocytes # (Auto) 0.6 K/uL (0.1-1.0) Eosinophils # (Auto) 0.04 K/uL (0.00-0.70) Basophils # (Auto) 0.05 K/uL (0.00-0.20) Absolute Immature Granulocyte (auto 0.06 K/uL (0-1) Nucleated Red Blood Cells 0.0 % (0.0-0.19) White Cell Morphology Comment See comments Sodium Level 137 mmol/L (136-145) Potassium Level 5.1 mmol/L (3.5-5.1) Chloride Level 99 mmol/L (101-111) L Carbon Dioxide Level 24 mmol/L (21-32) Blood Urea Nitrogen 20 mg/dL (7-18) H Creatinine 1.2 mg/dL (0.5-1.3) Glomerular Filtration Rate Calc 65 mL/min (>90) Random Glucose 80 mg/dL (70-105) Total Calcium 9.7 mg/dL (8.5-10.1) Total Bilirubin 1.2 mg/dL (0.2-1.0) H Direct Bilirubin 0.4 mg/dL (0.0-0.3) H Aspartate Amino Transf (AST/SGOT) 37 U/L (10-37) Alanine Aminotransferase (ALT/SGPT) 24 U/L (12-78) Alkaline Phosphatase 92 U/L (50-136) Total Protein 7.9 g/dL (6.0-8.3) Albumin 2.9 g/dL (3.5-5.0) L Lipase 35 U/L (16-77) Influenza Type A Antigen Negative For Type A Influenza Type B Antigen Negative For Type B SARS-CoV-2 Antigen (Rapid) PRESUMPTIVE NEGATIVE Group A Streptococcus Rapid negative (NEGATIVE) Urine Color LIGHT-ORANGE (YELLOW) Urine Appearance TURBID (CLEAR) Urine pH 5.0 (5.0-8.0) Urine Specific [place] 1.011 (1.001-1.031) Urine Protein 30 mg/dL (NEGATIVE) H Urine Glucose (UA) NEGATIVE mg/dL (NEGATIVE) Urine Ketones 20 mg/dL (NEGATIVE) H Urine Occult Blood LARGE (NEGATIVE) H Urine Nitrate 2+ (NEGATIVE) H Urine Bilirubin NEGATIVE mg/dL (NEGATIVE) Urine Urobilinogen 0.2 mg/dL (0.2-1.0) Urine Leukocyte Esterase 500 Gilberto/uL (NEGATIVE) H Urine RBC 11-25 /HPF (0-1) H Urine WBC 51-100 /HPF (0-1) H Urine WBC Clumps (Auto) RARE /HPF (0-1) Urine Squamous Epithelial Cells RARE /HPF (0-2) Urine Non-Squamous Epithelial Cells 3 /HPF (0-2) Urine Other Crystals (Auto) 11 /HPF (None Seen) Urine Bacteria MOD /HPF (None Seen) Urine Yeast RARE /HPF (None Seen) Labs Reviewed?: Yes EKG/XRAY/US/CT/MRI X-RAY Comment REASON: Cough ORDERING PHYSICIAN: NATHALY GOTTI PROCEDURE: CXR1VW - CHEST 1VW Exam Type: CHEST 1VW Clinical Information: Cough Comparison: None Findings: Left Mediport in place. The lungs are clear of infiltrates. The heart is enlarged. Bony and soft tissue structures of the chest wall are unremarkable. IMPRESSION: Cardiomegaly. Clear lungs. DICTATED BY: JONG KHAN MD DATE: 06/30/24 1702 MDM MDM: Differential diagnosis: Dehydration, electrolyte imbalance, hypotension, UTI Rationale: 68-year-old male who presents to the emergency department due to hypotension that occurred at wound care. Per EMS patient was hypotensive of 60/40, during EMS transportation patient's systolically around 70s. Upon arrival patient's blood pressure was 100/40. Patient reports nausea, vomiting, decreased appetite, dry mouth but denies any fevers, abdominal pain, dysuria or further associated symptoms. PMHx bronchitis, DM, hypercholesterolemia, heart disease, HTN, skin cancer Per physical examination patient is in no acute distress, appears dehydrated, Jung cath in place urine in the bag is dark. Labs obtained indicate a leukocytosis of 12.7, mild anemia with hemoglobin of 13, decreased chloride of 99 increased BUN of 20, UA shows 500 leukocyte esterase and 51-100 WBCs. Influenza, SARs, strep negative. Patient received IV fluids in the ED after initial bolus the patient's blood pressure increased to 128/79. Patient was administered a 2nd bolus and antibiotics. Patient and provider were educated on findings, diagnosis, decision for admission. Patient verbalized understanding and agrees with admission. Case discussed with benchmark who accepted admission. ED course delayed due to pending UA. Previous outside records reviewed: Old ER visits. Risk of complication and/or morbidity or mortality of patient management: None Medications-Per medication reconciliation Need for hospitalization: Patient does meet criteria for hospitalization. Need for emergency major/minor surgery: No There are no social concerns with this patient. Prescription drug management Prescriptions will include symptomatic care Patient's prior external medical records from other ER visits were reviewed by me as indicated. Prior testing and results from previous visits were reviewed. Prior tests were taken into account with medical decision making and resource utilization, independent historian/historians were used to obtain complete medical history. I independently interpreted the test that were performed, results were reviewed by me and considered findings on radiology if ordered. Medical management and examination interpretation discussions were had by me with other qualified healthcare professionals as indicated for the patient's care. ED Course Orders Procedure Category Date Status Time Cbc With Differential LAB 06/30/24 Complete 16:06 Basic Metabolic Panel LAB 06/30/24 Complete 16:06 Covid19 (Sars Antigen LAB 06/30/24 Complete Rapid) 16:06 Rapid (Group A Strep) LAB 06/30/24 Complete 16:06 Influenza Type A & B, LAB 06/30/24 Complete Rapid 16:06 Chest 1vw RAD 06/30/24 Resulted 16:06 Urinalysis LAB 06/30/24 Complete W/Microscopic 16:06 Lipase LAB 06/30/24 Complete 16:06 Hepatic Function Panel LAB 06/30/24 Complete 16:06 0.9%Nacl 1000ml (Ns PHA 06/30/24 Complete 1000ml) 16:30 Culture Urine CORINA 06/30/24 In Process 19:32 Ceftriaxone 1g Vial PHA 06/30/24 Complete (Rocephine 1g Inj) 20:00 Lactated Ringers PHA 06/30/24 In Process 1000ml (Lactated 22:00 Current Medications Medications (Trade) Dose Ordered Sig/Beau Route PRN Reason Start Time Stop Time Status Last Admin Dose Admin Ceftriaxone Sodium (ROCEphine 1G INJ) 1 gm ONCE ONCE IVPB 06/30/24 20:00 06/30/24 20:19 DC 06/30/24 20:31 Lactated Ringer's 1,000 ml @ 125 mls/hr Q8H IV 06/30/24 22:00 07/30/24 21:59 Sodium Chloride 1,000 ml @ 0 mls/hr ONCE ONCE IV 06/30/24 16:30 06/30/24 16:31 DC 06/30/24 17:22 Vital Signs Date Time Temp Pulse Resp B/P (MAP) Pulse Ox O2 Delivery O2 Flow Rate FiO2 06/30/24 21:14 98.1 88 18 126/71 96 Room Air* 0 21 06/30/24 19:44 98.1 112 20 128/79 96 Room Air* 0 21 06/30/24 18:09 100 18 100 Room Air* 0 06/30/24 17:28 99 16 119/80 99 Room Air* 0 21 06/30/24 16:15 98 20 100/40 99 Room Air 0 Critical Care Note Critical Time: 30 minutes Comments Critical Care Procedure Note Authorized and Performed by: me Total critical care time: Approximately 36 minutes Due to a high probability of clinically significant, life threatening deterioration, the patient required my highest level of preparedness to intervene emergently and I personally spent this critical care time directly and personally managing the patient. This critical care time included obtaining a history; examining the patient; pulse oximetry; ordering and review of studies; arranging urgent treatment with development of a management plan; evaluation of patient's response to treatment; frequent reassessment; and, discussions with other providers. This critical care time was performed to assess and manage the high probability of imminent, life-threatening deterioration that could result in multi-organ failure. It was exclusive of separately billable procedures and treating other patients and teaching time. Please see MDM section and the rest of the note for further information on patient assessment and treatment. DX & DISP Disposition: Inpatient Decision to Admit Date: Jun 30, 2024 Departure Impression: Primary Impression: UTI (urinary tract infection) Additional Impressions: Hypotension, Dehydration, Decreased appetite, Decreased oral intake Condition: Stable Referrals: HAO SHEARER MD (PCP) I performed the substantive portion of the visit. I have reviewed and perso sol made and approve the management plan that is documented in the notes by myself or the PONCHO. I acknowledge full responsibility for the patient's management plan. NATHALY GOTTI Jun 30, 2024 21:32
[2024-06-30] MEDS: LACTATED RINGERS 1000ML 1,000 ML IV SCH (22:04)
--- NOTE | 2024-06-30 22:12 | HP ---
[facility] HISTORY & PHYSICAL Date Patient Seen: Jun 30, 2024 Time of Visit: 22:03 Supervising Physician: Dr. 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 Araiza for wound care Hyperlipidemia, POA AFib, rate controlled, POA DM type 2, POA History of hypertension, initially hypotensive on presentation in ED improved with IV fluid History of recent ischemic stroke PLAN: Admit to medical-surgical floor VS per unit protocol Continue LR at 125 cc/hour Strict I&O Change Jung catheter Do bladder training Treat fever aggressively Monitor temperature curve Follow up culture results Continue ceftriaxone Bilateral SCDs Consult wound care in a.m. Heart healthy diet ISS and fingerstick per unit protocol Hold antihypertensive for now Keep serum glucose less than 150 CBC, CMP, magnesium level daily HPI: 68-year-old male with past medical history of hypertension, DM type 2, hyperlipidemia, recent acute ischemic stroke, chronic skin lesion to head who presented to ED with complaint of low blood pressure and found to have urinary tract infection, severe dehydration. Patient was seen and examined in ED with no relatives present at bedside. According to the patient while undergoing wound care at a local clinic, patient was found to have low systolic blood pressure in the 70s. Patient was then brought to ED for further medical evaluation. In ED patient was given2 L of IV fluids with significant improvement on his blood pressure which is currently SBP at124 mmHg right now. CBC was done and showed WBC [place] more [place] [address], hemoglobin of 13, and hematocrit of 48. His chest x-ray showed no acute infiltrates, his flu and COVID tests were also negative. His chemistry did not reveal any acute electrolyte or kidney dysfunction. However his UA showed elevated leuko esterase consistent with urinary tract infection. In ED patient was initiated on IV fluids and started on ceftriaxone IV. At present patient is currently hemodynamically stable, on room air with appropriate oxygen saturation, not in acute respiratory distress. Patient denies any headache, shortness of breath, chest pain, cough, fever, abdominal, or flu-like symptoms. Patient is an ex-smoker, denies any alcohol intake, or illicit drug use. Apparently patient was recently discharged from this hospital two weeks ago with similar presentation. Patient was sent to retirement and currently undergoing wound care as outpatient with Dr. Araiza. PAST MEDICAL HX: see above PAST SURGICAL HX: noncontributory SOCIAL HISTORY: No tobacco, ETOH, or illicit drug use Coded Allergies: Penicillins (Verified Allergy, 03/08/13) REVIEW OF SYSTEMS: 12 point ROS reviewed with patient. Pertinent positives mentioned above. Otherwise negative. PHYSICAL EXAM: GENERAL: alert, weak, awake oriented x 3 HEENT: EOMI, Sclera non icteric, moist mucosa NECK: Supple, no JVD, trachea midline LUNGS: Clear breath sounds bilaterally. No wheezes HEART: Regular rate and rhythm. Normal S1 and S2, without murmurs ABD: Abdomen soft, nontender. Bowel sounds present EXT: No clubbing cyanosis or edema NEURO: Alert and oriented to person, follows commands Vital Signs (last 8hr) Date Time Temp Pulse Resp B/P (MAP) Pulse Ox O2 Delivery O2 Flow Rate FiO2 06/30/24 21:14 98.1 88 18 126/71 96 Room Air* 0 21 06/30/24 19:44 98.1 112 20 128/79 96 Room Air* 0 21 06/30/24 18:09 100 18 100 Room Air* 0 21 06/30/24 17:28 99 16 119/80 99 Room Air* 0 21 06/30/24 16:15 98 20 100/40 99 Room Air 0 LABS: Hematology Labs: Test 06/30/24 16:29 Range/Units White Blood Count 12.7 H 4.8-10.8 K/uL Red Blood Count 4.48 L 4.50-6.20 MIL/uL Hemoglobin 13.0 L 14.0-18.0 g/dL Hematocrit 40.3 L 42-54 % Mean Corpuscular Volume 90.0 79-99 fL Mean Corpuscular Hemoglobin 29.0 27.0-33.0 pg Mean Corpuscular Hemoglobin Concent 32.3 32.0-36.0 g/dL Red Cell Distribution Width 16.1 H 11.0-15.5 % Platelet Count 208 130-400 K/uL Mean Platelet Volume 9.5 7.5-10.5 fL Immature Granulocyte % (Auto) 0.5 0-1 % Neutrophils (%) (Auto) 87.8 H 40.0-77.0 % Lymphocytes (%) (Auto) 6.0 L 21.0-51.0 % Monocytes (%) (Auto) 5.0 3.0-13.0 % Eosinophils (%) (Auto) 0.3 0.0-8.0 % Basophils (%) (Auto) 0.4 0.0-5.0 % Neutrophils # (Auto) 11.2 H 1.8-7.7 K/uL Lymphocytes # (Auto) 0.8 L 1.0-4.8 K/uL Monocytes # (Auto) 0.6 0.1-1.0 K/uL Eosinophils # (Auto) 0.04 0.00-0.70 K/uL Basophils # (Auto) 0.05 0.00-0.20 K/uL Absolute Immature Granulocyte (auto 0.06 0-1 K/uL Nucleated Red Blood Cells 0.0 0.0-0.19 % White Cell Morphology Comment See comments Chemistry Labs: Test 06/30/24 16:29 Range/Units Sodium Level 137 136-145 mmol/L Potassium Level 5.1 3.5-5.1 mmol/L Chloride Level 99 L 101-111 mmol/L Carbon Dioxide Level 24 21-32 mmol/L Blood Urea Nitrogen 20 H 7-18 mg/dL Creatinine 1.2 0.5-1.3 mg/dL Glomerular Filtration Rate Calc 65 >90 mL/min Random Glucose 80 70-105 mg/dL Total Calcium 9.7 8.5-10.1 mg/dL Total Bilirubin 1.2 H 0.2-1.0 mg/dL Direct Bilirubin 0.4 H 0.0-0.3 mg/dL Aspartate Amino Transf (AST/SGOT) 37 10-37 U/L Alanine Aminotransferase (ALT/SGPT) 24 12-78 U/L Alkaline Phosphatase 92 50-136 U/L Total Protein 7.9 6.0-8.3 g/dL Albumin 2.9 L 3.5-5.0 g/dL Lipase 35 16-77 U/L DIAGNOSTICS / RADIOLOGY RESULTS: Exam Type: CHEST 1VW Clinical Information: Cough Comparison: None Findings: Left Mediport in place. The lungs are clear of infiltrates. The heart is enlarged. Bony and soft tissue structures of the chest wall are unremarkable. IMPRESSION: Cardiomegaly. Clear lungs. PLAN NEURO: Minimize central acting medications as possible. Maintain fall precautions, adequate lighting during the day PULMONARY: Supplemental 02 as needed. Maintain aspiration precautions at all times CARDIOVASCULAR: Follow hemodynamics. Vital signs per facility protocol GI & NUTRITION: Continue with nutritional support. Continue stool softeners and laxatives as needed. KIDNEYS & ELECTROLYTES: Strict monitoring of intake, output and overall fluid balance. Avoid nephrotoxic medications to the extent possible. Medications to be dosed according to renal function. Monitor electrolytes and replace as needed ENDOCRINE: Maintain blood glucose between 100-180 at all times. Hypoglycemia protocol in place INFECTIOUS DISEASE: Trend temperature, WBC and procalcitonin level Follow cultures, deescalate antibiotics as soon as possible. Panculture if new onset fever ONCOLOGY/HEMATOLOGY/COAGULATION: Monitor for s/s of bleeding Monitor hemoglobin, coagulation studies as needed SKIN: Pressure ulcer prevention per facility protocol Specialty mattress ORTHO/REHAB: Continue PT/OT Prophylaxis: Continue GI and DVT prophylaxis Code Status: Full Resuscitation Disposition: TBD Other: Total patient care time exceeds 35 minutes excluding all procedures. Supervising physician: KRISTOPHER Winkler SPINNING OPERATOR Jun 30, 2024 22:12
[2024-06-30] MEDS ORDERED: acetaMINOPHEN 650 MG SUPPOSITORY RC PRN (22:30)
[2024-06-30] MEDS ORDERED: HYDROcodone/APAP 5/325 1 TAB TABLET PO PRN (22:30)
[2024-06-30] MEDS ORDERED: ALBUTEROL 0.083% 2.5 MG/3 ML INH IH PRN (22:30)
[2024-07-01] VITALS (10 sets, daily range): BP systolic 101–117; BP diastolic 50–66; PULSE 74–105; RESP 18–20; TEMP 97.5–98; O2SAT 95–98
--- NOTE | 2024-07-01 03:53 | NUR ---
APPLE JUICE GIVEN TO PATIENT
--- NOTE | 2024-07-01 05:19 | NUR ---
responed to patient call light. patient requested something for heartburn. blood pressure was 84/52 heart rate 100. Tracy RIDDLER OPERATOR called and informed. orders given
[2024-07-01] MEDS: LACTATED RINGERS 1000ML IV SCH (05:34)
[2024-07-01] MEDS: MAG/ALUM/SIMETH 30 ML UDCUP PO PRN (05:38)
[2024-07-01] MEDS: INSULIN humuLIN R 100 UNIT/ML 3ML SQ SCH (07:30)
[2024-07-01] MEDS: polyETHYLene GLYCol 3350 17 GM POWD.PACK PO SCH (09:00)
[2024-07-01 09:49] LABS: BASOPHILS # (AUTO) 0.03 K/uL (0.00-0.20); BASOPHILS % (AUTO) 0.4 % (0.0-5.0); EOSINOPHILS # (AUTO) 0.05 K/uL (0.00-0.70); EOSINOPHILS % (AUTO) 0.6 % (0.0-8.0); HEMATOCRIT 34.9 % (42-54); IMMATURE GRANULOCYTE ABSOLUTE 0.04 K/uL (0-1); LYMPHOCYTES # (AUTO) 0.9 K/uL (1.0-4.8); MEAN CORPUSCULAR HEMOGLOBIN 28.8 pg (27.0-33.0); MEAN CORPUSCULAR HGB CONC 31.8 g/dL (32.0-36.0); MEAN CORPUSCULAR VOLUME 90.6 fL (79-99); MONOCYTES # (AUTO) 0.7 K/uL (0.1-1.0); MONOCYTES % (AUTO) 8.5 % (3.0-13.0); NEUTROPHILS # (AUTO) 6.8 K/uL (1.8-7.7); PLATELET COUNT (AUTO) 162 K/uL (130-400); RED BLOOD CELL COUNT(AUTO) 3.85 MIL/uL (4.50-6.20); RED CELL DISTRIBUTION WIDTH 16.3 % (11.0-15.5); WHITE BLOOD COUNT (AUTO) 8.5 K/uL (4.8-10.8)
[2024-07-01 10:00] LABS: CREATININE 0.8 mg/dL (0.5-1.3); MAGNESIUM 1.2 mg/dL (1.80-2.40); PHOSPHORUS 2.9 mg/dL (2.5-4.9); POTASSIUM 3.7 mmol/L (3.5-5.1)
[2024-07-01] MEDS: FAMOTIDINE 20MG TAB PO SCH (10:04)
[2024-07-01] MEDS: ASCORBIC ACID 500 MG TAB PO SCH (10:04)
[2024-07-01] MEDS: ENOXAPARIN SODIUM 40 MG/0.4 ML SYRINGE SQ SCH (10:05)
--- NOTE | 2024-07-01 12:00 | NUR ---
NOTE ASKED PATIENT IF HE BROUGHT HIS HOME MEDS WITH HIM, HE DID NOT BUT SAID THAT HE WILL GET A HOLD OF HIS FRIEND TO BRING IN HIS HOME MEDS FOR RECONCILIATION.
--- NOTE | 2024-07-01 14:16 | EKG ---
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
--- NOTE | 2024-07-01 14:18 | NUR ---
[facility] Consult: Patient assessed by wound healing team. See wound assessment. Assessment and recommendations provided to primary nurse. Education provided. Wound care done. Addendum: 07/01/24 at 1617 by GAVIN SHANNON RN RN/ Amended: Links added.
[2024-07-01] MEDS: DIPHENOXYLATE HCL/ATROPINE 2.5/0.025 MG TAB PO PRN (15:28)
--- NOTE | 2024-07-01 15:49 | NUR ---
NOTE REPORT CALLED TO NURSE HUDSON PT TRANSFERRED TO [address] [place] [address] ROOM 421 Addendum: 07/01/24 at 1612 by ROSA ELENA SERRATO RN RN NURSE NAME WAS WENDIE
--- NOTE | 2024-07-01 16:05 | NUR ---
Admission Patient arrived from ER 12. Denies discomfort at this time. Patient alert with no questions or concerns at this time. Safety precautions in place, call light within reach.
[2024-07-01] MEDS ORDERED: PHARMACY COMMUNICATION 1 EACH EACH MISC SCH (17:00)
--- NOTE | 2024-07-01 17:08 | HMCIMG ---
US RENAL SONOGRAM HISTORY: UTI COMPARISON: None TECHNIQUE: Renal and bladder ultrasound study was performed. FINDINGS: The right kidney measures 10.4 x 4.6 x 4.6 cm. The left kidney measures 9.6 x 5.7 x 4.7 cm. No evidence of hydronephrosis is seen of either kidney. Both kidneys are seen. Bladder is moderately distended. Jung catheter is seen in the bladder. IMPRESSION: 1. No hydronephrosis is seen.
--- NOTE | 2024-07-01 19:33 | PN ---
[facility] PROGRESS NOTE Date Patient Seen: Jul 01, 2024 Time of Visit: 19:33 Supervising Physician: Dr. 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 Parisa delgado for wound care Hyperlipidemia, POA AFib, rate controlled, POA DM type 2, POA History of hypertension, initially hypotensive on presentation in ED improved with IV fluid History of recent ischemic stroke PLAN: Admit to medical-surgical floor Retroperitoneal ultrasound VS per unit protocol Continue LR at 125 cc/hour Strict I&O Change Jung catheter Do bladder training Treat fever aggressively Monitor temperature curve Follow up culture results Continue ceftriaxone Bilateral SCDs Consult wound care in a.m. Heart healthy diet ISS and fingerstick per unit protocol Hold antihypertensive for now Keep serum glucose less than 150 CBC, CMP, magnesium level daily INTERVAL HISTORY: Patient bedside, in the emergency department with provider present. Patient does not report any dysuria at this time, states that he had an abnormal laboratory finding it was family physician's office and due to his recent MDRO organism admission was told to report to the ED. patient's previous admission shows a multidrug resistant organism susceptible to Rocephin, patient continues on Rocephin at this time. 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 Current treatment plan was discussed with the patient he is in agreement at this time. REVIEW OF SYSTEMS: 12 point ROS reviewed with patient. Pertinent positives mentioned above. Otherw ise negative. PHYSICAL EXAM: GENERAL: alert, weak, awake oriented x 3 HEENT: EOMI, Sclera non icteric, moist mucosa NECK: Supple, no JVD, trachea midline LUNGS: Clear breath sounds bilaterally. No wheezes HEART: Regular rate and rhythm. Normal S1 and S2, without murmurs ABD: Abdomen soft, nontender. Bowel sounds present EXT: No clubbing cyanosis or edema NEURO: Alert and oriented to person, follows commands Vital Signs (last 8hr) Date Time Temp Pulse Resp B/P (MAP) Pulse Ox O2 Delivery O2 Flow Rate FiO2 07/01/24 18:55 86 19 N/A Room Air 21 07/01/24 16:46 97 Room Air* 0 21 07/01/24 16:00 97.5 74 20 117/66 100 Room Air 21 07/01/24 12:00 97.9 101 19 103/61 95 Room Air LABS: Hematology Labs: Test 07/01/24 09:41 06/30/24 16:29 Range/Units White Blood Count 8.5 # 4.8-10.8 K/uL Red Blood Count 3.85 L 4.50-6.20 MIL/uL Hemoglobin 11.1 L 14.0-18.0 g/dL Hematocrit 34.9 L 42-54 % Mean Corpuscular Volume 90.6 79-99 fL Mean Corpuscular Hemoglobin 28.8 27.0-33.0 pg Mean Corpuscular Hemoglobin Concent 31.8 L 32.0-36.0 g/dL Red Cell Distribution Width 16.3 H 11.0-15.5 % Platelet Count 162 130-400 K/uL Mean Platelet Volume 9.5 7.5-10.5 fL Immature Granulocyte % (Auto) 0.5 0-1 % Neutrophils (%) (Auto) 80.0 H 40.0-77.0 % Lymphocytes (%) (Auto) 10.0 L 21.0-51.0 % Monocytes (%) (Auto) 8.5 3.0-13.0 % Eosinophils (%) (Auto) 0.6 0.0-8.0 % Basophils (%) (Auto) 0.4 0.0-5.0 % Neutrophils # (Auto) 6.8 1.8-7.7 K/uL Lymphocytes # (Auto) 0.9 L 1.0-4.8 K/uL Monocytes # (Auto) 0.7 0.1-1.0 K/uL Eosinophils # (Auto) 0.05 0.00-0.70 K/uL Basophils # (Auto) 0.03 0.00-0.20 K/uL Absolute Immature Granulocyte (auto 0.04 0-1 K/uL Nucleated Red Blood Cells 0.0 0.0-0.19 % White Cell Morphology Comment See comments Chemistry Labs: Test 07/01/24 17:01 07/01/24 09:41 06/30/24 22:16 06/30/24 16:29 Range/Units Whole Blood Glucose 87 70-110 MG/DL Bedside Glucose Comment Notified Nurse Sodium Level 139 136-145 mmol/L Potassium Level 3.7 3.5-5.1 mmol/L Chloride Level 103 101-111 mmol/L Carbon Dioxide Level 26 21-32 mmol/L Blood Urea Nitrogen 15 7-18 mg/dL Creatinine 0.8 0.5-1.3 mg/dL Glomerular Filtration Rate Calc 95 >90 mL/min Random Glucose 85 70-105 mg/dL Total Calcium 8.8 8.5-10.1 mg/dL Phosphorus Level 2.9 2.5-4.9 mg/dL Magnesium Level 1.20 L 1.80-2.40 mg/dL Lactic Acid Level 1.8 0.8-2.5 mmol/L Procalcitonin 0.12 0.05-0.5 ng/mL Total Bilirubin 1.2 H 0.2-1.0 mg/dL Direct Bilirubin 0.4 H 0.0-0.3 mg/dL Aspartate Amino Transf (AST/SGOT) 37 10-37 U/L Alanine Aminotransferase (ALT/SGPT) 24 12-78 U/L Alkaline Phosphatase 92 50-136 U/L Total Protein 7.9 6.0-8.3 g/dL Albumin 2.9 L 3.5-5.0 g/dL Lipase 35 16-77 U/L DIAGNOSTICS / RADIOLOGY RESULTS: [ ] PLAN NEURO: Minimize central acting medications as possible. Maintain fall precautions, adequate lighting during the day PULMONARY: Supplemental 02 as needed. Maintain aspiration precautions at all times CARDIOVASCULAR: Follow hemodynamics. Vital signs per facility protocol GI & NUTRITION: Continue with nutritional support. Continue stool softeners and laxatives as needed. KIDNEYS & ELECTROLYTES: Strict monitoring of intake, output and overall fluid balance. Avoid nephrotoxic medications to the extent possible. Medications to be dosed according to renal function. Monitor electrolytes and replace as needed ENDOCRINE: Maintain blood glucose between 100-180 at all times. Hypoglycemia protocol in place INFECTIOUS DISEASE: Trend temperature, WBC and procalcitonin level Follow cultures, deescalate antibiotics as soon as possible. Panculture if new onset fever ONCOLOGY/HEMATOLOGY/COAGULATION: Monitor for s/s of bleeding Monitor hemoglobin, coagulation studies as needed SKIN: Pressure ulcer prevention per facility protocol Specialty mattress ORTHO/REHAB: Continue PT/OT Prophylaxis: Continue GI and DVT prophylaxis Code Status: Full Resuscitation Disposition: TBD Other: Total patient care time exceeds 35 minutes excluding all procedures. STEVE PEÑA Jul 01, 2024 19:33
[2024-07-01] MEDS: cefTRIAXone 1G VIAL IVP SCH (21:07)
[2024-07-01] MEDS ORDERED: ONDA-245 PO (22:05)
[2024-07-01] MEDS ORDERED: MIRT7.5T11 PO (22:05)
[2024-07-01] MEDS ORDERED: APIX5TAB PO (22:05)
[2024-07-01] MEDS ORDERED: METO25TA6 PO (22:05)
[2024-07-01] MEDS ORDERED: CYCL5TAB3 PO (22:05)
[2024-07-02] VITALS (10 sets, daily range): BP systolic 101–123; BP diastolic 52–84; PULSE 63–103; RESP 17–20; TEMP 97.5–98.6; O2SAT 96–97
[2024-07-02] MEDS: MAGNESIUM 2GM PREMIX 50ML 50 ML IV PRN (00:06)
[2024-07-02 05:48] LABS: HEMATOCRIT 34.4 % (42-54); MEAN CORPUSCULAR HEMOGLOBIN 29.1 pg (27.0-33.0); MEAN CORPUSCULAR HGB CONC 32.3 g/dL (32.0-36.0); MEAN CORPUSCULAR VOLUME 90.3 fL (79-99); RED BLOOD CELL COUNT(AUTO) 3.81 MIL/uL (4.50-6.20); RED CELL DISTRIBUTION WIDTH 16.4 % (11.0-15.5); WHITE BLOOD COUNT (AUTO) 7.5 K/uL (4.8-10.8)
[2024-07-02 05:59] LABS: CREATININE 0.8 mg/dL (0.5-1.3); MAGNESIUM 1.8 mg/dL (1.80-2.40); POTASSIUM 3.7 mmol/L (3.5-5.1)
[2024-07-02] MEDS: PoTASSium chl 10% ELIXIR 20MEQ 20 MEQ/15 ML UDCUP PO PRN (06:45)
--- NOTE | 2024-07-02 08:10 | NUR ---
DCP: [facility] [phone] Pt continues to reside at [facility]. Pt states needs are being met at home, staff assists with ADLS, home management meal prep and transportation. Pt has a w/c and walker at the home and goes for daily wound care at [facility] [phone]. PCP is Louis null and Sotero Renner is optomechanical technician. Pt uses [facility] Barragan for rx. DCP is return o [place]. Sales Receptionist Sharonda Montesinos [phone]
[2024-07-02] MEDS: SILVER SULFADIAZINE CREAM 50 GM TP SCH (08:39)
[2024-07-02] MEDS: droNABinol 2.5 MG CAP PO SCH (12:40)
--- NOTE | 2024-07-02 13:06 | HMCIMG ---
Exam Type: ABD 1VW Clinical Information: DIARRHEA, ABDOMINAL CRAMPING Comparison: None Findings: Abdomen demonstrates no evidence of pathologic calcification or soft tissue mass. There are no radiopacities to suggest calculous disease. The stomach is distended. The intestinal gas pattern is otherwise within normal limits without evidence of dilatation to suggest obstruction or adynamic ileus. The bony structures are unremarkable. IMPRESSION: Distended stomach.
[2024-07-02] MEDS ORDERED: droNABinol 2.5 MG CAP PO SCH (21:00)
[2024-07-03] VITALS (8 sets, daily range): BP systolic 102–122; BP diastolic 57–78; PULSE 71–97; RESP 16–20; TEMP 97.9–98.1; O2SAT 96–98
[2024-07-03 05:46] LABS: HEMATOCRIT 30.1 % (42-54); MEAN CORPUSCULAR HEMOGLOBIN 28.4 pg (27.0-33.0); MEAN CORPUSCULAR HGB CONC 31.9 g/dL (32.0-36.0); MEAN CORPUSCULAR VOLUME 89.1 fL (79-99); RED BLOOD CELL COUNT(AUTO) 3.38 MIL/uL (4.50-6.20); RED CELL DISTRIBUTION WIDTH 16.5 % (11.0-15.5); WHITE BLOOD COUNT (AUTO) 6.2 K/uL (4.8-10.8)
[2024-07-03 06:03] LABS: CREATININE 0.6 mg/dL (0.5-1.3); POTASSIUM 3.3 mmol/L (3.5-5.1)
--- NOTE | 2024-07-03 07:28 | PN ---
[facility] PROGRESS NOTE Date Patient Seen: Jul 02, 2024 Time of Visit: 13:24 Supervising Physician: [ ] Primary Care Physician: Yfn Vogel Outpatient Specialists: [ ] Inpatient Consults: [ ] PROBLEM LIST: Acute hypotension, likely from severe dehydration, sepsis, POA Urinary tract infection, POA Urinary retention, chronic Jung use, POA Squamous cell carcinoma, chronic wound to left side of the head, sees Dr. Araiza for wound care Hyperlipidemia, POA AFib, rate controlled, POA DM type 2, POA History of hypertension, initially hypotensive on presentation in ED improved with IV fluid History of recent ischemic stroke PLAN: Admit to medical-surgical floor Retroperitoneal ultrasound VS per unit protocol Continue LR at 125 cc/hour Strict I&O Change Jung catheter Do bladder training Treat fever aggressively Monitor temperature curve Follow up culture results Continue ceftriaxone Bilateral SCDs Consult wound care in a.m. Heart healthy diet ISS and fingerstick per unit protocol Hold antihypertensive for now Keep serum glucose less than 150 CBC, CMP, magnesium level daily INTERVAL HISTORY: Patient evaluated at bedside today, no family was present for the evaluation. He is resting well, AAO x3. Patient continues with loose stools at this time, would like to continue with his doses of Lomotil today. Appetite is improved at this time, we will continue with Marinol 2.5 mg b.i.d. for the remainder of his admission if necessary. Pending urine cultures, continues on Rocephin at this time per culture and susceptibility from his previous admission. Placing C diff orders at this time for evaluation of his loose stools. Renal ultrasound shows no hydronephrosis. REVIEW OF SYSTEMS: 12 point ROS reviewed with patient. Pertinent positives mentioned above. Otherwise negative. PHYSICAL EXAM: GENERAL: alert, weak, awake oriented x 3 HEENT: EOMI, Sclera non icteric, moist mucosa NECK: Supple, no JVD, trachea midline LUNGS: Clear breath sounds bilaterally. No wheezes HEART: Regular rate and rhythm. Normal S1 and S2, without murmurs ABD: Abdomen soft, nontender. Bowel sounds present EXT: No clubbing cyanosis or edema NEURO: Alert and oriented to person, follows commands Vital Signs (last 8hr) Date Time Temp Pulse Resp B/P (MAP) Pulse Ox O2 Delivery O2 Flow Rate FiO2 07/03/24 06:49 79 18 N/A Room Air 21 07/03/24 04:00 98.1 71 18 115/78 96 Room Air 07/02/24 23:41 98.6 70 19 107/69 97 Room Air LABS: Hematology Labs: Test 07/03/24 05:14 07/01/24 09:41 Range/Units White Blood Count 6.2 4.8-10.8 K/uL Red Blood Count 3.38 L 4.50-6.20 MIL/uL Hemoglobin 9.6 L 14.0-18.0 g/dL Hematocrit 30.1 L 42-54 % Mean Corpuscular Volume 89.1 79-99 fL Mean Corpuscular Hemoglobin 28.4 27.0-33.0 pg Mean Corpuscular Hemoglobin Concent 31.9 L 32.0-36.0 g/dL Red Cell Distribution Width 16.5 H 11.0-15.5 % Platelet Count 141 130-400 K/uL Mean Platelet Volume 10.0 7.5-10.5 fL Nucleated Red Blood Cells 0.0 0.0-0.19 % Immature Granulocyte % (Auto) 0.5 0-1 % Neutrophils (%) (Auto) 80.0 H 40.0-77.0 % Lymphocytes (%) (Auto) 10.0 L 21.0-51.0 % Monocytes (%) (Auto) 8.5 3.0-13.0 % Eosinophils (%) (Auto) 0.6 0.0-8.0 % Basophils (%) (Auto) 0.4 0.0-5.0 % Neutrophils # (Auto) 6.8 1.8-7.7 K/uL Lymphocytes # (Auto) 0.9 L 1.0-4.8 K/uL Monocytes # (Auto) 0.7 0.1-1.0 K/uL Eosinophils # (Auto) 0.05 0.00-0.70 K/uL Basophils # (Auto) 0.03 0.00-0.20 K/uL Absolute Immature Granulocyte (auto 0.04 0-1 K/uL Chemistry Labs: Test 07/03/24 05:29 07/03/24 05:14 07/02/24 15:49 07/02/24 05:38 Range/Units Whole Blood Glucose 106 70-110 MG/DL Sodium Level 142 136-145 mmol/L Potassium Level 3.3 L 3.5-5.1 mmol/L Chloride Level 106 101-111 mmol/L Carbon Dioxide Level 27 21-32 mmol/L Blood Urea Nitrogen 6 L 7-18 mg/dL Creatinine 0.6 0.5-1.3 mg/dL Glomerular Filtration Rate Calc 104 >90 mL/min Random Glucose 106 H 70-105 mg/dL Total Calcium 8.2 L 8.5-10.1 mg/dL Bedside Glucose Comment Notified Nurse Magnesium Level 1.80 1.80-2.40 mg/dL Test 07/01/24 09:41 Range/Units Phosphorus Level 2.9 2.5-4.9 mg/dL DIAGNOSTICS / RADIOLOGY RESULTS: [ ] PLAN NEURO: Minimize central acting medications as possible. Maintain fall precautions, adequate lighting during the day PULMONARY: Supplemental 02 as needed. Maintain aspiration precautions at all times CARDIOVASCULAR: Follow hemodynamics. Vital signs per facility protocol GI & NUTRITION: Continue with nutritional support. Continue stool softeners and laxatives as needed. KIDNEYS & ELECTROLYTES: Strict monitoring of intake, output and overall fluid balance. Avoid nephrotoxic medications to the extent possible. Medications to be dosed according to renal function. Monitor electrolytes and replace as needed ENDOCRINE: Maintain blood glucose between 100-180 at all times. Hypoglycemia protocol in place INFECTIOUS DISEASE: Trend temperature, WBC and procalcitonin level Follow cultures, deescalate antibiotics as soon as possible. Panculture if new onset fever ONCOLOGY/HEMATOLOGY/COAGULATION: Monitor for s/s of bleeding Monitor hemoglobin, coagulation studies as needed SKIN: Pressure ulcer prevention per facility protocol Specialty mattress ORTHO/REHAB: Continue PT/OT Prophylaxis: Continue GI and DVT prophylaxis Code Status: Full Resuscitation Disposition: TBD Other: Total patient care time exceeds 35 minutes excluding all procedures. STEVE PEÑA Jul 03, 2024 07:28
[2024-07-03] MEDS: acetaMINOPHEN 325 MG TAB PO PRN (11:13)
--- NOTE | 2024-07-03 15:27 | DS ---
[facility] DISCHARGE SUMMARY Date Patient Seen: Jul 03, 2024 Time of Visit: 15:27 Supervising Physician: [ ] Primary Care Physician: Yfn Vogel Outpatient Specialists: [ ] Inpatient Consults: [ ] PROBLEM LIST: Acute hypotension, likely from severe dehydration, sepsis, POA Urinary tract infection, POA Urinary retention, chronic Jung use, POA Squamous cell carcinoma, chronic wound to left side of the head, sees Dr. Araiza for wound care Hyperlipidemia, POA AFib, rate controlled, POA DM type 2, POA History of hypertension, initially hypotensive on presentation in ED improved with IV fluid History of recent ischemic stroke PLAN: Admit to medical-surgical floor Retroperitoneal ultrasound VS per unit protocol Continue LR at 125 cc/hour Strict I&O Change Jung catheter Do bladder training Treat fever aggressively Monitor temperature curve Follow up culture results Continue ceftriaxone Bilateral SCDs Consult wound care in a.m. Heart healthy diet ISS and fingerstick per unit protocol Hold antihypertensive for now Keep serum glucose less than 150 CBC, CMP, magnesium level daily HOSPITAL COURSE: HPI (per admitting provider) The patient was treated for the following problems: ACTIVE PROBLEM LIST FOR THE HOSPITALIZATION: CHRONIC PROBLEMS: continue previous management per PCP unless otherwise indicated SHIRT HEMMER FINDINGS/RECOMMENDATIONS: [ ] PROCEDURES: as mentioned above DISCHARGE MEDICATIONS: Pt hemodynamically stable and afebrile at time of discharge. PCP notified of patients admission, hospital course and discharge. PHYSICAL EXAM: GENERAL: alert, weak, awake oriented x 3 HEENT: EOMI, Sclera non icteric, moist mucosa NECK: Supple, no JVD, trachea midline LUNGS: Clear breath sounds bilaterally. No wheezes HEART: Regular rate and rhythm. Normal S1 and S2, without murmurs ABD: Abdomen soft, nontender. Bowel sounds present EXT: No clubbing cyanosis or edema NEURO: Alert and oriented to person, follows commands FOLLOW-UP: Follow-up with PCP in 2-3 days RECOMMENDATIONS: See Discharge Instructions This case was seen and discussed with my supervising physician. More than 30 minutes spent on discharge process, including evaluation of the patient, discussion with nursing staff, medication reconciliation and follow-up appointments STEVE PEÑA Jul 03, 2024 15:27
[2024-07-03] MEDS: BISMUTH SUBSALICYLATE PO SCH (20:13)
--- NOTE | 2024-07-03 23:14 | PN ---
[facility] PROGRESS NOTE Date Patient Seen: Jul 03, 2024 Time of Visit: 23:11 Supervising Physician: Dr. 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 Parisa delgado for wound care Hyperlipidemia, POA AFib, rate controlled, POA DM type 2, POA History of hypertension, initially hypotensive on presentation in ED improved with IV fluid History of recent ischemic stroke PLAN: Retroperitoneal ultrasound VS per unit protocol Strict I&O Change Jung catheter Treat fever aggressively Monitor temperature curve Follow up culture results Continue ceftriaxone Bilateral SCDs Consult wound care in a.m. Heart healthy diet ISS and fingerstick per unit protocol Hold antihypertensive for now Keep serum glucose less than 150 CBC, CMP, magnesium level daily INTERVAL HISTORY: Patient evaluated at bedside, tolerating his diet well, his appetite has significantly improved. At this time the patient's urinary cultures have returned with sensitivities to cephalexin. Currently pending on C diff screening. Patient continues with diarrhea, states that it was gas mixed with loose stools in large volume. Possible discharge discussed with the patient, he states that he feels he is unsure if he will be able to tolerate the significant amount of diarrhea that he is currently experiencing. He continues on loperamide at this time, we will add bismuth salicylate to his regimen and re-evaluate in the morning for improvement. Patient was cleared for discharge from a UTI perspective with outpatient prescription for Keflex. REVIEW OF SYSTEMS: 12 point ROS reviewed with patient. Pertinent positives mentioned above. Otherw ise negative. PHYSICAL EXAM: GENERAL: alert, weak, awake oriented x 3 HEENT: EOMI, Sclera non icteric, moist mucosa NECK: Supple, no JVD, trachea midline LUNGS: Clear breath sounds bilaterally. No wheezes HEART: Regular rate and rhythm. Normal S1 and S2, without murmurs ABD: Abdomen soft, nontender. Bowel sounds present EXT: No clubbing cyanosis or edema NEURO: Alert and oriented to person, follows commands Vital Signs (last 8hr) Date Time Temp Pulse Resp B/P (MAP) Pulse Ox O2 Delivery O2 Flow Rate FiO2 07/03/24 20:04 82 18 N/A Room Air 21 07/03/24 20:00 97.9 84 20 122/72 100 Room Air 07/03/24 16:41 97.9 97 16 118/74 98 LABS: Hematology Labs: Test 07/03/24 05:14 Range/Units White Blood Count 6.2 4.8-10.8 K/uL Red Blood Count 3.38 L 4.50-6.20 MIL/uL Hemoglobin 9.6 L 14.0-18.0 g/dL Hematocrit 30.1 L 42-54 % Mean Corpuscular Volume 89.1 79-99 fL Mean Corpuscular Hemoglobin 28.4 27.0-33.0 pg Mean Corpuscular Hemoglobin Concent 31.9 L 32.0-36.0 g/dL Red Cell Distribution Width 16.5 H 11.0-15.5 % Platelet Count 141 130-400 K/uL Mean Platelet Volume 10.0 7.5-10.5 fL Nucleated Red Blood Cells 0.0 0.0-0.19 % Chemistry Labs: Test 07/03/24 19:34 07/03/24 05:14 07/02/24 15:49 07/02/24 05:38 Range/Units Whole Blood Glucose 163 H 70-110 MG/DL Sodium Level 142 136-145 mmol/L Potassium Level 3.3 L 3.5-5.1 mmol/L Chloride Level 106 101-111 mmol/L Carbon Dioxide Level 27 21-32 mmol/L Blood Urea Nitrogen 6 L 7-18 mg/dL Creatinine 0.6 0.5-1.3 mg/dL Glomerular Filtration Rate Calc 104 >90 mL/min Random Glucose 106 H 70-105 mg/dL Total Calcium 8.2 L 8.5-10.1 mg/dL Bedside Glucose Comment Notified Nurse Magnesium Level 1.80 1.80-2.40 mg/dL DIAGNOSTICS / RADIOLOGY RESULTS: [ ] PLAN NEURO: Minimize central acting medications as possible. Maintain fall precautions, adequate lighting during the day PULMONARY: Supplemental 02 as needed. Maintain aspiration precautions at all times CARDIOVASCULAR: Follow hemodynamics. Vital signs per facility protocol GI & NUTRITION: Continue with nutritional support. Continue stool softeners and laxatives as needed. KIDNEYS & ELECTROLYTES: Strict monitoring of intake, output and overall fluid balance. Avoid nephrotoxic medications to the extent possible. Medications to be dosed according to renal function. Monitor electrolytes and replace as needed ENDOCRINE: Maintain blood glucose between 100-180 at all times. Hypoglycemia protocol in place INFECTIOUS DISEASE: Trend temperature, WBC and procalcitonin level Follow cultures, deescalate antibiotics as soon as possible. Panculture if new onset fever ONCOLOGY/HEMATOLOGY/COAGULATION: Monitor for s/s of bleeding Monitor hemoglobin, coagulation studies as needed SKIN: Pressure ulcer prevention per facility protocol Specialty mattress ORTHO/REHAB: Continue PT/OT Prophylaxis: Continue GI and DVT prophylaxis Code Status: Full Resuscitation Disposition: TBD Other: Total patient care time exceeds 35 minutes excluding all procedures. STEVE PEÑA Jul 03, 2024 23:14
[2024-07-04] VITALS (9 sets, daily range): BP systolic 123–144; BP diastolic 65–83; PULSE 79–110; RESP 18–20; TEMP 97.8–98.4; O2SAT 95–98
[2024-07-04] MEDS ORDERED: DIATR MEGLU/DIATRIZOATE SODIUM 30 ML BOTTLE ONE (16:10)
--- NOTE | 2024-07-04 16:15 | NUR ---
NURSE WILL INCOME TAX INVESTIGATOR ORAL CONTRAST & START PREPPING PATIENT FOR CT EXAM.
--- NOTE | 2024-07-04 17:04 | NUR ---
PATIENT PREPPING WITH ORAL CONTRAST FOR CT EXAM.
--- NOTE | 2024-07-04 19:49 | HMCIMG ---
CT ABDOMEN/PELVIS W/O CONTRAST INDICATION: COLON PERF, PO CONTRAST ONLY TECHNIQUE: CT ABDOMEN/PELVIS W/O CONTRAST. Oral contrast was not given. Coronal and sagittal reformats were performed. CT was performed with one or more of the following dose reduction techniques: Automated exposure control, adjustment of the mA and/or kV according to the patient's size, or use of the iterative reconstruction technique. Comparison: None. FINDINGS: The noncontrast nature this study limits evaluation of abdominal viscera. Small bilateral pleural effusion with left lower lobe atelectasis. There is cardiomegaly. Unremarkable liver. Distended gallbladder with gallstones. Correlate clinically. There is fatty atrophy of the pancreas. No hydronephrosis. The urinary bladder is partially collapsed. Jung catheter seen in the urinary bladder. Prominent loops of small bowel and colon with air-fluid level which may represent ileus, enterocolitis versus early obstruction. The majority of the oral contrast is seen in the stomach. Contrast seen in the distal esophagus concerning for gastroesophageal reflux. No free abdominal air is seen. Diverticulosis coli with fat stranding surrounding the descending colon which may may represent diverticulitis in the proper clinical setting. There is underdistention of the splenic flexure of the colon.. Appendix is normal in caliber. Atherosclerotic changes of the aorta with calcified plaques. Degenerative changes of the spine are seen. IMPRESSION: 1. Prominent loops of small bowel and colon with air-fluid level which may represent ileus, enterocolitis versus early obstruction. The majority of the oral contrast is seen in the stomach. Contrast seen in the distal esophagus concerning for gastroesophageal reflux. No free abdominal air is seen. 2. Diverticulosis coli with fat stranding surrounding the descending colon which may may represent diverticulitis in the proper clinical setting. There is underdistention of the splenic flexure of the colon.. Additional findings as described above.
[2024-07-04] MEDS ORDERED: ondanSETRON 4MG INJ IVP PRN (21:00)
[2024-07-04] MEDS: trAZOdone HCL 50 MG TAB PO ONE (21:30)
[2024-07-04] MEDS: metRONIDazole 500MG/100ML BAG IV SCH (23:52)
[2024-07-05] VITALS (10 sets, daily range): BP systolic 101–138; BP diastolic 51–81; PULSE 83–122; RESP 18–20; TEMP 97.6–98.4; O2SAT 92–98
[2024-07-05 05:11] LABS: HEMATOCRIT 32.7 % (42-54); MEAN CORPUSCULAR HEMOGLOBIN 28.7 pg (27.0-33.0); MEAN CORPUSCULAR HGB CONC 32.4 g/dL (32.0-36.0); MEAN CORPUSCULAR VOLUME 88.6 fL (79-99); RED BLOOD CELL COUNT(AUTO) 3.69 MIL/uL (4.50-6.20); RED CELL DISTRIBUTION WIDTH 16.3 % (11.0-15.5); WHITE BLOOD COUNT (AUTO) 5.2 K/uL (4.8-10.8)
[2024-07-05 05:21] LABS: CREATININE 0.6 mg/dL (0.5-1.3); POTASSIUM 3.9 mmol/L (3.5-5.1)
--- NOTE | 2024-07-05 09:40 | PN ---
[facility] PROGRESS NOTE Date Patient Seen: Jul 05, 2024 Time of Visit: 09:40 Supervising Physician: Dr. Juan Diego Goodson Primary Care Physician: Yfn Vogel Outpatient Specialists: [ ] Inpatient Consults: [ ] PROBLEM LIST: Acute hypotension, likely from severe dehydration, sepsis, POA Urinary tract infection, POA Diverticuitis and enterocolitis per CT on07/04/24 Urinary retention, chronic Jung use, POA Squamous cell carcinoma, chronic wound to left side of the head, sees Dr. Araiza for wound care Hyperlipidemia, POA AFib, rate controlled, POA DM type 2, POA History of hypertension, initially hypotensive on presentation in ED improved with IV fluid History of recent ischemic stroke PLAN: VS per unit protocol Strict I&O Change Jung catheter Treat fever aggressively Monitor temperature curve Follow up culture results Continue ceftriaxone Bilateral SCDs Consult wound care in a.m. Heart healthy diet ISS and fingerstick per unit protocol Hold antihypertensive for now Keep serum glucose less than 150 CBC, CMP, magnesium level daily INTERVAL HISTORY: Patient is seen at bedside today, he remains AAO x3 in good spirits, states that his stools have slightly improved overnight. Patient's CT scan from yesterday shows fat stranding consistent with diverticulitis as well as suspicion for enterocolitis versus early SBO, however patient has been tolerating his diet with no emesis and stools has been improving so SBO is unlikely at this time. Patient has been started on Flagyl as of yesterday, remains on Rocephin for complicated cystitis. Advised that we will continue with medical management as inpatient and once his symptoms have resolved to a point of safe discharge he can complete antibiotic therapy at home. Patient agreed with treatment plan at this time, no further changes made. REVIEW OF SYSTEMS: 12 point ROS reviewed with patient. Pertinent positives mentioned above. Otherwise negative. PHYSICAL EXAM: GENERAL: alert, weak, awake oriented x 3 HEENT: EOMI, Sclera non icteric, moist mucosa NECK: Supple, no JVD, trachea midline LUNGS: Clear breath sounds bilaterally. No wheezes HEART: Regular rate and rhythm. Normal S1 and S2, without murmurs ABD: Abdomen soft, nontender. Bowel sounds present EXT: No clubbing cyanosis or edema NEURO: Alert and oriented to person, follows commands Vital Signs (last 8hr) Date Time Temp Pulse Resp B/P (MAP) Pulse Ox O2 Delivery O2 Flow Rate FiO2 07/05/24 08:05 98.1 103 19 130/81 97 Room Air 07/05/24 07:11 117 18 N/A Room Air 21 07/05/24 04:00 97.5 97 20 130/58 97 Room Air LABS: Hematology Labs: Test 07/05/24 04:57 Range/Units White Blood Count 5.2 4.8-10.8 K/uL Red Blood Count 3.69 L 4.50-6.20 MIL/uL Hemoglobin 10.6 L 14.0-18.0 g/dL Hematocrit 32.7 L 42-54 % Mean Corpuscular Volume 88.6 79-99 fL Mean Corpuscular Hemoglobin 28.7 27.0-33.0 pg Mean Corpuscular Hemoglobin Concent 32.4 32.0-36.0 g/dL Red Cell Distribution Width 16.3 H 11.0-15.5 % Platelet Count 146 130-400 K/uL Mean Platelet Volume 9.4 7.5-10.5 fL Nucleated Red Blood Cells 0.0 0.0-0.19 % Chemistry Labs: Test 07/05/24 05:30 07/05/24 04:57 Range/Units Whole Blood Glucose 77 70-110 MG/DL Sodium Level 139 136-145 mmol/L Potassium Level 3.9 3.5-5.1 mmol/L Chloride Level 105 101-111 mmol/L Carbon Dioxide Level 28 21-32 mmol/L Blood Urea Nitrogen 6 L 7-18 mg/dL Creatinine 0.6 0.5-1.3 mg/dL Glomerular Filtration Rate Calc 104 >90 mL/min Random Glucose 84 70-105 mg/dL Total Calcium 8.1 L 8.5-10.1 mg/dL DIAGNOSTICS / RADIOLOGY RESULTS: [ ] PLAN NEURO: Minimize central acting medications as possible. Maintain fall precautions, adequate lighting during the day PULMONARY: Supplemental 02 as needed. Maintain aspiration precautions at all times CARDIOVASCULAR: Follow hemodynamics. Vital signs per facility protocol GI & NUTRITION: Continue with nutritional support. Continue stool softeners and laxatives as needed. KIDNEYS & ELECTROLYTES: Strict monitoring of intake, output and overall fluid balance. Avoid nephrotoxic medications to the extent possible. Medications to be dosed according to renal function. Monitor electrolytes and replace as needed ENDOCRINE: Maintain blood glucose between 100-180 at all times. Hypoglycemia protocol in place INFECTIOUS DISEASE: Trend temperature, WBC and procalcitonin level Follow cultures, deescalate antibiotics as soon as possible. Panculture if new onset fever ONCOLOGY/HEMATOLOGY/COAGULATION: Monitor for s/s of bleeding Monitor hemoglobin, coagulation studies as needed SKIN: Pressure ulcer prevention per facility protocol Specialty mattress ORTHO/REHAB: Continue PT/OT Prophylaxis: Continue GI and DVT prophylaxis Code Status: Full Resuscitation Disposition: TBD Other: Total patient care time exceeds 35 minutes excluding all procedures. STEVE PEÑA Jul 05, 2024 09:40
--- NOTE | 2024-07-05 14:44 | NUR ---
[facility] Follow-up: Patient re-assessed by wound healing team. See wound assessment. Assessment and recommendations provided to primary nurse. Education provided. Wound care done. Addendum: 07/06/24 at 1318 by GAVIN SHANNON RN RN/ Amended: Links added.
[2024-07-06] VITALS (8 sets, daily range): BP systolic 131–146; BP diastolic 69–95; PULSE 78–111; RESP 18–20; TEMP 97.6–98.2; O2SAT 96–98
[2024-07-06 06:16] LABS: HEMATOCRIT 31.1 % (42-54); MEAN CORPUSCULAR HEMOGLOBIN 29.4 pg (27.0-33.0); MEAN CORPUSCULAR HGB CONC 33.1 g/dL (32.0-36.0); MEAN CORPUSCULAR VOLUME 88.9 fL (79-99); RED BLOOD CELL COUNT(AUTO) 3.5 MIL/uL (4.50-6.20); RED CELL DISTRIBUTION WIDTH 16.2 % (11.0-15.5); WHITE BLOOD COUNT (AUTO) 5.1 K/uL (4.8-10.8)
[2024-07-06 06:43] LABS: CREATININE 0.5 mg/dL (0.5-1.3)
[2024-07-06] MEDS: PoTASSium chloRIDE 20MEQ/100ML 100 ML IV PRN (07:05)
--- NOTE | 2024-07-06 17:15 | PN ---
[facility] PROGRESS NOTE Date Patient Seen: Jul 06, 2024 Time of Visit: 17:08 Supervising Physician: [Dr. Gonzalez] Supervising Physician: Dr. Juan Diego Goodson Primary Care Physician: Yfn Vogel Outpatient Specialists: [ ] Inpatient Consults: [ ] PROBLEM LIST: Acute hypotension, likely from severe dehydration, sepsis, POA Urinary tract infection, POA Diverticuitis and enterocolitis per CT on07/04/24 Urinary retention, chronic Jung use, POA Squamous cell carcinoma, chronic wound to left side of the head, sees Dr. Araiza for wound care Hyperlipidemia, POA AFib, rate controlled, POA DM type 2, POA History of hypertension, initially hypotensive on presentation in ED improved with IV fluid History of recent ischemic stroke PLAN: Resume eliquis, metoprolol home dose Stop lovenox C-diff study cancelled Continue ceftriaxone per urine culture Continue IVF for now Bilateral SCDs Continue wound care per specialist DCP to [facility] INTERVAL HISTORY: Patient is seen at bedside today, he remains AAO x3 in good spirits, states that his stools have slightly improved overnight. Patient's CT scan from yesterday shows fat stranding consistent with diverticulitis as well as suspicion for enterocolitis versus early SBO, however patient has been tolerating his diet with no emesis and stools has been improving so SBO is unlikely at this time. Patient has been started on Flagyl as of yesterday, remains on Rocephin for complicated cystitis. Advised that we will continue with medical management as inpatient and once his symptoms have resolved to a point of safe discharge he can complete antibiotic therapy at home. Patient agreed with treatment plan at this time, no further changes made. 07/06 patient is evaluated at bedside. He continues with weakness and deco nditioning. Did walk a few steps with physical therapy today per nurse. Patient is currently in AFib but is rate controlled. Will resume his home oral anticoagulation and antiarrhythmics. Nurse states patient's C diff study was canceled. He continues with loose stools. Nurse states patient's stool was more formed today and normal. Without blood or mucus. He continues on Rocephin and Flagyl for treatment of MDR E coli on urine culture. Patient is pending discharge to [facility]. Will follow with case management. REVIEW OF SYSTEMS: 12 point ROS reviewed with patient. Pertinent positives mentioned above. Otherwise negative. PHYSICAL EXAM: GENERAL: alert, weak, awake oriented x 3 HEENT: EOMI, Sclera non icteric, moist mucosa NECK: Supple, no JVD, trachea midline LUNGS: Clear breath sounds bilaterally. No wheezes HEART: Regular rate and rhythm. Normal S1 and S2, without murmurs ABD: Abdomen soft, nontender. Bowel sounds present EXT: No clubbing cyanosis or edema NEURO: Alert and oriented to person, follows commands Vital Signs (last 8hr) Date Time Temp Pulse Resp B/P (MAP) Pulse Ox O2 Delivery O2 Flow Rate FiO2 07/06/24 16:00 98.1 100 19 138/76 100 Room Air 07/06/24 12:00 98.1 100 19 146/89 100 Room Air LABS: Hematology Labs: Test 07/06/24 05:34 Range/Units White Blood Count 5.1 4.8-10.8 K/uL Red Blood Count 3.50 L 4.50-6.20 MIL/uL Hemoglobin 10.3 L 14.0-18.0 g/dL Hematocrit 31.1 L 42-54 % Mean Corpuscular Volume 88.9 79-99 fL Mean Corpuscular Hemoglobin 29.4 27.0-33.0 pg Mean Corpuscular Hemoglobin Concent 33.1 32.0-36.0 g/dL Red Cell Distribution Width 16.2 H 11.0-15.5 % Platelet Count 149 130-400 K/uL Mean Platelet Volume 9.4 7.5-10.5 fL Nucleated Red Blood Cells 0.0 0.0-0.19 % Chemistry Labs: Test 07/06/24 15:33 07/06/24 15:15 07/06/24 05:34 Range/Units Potassium Level 3.3 L 3.5-5.1 mmol/L Whole Blood Glucose 103 70-110 MG/DL Sodium Level 141 136-145 mmol/L Chloride Level 106 101-111 mmol/L Carbon Dioxide Level 27 21-32 mmol/L Blood Urea Nitrogen 6 L 7-18 mg/dL Creatinine 0.5 0.5-1.3 mg/dL Glomerular Filtration Rate Calc 110 >90 mL/min Random Glucose 90 70-105 mg/dL Total Calcium 7.8 L 8.5-10.1 mg/dL DIAGNOSTICS / RADIOLOGY RESULTS: [ ] PLAN NEURO: Minimize central acting medications as possible. Maintain fall precautions, adequate lighting during the day PULMONARY: Supplemental 02 as needed. Maintain aspiration precautions at all times CARDIOVASCULAR: Follow hemodynamics. Vital signs per facility protocol GI & NUTRITION: Continue with nutritional support. Continue stool softeners and laxatives as needed. KIDNEYS & ELECTROLYTES: Strict monitoring of intake, output and overall fluid balance. Avoid nephrotoxic medications to the extent possible. Medications to be dosed according to renal function. Monitor electrolytes and replace as needed ENDOCRINE: Maintain blood glucose between 100-180 at all times. Hypoglycemia protocol in place INFECTIOUS DISEASE: Trend temperature, WBC and procalcitonin level Follow cultures, deescalate antibiotics as soon as possible. Panculture if new onset fever ONCOLOGY/HEMATOLOGY/COAGULATION: Monitor for s/s of bleeding Monitor hemoglobin, coagulation studies as needed SKIN: Pressure ulcer prevention per facility protocol Specialty mattress ORTHO/REHAB: Continue PT/OT Prophylaxis: Continue GI and DVT prophylaxis Code Status: Full Resuscitation Disposition: TBD Other: Total patient care time exceeds 35 minutes excluding all procedures. TERE SCALES Jul 06, 2024 17:15
[2024-07-06] MEDS: atorVAStatin 40 MG TABLET PO SCH (20:21)
[2024-07-06] MEDS: APIXaban 5 MG TABLET PO SCH (20:21)
[2024-07-06] MEDS: metoPROLOL tartRATE 25 MG TAB PO SCH (20:21)
[2024-07-07] VITALS (10 sets, daily range): BP systolic 110–147; BP diastolic 68–76; PULSE 70–104; RESP 18–20; TEMP 97.4–97.9; O2SAT 98
[2024-07-07] MEDS: tamSULOsin HCL 0.4 MG CAP.ER.24H PO SCH (09:22)
[2024-07-07] MEDS: PoTASSium chloRIDE 20MEQ ER 20 MEQ ERTAB PO PRN (16:47)
--- NOTE | 2024-07-07 19:52 | PN ---
[facility] PROGRESS NOTE Date Patient Seen: Jul 07, 2024 Time of Visit: 19:52 Supervising Physician: [Marry Gonzalez] Primary Care Physician: Yfn Vogel Outpatient Specialists: [ ] Inpatient Consults: [ ] PROBLEM LIST: Acute hypotension, responsive to IVF POA Acute complicated cystitis, POA Diverticulitis and enterocolitis per CT on07/04/24 Urinary retention, chronic Jung use, POA Squamous cell carcinoma, chronic wound to left side of the head, sees Dr. Araiza for wound care Hyperlipidemia, POA AFib, rate controlled, POA DM type 2, POA History of hypertension, initially hypotensive on presentation in ED improved with IV fluid History of recent ischemic stroke PLAN: Continue eliquis, metoprolol home dose C-diff study pending Continue flagyl Continue ceftriaxone per urine culture Continue IVF for now Bilateral SCDs Continue wound care per specialist DCP to [facility] INTERVAL HISTORY: Patient is seen at bedside today, he remains AAO x3 in good spirits, states that his stools have slightly improved overnight. Patient's CT scan from yesterday shows fat stranding consistent with diverticulitis as well as suspicion for enterocolitis versus early SBO, however patient has been tolerating his diet with no emesis and stools has been improving so SBO is unlikely at this time. Patient has been started on Flagyl as of yesterday, remains on Rocephin for complicated cystitis. Advised that we will continue with medical management as inpatient and once his symptoms have resolved to a point of safe discharge he can complete antibiotic therapy at home. Patient agreed with treatment plan at this time, no further changes made. 07/06 patient is evaluated at bedside. He continues with weakness and deconditioning. Did walk a few steps with physical therapy today per nurse. Patient is currently in AFib but is rate controlled. Will resume his home oral anticoagulation and antiarrhythmics. Nurse states patient's C diff study was canceled. He continues with loose stools. Nurse states patient's stool was more formed today and normal. Without blood or mucus. He continues on Rocephin and Flagyl for treatment of MDR E coli on urine culture. Patient is pending discharge to [facility]. Will follow with case management. 07/07 patient is evaluated at bedside. He appears weak and deconditioned. States continues with loose stools and much flatulence. Does admit abdominal cramping with bowel movements but not at rest. He denies any nausea or vomiting. Is able to tolerate oral intake but admits a decreased appetite. His blood pressure is maintained within normal limits, continues on Rocephin for E coli in the urine. He continues on IV fluids, we will decrease rate. Patient has scheduled MiraLax however has not been given by nursing due to persistent diarrhea. C diff study was ordered but canceled, repeat study to rule out C diff. he will discharge to [facility] once medically cleared. REVIEW OF SYSTEMS: 12 point ROS reviewed with patient. Pertinent positives mentioned above. Otherwise negative. PHYSICAL EXAM: GENERAL: alert, weak, awake oriented x 3 HEENT: EOMI, Sclera non icteric, moist mucosa NECK: Supple, no JVD, trachea midline LUNGS: Clear breath sounds bilaterally. No wheezes HEART: Regular rate and rhythm. Normal S1 and S2, without murmurs ABD: Abdomen soft, nontender. hyperactive bowel sounds present EXT: No clubbing cyanosis or edema NEURO: Alert and oriented to person, follows commands Vital Signs (last 8hr) Date Time Temp Pulse Resp B/P (MAP) Pulse Ox O2 Delivery O2 Flow Rate FiO2 07/07/24 15:50 97.5 96 18 110/75 100 Room Air 21 07/07/24 11:58 97.5 70 18 123/68 95 Room Air 21 LABS: Hematology Labs: Test 07/06/24 05:34 Range/Units White Blood Count 5.1 4.8-10.8 K/uL Red Blood Count 3.50 L 4.50-6.20 MIL/uL Hemoglobin 10.3 L 14.0-18.0 g/dL Hematocrit 31.1 L 42-54 % Mean Corpuscular Volume 88.9 79-99 fL Mean Corpuscular Hemoglobin 29.4 27.0-33.0 pg Mean Corpuscular Hemoglobin Concent 33.1 32.0-36.0 g/dL Red Cell Distribution Width 16.2 H 11.0-15.5 % Platelet Count 149 130-400 K/uL Mean Platelet Volume 9.4 7.5-10.5 fL Nucleated Red Blood Cells 0.0 0.0-0.19 % Chemistry Labs: Test 07/07/24 15:36 07/07/24 11:44 07/06/24 05:34 Range/Units Whole Blood Glucose 92 70-110 MG/DL Potassium Level 3.0 *L 3.5-5.1 mmol/L Sodium Level 141 136-145 mmol/L Chloride Level 106 101-111 mmol/L Carbon Dioxide Level 27 21-32 mmol/L Blood Urea Nitrogen 6 L 7-18 mg/dL Creatinine 0.5 0.5-1.3 mg/dL Glomerular Filtration Rate Calc 110 >90 mL/min Random Glucose 90 70-105 mg/dL Total Calcium 7.8 L 8.5-10.1 mg/dL DIAGNOSTICS / RADIOLOGY RESULTS: [ ] PLAN NEURO: Minimize central acting medications as possible. Maintain fall precautions, adequate lighting during the day PULMONARY: Supplemental 02 as needed. Maintain aspiration precautions at all times CARDIOVASCULAR: Follow hemodynamics. Vital signs per facility protocol GI & NUTRITION: Continue with nutritional support. Continue stool softeners and laxatives as needed. KIDNEYS & ELECTROLYTES: Strict monitoring of intake, output and overall fluid balance. Avoid nephrotoxic medications to the extent possible. Medications to be dosed according to renal function. Monitor electrolytes and replace as needed ENDOCRINE: Maintain blood glucose between 100-180 at all times. Hypoglycemia protocol in place INFECTIOUS DISEASE: Trend temperature, WBC and procalcitonin level Follow cultures, deescalate antibiotics as soon as possible. Panculture if new onset fever ONCOLOGY/HEMATOLOGY/COAGULATION: Monitor for s/s of bleeding Monitor hemoglobin, coagulation studies as needed SKIN: Pressure ulcer prevention per facility protocol Specialty mattress ORTHO/REHAB: Continue PT/OT Prophylaxis: Continue GI and DVT prophylaxis Code Status: Full Resuscitation Disposition: TBD Other: Total patient care time exceeds 35 minutes excluding all procedures. TERE SCALES Jul 07, 2024 19:52
[2024-07-08 06:38] LABS: POTASSIUM 3.4 mmol/L (3.5-5.1)
[2024-07-08 06:39] LABS: CREATININE 0.6 mg/dL (0.5-1.3)
[2024-07-08 08:00] VITALS: O2SAT 100
[2024-07-08 12:00] VITALS: BP 142/83; PULSE 101; RESP 18; TEMP 97.3
--- NOTE | 2024-07-08 13:10 | NUR ---
[facility] Follow-up: Patient re-assessed by wound healing team. Assessment and recommendations provided to primary nurse. Education provided. Wound care done. Addendum: 07/09/24 at 1311 by GAVIN SHANNON RN RN/ Amended: Links added.
[2024-07-08 16:00] VITALS: BP 113/73; PULSE 88; RESP 18; TEMP 97.3
--- NOTE | 2024-07-08 16:54 | DS ---
[facility] DISCHARGE SUMMARY Date Patient Seen: July 08, 2024 Time of Visit: 16:54 Supervising Physician: [Dr. Araiza] Primary Care Physician: Yfn Vogel Outpatient Specialists: [ ] Inpatient Consults: [ ] PROBLEM LIST: Acute hypotension, responsive to IVF POA Acute complicated cystitis, POA Diverticulitis and enterocolitis per CT on07/04/24 Urinary retention, chronic Jung use, POA Squamous cell carcinoma, chronic wound to left side of the head, sees Dr. Araiza for wound care Hyperlipidemia, POA AFib, rate controlled, POA DM type 2, POA History of hypertension, initially hypotensive on presentation in ED improved with IV fluid History of recent ischemic stroke PLAN: Continue eliquis, metoprolol home dose Completed antibiotic treatment for Ecoli Follow up on C-diff studies and treat accordingly No laxatives Continue wound care per specialist DCP to [facility] COURSE: HPI (per admitting provider) 68-year-old male with past medical history of hypertension, DM type 2, hyperlipidemia, recent acute ischemic stroke, chronic skin lesion to head who presented to ED with complaint of low blood pressure and found to have urinary tract infection, severe dehydration. Patient was seen and examined in ED with no relatives present at bedside. According to the patient while undergoing wound care at a local clinic, patient was found to have low systolic blood pressure in the 70s. Patient was then brought to ED for further medical evaluation. In ED patient was given2 L of IV fluids with significant improvement on his blood pressure which is currently SBP at124 mmHg right now. CBC was done and showed WBC of more than 28467, hemoglobin of 13, and hematocrit of 48. His chest x-ray showed no acute infiltrates, his flu and COVID tests were also negative. His chemistry did not reveal any acute electrolyte or kidney dysfunction. However his UA showed elevated leuko esterase consistent with urinary tract infection. In ED patient was initiated on IV fluids and started on ceftriaxone IV. At present patient is currently hemodynamically stable, on room air with appropriate oxygen saturation, not in acute respiratory distress. Patient denies any headache, shortness of breath, chest pain, cough, fever, abdominal, or flu-like symptoms. Patient is an ex-smoker, denies any alcohol intake, or illicit drug use. Apparently patient was recently discharged from this hospital two weeks ago with similar presentation. Patient was sent to [facility] and currently undergoing wound care as outpatient with Dr. Araiza. 07/02 Patient bedside, in the emergency department with provider present. Patient does not report any dysuria at this time, states that he had an abnormal laboratory finding it was family physician's office and due to his recent MDRO organism admission was told to report to the ED. patient's previous admission shows a multidrug resistant organism susceptible to Rocephin, patient continues on Rocephin at this time. 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 Current treatment plan was discussed with the patient he is in agreement at this time. 07/03 Patient evaluated at bedside today, no family was present for the evaluati on. He is resting well, AAO x3. Patient continues with loose stools at this time, would like to continue with his doses of Lomotil today. Appetite is improved at this time, we will continue with Marinol 2.5 mg b.i.d. for the remainder of his admission if necessary. Pending urine cultures, continues on Rocephin at this time per culture and susceptibility from his previous admiss ion. Placing C diff orders at this time for evaluation of his loose stools. Renal ultrasound shows no hydronephrosis. 07/04 Patient evaluated at bedside, tolerating his diet well, his appetite has significantly improved. At this time the patient's urinary cultures have returned with sensitivities to cephalexin. Currently pending on C diff screening. Patient continues with diarrhea, states that it was gas mixed with loose stools in large volume. Possible discharge discussed with the patient, he states that he feels he is unsure if he will be able to tolerate the significant amount of diarrhea that he is currently experiencing. He continues on loperamide at this time, we will add bismuth salicylate to his regimen and re- evaluate in the morning for improvement. Patient was cleared for discharge from a UTI perspective with outpatient prescription for Keflex. 07/05 Patient is seen at bedside today, he remains AAO x3 in good spirits, states that his stools have slightly improved overnight. Patient's CT scan from yesterday shows fat stranding consistent with diverticulitis as well as susp icion for enterocolitis versus early SBO, however patient has been tolerating his diet with no emesis and stools has been improving so SBO is unlikely at this time. Patient has been started on Flagyl as of yesterday, remains on Rocephin for complicated cystitis. Advised that we will continue with medical management as inpatient and once his symptoms have resolved to a point of safe discharge he can complete antibiotic therapy at home. Patient agreed with treatment plan at this time, no further changes made. 07/06 patient is evaluated at bedside. He continues with weakness and deconditioning. Did walk a few steps with physical therapy today per nurse. Patient is currently in AFib but is rate controlled. Will resume his home oral anticoagulation and antiarrhythmics. Nurse states patient's C diff study was canceled. He continues with loose stools. Nurse states patient's stool was more formed today and normal. Without blood or mucus. He continues on Rocephin and Flagyl for treatment of MDR E coli on urine culture. Patient is pending discharge to [facility]. Will follow with case management. 07/07 patient is evaluated at bedside. He appears weak and deconditioned. States continues with loose stools and much flatulence. Does admit abdominal cramping with bowel movements but not at rest. He denies any nausea or vomiting. Is able to tolerate oral intake but admits a decreased appetite. His blood pressure is maintained within normal limits, continues on Rocephin for E coli in the urine. He continues on IV fluids, we will decrease rate. Patient has scheduled MiraLax however has not been given by nursing due to persistent diarrhea. C diff study was ordered but canceled, repeat study to rule out C diff. he will discharge to [facility] once medically cleared. 07/08 Patient states his diarrhea is improving. Advised nursing staff to collect C diff sample for testing and patient may discharge to [facility], to follow up for results at a later time. No acute signs of infection. Patient was tolerating diet without nausea or vomiting. Labs and vitals reviewed and within normal limits. Patient was to Continue wound Care per specialist's recommendation. He was completed antibiotic therapy for E coli in the urine. CHRONIC PROBLEMS: continue previous management per PCP unless otherwise indicated DISCHARGE MEDICATIONS: As listed below. Pt hemodynamically stable and afebrile at time of discharge. PCP notified of patients admission, hospital course and discharge. Continued Medications: Albuterol Sulfate (Albuterol Sulfate) 2.5 Mg/3 Ml (0.083 %) Vial.neb 2.5 MG IH [id number] PRN for SHORTNESS OF BREATH for 30 Days, #30 INH Apixaban (Eliquis) 5 Mg Tablet 1 TAB PO BID for 30 Days, #60 TAB 0 Refills Atorvastatin Calcium (Lipitor) 40 Mg Tablet 40 MG PO HS for 30 Days, #30 TAB Cyclobenzaprine HCl (Cyclobenzaprine HCl) 5 Mg Tablet 1 TAB PO TIDP PRN for muscle spasms for 10 Days, #30 TAB 0 Refills Ipratropium [place] (Atrovent Neb Soln) 0.2 Mg/Ml (0.02 %) Soln 0.5 MG IH [id number] for 30 Days, #30 ML Meclizine HCl (Meclizine HCl) 12.5 Mg Tablet 12.5 MG PO TID PRN for DIZZINESS, #15 TAB Metformin HCl (Metformin HCl ER) 1,000 Mg Tab.er.24 1 TAB PO DAILY for 30 Days, #30 TAB 0 Refills Metoprolol Tartrate (Metoprolol Tartrate) 25 Mg Tablet 12.5 MG PO BID, TAB Mirtazapine (Mirtazapine) 7.5 Mg Tablet 1 TAB PO HS for 30 Days, #30 TAB 0 Refills Ondansetron (Ondansetron Odt) 8 Mg Tab.rapdis 1 TAB PO Q8H PRN for NAUSEA/VOMITING for 3 Days, #12 TAB 0 Refills Tamsulosin HCl (Flomax) 0.4 Mg Cap.er.24h 0.4 MG PO DAILY, CAPSULE. PHYSICAL EXAM: GENERAL: alert, weak, awake oriented x 3 HEENT: EOMI, Sclera non icteric, moist mucosa NECK: Supple, no JVD, trachea midline LUNGS: Clear breath sounds bilaterally. No wheezes HEART: Regular rate and rhythm. Normal S1 and S2, without murmurs ABD: Abdomen soft, nontender. hyperactive bowel sounds present EXT: No clubbing cyanosis or edema NEURO: Alert and oriented to person, follows commands FOLLOW-UP: Follow up on C-diff studies. Treat as indicated. Completed antibiotic treatment for UTI. Follow-up with PCP in 2-3 days for reevaluation and repeat UA. RECOMMENDATIONS: See Discharge Instructions This case was seen and discussed with my supervising physician. More than 30 minutes spent on discharge process, including evaluation of the patient, discussion with nursing staff, medication reconciliation and follow-up appointments TERE SCALES July 08, 2024 16:54
--- NOTE | 2024-07-08 17:00 | NUR ---
SHIFT NOTE Patient will complete antibiotic treatment for UTI/sepsis in hospital, no discharge antibiotics will be prescribed per [facility]. Appetite has improved on Marinol. Stools continue to improve consistency from loose to soft. C-diff PCR will be sent out and results will be relayed at next level of care as discharge is anticipated for today. Will discharge with mckeon catheter as patient has urinary retention.
--- NOTE | 2024-07-08 17:00 | NUR ---
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 AT BEDSIDE, PATIENT RELUCTANT TO BE DISCHARGED. STATED STILL HAD STOMACH DISCOMFORT. GENTLE TEACHING DONE RE BRAT DIET, FOOD DIARY, AND GRADUALLY ADDING FOODS BACK TO ENSURE NO REBOUND DIARRHEA. POOR ATTENTION SPAN. ADVISED PRIMARY RN WITH SUGGESTION TOT-1 ADD TO DISCHARGE TEACHING. Addendum: 07/09/24 at 0809 by BINA FRANCO RN Amended: Links added.
--- NOTE | 2024-07-08 19:27 | NUR ---
REPORT FOR TRANSFER OF CARE TO [facility] CALLED. Sharonda Spencer
--- NOTE | 2024-07-08 20:10 | NUR ---
DISCHARGE DISCUSSED AND GAVE DISCHARGE PAPERWORK TO PATIENT AND MEDIA CONSULTANT OF [facility]. IV CATHETER REMOVED, TIP IS INTACT. PATIENT TAKEN VIA WHEELCHAIR BY ME TO [facility]'S CAR. NO ISSUES.
== END 2024-07-08 20:10 | disposition home or self-care (01) | DRG 872 ==
LOC: EDH 16:01 → EDHIP 16:02 → 4DH 07-01 15:49
PROVIDERS: ADMIT Internal Medicine Critical Care Medicine; ATTEND Internal Medicine Critical Care Medicine
DX: A41.9 Sepsis, unspecified organism (principal); K57.32 Diverticulitis of large intestine without perforation or abscess without bleeding; N30.00 Acute cystitis without hematuria; Z16.24 Resistance to multiple antibiotics; E86.0 Dehydration; I48.91 Unspecified atrial fibrillation; K52.9 Noninfective gastroenteritis and colitis, unspecified; B96.20 Unspecified Escherichia coli [E. coli] as the cause of diseases classified elsewhere; E11.9 Type 2 diabetes mellitus without complications; G89.29 Other chronic pain; M54.9 Dorsalgia, unspecified; I11.9 Hypertensive heart disease without heart failure; E78.00 Pure hypercholesterolemia, unspecified; Z85.828 Personal history of other malignant neoplasm of skin; Z86.73 Personal history of transient ischemic attack (TIA), and cerebral infarction without residual deficits; Z87.891 Personal history of nicotine dependence; Z88.0 Allergy status to penicillin
CPT/HCPCS: 36415; 71045; 74018; 74176; 76770; 80048; 80076; 81001; 82948; 83605; 83690; 83735; 84100; 84132; 84145; 85025; 85027; 87086; 87186; 87426; 87804; 87880; 93005; 94640; 94664; 96361; 96374; 99291; G0378; J0696; J1650; J3475; J3480; J3490; J7030; Q0167; Q9963; A4600; A6260

== ENCOUNTER 2024-07-12 09:58 | Observation (INO) | payer SELFPAY ==
[~2024-07-12] VITALS: Ht 172.7 cm; Wt 97.5 kg
[~2024-07-12 09:58] MED LIST changes: -APIX2.5T PO; +APIX5TAB PO; +CYCL5TAB3 PO; -METO25 PO; +METO25TA6 PO; +MIRT7.5T11 PO; +ONDA-245 PO; -miDODRine HCL 5 MG TABLET PO
--- NOTE | 2024-07-12 10:13 | ERN ---
General Chief Complaint: Hypotension Stated Complaint: HYPOTENSION Time Seen by MD: 09:59 History of Present Illness Initial Comments 69M BIB EMS from Dr Araiza's office for hypotension. Patient has a hx of SCC, had recent resection on the head, and was following up with wound care and he was noted to have a blood pressure of 70/50 and tachycardia heart rate of 110. Patient reports he did feel dizzy this morning and quite light headed with movement. He reports a near syncopal episode he denies any chest pain. He reports he may have had a subjective fever last night. No nausea or vomiting. P.o. tolerant. He was just discharged from this facility a few days ago. Allergies: Coded Allergies: Penicillins (Verified Allergy, 03/08/13) Home Meds Active Scripts Meclizine HCl (Meclizine HCl) 12.5 Mg Tablet, 12.5 MG PO TID PRN for DIZZINESS, #15 TAB Prov:ANUSHA PRAJAPATI CONSTRUCTION PLUMBER 05/17/24 Ipratropium [place] (Atrovent Neb Soln) 0.2 Mg/Ml (0.02 %) Soln, 0.5 MG IH [id number] for 30 Days, #30 ML Prov:SIMON DE LA VEGA MD 05/05/24 Metformin HCl (Metformin HCl ER) 1,000 Mg Tab.er.24, 1 TAB PO DAILY for 30 Days, #30 TAB 0 Refills Prov:SIMON DE LA VEGA MD 05/05/24 Atorvastatin Calcium (LIPITOR) 40 Mg Tablet, 40 MG PO HS for 30 Days, #30 TAB Prov:SIMON DE LA VEGA MD 05/05/24 Albuterol Sulfate (Albuterol Sulfate) 2.5 Mg/3 Ml (0.083 %) Vial.neb, 2.5 MG IH [id number] PRN for SHORTNESS OF BREATH for 30 Days, #30 INH Prov:SIMON DE LA VEGA MD 05/05/24 Reported Medications Ondansetron (Ondansetron Odt) 8 Mg Tab.rapdis, 1 TAB PO Q8H PRN for NAUSEA/VOMITING for 3 Days, #12 TAB 0 Refills 25 Mirtazapine (Mirtazapine) 7.5 Mg Tablet, 1 TAB PO HS for 30 Days, #30 TAB 0 Refills 4/24/25 Apixaban (Eliquis) 5 Mg Tablet, 1 TAB PO BID for 30 Days, #60 TAB 0 Refills 07/01/24 Cyclobenzaprine HCl (Cyclobenzaprine HCl) 5 Mg Tablet, 1 TAB PO TIDP PRN for muscle spasms for 10 Days, #30 TAB 0 Refills 07/01/24 Metoprolol Tartrate (Metoprolol Tartrate) 25 Mg Tablet, 12.5 MG PO BID, TAB 07/01/24 Tamsulosin HCl (Flomax) 0.4 Mg Cap.er.24h, 0.4 MG PO DAILY, CAPSULE. 06/16/24 Past Medical History Past Medical History: Anxiety, Cancer, CVA, Depression, Diabetes-Type II, High Cholesterol, Hypertension Medical History Other: SQUAMOUS CELL CARCINOMA Past Surgical History: Tonsillectomy Social History Social History: Other ROS Dictation CONSTITUTIONAL: No chills, no fever, no weakness, no diaphoresis, no malaise. HEAD/FACE: No signs of trauma. EENT: No eye pain, no blurred vision, no tearing, no double vision, no ear pain, no ear discharge, no nose pain, no nasal congestion, no throat pain, no throat swelling, no mouth pain. RESPIRATORY: No cough, no orthopnea, no SOB, no stridor, no wheezing. CARDIOVASCULAR: Dizzy near-syncope GASTROINTESTINAL/ABDOMINAL: No abdominal pain, no constipation, no diarrhea, no nausea, no vomiting. GENITOURINARY: No abnormal discharge, no dysuria, no frequent urination, no hematuria. No complaints of pain in the genitals. MUSCULOSKELETAL: No back pain, no gout, no joint pain, no joint swelling, no muscle pain, no muscle stiffness, no neck pain. INTEGUMENTARY: No change in color, no change in hair/nails, no dryness, no lesion, no lumps, no rash. NEUROLOGICAL/PSYCH: No anxiety, not depressed, no emotional problem, no headache, no numbness, no pre-existing deficit, no history of seizures, no tremors, no weakness. HEMATOLOGIC/LYMPHATIC: Not anemic, no history of blood clots, no apparent bleed ing, no bruising, glands not swollen. All Systems Negative, Except as Noted. Physical Exam Physical Exam Dictation VITAL SIGNS: Reviewed. GENERAL APPEARANCE: Alert, oriented x3, frail and weak dry mucous membranes HEAD AND FACE: Non-traumatic. EYES: PERRL, pink conjunctivas, eyelid no trauma, anterior chamber clear. EARS: Pinnas intact and no signs of trauma or erythema. Ear canals clear and no discharge. TMs no erythema. NOSE: No discharge, no bleeding. OROPHARYNX: Mouth normal, teeth no caries, tongue pink. Pharynx clear, no erythema. Tonsils no exudates, no abscesses noted. Mucous membrane moist. NECK: Supple, non-tender, no thyromegaly, no masses, no JVD, no bruits. BREAST: Deferred. CHEST: No tenderness, no crepitus, no paradoxical movement, no retractions. LUNGS: Clear, well-ventilated, symmetric, no rales, no wheezing, no rhonchi, no stridor, good breath sounds bilaterally. HEART: Regular rate, regular rhythm, no murmur, no gallops. VASCULAR: No peripheral edema. ABDOMEN: Soft, positive bowel sounds, nondistended, no guarding, nontender, no rebound, no masses no hepatomegaly, no splenomegaly, no Galvin's sign, no hernias. RECTAL: Deferred. GENITAL: Deferred. NEUROLOGICAL: Normal speech, gross motor function intact, gross sensory function intact. MUSCULOSKELETAL: Neck nontender, full range of motion, back nontender, full range of motion. EXTREMITIES: Nontender, full range of motion. SKIN: Color pink, dry, no turgor, no rash, no lacerations, no abrasions, no contusions. LYMPHATICS: Deferred. MDM CC: Hypotension, dizziness / near-syncope Historian: Patient Comorbidities: Hypertension, diabetes, AFib, dyslipidemia, recent stroke, chronic stent lesion. Limitations by social determinants of health: None Differential diagnosis: Shock, sepsis, dehydration, anemia, arrhythmia, cardiogenic shock, other Patient had documented vital signs 70/50 at the outside facility with the EMS. Given a small fluid bolus placed in Trendelenburg in vital signs improved. On arrival here blood pressure 99/59, heart rate 91, afebrile. Patient was nontoxic in appearance. Labs ( independently ordered and interpreted by me ): No leukocytosis or shift. Hemoglobin 10.8 normocytic. I performed an external chart review to check previous labs, in June of 2024 he had a hemoglobin of 10.3 appears to be patient was baseline. Coags are stable. Electrolytes show potassium 3.2 otherwise stable. Kidney function stable. Lactic acid is normal. Troponin is normal. BNP 248. Procalcitonin normal. EKG (independently interpreted by me): Atrial fibrillation rate of 100, IVCD, no obvious ischemia. CXR (independently ordered and interpreted by me ): MediPort catheter present, no cardiomegaly or pleural effusions or focal infiltrates. Treatment in ED: 1 L lactated Ringer's Patient was reassessed in the ER, stable vital signs. Since the patient was recently discharged, we will admit for observation. Hospitalist consulted, agrees with the admission for observation. ED Course Vital Signs Date Time Temp Pulse Resp B/P (MAP) Pulse Ox O2 Delivery O2 Flow Rate FiO2 07/12/24 09:59 96.8 91 15 99/59 100 Room Air 0 07/12/24 09:59 96.8 91 15 99/59 100 Room Air* 0 21 DX & DISP Disposition: Inpatient Departure Impression: Primary Impression: Hypotension Additional Impressions: Dehydration, Anemia Condition: Stable Referrals: HAO SHEARER MD (PCP) MIRELLA LOUIS DO July 12, 2024 10:13
[2024-07-12] MEDS: LACTATED RINGERS 1000ML 1,000 ML IV ONE (10:46)
--- NOTE | 2024-07-12 10:46 | HMCIMG ---
Exam Type: CHEST 1VW Clinical Information: chest pain Comparison: None Findings: Left MediPort catheter is seen in place. There is no pneumothorax. The lungs are clear of infiltrates. The heart is normal in size. The bony and soft tissue structures of the chest are unremarkable. Impression: Clear lungs.
[2024-07-12 11:25] LABS: BASOPHILS # (AUTO) 0.05 K/uL (0.00-0.20); BASOPHILS % (AUTO) 0.6 % (0.0-5.0); EOSINOPHILS # (AUTO) 0.14 K/uL (0.00-0.70); EOSINOPHILS % (AUTO) 1.6 % (0.0-8.0); IMMATURE GRANULOCYTE ABSOLUTE 0.06 K/uL (0-1); LYMPHOCYTES # (AUTO) 1.6 K/uL (1.0-4.8); LYMPHOCYTES % (AUTO) 18.5 % (21.0-51.0); MEAN CORPUSCULAR HEMOGLOBIN 29.3 pg (27.0-33.0); MEAN CORPUSCULAR HGB CONC 32.7 g/dL (32.0-36.0); MEAN CORPUSCULAR VOLUME 89.4 fL (79-99); MONOCYTES # (AUTO) 0.8 K/uL (0.1-1.0); MONOCYTES % (AUTO) 8.9 % (3.0-13.0); NEUTROPHILS # (AUTO) 6.1 K/uL (1.8-7.7); NEUTROPHILS % (AUTO) 69.7 % (40.0-77.0); PLATELET COUNT (AUTO) 217 K/uL (130-400); RED BLOOD CELL COUNT(AUTO) 3.69 MIL/uL (4.50-6.20); RED CELL DISTRIBUTION WIDTH 17.1 % (11.0-15.5); WHITE BLOOD COUNT (AUTO) 8.7 K/uL (4.8-10.8)
[2024-07-12 11:34] LABS: CREATININE 0.7 mg/dL (0.5-1.3); POTASSIUM 3.2 mmol/L (3.5-5.1)
[2024-07-12 11:37] LABS: INR 1.22 (0.85-1.15); PROTHROMBIN TIME 12.7 SEC (9.6-11.6)
[2024-07-12 11:38] LABS: PARTIAL THROMBOPLASTIN TIME 35.4 SEC (26.3-35.5)
[2024-07-12 11:41] LABS: MAGNESIUM 1.1 mg/dL (1.80-2.40)
[2024-07-12 11:52] LABS: B-TYPE NATRIURETIC PEPTIDE 248 pg/mL (0-100)
--- NOTE | 2024-07-12 12:03 | EKG ---
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
[2024-07-12] MEDS ORDERED: ondanSETRON 4MG INJ IV PRN (13:00)
[2024-07-12] MEDS ORDERED: guaiFENesin SUGAR-FREE 100 MG/5 ML UDCUP PO PRN (13:00)
[2024-07-12] MEDS ORDERED: MAG/ALUM/SIMETH 30 ML UDCUP PO PRN (13:00)
[2024-07-12] MEDS ORDERED: acetaMINOPHEN 325 MG TAB PO PRN ×2 (13:00)
[2024-07-12] MEDS ORDERED: LACTULOSE 20 GM/30 ML UDCUP PO PRN (13:00)
[2024-07-12] MEDS ORDERED: LIDOCAINE HCL 2% VISCOUS 30 ML, MAG/ALUM/SIMETH 30ML 30 ML, DICYCLOMINE HCL 20 MG PO PRN (13:00)
[2024-07-12] MEDS ORDERED: NITROGLYCERIN 0.4 MG SL TAB SL PRN (13:00)
[2024-07-12] MEDS ORDERED: DiphenhydrAMINE HCL 50 MG/ML VIAL IV PRN (13:00)
[2024-07-12] MEDS ORDERED: guaiFENesin-DM 200/20MG 10ML PO PRN (13:00)
[2024-07-12] MEDS ORDERED: BENZOCAINE/MENTH/CETYLPYRD CL 1 EACH LOZENGE MM PRN (13:00)
[2024-07-12] MEDS ORDERED: ARTIFICAL TEARS SOL 15 ML OP PRN (13:00)
[2024-07-12] MEDS ORDERED: miDODRine HCL 5 MG TABLET PO PRN (13:00)
[2024-07-12] MEDS ORDERED: polyETHYLene GLYCol 3350 17 GM POWD.PACK PO PRN (13:00)
[2024-07-12] MEDS ORDERED: DiphenhydrAMINE HCL 25 MG CAPSULE PO PRN (13:00)
--- NOTE | 2024-07-12 13:02 | HP ---
[facility] HISTORY & PHYSICAL Date Patient Seen: July 12, 2024 Time of Visit: 13:01 Supervising Physician: [Dr. Goodson] Primary Care Physician: [Dr. Yfn Vogel] Outpatient Specialists: [ ] Inpatient Consults: [ ] PROBLEM LIST: Acute on chronic hypotension, responsive to IVF POA Urinary retention, chronic Jung use, POA Squamous cell carcinoma, chronic wound to left side of the head, sees Dr. Araiza for wound care Hyperlipidemia, POA AFib, rate controlled, POA DM type 2, POA History of recent ischemic stroke HPI: [This is a 69-year-old male with past medical history of hypertension, DM type 2, atrial fibrillation, hyperlipidemia, recent acute ischemic stroke, chronic skin lesion to head who presented to ED with complaint of low blood pressure. Patient was seen and examined in ED with no relatives present at bedside. According to the patient while undergoing wound care at a local clinic, patient was found to have low systolic blood pressure of 70/50 and tachycardia heart rate of 110. He reports poor oral intake recently. He was discharged from this facility a few days ago with complaints of diarrhea at that time. He admits continuing with diarrhea, however is unable to quantify his symptoms. His labs on admission show mild anemia, hypokalemia and hypomagnesemia, but were otherwise unremarkable. BNP was elevated at 248, troponin negative. CXR was clear. No current abdominal pain, nausea, or vomi ting.] PAST MEDICAL HX: see above PAST SURGICAL HX: noncontributory SOCIAL HISTORY: No tobacco, ETOH, or illicit drug use Coded Allergies: Penicillins (Verified Allergy, 03/08/13) REVIEW OF SYSTEMS: 12 point ROS reviewed with patient. Pertinent positives mentioned above. Otherwise negative. PHYSICAL EXAM: GENERAL: alert, weak, awake oriented x 3 HEENT: EOMI, Sclera non icteric, moist mucosa NECK: Supple, no JVD, trachea midline LUNGS: Clear breath sounds bilaterally. No wheezes HEART: Regular rate and rhythm. Normal S1 and S2, without murmurs ABD: Abdomen soft, nontender. Bowel sounds present EXT: No clubbing cyanosis or edema NEURO: Alert and oriented to person, follows commands Vital Signs (last 8hr) Date Time Temp Pulse Resp B/P (MAP) Pulse Ox O2 Delivery O2 Flow Rate FiO2 07/12/24 12:40 97.7 95 12 124/74 98 Room Air* 0 21 07/12/24 11:17 97.7 83 16 135/82 98 Room Air* 0 21 07/12/24 09:59 96.8 91 15 99/59 100 Room Air 0 07/12/24 09:59 96.8 91 15 99/59 100 Room Air* 0 21 LABS: Hematology Labs: Test 07/12/24 11:15 Range/Units White Blood Count 8.7 4.8-10.8 K/uL Red Blood Count 3.69 L 4.50-6.20 MIL/uL Hemoglobin 10.8 L 14.0-18.0 g/dL Hematocrit 33.0 L 42-54 % Mean Corpuscular Volume 89.4 79-99 fL Mean Corpuscular Hemoglobin 29.3 27.0-33.0 pg Mean Corpuscular Hemoglobin Concent 32.7 32.0-36.0 g/dL Red Cell Distribution Width 17.1 H 11.0-15.5 % Platelet Count 217 130-400 K/uL Mean Platelet Volume 9.0 7.5-10.5 fL Immature Granulocyte % (Auto) 0.7 0-1 % Neutrophils (%) (Auto) 69.7 40.0-77.0 % Lymphocytes (%) (Auto) 18.5 L 21.0-51.0 % Monocytes (%) (Auto) 8.9 3.0-13.0 % Eosinophils (%) (Auto) 1.6 0.0-8.0 % Basophils (%) (Auto) 0.6 0.0-5.0 % Neutrophils # (Auto) 6.1 1.8-7.7 K/uL Lymphocytes # (Auto) 1.6 1.0-4.8 K/uL Monocytes # (Auto) 0.8 0.1-1.0 K/uL Eosinophils # (Auto) 0.14 0.00-0.70 K/uL Basophils # (Auto) 0.05 0.00-0.20 K/uL Absolute Immature Granulocyte (auto 0.06 0-1 K/uL Nucleated Red Blood Cells 0.0 0.0-0.19 % Chemistry Labs: Test 07/12/24 11:15 Range/Units Sodium Level 143 136-145 mmol/L Potassium Level 3.2 L 3.5-5.1 mmol/L Chloride Level 105 101-111 mmol/L Carbon Dioxide Level 25 21-32 mmol/L Blood Urea Nitrogen 11 7-18 mg/dL Creatinine 0.7 0.5-1.3 mg/dL Glomerular Filtration Rate Calc 99 >90 mL/min Random Glucose 73 70-105 mg/dL Lactic Acid Level 1.7 0.8-2.5 mmol/L Total Calcium 8.1 L 8.5-10.1 mg/dL Magnesium Level 1.10 L 1.80-2.40 mg/dL Total Creatine Kinase 24 # 21-232 U/L Troponin I High Sensitivity 11.9 4-75 ng/L B-Type Natriuretic Peptide 248 H 0-100 pg/mL Coagulation Labs: Test 07/12/24 11:15 Range/Units Prothrombin Time 12.7 H 9.6-11.6 SEC Prothromb Time International Ratio 1.22 H 0.85-1.15 Activated Partial Thromboplast Time 35.4 26.3-35.5 SEC DIAGNOSTICS / RADIOLOGY RESULTS: [ ] PLAN Complete IV fluids Repeat UA Monitor blood pressure Start midodrine 5 mg t.i.d. scheduled Replace electrolytes as indicated Repeat BMP in a.m. If blood pressure remains normal, we will likely DC in AM with midodrine NEURO: Minimize central acting medications as possible. Maintain fall precautions, adequate lighting during the day PULMONARY: Supplemental 02 as needed. Maintain aspiration precautions at all times CARDIOVASCULAR: Follow hemodynamics. Vital signs per facility protocol GI & NUTRITION: Continue with nutritional support. Continue stool softeners and laxatives as needed. KIDNEYS & ELECTROLYTES: Strict monitoring of intake, output and overall fluid balance. Avoid nephrotoxic medications to the extent possible. Medications to be dosed according to renal function. Monitor electrolytes and replace as needed ENDOCRINE: Maintain blood glucose between 100-180 at all times. Hypoglycemia protocol in place INFECTIOUS DISEASE: Trend temperature, WBC and procalcitonin level Follow cultures, deescalate antibiotics as soon as possible. Panculture if new onset fever ONCOLOGY/HEMATOLOGY/COAGULATION: Monitor for s/s of bleeding Monitor hemoglobin, coagulation studies as needed SKIN: Pressure ulcer prevention per facility protocol Specialty mattress ORTHO/REHAB: Continue PT/OT Prophylaxis: Continue GI and DVT prophylaxis Code Status: Full Resuscitation Disposition: TBD Other: Total patient care time exceeds 35 minutes excluding all procedures. TERE SCALES July 12, 2024 13:02
[2024-07-12] MEDS: MAGNESIUM 2GM PREMIX 50ML 50 ML IV SCH (18:53)
[2024-07-12] MEDS: INSULIN LISpro 100 UNIT/ML 3ML SQ SCH (18:58)
[2024-07-12] MEDS: miDODRine HCL 5 MG TABLET PO SCH (19:26)
[2024-07-12] MEDS: PoTASSium chloRIDE 20MEQ ER 20 MEQ ERTAB PO SCH (20:54)
[2024-07-12] MEDS: FAMOTIDINE 20MG TAB PO SCH (20:55)
[2024-07-12] MEDS ORDERED: FAMOTIDINE 20MG VIAL IV SCH (21:00)
[2024-07-13 04:36] VITALS: BP 121/79; PULSE 84; RESP 16; TEMP 98
--- NOTE | 2024-07-13 05:35 | NUR ---
PATIENT DID NOT BRING HOME MEDICATIONS. WILL CALL [facility]F-WAY FOR LIST OF MEDICATIONS
[2024-07-13 06:40] LABS: CREATININE 0.9 mg/dL (0.5-1.3); MAGNESIUM 1.5 mg/dL (1.80-2.40); POTASSIUM 3.5 mmol/L (3.5-5.1)
--- NOTE | 2024-07-13 07:30 | NUR ---
HOME MEDICATION NOT REVIEWED. PATIENT DOES NOT REMEMBER WHAT MEDICATIONS HE TAKES. ENCOURAGED PATIENT TO NOTIFY FAMILY MEMBERS TO BRING HIS HOME MEDICATIONS. HE VERBALIZED UNDERSTANDING.
--- NOTE | 2024-07-13 09:15 | NUR ---
DCP: RETURN TO [facility] Pt was discharged home on 07/08 and has returned again. Pt states nothing has changed since last week, he continues to live at [facility]. Reports that he needs are met by staff for home management, meals, transportation and ADLS. Pt has access to walker and w/c, goes to [facility] and PCP is Louis Vogel. Pt to return to [facility] at [place] Spare Fixer is Sharonda Montesinos [phone] Addendum: 07/13/24 at 0934 by SAMI FERNÁNDEZ Amended: Links added.
[2024-07-13] MEDS ORDERED: PHARMACY COMMUNICATION 1 EACH EACH MISC SCH (09:30)
--- NOTE | 2024-07-13 11:29 | NUR ---
BLOOD GLUCOSE 131. NO INSULIN COVERAGE NEEDED AT THIS TIME.
[2024-07-13 12:00] VITALS: TEMP 98
[2024-07-13] MEDS ORDERED: MIDO5TAB4 PO (13:06)
--- NOTE | 2024-07-13 13:06 | DS ---
[facility] DISCHARGE SUMMARY Date Patient Seen: July 13, 2024 Time of Visit: 13:06 Supervising Physician: [Dr. Goodson] Primary Care Physician: [Dr. Yfn Vogel] Outpatient Specialists: [ ] Inpatient Consults: [] PROBLEM LIST: Acute on chronic hypotension, responsive to IVF POA Urinary retention, chronic Jung use, POA Squamous cell carcinoma, chronic wound to left side of the head, sees Dr. Araiza for wound care Hyperlipidemia, POA AFib, rate controlled, POA DM type 2, POA History of recent ischemic stroke HOSPITAL COURSE: HPI (per admitting provider) [This is a 69-year-old male with past medical history of hypertension, DM type 2, atrial fibrillation, hyperlipidemia, recent acute ischemic stroke, chronic skin lesion to head who presented to ED with complaint of low blood p ressure. Patient was seen and examined in ED with no relatives present at bedside. According to the patient while undergoing wound care at a local clinic, patient was found to have low systolic blood pressure of 70/50 and tachycardia heart rate of 110. He reports poor oral intake recently. He was discharged from this facility a few days ago with complaints of diarrhea at that time. He admits continuing with diarrhea, however is unable to quantify his symptoms. His labs on admission show mild anemia, hypokalemia and hypomagnesemia, but were otherwise unremarkable. BNP was elevated at 248, troponin negative. CXR was clear. No current abdominal pain, nausea, or vomiting.] 07/13 patient was evaluated at bedside. He does complain of three episodes of lo ose stool, bedside nurse states no diarrhea but was episodes of small smudges of stool to diaper. Blood pressure has held up well with SBP in 130s. He continues on midodrine scheduled. No other abnormal lab findings, we will discharge back to [facility] today to continue on midodrine outpatient. The patient was treated for the following problems: ACTIVE PROBLEM LIST FOR THE HOSPITALIZATION: CHRONIC PROBLEMS: continue previous management per PCP unless otherwise indicated DISCHARGE MEDICATIONS: Listed below. Pt hemodynamically stable and afebrile at time of discharge. PCP notified of patient�s admission, hospital course and discharge. New Medications: Midodrine HCl (Midodrine HCl) 5 Mg Tablet 1 TAB PO TID for 30 Days, #90 TAB 0 Refills Continued Medications: Albuterol Sulfate (Albuterol Sulfate) 2.5 Mg/3 Ml (0.083 %) Vial.neb 2.5 MG IH [id number] PRN for SHORTNESS OF BREATH for 30 Days, #30 INH Apixaban (Eliquis) 5 Mg Tablet 1 TAB PO BID for 30 Days, #60 TAB 0 Refills Atorvastatin Calcium (Lipitor) 40 Mg Tablet 40 MG PO HS for 30 Days, #30 TAB Cyclobenzaprine HCl (Cyclobenzaprine HCl) 5 Mg Tablet 1 TAB PO TIDP PRN for muscle spasms for 10 Days, #30 TAB 0 Refills Ipratropium [place] (Atrovent Neb Soln) 0.2 Mg/Ml (0.02 %) Soln 0.5 MG IH [id number] for 30 Days, #30 ML Meclizine HCl (Meclizine HCl) 12.5 Mg Tablet 12.5 MG PO TID PRN for DIZZINESS, #15 TAB Metformin HCl (Metformin HCl ER) 1,000 Mg Tab.er.24 1 TAB PO DAILY for 30 Days, #30 TAB 0 Refills Metoprolol Tartrate (Metoprolol Tartrate) 25 Mg Tablet 12.5 MG PO BID, TAB Mirtazapine (Mirtazapine) 7.5 Mg Tablet 1 TAB PO HS for 30 Days, #30 TAB 0 Refills Ondansetron (Ondansetron Odt) 8 Mg Tab.rapdis 1 TAB PO Q8H PRN for NAUSEA/VOMITING for 3 Days, #12 TAB 0 Refills Tamsulosin HCl (Flomax) 0.4 Mg Cap.er.24h 0.4 MG PO DAILY, CAPSULE. PHYSICAL EXAM: GENERAL: alert, weak, awake oriented x 3 HEENT: EOMI, Sclera non icteric, moist mucosa NECK: Supple, no JVD, trachea midline LUNGS: Clear breath sounds bilaterally. No wheezes HEART: Regular rate and rhythm. Normal S1 and S2, without murmurs ABD: Abdomen soft, nontender. Bowel sounds present EXT: No clubbing cyanosis or edema NEURO: Alert and oriented to person, follows commands FOLLOW-UP: Continue midodrine outpatient. Continue wound care as scheduled outpatient. Follow up with PCP for re-evaluation monitoring of blood pressure. RECOMMENDATIONS: See Discharge Instructions This case was seen and discussed with my supervising physician. More than 30 minutes spent on discharge process, including evaluation of the patient, discussion with nursing staff, medication reconciliation and follow-up appointments TERE SCALES July 13, 2024 13:06
--- NOTE | 2024-07-13 13:06 | NUR ---
ASSUMED CARE AT THIS TIME.
--- NOTE | 2024-07-13 13:43 | NUR ---
[facility] Consult: Patient assessed by wound healing team. See wound assessment. Assessment and recommendations provided to primary nurse. Education provided. Addendum: 07/13/24 at 1637 by GAVIN SHANNON RN RN/ Amended: Links added.
[2024-07-13 14:49] VITALS: BP 120/76; PULSE 102; RESP 19; O2SAT 98
--- NOTE | 2024-07-13 15:14 | NUR ---
DISCHARGE PT DISCHARGED AT THIS TIME. IV REMOVED. TRANSPORTED USING WHEEL CHAIR INTO PERSONAL VEHICLE.
== END 2024-07-13 15:39 | disposition home or self-care (01) ==
LOC: EDH 09:58 → EDHIP 09:59
PROVIDERS: ADMIT Internal Medicine Critical Care Medicine; ATTEND Internal Medicine Critical Care Medicine
DX: I95.89 Other hypotension (principal); R33.9 Retention of urine, unspecified; E78.5 Hyperlipidemia, unspecified; I48.91 Unspecified atrial fibrillation; I10 Essential (primary) hypertension; E78.00 Pure hypercholesterolemia, unspecified; E83.42 Hypomagnesemia; E86.0 Dehydration; E87.6 Hypokalemia; E11.9 Type 2 diabetes mellitus without complications; D64.9 Anemia, unspecified; F41.9 Anxiety disorder, unspecified; F32.A Depression, unspecified; Z86.73 Personal history of transient ischemic attack (TIA), and cerebral infarction without residual deficits; Z85.828 Personal history of other malignant neoplasm of skin; Z88.0 Allergy status to penicillin; Z79.899 Other long term (current) drug therapy
CPT/HCPCS: 36415; 71045; 80048; 82550; 82948; 83605; 83735; 83880; 84145; 84484; 85025; 85610; 85730; 87040; 93005; 96361; 96365; 96366; 96376; G0378; J3475